=== PATIENT | female | born 1970 | race Caucasian/White ===

== ENCOUNTER 2018-02-12 22:12 | Emergency (ER) | payer OTHER ==
[2018-02-12 22:19] VITALS: BP 95/59; PULSE 62; BMI 22.4
--- NOTE | 2018-02-13 01:23 | PDOC ---
History of Present Illness - General Chief Complaint: Redness To Affected Area Stated Complaint: CELLULITIS Time Seen by Provider: 02/13/18 01:20 - History of Present Illness Initial Comments: 02/13/18 02:07 The patent is a 47 year old female with a history of cerebal palsy, seizures, pancreatitis who presents for evaluation of redness to the left eye. The patient is accompanied by her aid who assists in providing the history. They note a 1-2 day history of worsening redness to the area around the left eye prompting her presentation to the ED for further evaluation. The patient is non -verbal at baseline and the patient's aid does not note any other complaints. ROS is unobtainable due to the patient's baseline mental status. Past History - Past Medical History Allergies/Adverse Reactions: Allergies Allergy/AdvReac Type Severity Reaction Status Date / Time No Known Allergies Allergy Verified 02/18/16 13:28 Home Medications: Ambulatory Orders Acetic Acid 2% Otic Soln [Vosol 2% Ear Drops -] 3 drop OT HS 02/18/16 Baclofen 20 mg PO TID 02/18/16 Benzoyl Peroxide 5% Gel - 1 applic TP BID 02/18/16 Bisacodyl Suppository [Dulcolax Suppository -] 10 mg RC PRN 02/18/16 Cholecalciferol (Vitamin D3) [Vitamin D3 -] 400 unit GT BID 02/18/16 Cranberry Fruit Extract/Vit C [Azo Cranberry Softgel] 1 each PO DAILY 02/18/16 Diazepam [Valium] 2 mg PO TID 02/18/16 Enema Bag, Disposable [Enema Bag] 1 each RC PRN 02/18/16 Lactobacillus Acidophilus [Acidophilus] 2 tab PO DAILY 02/18/16 Magnesium Hydrox 2400MG/30Ml [Milk of Magnesia -] 15 ml PO DAILY 02/18/16 Nut.tx.imp.renal Fxn,Lac-Reduc [Nepro Carb Steady] 125 ml PO ASDIR 02/18/16 Nystatin/Triamcin [Nystatin-Triamcinolone Cream] 15 gm TP PRN 02/18/16 Ranitidine HCl [Zantac] 300 mg PO HS 02/18/16 predniSONE [Deltasone -] See Taper PO DAILY #14 tablet 02/23/16 Amoxicillin/Potassium Clav [Augmentin 875-125 Tablet] 1 each PEG BID #20 tablet 02/13/18 Sulfamethoxazole/Trimethoprim [Bactrim Ds -] 2 tab PEG BID #40 tablet 02/13/18 COPD: No GI Disorders: Yes (GERD, s/p fundoplication, g-tube, hx pancreatitis) Seizures: Yes (epilepsy) - Surgical History Abdominal Surgery: Yes (G-tube, fundoplication) Cholecystectomy: Yes GI Surgery: Yes (Ladi fundoplication) Orthopedic Surgery: Yes (femoral head resection, spinal fusion with instrumentation for scoliosis) - Immunization History TDAP Vaccination: Yes (last 09/23/04) Immunization Up to Date: Yes - Suicide/Smoking/Psychosocial Hx Smoking History: Never smoked Have you smoked in the past 12 months: No Hx Alcohol Use: No Drug/Substance Use Hx: No Substance Use Type: None Review of Systems - Review of Systems Able to Perform ROS?: No (Cerebral Palsy) *Physical Exam - Vital Signs Last Vital Signs Temp Pulse Resp BP Pulse Ox 62 18 95/59 L 94 L 02/12/18 22:14 02/12/18 22:14 02/12/18 22:14 02/12/18 22:14 - Physical Exam Comments: 02/13/18 02:11 General Appearance: Nourished. No Apparent Distress HEENT: EOMI, DEMETRIA. Erythema noted around the left eye. No Pharyngeal Erythema, Tonsillar Exudate, Tonsillar Erythema Neck: No Cervical Lymphadenopathy Respiratory/Chest: Lungs Clear, Normal Breath Sounds. No Crackles, Rales, Rhonchi, Wheezing Cardiovascular: Regular Rhythm, Regular Rate. No Murmur, Gallops, Rubs Gastrointestinal/Abdominal: Normal Bowel Sounds, Soft. Gtube in place. No Guarding, Rebound, Tenderness Musculoskeletal: No CVA Tenderness Extremity: Normal Capillary Refill Integumentary: Normal Color, Dry, Warm Neurologic: Alert, Normal Mood/Affect, Normal Response for baseline, Non- Verbal Moderate Sedation - Procedure Monitoring Vital Signs: Procedure Monitoring Vital Signs Temperature Pulse Rate 62 02/12/18 22:14 Respiratory Rate 18 02/12/18 22:14 Blood Pressure 95/59 L 02/12/18 22:14 O2 Sat by Pulse Oximetry (%) 94 L 02/12/18 22:14 Medical Decision Making - Medical Decision Making 02/13/18 02:12 The patent is a 47 year old female with a history of cerebal palsy, seizures, pancreatitis who presents for evaluation of redness to the left eye. Given the patient's history and physical exam, her symptoms are likely due to a pre- septal cellulitis and we have a low suspicion for an orbital cellulitis at this time. We will treat the patient with bactrim and augmentin and are comfortable discharging the patient home on bactrim and augmentin. We discussed the plan with the patient's aid who voiced understanding and is agreeable with the plan. *DC/Admit/Observation/Transfer Diagnosis at time of Disposition: Preseptal cellulitis of left eye - Discharge Dispostion Disposition: HOME Condition at time of disposition: Stable - Prescriptions Prescriptions: Amoxicillin/Potassium Clav [Augmentin 875-125 Tablet] 1 each PEG BID #20 tablet Sulfamethoxazole/Trimethoprim [Bactrim Ds -] 2 tab PEG BID #40 tablet - Referrals - Patient Instructions Printed Discharge Instructions: DI for Cellulitis -- Adult Additional Instructions: Please return to the ER if you experience concerning or worsening symptoms including worsening difficulty breathing, weakness, or chest pain, fevers, or worsening symptoms.. We have sent a prescription for augmentin and Bactrim to your pharmacy that should be taken as directed for 10 days. Please call to schedule a follow up appointment with your primary care provider within 2-3 days to discuss your ER visit and further management of your symptoms. - Post Discharge Activity
--- NOTE | 2018-02-13 01:48 | PDOC ---
Attending Attestation - Resident Resident Name: Rob Wright - ED Attending Attestation I have performed the following: I have examined & evaluated the patient, The case was reviewed & discussed with the resident, I agree w/resident's findings & plan, Exceptions are as noted - HPI HPI: 02/13/18 01:45 47 F with h/o G-tube, pancreatitis, seizure, fundoplication, femoral head resection, spinal fusion, and cerebral palsy presenting to ED with redness around her L eye x 2 days. Pt comes from [place], is unable to contribute history. Changer Fixer states that pt has not had fevers. No drainage or crusting around her eye. No other symptoms. - Physicial Exam PE: 02/13/18 01:46 "GENERAL: Awake, alert EYES: + erythema to upper and lower eyelid extending to eyebrow, EOMI, PERRLA, clear conjunctiva, no drainage or crusting NOSE: Nose is clear without discharge EARS: EACs and TMs are normal THROAT: Moist mucosa, oropharynx is clear without erythema or exudates, NECK: Supple, no adenopathy, no meningismus CHEST: Lungs are clear without crackles, or wheezes HEART: Regular rhythm, normal S1 and S2, no murmurs ABDOMEN: Soft and nontender with normal bowel sounds, no organomegaly, no mass, no rebound, no guarding EXTREMITIES: Normal SKIN: Unremarkable, no rash, no swelling, no bruising, no signs of injury - Medical Decision Making 02/13/18 01:47 47 F with preseptal cellulitis. No evidence of orbital cellulitis on exam (no proptosis, no conjunctivitis, normal EOM). - Bactrim + augmentin Pt is well appearing, with normal vitals. Clinically stable for DC at this time. I discussed the physical exam findings, ancillary test results and final diagnoses with the patients supply analyst. I answered all of their questions. The supply analyst was satisfied with the care received and felt comfortable with the discharge plan and treatment plan. They agree to follow up with the primary care physician within 24-72 hours.
[2018-02-13] MEDS ORDERED: AMOX TR/POT CLAV 875MG/125MG TABLETS (FP) PO ONE (02:17)
[2018-02-13] MEDS ORDERED: SULFAMETHOXAZOLE/TRIMETHOPRIM 800MG/160MG D.S. TABLET PO ONE (02:17)
[2018-02-13] MEDS ORDERED: AMOX TR/POT CLAV 875MG/125MG TABLETS (FP) ONE (02:25)
[2018-02-13] MEDS ORDERED: SULFAMETHOXAZOLE/TRIMETHOPRIM 800MG/160MG D.S. TABLET ONE (02:25)
== END 2018-02-13 02:52 | disposition home or self-care (01) ==
LOC: JER 22:12
DX: H05.012 Cellulitis of left orbit (principal)
CPT/HCPCS: 99281-25

== ENCOUNTER 2018-04-15 06:00 | Inpatient (IN) | payer OTHER ==
[2018-04-15] MEDS ORDERED: VANCOMYCIN 1 GM in D5W (PRE-DOCKED) 1,000 MG/250 ML IVPB ONE (06:09)
[2018-04-15] MEDS ORDERED: PIPERACILLIN/TAZOB 3.375 GM 3.375 GM in DEXTROSE 5%-WATER - 50 ML IVPB ONE (06:09)
[2018-04-15] MEDS ORDERED: ACETAMINOPHEN 1000 MG/100 ML VIAL (NON FORMULARY) IVPB ONE (06:09)
[2018-04-15] MEDS ORDERED: SODIUM CHLORIDE 1,000 ML IV STA (06:11)
--- NOTE | 2018-04-15 06:34 | PDOC ---
Attending Attestation - Resident Resident Name: Victor M Mahmood - ED Attending Attestation I have performed the following: I have examined & evaluated the patient, The case was reviewed & discussed with the resident, I agree w/resident's findings & plan - HPI HPI: 04/15/18 06:33 Pt comes with sepsis. From [facility]. 04/15/18 06:58 Febrile, tachy; coarse breath sounds on left>> right - Physicial Exam PE: 04/15/18 06:58 Agree [facility] resident exam - Medical Decision Making 04/15/18 06:58 Septic workup; hydration, ofirmev; abx as required. 04/15/18 06:59 Pt will be signed out to the day team
--- NOTE | 2018-04-15 06:47 | PDOC ---
History of Present Illness - General Chief Complaint: SIRS, Suspected/Possible Stated Complaint: S.O.B. Time Seen by Provider: 04/15/18 06:08 History Source: EMS, Long-Term Records Exam Limitations: Clinical Condition - History of Present Illness Initial Comments: 04/15/18 06:41 Patient is 47F with history of profound mental disability, seizures here today after being found to have louder lung sounds, febrile (101) hypoxic (83%) tachycardic (120s) and hypotensive (90/40) during morning evaluation. EMS reports BPs in 100s/70s in field satting in low 90s on room air, tachycardic. Patient is unable to contribute to history. Past History - Past Medical History Allergies/Adverse Reactions: Allergies Allergy/AdvReac Type Severity Reaction Status Date / Time No Known Allergies Allergy Verified 04/15/18 06:14 Home Medications: Ambulatory Orders Acetic Acid 2% Otic Soln [Vosol 2% Ear Drops -] 3 drop OT HS 02/18/16 Baclofen 20 mg PO TID 02/18/16 Benzoyl Peroxide 5% Gel - 1 applic TP BID 02/18/16 Bisacodyl Suppository [Dulcolax Suppository -] 10 mg RC PRN 02/18/16 Cholecalciferol (Vitamin D3) [Vitamin D3 -] 400 unit GT BID 02/18/16 Cranberry Fruit Extract/Vit C [Azo Cranberry Softgel] 1 each PO DAILY 02/18/16 Diazepam [Valium] 2 mg PO TID 02/18/16 Enema Bag, Disposable [Enema Bag] 1 each RC PRN 02/18/16 Lactobacillus Acidophilus [Acidophilus] 2 tab PO DAILY 02/18/16 Magnesium Hydrox 2400MG/30Ml [Milk of Magnesia -] 15 ml PO DAILY 02/18/16 Nut.tx.imp.renal Fxn,Lac-Reduc [Nepro Carb Steady] 125 ml PO ASDIR 02/18/16 Nystatin/Triamcin [Nystatin-Triamcinolone Cream] 15 gm TP PRN 02/18/16 Ranitidine HCl [Zantac] 300 mg PO HS 02/18/16 predniSONE [Deltasone -] See Taper PO DAILY #14 tablet 02/23/16 Amoxicillin/Potassium Clav [Augmentin 875-125 Tablet] 1 each PEG BID #20 tablet 02/13/18 Sulfamethoxazole/Trimethoprim [Bactrim Ds -] 2 tab PEG BID #40 tablet 02/13/18 COPD: No GI Disorders: Yes (GERD, s/p fundoplication, g-tube, hx pancreatitis) Seizures: Yes (epilepsy) - Surgical History Abdominal Surgery: Yes (G-tube, fundoplication) Cholecystectomy: Yes GI Surgery: Yes (Ladi fundoplication) Orthopedic Surgery: Yes (femoral head resection, spinal fusion with instrumentation for scoliosis) - Immunization History TDAP Vaccination: Yes (last 09/23/04) Immunization Up to Date: Yes - Suicide/Smoking/Psychosocial Hx Smoking History: Never smoked Have you smoked in the past 12 months: No Hx Alcohol Use: No Drug/Substance Use Hx: No Substance Use Type: None Review of Systems - Review of Systems Able to Perform ROS?: No (2/2 clinical condition) *Physical Exam - Vital Signs Last Vital Signs Temp Pulse Resp BP Pulse Ox 100.8 F H 120 H 22 H 102/78 96 04/15/18 06:12 04/15/18 06:12 04/15/18 06:12 04/15/18 06:12 04/15/18 06:12 - Physical Exam Comments: 04/15/18 06:47 GENERAL: Awake, alert, responds to voice, eyes open spontaneously HEAD: No signs of trauma, EYES: PERRLA, EOMI, sclera anicteric, conjunctiva clear ENT: Auricles normal inspection, hearing grossly normal, nares patent, oropharynx clear without exudates. Moist mucosa. Vesciles on L ear NECK: Supple, no lymphadenopathy, JVD, or masses LUNGS: Tachypneic, coarse breath sounds R>L HEART: Tachycardic, normal S1 and S2, no murmurs, rubs or gallops, peripheral pulses normal and equal bilaterally. ABDOMEN: Soft, nontender, normoactive bowel sounds. No guarding, no rebound. No masses EXTREMITIES: Multiple contractures. No clubbing or cyanosis. NEUROLOGICAL: Cranial nerves II through XII grossly intact. No focal sensorimotor deficits SKIN: Warm, Dry, normal turgor, no rashes or lesions noted. Moderate Sedation - Procedure Monitoring Vital Signs: Procedure Monitoring Vital Signs Temperature 100.8 F H 04/15/18 06:12 Pulse Rate 120 H 04/15/18 06:12 Respiratory Rate 22 H 04/15/18 06:12 Blood Pressure 102/78 04/15/18 06:12 O2 Sat by Pulse Oximetry (%) 96 04/15/18 06:12 ED Treatment Course - LABORATORY CBC & Chemistry Diagram: 04/15/18 06:25 04/15/18 06:25 - RADIOLOGY Radiology Studies Ordered: Category Date Time Status CHEST X-RAY PORTABLE* [RAD] Stat Radiology 04/15/18 06:08 Ordered Medical Decision Making - Medical Decision Making 04/15/18 06:49 Patient is 47F here today in respiratory distress, likely secondary to pneumonia. Patient has multiple risk factors for aspiration, also lives in medical facility. Septic workup initiated. Covered with vanc/zosyn. 1L fluids, tylenol given. Patient currently protecting airway. Will require admission. Will sign out to day team. *DC/Admit/Observation/Transfer Diagnosis at time of Disposition: Respiratory distress Left lower lobe pneumonia Qualifiers: Pneumonia type: due to unspecified organism Qualified Code(s): J18.1 - Lobar pneumonia, unspecified organism - Discharge Dispostion Condition at time of disposition: Stable - Referrals - Patient Instructions - Post Discharge Activity
[2018-04-15 06:48] LABS: BASO % 0.7 % (0-2.0); EOS % 0.9 % (0-4.5); HEMATOCRIT 42.6 % (32.4-45.2); HEMOGLOBIN 14.5 GM/dL (10.7-15.3); LYMPH % 9.7 % (8-40); MCH 29.7 pg (25.7-33.7); MCHC 34.1 g/dl (32.0-36.0); MEAN CELL VOLUME 87.1 fl (80-96); MEAN PLT VOLUME 8.6 fl (7.5-11.1); MONO % 4.8 % (3.8-10.2); NEUT % 83.9 % (42.8-82.8); PLATELET COUNT 189 K/MM3 (134-434); RBC 4.89 M/mm3 (3.60-5.2); RDW 15.6 % (11.6-15.6); WHITE BLOOD COUNT 7.6 K/mm3 (4.0-10.0)
[2018-04-15] MEDS ORDERED: ALBUTEROL SO4 2.5/IPRATROPIUM 0.5 INH SOL 3 ML VIAL.NEB. NEB ONE ×2 (06:48→06:51)
[2018-04-15] MEDS ORDERED: ACETAMINOPHEN INJECTION 100 ML IVPB ONE (06:51)
[2018-04-15 06:52] LABS: VENOUS PC02 38.6 mmHg (38-52); VENOUS PH 7.44 (7.32-7.42); VENOUS PO2 89.7 mmHg (28-48)
[2018-04-15] MEDS ORDERED: VANCOMYCIN 1 GRAM (PRE-DOCKED) 1,000 MG/250 ML BAG IVPB ONE (06:52)
[2018-04-15] MEDS ORDERED: PIPERACILLIN/TAZOB 3.375 GM 3.375 GM/50 ML BAG IVPB ONE (06:52)
[2018-04-15 07:04] LABS: INR 1.03 (0.83-1.09); PROTHROMBIN TIME (PATIENT) 12.2 SEC (9.7-13.0)
[2018-04-15 07:07] LABS: ACTIVATED PTT 27.5 SECONDS (25.2-36.5)
--- NOTE | 2018-04-15 07:15 | PDOC ---
*Physical Exam - Vital Signs Last Vital Signs Temp Pulse Resp BP Pulse Ox 100.8 F H 120 H 22 H 102/78 96 04/15/18 06:12 04/15/18 06:12 04/15/18 06:12 04/15/18 06:12 04/15/18 06:12 ED Treatment Course - LABORATORY CBC & Chemistry Diagram: 04/15/18 06:25 04/15/18 06:25 - ADDITIONAL ORDERS Additional order review: Laboratory Results 04/15/18 04/15/18 04/15/18 06:25 06:25 06:25 PT with INR 12.20 INR 1.03 PTT (Actin FS) 27.5 VBG pH 7.44 H POC VBG pCO2 38.6 POC VBG pO2 89.7 H D Mixed VBG HCO3 25.8 H Troponin I Cancelled 04/15/18 06:25 RBC 4.89 MCV 87.1 MCHC 34.1 RDW 15.6 MPV 8.6 D Neutrophils % 83.9 H Lymphocytes % 9.7 D Monocytes % 4.8 Eosinophils % 0.9 Basophils % 0.7 D Medical Decision Making - Medical Decision Making Pt was signed out to me by resident Dr. Mahmood, who explained the presentation, ED course, any pending results, and needed interventions. Pending results include CMP, UA, chest x-ray. Pt is currently stable and is lying comfortably. 04/15/18 07:14 ECG: flipped T waves (present on prior ECG 2015). No ST segment changes, NSR. 04/15/18 07:41 Pt receiving fluids, current BP 108/70, saturating 98% on mask receiving duoneb. 04/15/18 07:47 [id number] RAD/CHEST X-RAY PORTABLE* AP portable chest: Shortness of breath. Sepsis. A single AP view of the chest has been submitted. Since the prior study of 2015, again noted is a scoliosis with convexity to the right, spinal support hardware, deformed ribs and large heart with unfolded aorta. There is some atelectasis or infiltrate with fluid at the left base. Tubing projects over the left base and left upper quadrant. Correlation recommended. 04/15/18 09:09 Repeat temperature rectal 97.4 Lab states unable to find urine sample -- will reorder. Paging hospitalist team for admission (microblog sent at 9:20 am). 04/15/18 09:13 Hospitalist team nudged, no call back yet. 04/15/18 10:10 UA showed trace leuk esterase, micro pending. More likely infection site is lungs considering chest infiltrate and diminished breath sounds. 04/15/18 10:24 Pt admitted to hospitalist team. Decision to admit order updated. Pt stable. 04/15/18 11:18 *DC/Admit/Observation/Transfer Diagnosis at time of Disposition: Respiratory distress Left lower lobe pneumonia Qualifiers: Pneumonia type: due to unspecified organism Qualified Code(s): J18.1 - Lobar pneumonia, unspecified organism - Discharge Dispostion Condition at time of disposition: Stable Decision to Admit order: Yes - Referrals Referrals: Krishna Treviño Jr [Primary Care Provider] - - Patient Instructions - Post Discharge Activity
[2018-04-15 07:25] LABS: ALBUMIN 2.9 g/dl (3.4-5.0); ALK PHOS 154 U/L (45-117); ANION GAP 9 MMOL/L (8-16); BILIRUBIN,TOTAL 0.7 mg/dL (0.2-1); BLOOD UREA NITROGEN 23 mg/dL (7-18); CALCIUM 9.1 mg/dL (8.5-10.1); CHLORIDE 105 mmol/L (98-107); CO2 27 mmol/L (21-32); CREATININE 0.5 mg/dL (0.55-1.3); GLUCOSE,RANDOM 125 mg/dL (74-106); POTASSIUM 4.2 mmol/L (3.5-5.1); SGOT/AST 49 U/L (15-37); SGPT/ALT 39 U/L (13-61); SODIUM 141 mmol/L (136-145); TOT PROT 6.3 g/dl (6.4-8.2)
[2018-04-15 10:13] LABS: URINE APPEARANCE SLCLOUDY; URINE BILIRUBIN NEGATIVE (<2.0 mg/dL); URINE COLOR YELLOW; URINE GLUCOSE (UA) NEGATIVE (NEGATIVE); URINE KETONE NEGATIVE (NEGATIVE); URINE LEUK ESTERASE TRACE (NEGATIVE); URINE NITRITE NEGATIVE (NEGATIVE); URINE PROTEIN NEGATIVE (NEGATIVE); URINE UROBILINOGEN NEGATIVE mg/dL (0.2-1.0)
[2018-04-15 10:38] LABS: EPI CELLS RARE /HPF (FEW); URINE MUCUS RARE
[2018-04-15] MEDS: diazePAM 2 MG TABLET PO SCH ×2 (11:27→14:50)
[2018-04-15] MEDS ORDERED: NYSTATIN/TRIAMCINOLONE TOPICAL CREAM 15 GM TUBE TP PRN (12:00)
[2018-04-15] MEDS ORDERED: PATIENT'S OWN MEDICATION (NON-FORMULARY) (Nut.Tx.Imp.Renal Fxn,Lac-Reduc [Nepro Carb Stead PO SCH (12:00)
[2018-04-15] MEDS ORDERED: SODIUM CHLORIDE 1,000 ML IV SCH (12:00)
--- NOTE | 2018-04-15 12:11 | HP ---
CHIEF COMPLAINT: hypoxia and trouble breathing PCP: HISTORY OF PRESENT ILLNESS: 47 y/o female from [place] with PMH of seizures, mental disability, GERD, presented to the ED after the nurses found her to be tahcyacrdic in the 120's, hypotensive, hypoxic (saturation in the 80's) febrile to 101, with louder lung sounds during their morning rounds so they sent her to the ER. Patient is unable to contribute any history as she in non-verbal. ER course was notable for: (1) T100.8, HR 120, resp 22, BP 102/78 (2) give 1L nS, vancomycin, zozyn (3)CXRAY shows atelectasis or infiltrate at L base Recent Travel: PAST MEDICAL HISTORY: see above PAST SURGICAL HISTORY: femoral head resection; scoliosis surgery Social History: unknown Smoking: Alcohol: Drugs: Family History: unknown Allergies No Known Allergies Allergy (Verified 04/15/18 06:14) HOME MEDICATIONS: Home Medications Medication Instructions Recorded Acetic Acid 2% Otic Soln [Vosol 2% 3 drop OT HS 02/18/16 Ear Drops -] Baclofen 20 mg PO TID 02/18/16 Benzoyl Peroxide 5% Gel - 1 applic TP BID 02/18/16 Bisacodyl Suppository [Dulcolax 10 mg RC PRN 02/18/16 Suppository -] Cholecalciferol (Vitamin D3) 400 unit GT BID 02/18/16 [Vitamin D3 -] Cranberry Fruit Extract/Vit C [Azo 1 each PO DAILY 02/18/16 Cranberry Softgel] Diazepam [Valium] 2 mg PO TID 02/18/16 Enema Bag, Disposable [Enema Bag] 1 each RC PRN 02/18/16 Lactobacillus Acidophilus 2 tab PO DAILY 02/18/16 [Acidophilus] Magnesium Hydrox 2400MG/30Ml [Milk 15 ml PO DAILY 02/18/16 of Magnesia -] Nut.tx.imp.renal Fxn,Lac-Reduc 125 ml PO ASDIR 02/18/16 [Nepro Carb Steady] Nystatin/Triamcin 15 gm TP PRN 02/18/16 [Nystatin-Triamcinolone Cream] Ranitidine HCl [Zantac] 300 mg PO HS 02/18/16 predniSONE [Deltasone -] See Taper PO DAILY #14 tablet 02/23/16 Amoxicillin/Potassium Clav 1 each PEG BID #20 tablet 02/13/18 [Augmentin 875-125 Tablet] Sulfamethoxazole/Trimethoprim 2 tab PEG BID #40 tablet 02/13/18 [Bactrim Ds -] REVIEW OF SYSTEMS unable to obtain as patient is non-verbal CONSTITUTIONAL: Absent: fever, chills, diaphoresis, generalized weakness, malaise, loss of appetite, weight change HEENT: Absent: rhinorrhea, nasal congestion, throat pain, throat swelling, difficulty swallowing, mouth swelling, ear pain, eye pain, visual changes CARDIOVASCULAR: Absent: chest pain, syncope, palpitations, irregular heart rate, lightheadedness , peripheral edema RESPIRATORY: Absent: cough, shortness of breath, dyspnea with exertion, orthopnea, wheezing, stridor, hemoptysis GASTROINTESTINAL: Absent: abdominal pain, abdominal distension, nausea, vomiting, diarrhea, constipation, melena, hematochezia GENITOURINARY: Absent: dysuria, frequency, urgency, hesitancy, hematuria, flank pain, genital pain MUSCULOSKELETAL: Absent: myalgia, arthralgia, joint swelling, back pain, neck pain SKIN: Absent: rash, itching, pallor HEMATOLOGIC/IMMUNOLOGIC: Absent: easy bleeding, easy bruising, lymphadenopathy, frequent infections ENDOCRINE: Absent: unexplained weight gain, unexplained weight loss, heat intolerance, cold intolerance NEUROLOGIC: Absent: headache, focal weakness or paresthesias, dizziness, unsteady gait, seizure, mental status changes, bladder or bowel incontinence PSYCHIATRIC: Absent: anxiety, depression, suicidal or homicidal ideation, hallucinations. PHYSICAL EXAMINATION Vital Signs - 24 hr 04/15/18 04/15/18 04/15/18 06:12 07:10 07:26 Temperature 100.8 F H Pulse Rate 120 H Pulse Rate [ 102 H Apical] Respiratory 22 H 23 H 22 H Rate Blood Pressure 102/78 Blood Pressure 96/68 [Right Arm] O2 Sat by Pulse 96 97 96 Oximetry (%) 04/15/18 04/15/18 04/15/18 07:46 09:31 10:24 Temperature 97.6 F Pulse Rate Pulse Rate [ 99 H 75 Apical] Respiratory 23 H 18 Rate Blood Pressure Blood Pressure 108/70 97/52 L [Right Arm] O2 Sat by Pulse 97 98 Oximetry (%) GENERAL: Awake, alert, , in no acute distress EYES: EOMI; PEERLA; no slceral icterus NECK:no JVD; no lympahdenopathy LUNGS: coarse breath sounds B/L; slight wheezing auscultated HEART: Regular rate and rhythm, normal S1 and S2 without murmur, rub or gallop. ABDOMEN: Soft, nontender, not distended, normoactive bowel sounds, no guarding, no rebound, no masses. No hepatomegaly or splenomegaly. MUSCULOSKELETAL: Normal range of motion at all joints. No bony deformities or tenderness. No CVA tenderness. EXTREMITIES: contracted; warm; well-perfused; no clubbing/cyanosis or edema NEUROLOGICAL: Cranial nerves II-XII intact. non-verbal PSYCHIATRIC: Cooperative. Good eye contact. Appropriate mood and affect. SKIN: Warm, dry, normal turgor, no rashes or lesions noted, normal capillary refill. Laboratory Results - last 24 hr 04/15/18 04/15/18 04/15/18 06:25 06:25 06:25 WBC 7.6 RBC 4.89 Hgb 14.5 Hct 42.6 D MCV 87.1 MCH 29.7 MCHC 34.1 RDW 15.6 Plt Count 189 D MPV 8.6 D Absolute Neuts (auto) 6.4 Neutrophils % 83.9 H Lymphocytes % 9.7 D Monocytes % 4.8 Eosinophils % 0.9 Basophils % 0.7 D Nucleated RBC % 0 PT with INR 12.20 INR 1.03 PTT (Actin FS) 27.5 VBG pH POC VBG pCO2 POC VBG pO2 Mixed VBG HCO3 Sodium Potassium Chloride Carbon Dioxide Anion Gap BUN Creatinine Creat Clearance w eGFR Random Glucose Lactic Acid Calcium Total Bilirubin AST ALT Alkaline Phosphatase Troponin I Total Protein Albumin Serum , Qual Negative Urine Color Urine Appearance Urine pH Ur Specific [place] Urine Protein Urine Glucose (UA) Urine Ketones Urine Blood Urine Nitrite Urine Bilirubin Urine Urobilinogen Ur Leukocyte Esterase Urine WBC (Auto) Urine RBC (Auto) Ur Epithelial Cells Urine Mucus Influenza A (Rapid) Influenza B (Rapid) 04/15/18 04/15/18 04/15/18 06:25 06:25 06:25 WBC RBC Hgb Hct MCV MCH MCHC RDW Plt Count MPV Absolute Neuts (auto) Neutrophils % Lymphocytes % Monocytes % Eosinophils % Basophils % Nucleated RBC % PT with INR INR PTT (Actin FS) VBG pH 7.44 H POC VBG pCO2 38.6 POC VBG pO2 89.7 H D Mixed VBG HCO3 25.8 H Sodium 141 Potassium 4.2 Chloride 105 Carbon Dioxide 27 Anion Gap 9 BUN 23 H Creatinine 0.5 L Creat Clearance w eGFR > 60 Random Glucose 125 H Lactic Acid 1.3 Calcium 9.1 Total Bilirubin 0.7 AST 49 H ALT 39 Alkaline Phosphatase 154 H Troponin I < 0.02 Total Protein 6.3 L Albumin 2.9 L Serum , Qual Urine Color Urine Appearance Urine pH Ur Specific [place] Urine Protein Urine Glucose (UA) Urine Ketones Urine Blood Urine Nitrite Urine Bilirubin Urine Urobilinogen Ur Leukocyte Esterase Urine WBC (Auto) Urine RBC (Auto) Ur Epithelial Cells Urine Mucus Influenza A (Rapid) Influenza B (Rapid) 04/15/18 04/15/18 04/15/18 06:25 06:25 10:09 WBC RBC Hgb Hct MCV MCH MCHC RDW Plt Count MPV Absolute Neuts (auto) Neutrophils % Lymphocytes % Monocytes % Eosinophils % Basophils % Nucleated RBC % PT with INR INR PTT (Actin FS) VBG pH POC VBG pCO2 POC VBG pO2 Mixed VBG HCO3 Sodium Potassium Chloride Carbon Dioxide Anion Gap BUN Creatinine Creat Clearance w eGFR Random Glucose Lactic Acid Calcium Total Bilirubin AST ALT Alkaline Phosphatase Troponin I Cancelled Total Protein Albumin Serum , Qual Urine Color Yellow Urine Appearance Slcloudy Urine pH 7.0 Ur Specific [place] 1.021 Urine Protein Negative Urine Glucose (UA) Negative Urine Ketones Negative Urine Blood Negative Urine Nitrite Negative Urine Bilirubin Negative Urine Urobilinogen Negative Ur Leukocyte Esterase Trace Urine WBC (Auto) 5 Urine RBC (Auto) 1 Ur Epithelial Cells Rare Urine Mucus Rare Influenza A (Rapid) Negative Influenza B (Rapid) Negative ASSESSMENT/PLAN: 47 y/o female with PMH of seziures, mental disability, GERD presented to the ED from [facility] with trouble breathing and abnormal vital signs #Sepsis 2/2 pneumonia CXRAY shows atelectasis or infiltrate at left lung base -f/u blood cx -f/u urine cx -influenza negative -RSV pending -MSRA nares pending -urine legionella and pneumonia pending -c/w zosyn -Dr. Romero consulted -NS @83mls/hr -monitor hemodynamics -aspiration precautions; NPO for now -tylenol PRN for fevers #Seizure disorder -c/w diazepam 2mg TID -c/w Baclofen 20mg TID #GERD -c/w home dose of ranitidine F/E/N NS @83mls/hr monitor electrolytes NPO for now given risk for aspiration DVT PPX: lovenox 40sq Visit type - Emergency Visit Emergency Visit: Yes ED Registration Date: 04/15/18 Care time: The patient presented to the Emergency Department on the above date and was hospitalized for further evaluation of their emergent condition. - New Patient This patient is new to me today: Yes Date on this admission: 04/15/18 - Critical Care Critical Care patient: No
[2018-04-15] MEDS ORDERED: ACETAMINOPHEN 325 MG TABLET (FP) PO PRN (12:26)
--- NOTE | 2018-04-15 12:45 | EKG ---
Test Reason : Blood Pressure : / mmHG Vent. Rate : 097 BPM Atrial Rate : 097 BPM P-R Int : 144 ms QRS Dur : 068 ms QT Int : 330 ms P-R-T Axes : 035 042 -21 degrees QTc Int : 419 ms POOR DATA QUALITY, INTERPRETATION MAY BE ADVERSELY AFFECTED NORMAL SINUS RHYTHM T WAVE ABNORMALITY, CONSIDER INFERIOR ISCHEMIA T WAVE ABNORMALITY, CONSIDER ANTERIOR ISCHEMIA ABNORMAL ECG WHEN COMPARED WITH ECG OF 18-FEB-2016 13:47, NO SIGNIFICANT CHANGE WAS FOUND Confirmed by SAMMY RIVERA MD ([id number]) on 04/15/2018 12:45:30 PM Referred By: Confirmed By:SAMMY RIVERA MD
[2018-04-15 13:31] VITALS: BMI 22.0
--- NOTE | 2018-04-15 13:37 | PN ---
Progress Note (short form) - Note Progress Note: ID consult dictated imp/reccd 47 yo female with severe developmental disabilities, seizures, GERD admitted from [facility] with acute onset of fever, hypoxia, tachycardia this am cannot r/o LLL infiltrate received vanco/zosyn in ED continue zosyn mrsa screen nares urinary antigens rsv antigen f/u blood cultures Problem List - Problems (1) Left lower lobe pneumonia Code(s): J18.1 - LOBAR PNEUMONIA, UNSPECIFIED ORGANISM Qualifiers: Pneumonia type: due to unspecified organism Qualified Code(s): J18.1 - Lobar pneumonia, unspecified organism (2) Profound intellectual disability Code(s): F73 - PROFOUND INTELLECTUAL DISABILITIES (3) Congenital quadriplegia Code(s): G80.8 - OTHER CEREBRAL PALSY (4) Seizures Code(s): R56.9 - UNSPECIFIED CONVULSIONS (5) GERD (gastroesophageal reflux disease) Code(s): K21.9 - GASTRO-ESOPHAGEAL REFLUX DISEASE WITHOUT ESOPHAGITIS
[2018-04-15] MEDS: BACLOFEN 10 MG TABLET (FP) PO SCH ×2 (14:50→21:56)
--- NOTE | 2018-04-15 14:54 | PN ---
Teaching Attending Note Name of Resident: Corinna Tom ATTENDING PHYSICIAN STATEMENT I saw and evaluated the patient. I reviewed the resident's note and discussed the case with the resident. I agree with the resident's findings and plan as documented. SUBJECTIVE: Patient is a 47 y/o female from [place] with PMH of seizures, mental disability , GERD, presented to the ED with sepsis, with hypoxia. Patient is non-verbal. OBJECTIVE: Vital Signs Temperature 97.2 F L 04/15/18 13:06 Pulse Rate 73 04/15/18 13:06 Respiratory Rate 24 H 04/15/18 13:06 Blood Pressure 101/56 L 04/15/18 13:06 O2 Sat by Pulse Oximetry (%) 100 04/15/18 13:06 GENERAL: Awake, alert, , in no acute distress EYES: EOMI; PEERLA; no slceral icterus NECK:no JVD; no lympahdenopathy LUNGS: coarse breath sounds B/L; slight wheezing auscultated HEART: Regular rate and rhythm, normal S1 and S2 without murmur, rub or gallop. ABDOMEN: Soft, nontender, not distended, normoactive bowel sounds, no guarding, no rebound, no masses. No hepatomegaly or splenomegaly. MUSCULOSKELETAL: Normal range of motion at all joints. No bony deformities or tenderness. No CVA tenderness. EXTREMITIES: contracted; warm; well-perfused; no clubbing/cyanosis or edema NEUROLOGICAL: Cranial nerves II-XII intact. non-verbal PSYCHIATRIC: Cooperative. Good eye contact. Appropriate mood and affect. SKIN: Warm, dry, normal turgor, no rashes or lesions noted, normal capillary refill. CBCD WBC 7.6 K/mm3 (4.0-10.0) 04/15/18 06:25 RBC 4.89 M/mm3 (3.60-5.2) 04/15/18 06:25 Hgb 14.5 GM/dL (10.7-15.3) 04/15/18 06:25 Hct 42.6 % (32.4-45.2) D 04/15/18 06:25 MCV 87.1 fl (80-96) 04/15/18 06:25 MCHC 34.1 g/dl (32.0-36.0) 04/15/18 06:25 RDW 15.6 % (11.6-15.6) 04/15/18 06:25 Plt Count 189 K/MM3 (134-434) D 04/15/18 06:25 MPV 8.6 fl (7.5-11.1) D 04/15/18 06:25 CMP Sodium 141 mmol/L (136-145) 04/15/18 06:25 Potassium 4.2 mmol/L (3.5-5.1) 04/15/18 06:25 Chloride 105 mmol/L (98-107) 04/15/18 06:25 Carbon Dioxide 27 mmol/L (21-32) 04/15/18 06:25 Anion Gap 9 MMOL/L (8-16) 04/15/18 06:25 BUN 23 mg/dL (7-18) H 04/15/18 06:25 Creatinine 0.5 mg/dL (0.55-1.3) L 04/15/18 06:25 Creat Clearance w eGFR > 60 (>60) 04/15/18 06:25 Random Glucose 125 mg/dL (74-106) H 04/15/18 06:25 Calcium 9.1 mg/dL (8.5-10.1) 04/15/18 06:25 Total Bilirubin 0.7 mg/dL (0.2-1) 04/15/18 06:25 AST 49 U/L (15-37) H 04/15/18 06:25 ALT 39 U/L (13-61) 04/15/18 06:25 Alkaline Phosphatase 154 U/L (45-117) H 04/15/18 06:25 Total Protein 6.3 g/dl (6.4-8.2) L 04/15/18 06:25 Albumin 2.9 g/dl (3.4-5.0) L 04/15/18 06:25 CARDIAC ENZYMES Troponin I < 0.02 ng/ml (0.00-0.05) 04/15/18 06:25 Current Medications Generic Name Dose Route Start Last Admin Trade Name Freq PRN Reason Stop Dose Admin Acetaminophen 650 mg 04/15/18 12:26 Tylenol - PO Q6H PRN Fever Or Pain Acetic Acid 3 drop 04/15/18 22:00 Vosol 2% Ear Drops - AD HS STEPH Al Hydroxide/Mg Hydroxide 15 ml 04/16/18 10:00 Mylanta Oral Suspension - PO DAILY [facility] Baclofen 20 mg 04/15/18 14:00 Lioresal - PO TID [facility] Cholecalciferol 400 unit 04/15/18 22:00 Vitamin D3 Oral Solution - GT BID [facility] Diazepam 2 mg 04/15/18 14:00 Valium - PO TID [facility] Enoxaparin Sodium 40 mg 04/16/18 10:00 Lovenox - SQ DAILY [facility] Sodium Chloride 1,000 mls @ 82 mls/hr 04/15/18 12:03 Normal Saline - IV ASDIR [facility] Piperacillin Sod/Tazobactam 50 mls @ 100 mls/hr 04/15/18 15:00 Sod 3.375 gm/ Dextrose IVPB Q6H-IV [facility] Protocol Nystatin/Triamcinolone Acetonide 15 applic 04/15/18 12:00 Mycolog Ii Cream - TP DAILY PRN 0 Ranitidine HCl 300 mg 04/15/18 22:00 Zantac - PO [facility] Home Medications Medication Instructions Recorded Acetic Acid 2% Otic Soln [Vosol 2% 3 drop OT HS 02/18/16 Ear Drops -] Baclofen 20 mg PO TID 02/18/16 Benzoyl Peroxide 5% Gel - 1 applic TP BID 02/18/16 Bisacodyl Suppository [Dulcolax 10 mg RC PRN 02/18/16 Suppository -] Cholecalciferol (Vitamin D3) 400 unit GT BID 02/18/16 [Vitamin D3 -] Cranberry Fruit Extract/Vit C [Azo 1 each PO DAILY 02/18/16 Cranberry Softgel] Diazepam [Valium] 2 mg PO TID 02/18/16 Enema Bag, Disposable [Enema Bag] 1 each RC PRN 02/18/16 Lactobacillus Acidophilus 2 tab PO DAILY 02/18/16 [Acidophilus] Magnesium Hydrox 2400MG/30Ml [Milk 15 ml PO DAILY 02/18/16 of Magnesia -] Nut.tx.imp.renal Fxn,Lac-Reduc 125 ml PO ASDIR 02/18/16 [Nepro Carb Steady] Nystatin/Triamcin 15 gm TP PRN 02/18/16 [Nystatin-Triamcinolone Cream] Ranitidine HCl [Zantac] 300 mg PO HS 02/18/16 predniSONE [Deltasone -] See Taper PO DAILY #14 tablet 02/23/16 Amoxicillin/Potassium Clav 1 each PEG BID #20 tablet 02/13/18 [Augmentin 875-125 Tablet] Sulfamethoxazole/Trimethoprim 2 tab PEG BID #40 tablet 02/13/18 [Bactrim Ds -] CXR: shows atelectasis / infiltrate at left lung base ASSESSMENT AND PLAN: Patient is a 47yo female with PMHx of seziures, mental disability, GERD presented to the ED from [facility] with difficulty breathing and was found to have pneumonia/sepsis. #Sepsis due to having pneumonia: on Zosyn since patient is from [facility], ID on the case, shipman culture is pending. #Seizure disorder: continue diazepam 2mg TID and Baclofen 20mg TID #GERD continue ranitidine DVT PPX: lovenox 40sq
[2018-04-15] MEDS ORDERED: PIPERACILLIN/TAZOBACTAM 3.375 GM VIAL IVPB ONE ×2 (14:57→21:12)
[2018-04-15] MEDS ORDERED: DEXTROSE 5%-WATER - 50 ML IVPB ONE ×2 (14:57→21:12)
[2018-04-15] MEDS: SODIUM CHLORIDE 1,000 ML IV SCH (15:03)
[2018-04-15] MEDS: PIPERACILLIN/TAZOB 3.375 GM 3.375 GM in DEXTROSE 5%-WATER - 50 ML IVPB SCH ×2 (15:05→21:56)
--- NOTE | 2018-04-15 15:10 | CONS ---
INFECTIOUS DISEASE CONSULTATION DATE OF CONSULTATION: DATE OF DICTATION: 04/15/2018 HISTORY OF PRESENT ILLNESS: This is a 47-year-old woman who has a history of profound mental disabilities, congenital quadriplegia, seizure disorder, and GERD. She resides at the [facility]. She was sent this morning to the hospital with acute onset of fever to 101 accompanied by hypoxia, tachycardia with a heart rate of 120. She was brought to the hospital and evaluated where she was found to have a possible left lower lobe infiltrate. She was admitted for further care. She received vancomycin and Zosyn in the emergency room. I am asked to see her for further recommendations. The patient is nonverbal and is unable to contribute to her evaluation in the hospital, so I am relying on records. PAST MEDICAL HISTORY: Notable for anemia, non-pyogenic meningitis, congenital quadriplegia, subacute thyroiditis, congenital hip dislocation, profound mental retardation, esophagitis, general convulsive epilepsy, and hypothermia. As well, she has a history of a G-tube insertion, proximal femoral resection, status post spinal fusion with instrumentation. She appears to be a long-standing resident of the [facility], been there since 1972. She does not appear to have recently been in the hospital. ALLERGIES: She has no known drug allergies. MEDICATIONS: At the facility include Colace, nystatin-triamcinolone cream, diazepam tablets, Baclofen, Milk of Magnesia, cranberry tablets, albuterol nebulizer as needed, vitamin D3 pills. SOCIAL HISTORY: She is a long-standing resident there. No history of substance use. No travel. REVIEW OF SYSTEMS: Per the aide present, she was not aware yesterday of the patient having any difficulties. PHYSICAL EXAMINATION: General: She is awake. She smiles easily. She does not follow any commands. Vital Signs: Temperature is 97.2, T-maximum was 100.8 in the ER, pulse is 73, blood pressure 101/56, respiratory rate 24, she is saturating 100% on 2 L. HEENT: She is normocephalic. Eyes are anicteric. Lungs: Have diminished breath sounds at the bases. Heart: Regular rate and rhythm. Abdomen: Soft, nontender. She has a G-tube in place. Extremities: Without edema. She has no skin breakdown. LABORATORIES: Notable for a white count of 7.6, hemoglobin 14.5, platelets are 189, BUN and creatinine are 23 and 0.5 with an AST of 49, alkaline phosphatase of 154. Urinalysis is negative. Influenza screen is negative. C difficile is negative. Blood cultures are pending. Chest x-ray reveals a possible left lower lobe infiltrate. ASSESSMENT AND PLAN: In summary, this is a developmentally disabled 47-year-old: 1. Admitted with fever, hypoxia, and tachycardia this morning. Cannot rule out a left basal infiltrate. She received vancomycin and Zosyn in the emergency room. Would continue the Zosyn. Would obtain a MRSA screen of her nares, urinary antigens, RSV antigen, and follow up blood cultures. 2. History of profound intellectual disability with congenital quadriplegia. 3. History of seizure disorder. 4. Gastroesophageal reflux disease; all of which may have contributed to possible aspiration. Further recommendations to follow. BAIRON YUAN M.D. [id number]
[2018-04-15] MEDS: RANITIDINE HCL 150 MG TABLET (FP) PO SCH (21:56)
[2018-04-15] MEDS: ACETIC ACID 2% OTIC SOLN 15ML BOTTLE AD SCH (23:04)
[2018-04-15] MEDS: CHOLECALCIFEROL (VIT D3 ORAL SOLUTION) 400 UNIT/1 ML DROPS GT SCH (23:37)
[2018-04-16] MEDS ORDERED: PIPERACILLIN/TAZOBACTAM 3.375 GM VIAL IVPB ONE ×4 (01:23→20:46)
[2018-04-16] MEDS ORDERED: DEXTROSE 5%-WATER - 50 ML IVPB ONE ×4 (01:24→20:46)
[2018-04-16] MEDS: PIPERACILLIN/TAZOB 3.375 GM 3.375 GM in DEXTROSE 5%-WATER - 50 ML IVPB SCH ×4 (02:45→21:20)
[2018-04-16] MEDS: diazePAM 2 MG TABLET PO SCH ×3 (05:47→21:20)
[2018-04-16] MEDS: BACLOFEN 10 MG TABLET (FP) PO SCH ×3 (05:47→21:20)
[2018-04-16 06:23] LABS: URINE APPEARANCE SLCLOUDY; URINE BILIRUBIN NEGATIVE (<2.0 mg/dL); URINE COLOR YELLOW; URINE GLUCOSE (UA) NEGATIVE (NEGATIVE); URINE KETONE NEGATIVE (NEGATIVE); URINE LEUK ESTERASE 2+ (NEGATIVE); URINE NITRITE NEGATIVE (NEGATIVE); URINE PROTEIN 1+ (NEGATIVE); URINE UROBILINOGEN NEGATIVE mg/dL (0.2-1.0)
[2018-04-16 06:36] LABS: EPI CELLS RARE /HPF (FEW); URINE BACTERIA RARE /hpf (NONE SEEN); URINE HYALINE CAST 2 /lpf; URINE MUCUS RARE
[2018-04-16 08:04] LABS: ALBUMIN 2.3 g/dl (3.4-5.0); ALK PHOS 127 U/L (45-117); ANION GAP 5 MMOL/L (8-16); BILIRUBIN,TOTAL 1.1 mg/dL (0.2-1); BLOOD UREA NITROGEN 11 mg/dL (7-18); CALCIUM 7.6 mg/dL (8.5-10.1); CHLORIDE 112 mmol/L (98-107); CO2 27 mmol/L (21-32); CREATININE 0.3 mg/dL (0.55-1.3); GLUCOSE,RANDOM 107 mg/dL (74-106); MAGNESIUM 1.9 mg/dL (1.8-2.4); PHOSPHOROUS 3.3 mg/dL (2.5-4.9); POTASSIUM 3.7 mmol/L (3.5-5.1); SGOT/AST 96 U/L (15-37); SGPT/ALT 54 U/L (13-61); SODIUM 145 mmol/L (136-145); TOT PROT 4.9 g/dl (6.4-8.2)
[2018-04-16] MEDS ORDERED: CRANBERRY FRUIT EXTRACT PO SCH (10:00)
[2018-04-16] MEDS ORDERED: [UNRECOGNIZED DRUG - OTHER] PO SCH (10:00)
[2018-04-16] MEDS ORDERED: VIT C PO SCH (10:00)
[2018-04-16] MEDS: MAG HYDROX/AL HYDROX/SIMETH 30 ML UNIT-DOSE CUP PO SCH (10:12)
[2018-04-16] MEDS: CHOLECALCIFEROL (VIT D3 ORAL SOLUTION) 400 UNIT/1 ML DROPS GT SCH ×2 (10:13→21:21)
[2018-04-16] MEDS: ENOXAPARIN NA (PORCINE) 40 MG/0.4 ML DISP.SYRIN SQ SCH (10:13)
[2018-04-16 11:20] LABS: HEMATOCRIT 36.2 % (32.4-45.2); HEMOGLOBIN 12.4 GM/dL (10.7-15.3); MCHC 34.2 g/dl (32.0-36.0); MEAN CELL VOLUME 87.7 fl (80-96); RBC 4.13 M/mm3 (3.60-5.2); RDW 15.9 % (11.6-15.6); WHITE BLOOD COUNT 4.2 K/mm3 (4.0-10.0)
[2018-04-16 11:23] LABS: ADD RBC MORPHOLOGY YES
--- NOTE | 2018-04-16 11:37 | PN ---
Progress Note (short form) - Note Progress Note: Patient is feeling better with no acute distress. No nausea or vomiting. Vital Signs Temperature 97.7 F 04/16/18 06:00 Pulse Rate 72 04/16/18 06:00 Respiratory Rate 20 04/16/18 06:00 Blood Pressure 108/62 04/16/18 06:00 O2 Sat by Pulse Oximetry (%) 99 04/15/18 21:00 GENERAL: nonverbal , in no acute distress EYES: EOMI; PEERLA; no slceral icterus NECK:no JVD; no lympahdenopathy LUNGS: coarse breath sounds B/L; slight wheezing auscultated HEART: Regular rate and rhythm, normal S1 and S2 without murmur, rub or gallop. ABDOMEN: Soft, nontender, not distended, normoactive bowel sounds, no guarding, no rebound, no masses. No hepatomegaly or splenomegaly. EXTREMITIES: contracted; warm; well-perfused. NEUROLOGICAL: Cranial nerves II-XII intact. non-verbal PSYCHIATRIC: non verbal, just smiles. SKIN: Warm, dry, normal turgor, normal capillary refill. CBCD WBC 4.2 K/mm3 (4.0-10.0) 04/16/18 07:00 RBC 4.13 M/mm3 (3.60-5.2) 04/16/18 07:00 Hgb 12.4 GM/dL (10.7-15.3) 04/16/18 07:00 Hct 36.2 % (32.4-45.2) D 04/16/18 07:00 MCV 87.7 fl (80-96) 04/16/18 07:00 MCHC 34.2 g/dl (32.0-36.0) 04/16/18 07:00 RDW 15.9 % (11.6-15.6) H 04/16/18 07:00 Plt Count 189 K/MM3 (134-434) D 04/15/18 06:25 MPV 8.6 fl (7.5-11.1) D 04/15/18 06:25 CMP Sodium 145 mmol/L (136-145) 04/16/18 05:25 Potassium 3.7 mmol/L (3.5-5.1) 04/16/18 05:25 Chloride 112 mmol/L (98-107) H 04/16/18 05:25 Carbon Dioxide 27 mmol/L (21-32) 04/16/18 05:25 Anion Gap 5 MMOL/L (8-16) L 04/16/18 05:25 BUN 11 mg/dL (7-18) 04/16/18 05:25 Creatinine 0.3 mg/dL (0.55-1.3) L 04/16/18 05:25 Creat Clearance w eGFR > 60 (>60) 04/16/18 05:25 Random Glucose 107 mg/dL (74-106) H 04/16/18 05:25 Calcium 7.6 mg/dL (8.5-10.1) L 04/16/18 05:25 Total Bilirubin 1.1 mg/dL (0.2-1) H 04/16/18 05:25 AST 96 U/L (15-37) H 04/16/18 05:25 ALT 54 U/L (13-61) 04/16/18 05:25 Alkaline Phosphatase 127 U/L (45-117) H 04/16/18 05:25 Total Protein 4.9 g/dl (6.4-8.2) L 04/16/18 05:25 Albumin 2.3 g/dl (3.4-5.0) L 04/16/18 05:25 CARDIAC ENZYMES Troponin I < 0.02 ng/ml (0.00-0.05) 04/15/18 06:25 Current Medications Generic Name Dose Route Start Last Admin Trade Name Freq PRN Reason Stop Dose Admin Acetaminophen 650 mg 04/15/18 12:26 Tylenol - PO Q6H PRN Fever Or Pain Acetic Acid 3 drop 04/15/18 22:00 04/15/18 23:04 Vosol 2% Ear Drops - AD 3 drop HS [facility] Administration Al Hydroxide/Mg Hydroxide 15 ml 04/16/18 10:00 04/16/18 10:12 Mylanta Oral Suspension - PO 15 ml DAILY [facility] Administration Baclofen 20 mg 04/15/18 14:00 04/16/18 05:47 Lioresal - PO 20 mg TID [facility] Administration Cholecalciferol 400 unit 04/15/18 22:00 04/16/18 10:13 Vitamin D3 Oral Solution - GT 400 unit BID [facility] Administration Diazepam 2 mg 04/15/18 14:00 04/16/18 05:47 Valium - PO 2 mg TID [facility] Administration Enoxaparin Sodium 40 mg 04/16/18 10:00 04/16/18 10:13 Lovenox - SQ 40 mg DAILY [facility] Administration Sodium Chloride 1,000 mls @ 82 mls/hr 04/15/18 12:03 04/15/18 15:03 Normal Saline - IV 82 mls/hr ASDIR [facility] Administration Piperacillin Sod/Tazobactam 50 mls @ 100 mls/hr 04/15/18 15:00 04/16/18 10:12 Sod 3.375 gm/ Dextrose IVPB 100 mls/hr Q6H-IV [facility] Administration Protocol Nystatin/Triamcinolone Acetonide 15 applic 04/15/18 12:00 Mycolog Ii Cream - TP DAILY PRN 0 Ranitidine HCl 300 mg 04/15/18 22:00 04/15/18 21:56 Zantac - PO 300 mg HS [facility] Administration Home Medications Medication Instructions Recorded Acetic Acid 2% Otic Soln [Vosol 2% 3 drop OT HS 02/18/16 Ear Drops -] Baclofen 20 mg PO TID 02/18/16 Benzoyl Peroxide 5% Gel - 1 applic TP BID 02/18/16 Bisacodyl Suppository [Dulcolax 10 mg RC PRN 02/18/16 Suppository -] Cholecalciferol (Vitamin D3) 400 unit GT BID 02/18/16 [Vitamin D3 -] Cranberry Fruit Extract/Vit C [Azo 1 each PO DAILY 02/18/16 Cranberry Softgel] Diazepam [Valium] 2 mg PO TID 02/18/16 Enema Bag, Disposable [Enema Bag] 1 each RC PRN 02/18/16 Lactobacillus Acidophilus 2 tab PO DAILY 02/18/16 [Acidophilus] Magnesium Hydrox 2400MG/30Ml [Milk 15 ml PO DAILY 02/18/16 of Magnesia -] Nut.tx.imp.renal Fxn,Lac-Reduc 125 ml PO ASDIR 02/18/16 [Nepro Carb Steady] Nystatin/Triamcin 15 gm TP PRN 02/18/16 [Nystatin-Triamcinolone Cream] Ranitidine HCl [Zantac] 300 mg PO HS 02/18/16 predniSONE [Deltasone -] See Taper PO DAILY #14 tablet 02/23/16 Amoxicillin/Potassium Clav 1 each PEG BID #20 tablet 02/13/18 [Augmentin 875-125 Tablet] Sulfamethoxazole/Trimethoprim 2 tab PEG BID #40 tablet 02/13/18 [Bactrim Ds -] CXR: shows atelectasis / infiltrate at left lung base ASSESSMENT AND PLAN: Patient is a 47yo female with PMHx of seziures, mental disability, GERD presented to the ED from [facility] with difficulty breathing and was found to have pneumonia/sepsis. #Sepsis due to having pneumonia: on Zosyn since patient is from [facility], ID on the case, shipman culture is pending. #Seizure disorder: continue diazepam 2mg TID and Baclofen 20mg TID #GERD continue ranitidine DVT PPX: lovenox 40sq possible discharge in am Visit type - Emergency Visit Emergency Visit: Yes ED Registration Date: 04/15/18 Care time: The patient presented to the Emergency Department on the above date and was hospitalized for further evaluation of their emergent condition. - New Patient This patient is new to me today: No - Critical Care Critical Care patient: No - Discharge Referral Referred to [facility] No
[2018-04-16 12:46] LABS: MEAN PLT VOLUME 9.2 fl (7.5-11.1); PLATELET COUNT 151 K/MM3 (134-434)
[2018-04-16 12:53] LABS: ANISOCYTOSIS 0; MACROCYTOSIS 0
[2018-04-16] MEDS: SODIUM CHLORIDE 1,000 ML IV SCH (14:47)
[2018-04-16] MEDS ORDERED: PT OWN MED DRAWER 7, Y5N ONE (20:46)
[2018-04-16] MEDS: RANITIDINE HCL 150 MG TABLET (FP) PO SCH (21:20)
[2018-04-16] MEDS: ACETIC ACID 2% OTIC SOLN 15ML BOTTLE AD SCH (21:21)
[2018-04-17] MEDS: SODIUM CHLORIDE 1,000 ML IV SCH ×2 (00:36→14:55)
[2018-04-17] MEDS ORDERED: PIPERACILLIN/TAZOBACTAM 3.375 GM VIAL IVPB ONE ×4 (03:01→21:44)
[2018-04-17] MEDS ORDERED: DEXTROSE 5%-WATER - 50 ML IVPB ONE ×4 (03:01→21:44)
[2018-04-17] MEDS: PIPERACILLIN/TAZOB 3.375 GM 3.375 GM in DEXTROSE 5%-WATER - 50 ML IVPB SCH ×4 (03:20→22:01)
[2018-04-17] MEDS: BACLOFEN 10 MG TABLET (FP) PO SCH ×3 (05:35→22:40)
[2018-04-17] MEDS: diazePAM 2 MG TABLET PO SCH ×3 (05:35→22:40)
--- NOTE | 2018-04-17 08:44 | PN ---
Physical Exam: SUBJECTIVE: Patient seen and examined at bedside- no acute events overnight; patient has remained afebrile OBJECTIVE: Vital Signs Period Temp Pulse Resp BP Sys/Perez Pulse Ox Last 24 Hr 97 F-98.0 F 49-58 18-20 83-109/52-63 97-100 GENERAL: The patient is awake, alert, NAD, non-verbal EYES:PEERLA; EOMI; no scleral icterus. NECK: no JVD; no lymphadenopathy. LUNGS:coarse breath sounds B/L; slight wheezing however improving HEART: Regular rate and rhythm, S1, S2 without murmur, rub or gallop. ABDOMEN: Soft, nontender, nondistended, normoactive bowel sounds, no guarding, no rebound, no hepatosplenomegaly, no masses. EXTREMITIES: 2+ pulses, warm, well-perfused, no edema. PSYCH: Normal mood, normal affect. SKIN: Warm, dry, normal turgor, no rashes or lesions noted Laboratory Results - last 24 hr 04/16/18 07:00 WBC 4.2 RBC 4.13 Hgb 12.4 Hct 36.2 D MCV 87.7 MCH 30.0 MCHC 34.2 RDW 15.9 H Plt Count 151 D MPV 9.2 Total Counted 100 Neutrophils % No Result Required. Neutrophils % (Manual) 62.0 Lymphocytes % No Result Required. Lymphocytes % (Manual) 27.0 Monocytes % (Manual) 4 Eosinophils % (Manual) 7.0 H Hypochromia 0 Polychromasia 0 Poikilocytosis 0 Anisocytosis 0 Microcytosis 0 Macrocytosis 0 Active Medications Generic Name Dose Route Start Last Admin Trade Name Baronq PRN Reason Stop Dose Admin Acetaminophen 650 mg 04/15/18 12:26 Tylenol - PO Q6H PRN Fever Or Pain Acetic Acid 3 drop 04/15/18 22:00 04/16/18 21:21 Vosol 2% Ear Drops - AD 3 drop HS [facility] Administration Al Hydroxide/Mg Hydroxide 15 ml 04/16/18 10:00 04/16/18 10:12 Mylanta Oral Suspension - PO 15 ml DAILY [facility] Administration Baclofen 20 mg 04/15/18 14:00 04/17/18 05:35 Lioresal - PO 20 mg TID [facility] Administration Cholecalciferol 400 unit 04/15/18 22:00 04/16/18 21:21 Vitamin D3 Oral Solution - GT 400 unit BID [facility] Administration Diazepam 2 mg 04/15/18 14:00 04/17/18 05:35 Valium - PO 2 mg TID [facility] Administration Enoxaparin Sodium 40 mg 04/16/18 10:00 04/16/18 10:13 Lovenox - SQ 40 mg DAILY [facility] Administration Sodium Chloride 1,000 mls @ 82 mls/hr 04/15/18 12:03 04/17/18 00:36 Normal Saline - IV 82 mls/hr ASDIR [facility] Administration Piperacillin Sod/Tazobactam 50 mls @ 100 mls/hr 04/15/18 15:00 04/17/18 03:20 Sod 3.375 gm/ Dextrose IVPB 100 mls/hr Q6H-IV [facility] Administration Protocol Nystatin/Triamcinolone Acetonide 15 applic 04/15/18 12:00 Mycolog Ii Cream - TP DAILY PRN 0 Ranitidine HCl 300 mg 04/15/18 22:00 04/16/18 21:20 Zantac - PO 300 mg HS [facility] Administration ASSESSMENT/PLAN: 47 y/o female with PMH of seziures, mental disability, GERD presented to the ED from [facility] with trouble breathing and abnormal vital signs #Sepsis 2/2 pneumonia CXRAY showed atelectasis or infiltrate at left lung base -blood cx negative to date -influenza negative -RSV pending -MSRA nares pending -urine legionella and pneumonia pending -c/w zosyn day 3 -Dr. Romero consulted -NS @83mls/hr -aspiration precautions; -tylenol PRN for fevers #Seizure disorder -c/w diazepam 2mg TID -c/w Baclofen 20mg TID #GERD -c/w home dose of ranitidine F/E/N NS @83mls/hr monitor electrolytes NPO for now given risk for aspiration DVT PPX: lovenox 40sq possible dc tomorrow Problem List - Problems (1) Congenital quadriplegia Code(s): G80.8 - OTHER CEREBRAL PALSY (2) Left lower lobe pneumonia Code(s): J18.1 - LOBAR PNEUMONIA, UNSPECIFIED ORGANISM Qualifiers: Pneumonia type: due to unspecified organism Qualified Code(s): J18.1 - Lobar pneumonia, unspecified organism (3) Seizures Code(s): R56.9 - UNSPECIFIED CONVULSIONS Visit type - Emergency Visit Emergency Visit: Yes ED Registration Date: 04/15/18 Care time: The patient presented to the Emergency Department on the above date and was hospitalized for further evaluation of their emergent condition. - New Patient This patient is new to me today: No - Critical Care Critical Care patient: No
[2018-04-17] MEDS: ENOXAPARIN NA (PORCINE) 40 MG/0.4 ML DISP.SYRIN SQ SCH (09:31)
[2018-04-17] MEDS: CHOLECALCIFEROL (VIT D3 ORAL SOLUTION) 400 UNIT/1 ML DROPS GT SCH ×2 (09:31→22:40)
[2018-04-17] MEDS: MAG HYDROX/AL HYDROX/SIMETH 30 ML UNIT-DOSE CUP PO SCH (09:31)
--- NOTE | 2018-04-17 16:37 | PN ---
Progress Note (short form) - Note Progress Note: clinically improved, no longer hypoxic afebrile Vital Signs Period Temp Pulse Resp BP Sys/Perez Pulse Ox Last 24 Hr 97.2 F-98.0 F 49-58 18-18 83-109/54-63 96-100 cor-rrr lungs clear abd soft, nt ext no edema CBC, BMP 04/16/18 07:00 04/16/18 05:25 Microbiology 04/15/18 15:00 Nares - Mrsa Screen - Left MRSA Screen - Final NO MRSA ISOLATED 04/15/18 15:00 Nares - Mrsa Screen - Right MRSA Screen - Final NO MRSA ISOLATED 04/15/18 06:25 Blood - Peripheral Venous Blood Culture - Preliminary NO GROWTH OBTAINED AFTER 48 HOURS, INCUBATION TO CONTINUE FOR 3 DAYS. 04/15/18 06:25 Blood - Peripheral Venous Blood Culture - Preliminary NO GROWTH OBTAINED AFTER 48 HOURS, INCUBATION TO CONTINUE FOR 3 DAYS. 04/15/18 10:09 Urine - Urine Clean Catch Urine Culture - Final NO GROWTH OBTAINED 04/15/18 08:45 Stool Clostridium difficile Antigen (NANDO) - Final 04/15/18 08:45 Stool Clostridium difficile Toxin Assay - Final Current Medications Acetaminophen (Tylenol -) 650 mg PO Q6H PRN PRN Reason: Fever Or Pain Acetic Acid (Vosol 2% Ear Drops -) 3 drop AD HS [facility] Last Admin: 04/16/18 21:21 Dose: 3 drop Al Hydroxide/Mg Hydroxide (Mylanta Oral Suspension -) 15 ml PO DAILY [facility] Last Admin: 04/17/18 09:31 Dose: 15 ml Baclofen (Lioresal -) 20 mg PO TID [facility] Last Admin: 04/17/18 14:56 Dose: 20 mg Cholecalciferol (Vitamin D3 Oral Solution -) 400 unit GT BID [facility] Last Admin: 04/17/18 09:31 Dose: 400 unit Diazepam (Valium -) 2 mg PO TID [facility] Last Admin: 04/17/18 14:56 Dose: 2 mg Enoxaparin Sodium (Lovenox -) 40 mg SQ DAILY [facility] Last Admin: 04/17/18 09:31 Dose: 40 mg Sodium Chloride (Normal Saline -) 1,000 mls @ 82 mls/hr IV ASDIR [facility] Last Admin: 04/17/18 14:55 Dose: 82 mls/hr Piperacillin Sod/Tazobactam (Sod 3.375 gm/ Dextrose) 50 mls @ 100 mls/hr IVPB Q6H-IV [facility]; Protocol Last Admin: 04/17/18 15:43 Dose: 100 mls/hr Nystatin/Triamcinolone Acetonide (Mycolog Ii Cream -) 15 applic TP DAILY PRN PRN Reason: 0 Ranitidine HCl (Zantac -) 300 mg PO HS [facility] Last Admin: 04/16/18 21:20 Dose: 300 mg imp/reccd 47 yo female with severe developmental disabilities, seizures, GERD admitted from [facility] with acute onset of fever, hypoxia, tachycardia this am cannot r/o LLL infiltrate MRSA screen negative day #2 zosyn clinically improved can switch to augmentin in am to complete 7 days can switch to Problem List - Problems (1) Left lower lobe pneumonia Code(s): J18.1 - LOBAR PNEUMONIA, UNSPECIFIED ORGANISM Qualifiers: Pneumonia type: due to unspecified organism Qualified Code(s): J18.1 - Lobar pneumonia, unspecified organism (2) Profound intellectual disability Code(s): F73 - PROFOUND INTELLECTUAL DISABILITIES (3) Congenital quadriplegia Code(s): G80.8 - OTHER CEREBRAL PALSY (4) Seizures Code(s): R56.9 - UNSPECIFIED CONVULSIONS (5) GERD (gastroesophageal reflux disease) Code(s): K21.9 - GASTRO-ESOPHAGEAL REFLUX DISEASE WITHOUT ESOPHAGITIS
--- NOTE | 2018-04-17 18:55 | PN ---
Teaching Attending Note Name of Resident: Corinna Tom ATTENDING PHYSICIAN STATEMENT I saw and evaluated the patient. I reviewed the resident's note and discussed the case with the resident. I agree with the resident's findings and plan as documented. SUBJECTIVE: Patient is comfortable with no acute distress. No further hypoxia, no shortness of breath. OBJECTIVE: Vital Signs Temperature 98.0 F 04/17/18 06:00 Pulse Rate 58 L 04/17/18 06:00 Respiratory Rate 18 04/17/18 09:00 Blood Pressure 109/55 L 04/17/18 06:00 O2 Sat by Pulse Oximetry (%) 96 04/17/18 09:00 GENERAL: nonverbal , in no acute distress, looks happy all the time, smiles all the time. EYES: EOMI; PEERLA; no slceral icterus NECK:no JVD; no lympahdenopathy LUNGS: coarse breath sounds B/L; slight wheezing auscultated HEART: Regular rate and rhythm, normal S1 and S2 without murmur, rub or gallop. ABDOMEN: Soft, nontender, not distended, normoactive bowel sounds, no guarding, no rebound, no masses. EXTREMITIES: contracted; warm; well-perfused. NEUROLOGICAL: Cranial nerves II-XII intact. non-verbal PSYCHIATRIC: non verbal, just smiles. SKIN: Warm, dry, normal turgor, normal capillary refill. CBCD WBC 4.2 K/mm3 (4.0-10.0) 04/16/18 07:00 RBC 4.13 M/mm3 (3.60-5.2) 04/16/18 07:00 Hgb 12.4 GM/dL (10.7-15.3) 04/16/18 07:00 Hct 36.2 % (32.4-45.2) D 04/16/18 07:00 MCV 87.7 fl (80-96) 04/16/18 07:00 MCHC 34.2 g/dl (32.0-36.0) 04/16/18 07:00 RDW 15.9 % (11.6-15.6) H 04/16/18 07:00 Plt Count 151 K/MM3 (134-434) D 04/16/18 07:00 MPV 9.2 fl (7.5-11.1) 04/16/18 07:00 CMP Sodium 145 mmol/L (136-145) 04/16/18 05:25 Potassium 3.7 mmol/L (3.5-5.1) 04/16/18 05:25 Chloride 112 mmol/L (98-107) H 04/16/18 05:25 Carbon Dioxide 27 mmol/L (21-32) 04/16/18 05:25 Anion Gap 5 MMOL/L (8-16) L 04/16/18 05:25 BUN 11 mg/dL (7-18) 04/16/18 05:25 Creatinine 0.3 mg/dL (0.55-1.3) L 04/16/18 05:25 Creat Clearance w eGFR > 60 (>60) 04/16/18 05:25 Random Glucose 107 mg/dL (74-106) H 04/16/18 05:25 Calcium 7.6 mg/dL (8.5-10.1) L 04/16/18 05:25 Total Bilirubin 1.1 mg/dL (0.2-1) H 04/16/18 05:25 AST 96 U/L (15-37) H 04/16/18 05:25 ALT 54 U/L (13-61) 04/16/18 05:25 Alkaline Phosphatase 127 U/L (45-117) H 04/16/18 05:25 Total Protein 4.9 g/dl (6.4-8.2) L 04/16/18 05:25 Albumin 2.3 g/dl (3.4-5.0) L 04/16/18 05:25 CARDIAC ENZYMES Troponin I < 0.02 ng/ml (0.00-0.05) 04/15/18 06:25 Current Medications Generic Name Dose Route Start Last Admin Trade Name Freq PRN Reason Stop Dose Admin Acetaminophen 650 mg 04/15/18 12:26 Tylenol - PO Q6H PRN Fever Or Pain Acetic Acid 3 drop 04/15/18 22:00 04/16/18 21:21 Vosol 2% Ear Drops - AD 3 drop HS STEPH Administration Al Hydroxide/Mg Hydroxide 15 ml 04/16/18 10:00 04/17/18 09:31 Mylanta Oral Suspension - PO 15 ml DAILY STEPH Administration Baclofen 20 mg 04/15/18 14:00 04/17/18 14:56 Lioresal - PO 20 mg TID STEPH Administration Cholecalciferol 400 unit 04/15/18 22:00 04/17/18 09:31 Vitamin D3 Oral Solution - GT 400 unit BID STEPH Administration Diazepam 2 mg 04/15/18 14:00 04/17/18 14:56 Valium - PO 2 mg TID STEPH Administration Enoxaparin Sodium 40 mg 04/16/18 10:00 04/17/18 09:31 Lovenox - SQ 40 mg DAILY STEPH Administration Sodium Chloride 1,000 mls @ 82 mls/hr 04/15/18 12:03 04/17/18 14:55 Normal Saline - IV 82 mls/hr ASDIR STEPH Administration Piperacillin Sod/Tazobactam 50 mls @ 100 mls/hr 04/15/18 15:00 04/17/18 15:43 Sod 3.375 gm/ Dextrose IVPB 100 mls/hr Q6H-IV STEPH Administration Protocol Nystatin/Triamcinolone Acetonide 15 applic 04/15/18 12:00 Mycolog Ii Cream - TP DAILY PRN 0 Ranitidine HCl 300 mg 04/15/18 22:00 04/16/18 21:20 Zantac - PO 300 mg HS STEPH Administration Home Medications Medication Instructions Recorded Acetic Acid 2% Otic Soln [Vosol 2% 3 drop OT HS 02/18/16 Ear Drops -] Baclofen 20 mg PO TID 02/18/16 Benzoyl Peroxide 5% Gel - 1 applic TP BID 02/18/16 Bisacodyl Suppository [Dulcolax 10 mg RC PRN 02/18/16 Suppository -] Cholecalciferol (Vitamin D3) 400 unit GT BID 02/18/16 [Vitamin D3 -] Cranberry Fruit Extract/Vit C [Azo 1 each PO DAILY 02/18/16 Cranberry Softgel] Diazepam [Valium] 2 mg PO TID 02/18/16 Enema Bag, Disposable [Enema Bag] 1 each RC PRN 02/18/16 Lactobacillus Acidophilus 2 tab PO DAILY 02/18/16 [Acidophilus] Magnesium Hydrox 2400MG/30Ml [Milk 15 ml PO DAILY 02/18/16 of Magnesia -] Nut.tx.imp.renal Fxn,Lac-Reduc 125 ml PO ASDIR 12/22/16 [Nepro Carb Steady] Nystatin/Triamcin 15 gm TP PRN 02/18/16 [Nystatin-Triamcinolone Cream] Ranitidine HCl [Zantac] 300 mg PO HS 02/18/16 predniSONE [Deltasone -] See Taper PO DAILY #14 tablet 02/23/16 Amoxicillin/Potassium Clav 1 each PEG BID #20 tablet 02/13/18 [Augmentin 875-125 Tablet] Sulfamethoxazole/Trimethoprim 2 tab PEG BID #40 tablet 02/13/18 [Bactrim Ds -] Microbiology 04/15/18 15:00 Nares - Mrsa Screen - Left MRSA Screen - Final NO MRSA ISOLATED 04/15/18 15:00 Nares - Mrsa Screen - Right MRSA Screen - Final NO MRSA ISOLATED 04/15/18 06:25 Blood - Peripheral Venous Blood Culture - Preliminary NO GROWTH OBTAINED AFTER 48 HOURS, INCUBATION TO CONTINUE FOR 3 DAYS. 04/15/18 06:25 Blood - Peripheral Venous Blood Culture - Preliminary NO GROWTH OBTAINED AFTER 48 HOURS, INCUBATION TO CONTINUE FOR 3 DAYS. 04/15/18 10:09 Urine - Urine Clean Catch Urine Culture - Final NO GROWTH OBTAINED 04/15/18 08:45 Stool Clostridium difficile Antigen (NANDO) - Final 04/15/18 08:45 Stool Clostridium difficile Toxin Assay - Final CXR: shows atelectasis / infiltrate at left lung base ASSESSMENT AND PLAN: Patient is a 47yo female with PMHx of seziures, mental disability, GERD presented to the ED from [facility] with difficulty breathing and was found to have pneumonia/sepsis. #Sepsis due to having pneumonia: On Zosyn can be switched to po augmentin 500mg tid per peg tube in am and can be discharged patient back to [facility] in am , call for acceptance the patient back to [facility]. #Seizure disorder: continue diazepam 2mg TID and Baclofen 20mg TID #GERD continue ranitidine DVT PPX: lovenox 40sq discharge patient in am back to [facility].
[2018-04-17] MEDS: RANITIDINE HCL 150 MG TABLET (FP) PO SCH (22:39)
[2018-04-17] MEDS: ACETIC ACID 2% OTIC SOLN 15ML BOTTLE AD SCH (22:40)
[2018-04-18] MEDS ORDERED: PIPERACILLIN/TAZOBACTAM 3.375 GM VIAL IVPB ONE ×4 (02:44→22:17)
[2018-04-18] MEDS ORDERED: DEXTROSE 5%-WATER - 50 ML IVPB ONE ×4 (02:45→22:17)
[2018-04-18] MEDS: PIPERACILLIN/TAZOB 3.375 GM 3.375 GM in DEXTROSE 5%-WATER - 50 ML IVPB SCH ×4 (03:08→22:20)
[2018-04-18] MEDS: BACLOFEN 10 MG TABLET (FP) PO SCH ×3 (06:38→22:20)
[2018-04-18] MEDS: diazePAM 2 MG TABLET PO SCH ×3 (06:38→22:20)
[2018-04-18] MEDS: SODIUM CHLORIDE 1,000 ML IV SCH ×3 (07:05→22:21)
[2018-04-18 08:40] LABS: HEMOGLOBIN 12.9 GM/dL (10.7-15.3); MCH 30.2 pg (25.7-33.7); MEAN CELL VOLUME 88.8 fl (80-96); MEAN PLT VOLUME 8.9 fl (7.5-11.1); PLATELET COUNT 172 K/MM3 (134-434); RBC 4.28 M/mm3 (3.60-5.2); RDW 15.7 % (11.6-15.6); WHITE BLOOD COUNT 2.1 K/mm3 (4.0-10.0)
[2018-04-18 09:07] LABS: ANION GAP 6 MMOL/L (8-16); BLOOD UREA NITROGEN 5 mg/dL (7-18); CHLORIDE 113 mmol/L (98-107); CO2 25 mmol/L (21-32); CREATININE 0.3 mg/dL (0.55-1.3); GLUCOSE,RANDOM 73 mg/dL (74-106); POTASSIUM 3.7 mmol/L (3.5-5.1); SODIUM 144 mmol/L (136-145)
[2018-04-18] MEDS: ENOXAPARIN NA (PORCINE) 40 MG/0.4 ML DISP.SYRIN SQ SCH (10:38)
[2018-04-18] MEDS: MAG HYDROX/AL HYDROX/SIMETH 30 ML UNIT-DOSE CUP PO SCH (10:40)
[2018-04-18] MEDS: CHOLECALCIFEROL (VIT D3 ORAL SOLUTION) 400 UNIT/1 ML DROPS GT SCH ×2 (10:41→22:23)
[2018-04-18 11:29] LABS: URINE APPEARANCE CLEAR; URINE BILIRUBIN NEGATIVE (<2.0 mg/dL); URINE COLOR STRAW; URINE GLUCOSE (UA) NEGATIVE (NEGATIVE); URINE KETONE 1+ (NEGATIVE); URINE LEUK ESTERASE NEGATIVE (NEGATIVE); URINE NITRITE NEGATIVE (NEGATIVE); URINE PROTEIN NEGATIVE (NEGATIVE); URINE UROBILINOGEN NEGATIVE mg/dL (0.2-1.0)
[2018-04-18 11:50] LABS: EPI CELLS RARE /HPF (FEW)
--- NOTE | 2018-04-18 14:48 | PN ---
Physical Exam: SUBJECTIVE: Patient seen and examined at bedside- patient was hypothermic at night; (possibly due to not having had her prednisone);ROS unobtainable as patient is nonverbal OBJECTIVE: Vital Signs Period Temp Pulse Resp BP Sys/Perez Pulse Ox Last 24 Hr 94.4 F-98.1 F 50-54 18-19 93-110/51-73 96-99 GENERAL: The patient is awake, alert,, in no acute distress. EYES: PEERL; EOMI; no scleral icterus . NECK: no JVD; no lymphadenopathy LUNGS: coarse breath sounds B/L HEART: Regular rate and rhythm, S1, S2 without murmur, rub or gallop. ABDOMEN: Soft, nontender, nondistended, normoactive bowel sounds, no guarding, no rebound, no hepatosplenomegaly, no masses. EXTREMITIES: 2+ pulses, warm, well-perfused, no edema. NEUROLOGICAL: Cranial nerves II through XII grossly intact. Normal speech, gait not observed. PSYCH: Normal mood, normal affect. SKIN: Warm, dry, normal turgor, no rashes or lesions noted Laboratory Results - last 24 hr 04/18/18 04/18/18 04/18/18 08:25 08:25 10:40 WBC 2.1 L RBC 4.28 Hgb 12.9 Hct 38.0 MCV 88.8 MCH 30.2 MCHC 34.0 RDW 15.7 H Plt Count 172 MPV 8.9 Sodium 144 Potassium 3.7 Chloride 113 H Carbon Dioxide 25 Anion Gap 6 L BUN 5 L Creatinine 0.3 L Creat Clearance w eGFR > 60 Random Glucose 73 L Calcium 8.0 L Urine Color Straw Urine Appearance Clear Urine pH 5.0 Ur Specific [place] 1.013 Urine Protein Negative Urine Glucose (UA) Negative Urine Ketones 1+ H Urine Blood 1+ H Urine Nitrite Negative Urine Bilirubin Negative Urine Urobilinogen Negative Ur Leukocyte Esterase Negative Urine WBC (Auto) <1 Urine RBC (Auto) 4 Ur Epithelial Cells Rare Active Medications Generic Name Dose Route Start Last Admin Trade Name Freq PRN Reason Stop Dose Admin Acetaminophen 650 mg 04/15/18 12:26 Tylenol - PO Q6H PRN Fever Or Pain Acetic Acid 3 drop 04/15/18 22:00 04/17/18 22:40 Vosol 2% Ear Drops - AD 3 drop HS STEPH Administration Al Hydroxide/Mg Hydroxide 15 ml 04/16/18 10:00 04/18/18 10:40 Mylanta Oral Suspension - PO 15 ml DAILY STEPH Administration Baclofen 20 mg 04/15/18 14:00 04/18/18 06:38 Lioresal - PO 20 mg TID STEPH Administration Cholecalciferol 400 unit 04/15/18 22:00 04/18/18 10:41 Vitamin D3 Oral Solution - GT 400 unit BID STEPH Administration Diazepam 2 mg 04/15/18 14:00 04/18/18 06:38 Valium - PO 2 mg TID STEPH Administration Enoxaparin Sodium 40 mg 04/16/18 10:00 04/18/18 10:38 Lovenox - SQ 40 mg DAILY STEPH Administration Sodium Chloride 1,000 mls @ 82 mls/hr 04/15/18 12:03 04/18/18 12:41 Normal Saline - IV Not Given ASDIR STEPH Piperacillin Sod/Tazobactam 50 mls @ 100 mls/hr 04/15/18 15:00 04/18/18 09:38 Sod 3.375 gm/ Dextrose IVPB 100 mls/hr Q6H-IV STEPH Administration Protocol Nystatin/Triamcinolone Acetonide 15 applic 04/15/18 12:00 Mycolog Ii Cream - TP DAILY PRN 0 Ranitidine HCl 300 mg 04/15/18 22:00 04/17/18 22:39 Zantac - PO 300 mg HS STEPH Administration ASSESSMENT/PLAN: 47 y/o female with PMH of seziures, mental disability, GERD presented to the ED from [facility] with trouble breathing and abnormal vital signs #Sepsis 2/2 pneumonia CXRAY showed atelectasis or infiltrate at left lung base -blood cx negative to date -MSRA nares pending zosyn day 4- can switch to PO augmentin to complete a 7 day course as per dr. elizondo -NS @83mls/hr -aspiration precautions; -tylenol PRN for fevers #Seizure disorder -c/w diazepam 2mg TID -c/w Baclofen 20mg TID #GERD -c/w home dose of ranitidine F/E/N NS @83mls/hr monitor electrolytes NPO for now given risk for aspiration DVT PPX: lovenox 40sq Problem List - Problems (1) Congenital quadriplegia Code(s): G80.8 - OTHER CEREBRAL PALSY (2) Left lower lobe pneumonia Code(s): J18.1 - LOBAR PNEUMONIA, UNSPECIFIED ORGANISM Qualifiers: Pneumonia type: due to unspecified organism Qualified Code(s): J18.1 - Lobar pneumonia, unspecified organism (3) Seizures Code(s): R56.9 - UNSPECIFIED CONVULSIONS Visit type - Emergency Visit Emergency Visit: Yes ED Registration Date: 04/15/18 Care time: The patient presented to the Emergency Department on the above date and was hospitalized for further evaluation of their emergent condition. - New Patient This patient is new to me today: No - Critical Care Critical Care patient: No
--- NOTE | 2018-04-18 18:46 | PN ---
Teaching Attending Note Name of Resident: Corinna Tom ATTENDING PHYSICIAN STATEMENT I saw and evaluated the patient. I reviewed the resident's note and discussed the case with the resident. I agree with the resident's findings and plan as documented. SUBJECTIVE: Not able to obtain hx . hypothermic this am OBJECTIVE: NAD, pleasant, awake. CV: RRr Lungs: limited eval, probably clear R lung and anterior b/l lungs Abd; soft, NT, nL , NL BS. PEG in ext : non pitting edema on pper and lower ext ASSESSMENT AND PLAN: 47 y/o lady with h/o MR, seizures, and GERd who came form [place] with resp distress and was found to have acute PNA 1- PNA : cont zosyn as hypothermic today monitor Marilu hugger as needed cx were resent this ma 2- Seizure disorder: cont diazepam 3- GERD : ranitidine DVT PX : lovenox
[2018-04-18] MEDS: RANITIDINE HCL 150 MG TABLET (FP) PO SCH (22:20)
[2018-04-18] MEDS: ACETIC ACID 2% OTIC SOLN 15ML BOTTLE AD SCH (22:23)
[2018-04-19] MEDS ORDERED: PIPERACILLIN/TAZOBACTAM 3.375 GM VIAL IVPB ONE (02:30)
[2018-04-19] MEDS ORDERED: DEXTROSE 5%-WATER - 50 ML IVPB ONE (02:30)
[2018-04-19] MEDS: PIPERACILLIN/TAZOB 3.375 GM 3.375 GM in DEXTROSE 5%-WATER - 50 ML IVPB SCH ×2 (02:43→10:23)
[2018-04-19] MEDS: BACLOFEN 10 MG TABLET (FP) PO SCH ×2 (05:46→14:44)
[2018-04-19] MEDS: diazePAM 2 MG TABLET PO SCH ×2 (05:46→14:43)
[2018-04-19 08:01] LABS: ANION GAP 10 MMOL/L (8-16); BLOOD UREA NITROGEN 6 mg/dL (7-18); CALCIUM 7.5 mg/dL (8.5-10.1); CHLORIDE 113 mmol/L (98-107); CO2 23 mmol/L (21-32); CREATININE 0.3 mg/dL (0.55-1.3); GLUCOSE,RANDOM 56 mg/dL (74-106); POTASSIUM 3.5 mmol/L (3.5-5.1); SODIUM 146 mmol/L (136-145)
[2018-04-19 08:28] LABS: HEMATOCRIT 34.1 % (32.4-45.2); HEMOGLOBIN 11.5 GM/dL (10.7-15.3); MCH 29.8 pg (25.7-33.7); MCHC 33.8 g/dl (32.0-36.0); MEAN CELL VOLUME 88.1 fl (80-96); MEAN PLT VOLUME 8.5 fl (7.5-11.1); PLATELET COUNT 185 K/MM3 (134-434); RBC 3.87 M/mm3 (3.60-5.2); RDW 15.7 % (11.6-15.6); WHITE BLOOD COUNT 2.6 K/mm3 (4.0-10.0)
[2018-04-19] MEDS ORDERED: AMOX TR/POT CLAV 875MG/125MG TABLETS (FP) PO SCH (10:15)
[2018-04-19] MEDS ORDERED: PT OWN MED DRAWER 7, Y5N ONE (10:37)
[2018-04-19] MEDS: ENOXAPARIN NA (PORCINE) 40 MG/0.4 ML DISP.SYRIN SQ SCH (10:43)
[2018-04-19] MEDS: MAG HYDROX/AL HYDROX/SIMETH 30 ML UNIT-DOSE CUP PO SCH (10:44)
[2018-04-19] MEDS: CHOLECALCIFEROL (VIT D3 ORAL SOLUTION) 400 UNIT/1 ML DROPS GT SCH (10:44)
[2018-04-19] MEDS: SODIUM CHLORIDE 1,000 ML IV SCH (10:47)
--- NOTE | 2018-04-19 13:27 | PN ---
Teaching Attending Note Name of Resident: Corinna Tom ATTENDING PHYSICIAN STATEMENT I saw and evaluated the patient. I reviewed the resident's note and discussed the case with the resident. I agree with the resident's findings and plan as documented. SUBJECTIVE: no events over night OBJECTIVE: NAD, pleasant, awake. CV: RRR Lungs: good air entry , no rales Abd; soft, NT, nL BS. PEG in ext : non pitting edema on upper and lower ext. ASSESSMENT AND PLAN: 47 y/o lady with h/o MR, seizures, and GERd who came form [place] with resp distress and was found to have acute PNA 1- PNA: hypothermia resolved. switch to Augmentin BId x 2 more days to complete 7 days of abx 2- Seizure disorder: cont diazepam 3- GERD : ranitidine 4- resume TF. at [place] , TF can be done over night as per the patient pre- admission routine dispo : dc to [place]
--- NOTE | 2018-04-19 15:26 | DS ---
Physical Exam: SUBJECTIVE: Patient seen and examined at bedside- no acute events overnight; ROS unable to be obtained as patient is nonverbal OBJECTIVE: Vital Signs Period Temp Pulse Resp BP Sys/Perez Pulse Ox Last 24 Hr 95.6 F-99.2 F 53-70 18-18 90-100/43-62 100 PHYSICAL EXAM GENERAL: The patient is awake, alert, EYES:PEERLA; EOMI: no scleral icterus. NECK: no JVD: no lymphadenopathy. LUNGS: slight coarse breath sounds B/L HEART: Regular rate and rhythm, S1, S2 without murmur, rub or gallop. ABDOMEN: Soft, nontender, nondistended, normoactive bowel sounds, no guarding, no rebound, no hepatosplenomegaly, no masses. EXTREMITIES: 2+ pulses, warm, well-perfused, no edema. NEUROLOGICAL: Cranial nerves II through XII grossly intact. Normal speech, gait not observed. PSYCH: Normal mood, normal affect. SKIN: Warm, dry, normal turgor, no rashes or lesions noted. LABS Laboratory Results - last 24 hr 04/19/18 04/19/18 04/19/18 06:30 06:30 08:00 WBC Cancelled 2.6 L Corrected WBC (auto) Cancelled RBC Cancelled 3.87 Hgb Cancelled 11.5 Hct Cancelled 34.1 MCV Cancelled 88.1 MCH Cancelled 29.8 MCHC Cancelled 33.8 RDW Cancelled 15.7 H Plt Count Cancelled 185 MPV Cancelled 8.5 Manual Slide Review Cancelled Platelet Comment Cancelled Sodium 146 H Potassium 3.5 Chloride 113 H Carbon Dioxide 23 Anion Gap 10 BUN 6 L Creatinine 0.3 L Creat Clearance w eGFR > 60 Random Glucose 56 L Calcium 7.5 L Imaging: chest XRAY: possible infiltrate or atelectasis with fluid at the left base HOSPITAL COURSE: Date of Admission:04/15/18 47 y/o female with PMH of seizures, mental disability was brought in from [facility] after it was found that during morning rounds patient was febrile to 101 was tachycardic and was hypotensive with systolic in the 90' s. when she arrived at the ED she was tachycardic in the 120's tachypneic and was hypertensive with systolic in the 90's. she was also found to be febrile. on chest xray appears that she had a left lower lobe pneumonia. she was started on zosyn and was placed on 3 L NC with improvement in her saturation and respiratory rate. she was given IV zosyn for 5 days and then switched to PO augmentin 875 BID- she was discharged on another 2 days of antibiotics in addition she was restarted on her regular tube feeds. Date of Discharge: 04/19/18 Minutes to complete discharge: 39 Discharge Summary Reason For Visit: LEFT LOWER LOBE PNEUMONIA Current Active Problems GERD (gastroesophageal reflux disease) (Acute) Congenital quadriplegia (Chronic) Profound intellectual disability (Chronic) Seizure (Chronic) Seizures (Chronic) Condition: Stable - Instructions Diet, Activity, Other Instructions: You came to the hospital with complaints of shortness of breath and fevers and were found to have a left lower lobe pneumonia that we have been treating with antibiotics. Please resume all of your medications in addition: -please take the antibiotic augmentin 875 mg twice a day for two days ( last dose on 04/21 evening ) Please follow up with Dr Treviño please follow aspiration precautions , keep head of bed elevated 45 degree resume TF at the previous , pre- admission routine Referrals: Krishna Treviño Jr [Primary Care Provider] - 1 Week Disposition: HALFWAY FACILITY - Home Medications Comprehensive Discharge Medication List: Ambulatory Orders Acetic Acid 2% Otic Soln [Vosol 2% Ear Drops -] 3 drop OT HS 02/18/16 Baclofen 20 mg PO TID 02/18/16 Benzoyl Peroxide 5% Gel - 1 applic TP BID 02/18/16 Bisacodyl Suppository [Dulcolax Suppository -] 10 mg RC PRN 02/18/16 Cholecalciferol (Vitamin D3) [Vitamin D3 -] 400 unit GT BID 02/18/16 Cranberry Fruit Extract/Vit C [Azo Cranberry Softgel] 1 each PO DAILY 02/18/16 Diazepam [Valium] 2 mg PO TID 02/18/16 Enema Bag, Disposable [Enema Bag] 1 each RC PRN 02/18/16 Magnesium Hydrox 2400MG/30Ml [Milk of Magnesia -] 15 ml PO DAILY 02/18/16 Nut.tx.imp.renal Fxn,Lac-Reduc [Nepro Carb Steady] 125 ml PO ASDIR 02/18/16 Nystatin/Triamcin [Nystatin-Triamcinolone Cream] 15 gm TP PRN 02/18/16 Ranitidine HCl [Zantac] 300 mg PO HS 02/18/16 Acetaminophen [Tylenol .Regular Strength -] 650 mg PO Q6H PRN tablet 04/19/18 Amox-Tr/K Cl [Augmentin 875-125mg Tablet -] 1 tab PO BID #6 tablet 04/19/18 Problem List - Problems (1) Congenital quadriplegia Code(s): G80.8 - OTHER CEREBRAL PALSY (2) Left lower lobe pneumonia Code(s): J18.1 - LOBAR PNEUMONIA, UNSPECIFIED ORGANISM Qualifiers: Pneumonia type: due to unspecified organism Qualified Code(s): J18.1 - Lobar pneumonia, unspecified organism (3) Seizures Code(s): R56.9 - UNSPECIFIED CONVULSIONS This patient is new to me today: No Emergency Visit: Yes ED Registration Date: 04/15/18 Care time: The patient presented to the Emergency Department on the above date and was hospitalized for further evaluation of their emergent condition. Critical Care patient: No - Discharge Referral Referred to [facility] Med P.C.: No
[2018-04-19 15:31] VITALS: BP 121/59; PULSE 75; TEMP 97.5
== END 2018-04-19 16:55 | disposition home or self-care (01) | DRG 720 ==
LOC: JER 06:00 → JERBED 09:15 → J5S 12:28
PROVIDERS: ADMIT Internal Medicine; ATTEND Internal Medicine
DX: A41.9 Sepsis, unspecified organism (principal); J18.9 Pneumonia, unspecified organism; F72 Severe intellectual disabilities; F73 Profound intellectual disabilities; I95.9 Hypotension, unspecified; K21.9 Gastro-esophageal reflux disease without esophagitis; G40.909 Epilepsy, unspecified, not intractable, without status epilepticus; J98.11 Atelectasis; R09.02 Hypoxemia; G80.8 Other cerebral palsy; R68.0 Hypothermia, not associated with low environmental temperature
CPT/HCPCS: 36415; 71045-TC-FY; 80048; 80053; 81003; 81015; 82803; 82962; 83605; 83735; 84100; 84484; 84703; 85025; 85027; 85610; 85730; 87040; 87081; 87086; 87324; 87449; 87804; 93005; 93010; 99285-25; J0131; J0475; J7030

== ENCOUNTER 2018-10-24 17:30 | Inpatient (IN) | payer OTHER | END 2018-11-06 15:22 | LOC: JER 17:30 → J5S 10-26 15:37 → JICU 10-27 15:25 → J5S 10-31 17:32 → JERBED 18:56 → JICU 20:45 ==

== ENCOUNTER 2018-11-18 12:22 | Inpatient (IN) | payer OTHER ==
--- NOTE | 2018-11-18 12:49 | PDOC ---
History of Present Illness - General Chief Complaint: Shortness of Breath Stated Complaint: LETHARGIC Time Seen by Provider: 11/18/18 12:36 Past History - Past Medical History Allergies/Adverse Reactions: Allergies Allergy/AdvReac Type Severity Reaction Status Date / Time No Known Allergies Allergy Verified 10/24/18 18:45 Home Medications: Ambulatory Orders Acetic Acid 2% Otic Soln [Vosol 2% Ear Drops -] 3 drop OT HS 02/18/16 Baclofen 20 mg PO TID 02/18/16 Bisacodyl Suppository [Dulcolax Suppository -] 10 mg RC PRN 02/18/16 Cholecalciferol (Vitamin D3) [Vitamin D3 -] 400 unit GT BID 02/18/16 Diazepam [Valium] 2 mg PO TID 02/18/16 Enema Bag, Disposable [Enema Bag] 1 each RC PRN 02/18/16 Albuterol 0.083% Nebulizer [place] [Ventolin 0.083% Nebulizer Soln -] 1 amp NEB PRN PRN 10/25/18 Budesonide [Pulmicort 0.25 mg Nebulizer -] 1 neb PO PRN PRN 10/25/18 Docusate Sodium [Diocto] 25 mg GT TID 10/25/18 Esomeprazole Magnesium [Nexium 24Hr] 40 mg GT DAILY 10/25/18 Ipratropium 0.02% Nebulizer [Atrovent 0.02% Nebulizer -] 1 neb NEB PRN PRN 10/25 Lisinopril [Zestril] 2.5 mg PO HS 10/25/18 Magnesium Hydrox 2400MG/30Ml [Milk of Magnesia -] 30 ml GT DAILY 10/25/18 Nystatin/Triamcin [Nystatin-Triamcinolone Cream] 100,000 gm TD PRN PRN 10/25/18 levETIRAcetam [Keppra Oral Solution -] 500 mg GT BID cup 11/06/18 COPD: No GI Disorders: Yes (GERD, s/p fundoplication, g-tube, hx pancreatitis) Seizures: Yes (epilepsy) - Surgical History Abdominal Surgery: Yes (G-tube, fundoplication) Cholecystectomy: Yes GI Surgery: Yes (Ladi fundoplication) Orthopedic Surgery: Yes (femoral head resection, spinal fusion with instrumentation for scoliosis) - Immunization History TDAP Vaccination: Yes (last 09/23/04) Immunization Up to Date: Yes - Suicide/Smoking/Psychosocial Hx Smoking History: Never smoked Have you smoked in the past 12 months: No Hx Alcohol Use: No Drug/Substance Use Hx: No Substance Use Type: None *Physical Exam - Vital Signs Last Vital Signs Temp Pulse Resp BP Pulse Ox 97 F L 94 H 28 H 101/69 96 11/18/18 12:31 11/18/18 12:31 11/18/18 12:31 11/18/18 12:31 11/18/18 12:31 ED Treatment Course - LABORATORY CBC & Chemistry Diagram: 11/18/18 13:20 11/18/18 13:20
--- NOTE | 2018-11-18 12:53 | PDOC ---
Attending Attestation - Resident Resident Name: Brad Friedman - ED Attending Attestation I have performed the following: I have examined & evaluated the patient, The case was reviewed & discussed with the resident, I agree w/resident's findings & plan, Exceptions are as noted - HPI HPI: 11/18/18 12:48 48 F with h/o cerebral palsy/mental disability, GERD, seizures (last known in 2011), presenting to ED from [place] with hypoxia and SOB. Per facility staff, pt was hypoxic to 90 on RA. Does not usually use O2. Pt received 1 duoneb en route. Pt unable to contribute any history herself. - Physicial Exam PE: 11/18/18 12:52 "GENERAL: no acute distress. HEAD: No signs of trauma EYES: PERRLA, EOMI, sclera anicteric, conjunctiva clear ENT: Auricles normal inspection, hearing grossly normal, nares patent, oropharynx clear without exudates. Moist mucosa NECK: Nontender, no stepoffs, Normal ROM, supple, no lymphadenopathy, JVD, or masses LUNGS: + diffuse rhonchi HEART: Regular rate and rhythm, normal S1 and S2, no murmurs, rubs or gallops ABDOMEN: Soft, nontender, normoactive bowel sounds. No guarding, no rebound. No masses EXTREMITIES: Normal range of motion, no edema. No clubbing or cyanosis. No cords, erythema, or tenderness NEUROLOGICAL: contracted SKIN: Warm, Dry, normal turgor, no rashes or lesions noted. - Medical Decision Making 11/18/18 12:53 48 F with hypoxia and SOB. Found to be hypoxic to 92 in ED with tachypnea, rhonchorous lung sounds. Concerning for PNA. - Labs, cultures - CXR 11/18/18 14:00 CXR shows congestive changes, with possible LLL infiltrate Will cover for HCAP Hold diuresis for now as pt with tenuous BP
[2018-11-18 13:27] LABS: EPI CELLS 5.3 /HPF (0-5/HPF); HYALINE CASTS 16 /lpf (0-8); PH,URINE 7.5 (5.0-8.0); URINE APPEARANCE CLEAR; URINE BILIRUBIN NEGATIVE (NEGATIVE); URINE COLOR YELLOW; URINE GLUCOSE (UA) NEGATIVE (NEGATIVE); URINE KETONE NEGATIVE (NEGATIVE); URINE LEUK ESTERASE NEGATIVE (NEGATIVE); URINE NITRITE NEGATIVE (NEGATIVE); URINE PROTEIN 1+ (NEGATIVE); URINE RBC 2 /hpf (0-4); URINE UROBILINOGEN 0.2 mg/dL (0.2-1.0); URINE WBC 3 /hpf (0-5)
[2018-11-18] MEDS ORDERED: ALBUTEROL SO4 2.5/IPRATROPIUM 0.5 INH SOL 3 ML VIAL.NEB. NEB ONE ×2 (13:36→14:02)
[2018-11-18] MEDS ORDERED: SODIUM CHLORIDE 0.9% 500 ML INFUS.BAG IV ONE (13:36)
[2018-11-18 13:39] LABS: VENOUS PC02 54.7 mmHg (38-52); VENOUS PH 7.43 (7.31-7.41); VENOUS PO2 63.4 mmHg (28-48)
[2018-11-18] MEDS ORDERED: VANCOMYCIN 1 GM in D5W (PRE-DOCKED) 1,000 MG/250 ML IVPB ONE (13:41)
[2018-11-18] MEDS ORDERED: PIPERACILLIN/TAZOB 4.5 GM 4.5 GM in DEXTROSE 5%-WATER 100 ML IVPB ONE (13:41)
[2018-11-18 13:45] LABS: BASO % 0.5 % (0-2.0); EOS % 1.3 % (0-4.5); HEMATOCRIT 32.1 % (32.4-45.2); HEMOGLOBIN 10.7 GM/dL (10.7-15.3); LYMPH % 7.8 % (8-40); MCHC 33.2 g/dl (32.0-36.0); MEAN CELL VOLUME 87.3 fl (80-96); MEAN PLT VOLUME 7.6 fl (7.5-11.1); MONO % 4.3 % (3.8-10.2); NEUT % 86.1 % (42.8-82.8); PLATELET COUNT 224 K/MM3 (134-434); RBC 3.68 M/mm3 (3.60-5.2); WHITE BLOOD COUNT 4.6 K/mm3 (4.0-10.0)
[2018-11-18 13:51] LABS: INR 0.94 (0.83-1.09); PROTHROMBIN TIME (PATIENT) 11.1 SEC (9.7-13.0)
[2018-11-18 13:53] LABS: ACTIVATED PTT 46.3 SECONDS (25.2-36.5)
[2018-11-18] MEDS ORDERED: PIPERACILLIN/TAZOB 4.5 GM 4.5 GM/100 ML BAG IVPB ONE (14:02)
[2018-11-18] MEDS ORDERED: VANCOMYCIN 1 GRAM (PRE-DOCKED) 1,000 MG/250 ML BAG IVPB ONE (14:02)
[2018-11-18 14:07] LABS: ALBUMIN 2.5 g/dl (3.4-5.0); BILIRUBIN,TOTAL 0.4 mg/dL (0.2-1); BLOOD UREA NITROGEN 31.9 mg/dL (7-18); CALCIUM 8.9 mg/dL (8.5-10.1); CREATININE 0.5 mg/dL (0.55-1.3); N-TERMINAL BNP 81.3 pg/ml (5-125); POTASSIUM 3.3 mmol/L (3.5-5.1); TOT PROT 5.6 g/dl (6.4-8.2)
[2018-11-18 14:38] LABS: ANISOCYTOSIS 1+; MACROCYTOSIS 1+; OVALOCYTE 1+; PLATELET ESTIMATE NORMAL
[2018-11-18] MEDS ORDERED: FUROSEMIDE 40 MG/4 ML INJECTABLE VIAL IVPUSH ONE (15:18)
[2018-11-18] MEDS ORDERED: FUROSEMIDE 40 MG/4 ML INJECTABLE VIAL ONE (15:36)
[2018-11-18] MEDS ORDERED: ALBUTEROL SO4 2.5/IPRATROPIUM 0.5 INH SOL 3 ML VIAL.NEB. NEB SCH (16:00)
[2018-11-18] MEDS ORDERED: [UNRECOGNIZED DRUG - OTHER] TD PRN (16:23)
[2018-11-18] MEDS ORDERED: TRIAMCIN TD PRN (16:23)
[2018-11-18] MEDS ORDERED: ALBUTEROL SO4 0.083% IH SOL 2.5 MG/3 ML VIAL.NEB. NEB PRN (16:23)
[2018-11-18] MEDS ORDERED: NYSTATIN TD PRN (16:23)
--- NOTE | 2018-11-18 17:07 | HP ---
CHIEF COMPLAINT: Hypoxia PCP: [facility] HISTORY OF PRESENT ILLNESS: Patient well-known to primary service and consultants for prior admissions presenting as bounce back (expected due to poor physiologic reserve and multiple chronic, severe comorbidities for which there are no cure). She is afebrile and hemodynamically stable at present time but was noted to desaturate to the low 90s; she has mild pulmonary HTN as evidenced by a slightly increased RVSP seen on recent echo (seen by Dr. Cummins) and chronic pulmonary vascular congestion likely secondary to low oncotic pressure. She was seen by palliative team last admission. She was tested with a pre and post O2 and RA prior to DC last admission and was able to be sent back to the [facility] on Room Air. It is unknown why she was started on BiPap in ER when she was saturating well on NC and had no ABG checked. Checking ABG and placing back on NC; will check BNP as well. She did get fluids so will give a dose of diuresis. Should note that she did need a dose of acetazolamide the last time she was admitted to my service. She has a profound seizure history but no seizure activity has been observed at facility or here. She remains at risk of chronic aspiration. She has been seen by Dr. Lemus/Dr. Romero for ID and I have consulted their team as well as pulmonary medicine. I am not convinced she has any jose infiltrates, but she will get empiric coverage due to her risks. Couldn't complete 10-sys ROS due to pre-existing clinical conditions. Recent Travel: PAST MEDICAL HISTORY: PAST SURGICAL HISTORY: Social History: Resident of [facility]; no concern for EtOH, tobacco, IVDU. Allergies No Known Allergies Allergy (Verified 10/24/18 18:45) HOME MEDICATIONS: Home Medications Medication Instructions Recorded Acetic Acid 2% Otic Soln [Vosol 2% 3 drop OT HS 02/18/16 Ear Drops -] Baclofen 20 mg PO TID 02/18/16 Bisacodyl Suppository [Dulcolax 10 mg RC PRN 02/18/16 Suppository -] Cholecalciferol (Vitamin D3) 400 unit GT BID 02/18/16 [Vitamin D3 -] Diazepam [Valium] 2 mg PO TID 02/18/16 Enema Bag, Disposable [Enema Bag] 1 each RC PRN 02/18/16 Albuterol 0.083% Nebulizer [place] 1 amp NEB PRN PRN 10/25/18 [Ventolin 0.083% Nebulizer Soln -] Budesonide [Pulmicort 0.25 mg 1 neb PO PRN PRN 10/25/18 Nebulizer -] Docusate Sodium [Diocto] 25 mg GT TID 10/25/18 Esomeprazole Magnesium [Nexium 40 mg GT DAILY 10/25/18 24Hr] Ipratropium 0.02% Nebulizer 1 neb NEB PRN PRN 10/25/18 [Atrovent 0.02% Nebulizer -] Lisinopril [Zestril] 2.5 mg PO HS 10/25/18 Magnesium Hydrox 2400MG/30Ml [Milk 30 ml GT DAILY 10/25/18 of Magnesia -] Nystatin/Triamcin 100,000 gm TD PRN PRN 10/25/18 [Nystatin-Triamcinolone Cream] levETIRAcetam [Keppra Oral 500 mg GT BID cup 11/06/18 Solution -] REVIEW OF SYSTEMS Couldn't reliably obtain ROS PHYSICAL EXAMINATION VS, labs, imaging reviewed NAD, awake and alert, NC to 3L; unchanged from yesterday. Some scattered rales/crackles but nothing very localizing NT ND +BS, feeds going at recommended rate. No jose secretions. No neuro changes to note, sensorium intact. No further sz activity witnessed by nursing. Neck with midline trachea, no jose JVD HR wnl, s1/2, no new murmurs Contracted but moves all extremities Less grunting than last admission, not agitated No new rashes or skin breakdown noted; need nursing assist to check for decubs. Micro pending Reviewed CXR; noted vascular congestion Echo reviewed; slight Pulm htn with R-sided pressure estimates, normal LVEF, no hemodynamically significant valve disease Reviewed CV consults from last admission Reviewed ID consults from last admission ASSESSMENT/PLAN: Patient presents with hypoxia; differential significant for fluid-related or resulting from aspiration due to her chronic medical issues. She will recieve empiric zosyn and I will defer further testing/abx to Dr. Romero/Dr. Lemus and followup on cx's I obtained. I recall on recent discharge we had difficulty weaning pateint from O2 and I suspect she may now be entering a time she may require this. She has pulmonary hypertension (WHO Class unknown with no RHC history) with a normal LVEF. She is noted to have increased congestion on CXR and did get fluids in ER. She had brisk diuretic response in the past and a relatively small BMI so will give a 1x 20mg IV dose and observe. We will hold her feeds overnight and take aspiration precautions. Dietary to be consulted in AM for further recs regarding feeds, etc. Pulmonary medicine will be consulted; can consider CV consult in AM but no need for urgently. I suspect that her low oncotic pressure combined with her underlying PAH would lend to this presentation. She has an overall grim prognosis and unfortunately this bounceback was expected. She has a good chance of needing PRN O2 vs. constant O2 arranged for her chronically at [place] and may require chronic diuretic therapy. Monitor for contraction alkalosis as this was an issue last time. Her problems include: # Acute on Chronic Respiratory failure (Potential for chronic hypercarbia; noted BMP with ABG pending. Can consider PRN qHS bipap but I need to know where her PaCO2 lies and if there is hypoxia on ABG. As stated, suspecting low oncotic pressure and PAH contributing. Also with risks/history of recurring aspiration. Will give empiric abx, consult pulmonary and ID, followup ABG, consider NIMV qHS) # Breakthrough sz with hx underlying seizure disorder (No further seizures; continue baclofen, valium, keppra) # Disability # Thrombocytopenia (Improving, trend CBC. Was secondary to sepsis) # Leukopenia (Was secondary to sepsis) # First Degree HB (Noted) Visit type - Emergency Visit Emergency Visit: Yes ED Registration Date: 11/18/18 Care time: The patient presented to the Emergency Department on the above date and was hospitalized for further evaluation of their emergent condition. - New Patient This patient is new to me today: Yes Date on this admission: 11/18/18 - Critical Care Critical Care patient: No
[2018-11-18] MEDS ORDERED: PATIENT'S OWN MEDICATION (NON-FORMULARY) (Baclofen [Baclofen] 20 MG) GT SCH (22:00)
[2018-11-18] MEDS ORDERED: PATIENT'S OWN MEDICATION (NON-FORMULARY) (Ranitidine Hcl [Zantac] 300 MG) GT SCH (22:00)
[2018-11-19] MEDS: CHOLECALCIFEROL (VIT D SOLUTION) 400 UNIT/1 ML DROPS GT SCH ×3 (00:35→23:01)
[2018-11-19] MEDS: BACLOFEN 10 MG TABLET (FP) GT SCH ×4 (00:35→23:02)
[2018-11-19] MEDS: levETIRAcetam 500 MG/5 ML ORAL SOLUTION (UNIT-DOSE CUPS) GT SCH ×3 (00:35→22:36)
[2018-11-19] MEDS: diazePAM 2 MG TABLET GT SCH ×4 (00:35→22:36)
[2018-11-19] MEDS: ACETIC ACID 2% OTIC SOLN 15ML BOTTLE AU SCH ×2 (00:36→23:02)
[2018-11-19] MEDS: RANITIDINE HCL 150 MG/10 ML UNIT-DOSE GT SCH ×2 (00:36→23:02)
[2018-11-19] MEDS ORDERED: PIPERACILLIN/TAZOB 3.375 GM 3.375 GM/50 ML BAG IVPB ONE ×2 (02:45→10:38)
[2018-11-19] MEDS: PIPERACILLIN/TAZOB 3.375 GM 3.375 GM in DEXTROSE 5%-WATER - 50 ML IVPB SCH ×4 (03:33→18:35)
[2018-11-19] MEDS: FUROSEMIDE 40 MG/4 ML INJECTABLE VIAL IVPUSH SCH ×2 (05:32→15:00)
[2018-11-19] MEDS ORDERED: BACLOFEN 10 MG TABLET (FP) ONE (06:32)
[2018-11-19] MEDS ORDERED: diazePAM 2 MG TABLET ONE ×2 (06:32→15:02)
[2018-11-19 07:13] LABS: HEMATOCRIT 28.7 % (32.4-45.2); HEMOGLOBIN 9.8 GM/dL (10.7-15.3); MCH 29.7 pg (25.7-33.7); MCHC 34.1 g/dl (32.0-36.0); MEAN CELL VOLUME 87.1 fl (80-96); PLATELET COUNT 200 K/MM3 (134-434); RDW 17.1 % (11.6-15.6); WHITE BLOOD COUNT 4.1 K/mm3 (4.0-10.0)
--- NOTE | 2018-11-19 07:18 | EKG ---
Test Reason : Blood Pressure : / mmHG Vent. Rate : 093 BPM Atrial Rate : 093 BPM P-R Int : 144 ms QRS Dur : 076 ms QT Int : 362 ms P-R-T Axes : 052 059 -03 degrees QTc Int : 450 ms NORMAL SINUS RHYTHM T WAVE ABNORMALITY, CONSIDER ANTERIOR ISCHEMIA ABNORMAL ECG WHEN COMPARED WITH ECG OF 24-OCT-2018 17:45, [place] INTERVAL HAS DECREASED VENT. RATE HAS INCREASED BY 39 BPM INVERTED T WAVES HAVE REPLACED NONSPECIFIC T WAVE ABNORMALITY IN ANTERIOR LEADS Confirmed by ORLANDO KURTZ MD ([id number]) on 11/19/2018 7:18:06 AM Referred By: Confirmed By:ORLANDO KURTZ MD
[2018-11-19 07:23] LABS: BLOOD UREA NITROGEN 27.8 mg/dL (7-18); CALCIUM 7.8 mg/dL (8.5-10.1); CREATININE 0.6 mg/dL (0.55-1.3); POTASSIUM 3.6 mmol/L (3.5-5.1)
--- NOTE | 2018-11-19 08:28 | PN ---
Physical Exam: SUBJECTIVE: Patient seen and examined; remains nonverbal with essentially uncahgned PE. On mask but was satting well on NC; will go ahead and try to wean , checking ABG first. I spoke with CM regarding O2 at facility; I strongly suspect that she will need to be discharged on at least PRN O2 going forward. Is and Os not accurately recorded. Continue to monitor on floor. Pending ID and Pulmonary medicine consults-appreciate expert management in the ongoing care of this patient. 10 sys ROS couldn't be reliably completed due to underlying clinical condition. OBJECTIVE: Vital Signs Period Temp Pulse Resp BP Sys/Perez Pulse Ox Last 24 Hr 92.9 F-100.4 F 67-111 14-33 101-139/52-95 95-100 VS, labs, imaging reviewed NAD, awake and alert, NC to 3L; unchanged from yesterday. Some scattered rales/crackles but nothing very localizing NT ND +BS, feeds going at recommended rate. No jose secretions. No neuro changes to note, sensorium intact. No sz activity witnessed Neck with midline trachea, no jose JVD HR wnl, s1/2, no new murmurs Contracted but moves all extremities Less grunting than last admission, not agitated No new rashes or skin breakdown noted Laboratory Results - last 24 hr 11/18/18 11/18/18 11/18/18 13:09 13:20 13:20 WBC RBC Hgb Hct MCV MCH MCHC RDW Plt Count MPV Absolute Neuts (auto) Neutrophils % Neutrophils % (Manual) Band Neutrophils % Lymphocytes % Lymphocytes % (Manual) Monocytes % Monocytes % (Manual) Eosinophils % Eosinophils % (Manual) Basophils % Basophils % (Manual) Myelocytes % (Man) Promyelocytes % (Man) Blast Cells % (Manual) Nucleated RBC % Metamyelocytes Hypochromia Platelet Estimate Polychromasia Poikilocytosis Basophilic Stippling Anisocytosis Microcytosis Macrocytosis Ovalocytes Stomatocytes PT with INR 11.10 INR 0.94 PTT (Actin FS) 46.3 H VBG pH POC VBG pCO2 POC VBG pO2 VBG HCO3 VBG O2 Sat (Luis) VBG Base Excess Sodium Potassium Chloride Carbon Dioxide Anion Gap BUN Creatinine Est GFR (CKD-EPI)AfAm Est GFR (CKD-EPI)NonAf Random Glucose Lactic Acid Calcium Total Bilirubin AST ALT Alkaline Phosphatase Troponin I < 0.02 B-Natriuretic Peptide 81.3 Total Protein Albumin TSH Urine Color Yellow Urine Appearance Clear Urine pH 7.5 Ur Specific [place] 1.021 Urine Protein 1+ H Urine Glucose (UA) Negative Urine Ketones Negative Urine Blood Negative Urine Nitrite Negative Urine Bilirubin Negative Urine Urobilinogen 0.2 Ur Leukocyte Esterase Negative Urine WBC (Auto) 3 Urine RBC (Auto) 2 Urine Casts (Auto) 16 U Epithel Cells (Auto) 5.3 U Sm Round Cell (Auto) None seen Urine Bacteria (Auto) 3.0 Blood Type Antibody Screen 11/18/18 11/18/18 11/18/18 13:20 13:20 13:20 WBC 4.6 RBC 3.68 Hgb 10.7 Hct 32.1 L MCV 87.3 MCH 29.0 MCHC 33.2 RDW 17.0 H Plt Count 224 D MPV 7.6 Absolute Neuts (auto) 3.9 Neutrophils % 86.1 H Neutrophils % (Manual) 56.1 Band Neutrophils % 23.5 Lymphocytes % 7.8 L Lymphocytes % (Manual) 8.2 D Monocytes % 4.3 Monocytes % (Manual) 4 Eosinophils % 1.3 D Eosinophils % (Manual) 3.1 Basophils % 0.5 Basophils % (Manual) 0.0 Myelocytes % (Man) 1 Promyelocytes % (Man) 0 Blast Cells % (Manual) 0 Nucleated RBC % 0 Metamyelocytes 2 D Hypochromia 0 Platelet Estimate Normal Polychromasia 1+ Poikilocytosis 0 Basophilic Stippling 1+ Anisocytosis 1+ Microcytosis 1+ Macrocytosis 1+ Ovalocytes 1+ Stomatocytes 1+ PT with INR INR PTT (Actin FS) VBG pH POC VBG pCO2 POC VBG pO2 VBG HCO3 VBG O2 Sat (Luis) VBG Base Excess Sodium 135 L Potassium 3.3 L Chloride 95 L Carbon Dioxide 34 H Anion Gap 7 L BUN 31.9 H Creatinine 0.5 L Est GFR (CKD-EPI)AfAm 133.58 Est GFR (CKD-EPI)NonAf 115.25 Random Glucose 127 H Lactic Acid 0.7 Calcium 8.9 Total Bilirubin 0.4 AST 28 ALT 38 Alkaline Phosphatase 131 H Troponin I B-Natriuretic Peptide Total Protein 5.6 L Albumin 2.5 L TSH Urine Color Urine Appearance Urine pH Ur Specific [place] Urine Protein Urine Glucose (UA) Urine Ketones Urine Blood Urine Nitrite Urine Bilirubin Urine Urobilinogen Ur Leukocyte Esterase Urine WBC (Auto) Urine RBC (Auto) Urine Casts (Auto) U Epithel Cells (Auto) U Sm Round Cell (Auto) Urine Bacteria (Auto) Blood Type Antibody Screen 11/18/18 11/18/18 11/18/18 13:20 17:35 18:14 WBC RBC Hgb Hct MCV MCH MCHC RDW Plt Count MPV Absolute Neuts (auto) Neutrophils % Neutrophils % (Manual) Band Neutrophils % Lymphocytes % Lymphocytes % (Manual) Monocytes % Monocytes % (Manual) Eosinophils % Eosinophils % (Manual) Basophils % Basophils % (Manual) Myelocytes % (Man) Promyelocytes % (Man) Blast Cells % (Manual) Nucleated RBC % Metamyelocytes Hypochromia Platelet Estimate Polychromasia Poikilocytosis Basophilic Stippling Anisocytosis Microcytosis Macrocytosis Ovalocytes Stomatocytes PT with INR INR PTT (Actin FS) VBG pH 7.43 H POC VBG pCO2 54.7 H POC VBG pO2 63.4 H VBG HCO3 35.2 H VBG O2 Sat (Luis) 91.2 H VBG Base Excess 9.5 H Sodium Potassium Chloride Carbon Dioxide Anion Gap BUN Creatinine Est GFR (CKD-EPI)AfAm Est GFR (CKD-EPI)NonAf Random Glucose Lactic Acid 1.6 Calcium Total Bilirubin AST ALT Alkaline Phosphatase Troponin I < 0.02 B-Natriuretic Peptide Total Protein Albumin TSH 0.56 Urine Color Urine Appearance Urine pH Ur Specific [place] Urine Protein Urine Glucose (UA) Urine Ketones Urine Blood Urine Nitrite Urine Bilirubin Urine Urobilinogen Ur Leukocyte Esterase Urine WBC (Auto) Urine RBC (Auto) Urine Casts (Auto) U Epithel Cells (Auto) U Sm Round Cell (Auto) Urine Bacteria (Auto) Blood Type Antibody Screen 11/18/18 11/19/18 11/19/18 18:14 06:00 06:00 WBC 4.1 RBC 3.30 L Hgb 9.8 L Hct 28.7 L MCV 87.1 MCH 29.7 MCHC 34.1 RDW 17.1 H Plt Count 200 MPV 8.0 Absolute Neuts (auto) Neutrophils % Neutrophils % (Manual) Band Neutrophils % Lymphocytes % Lymphocytes % (Manual) Monocytes % Monocytes % (Manual) Eosinophils % Eosinophils % (Manual) Basophils % Basophils % (Manual) Myelocytes % (Man) Promyelocytes % (Man) Blast Cells % (Manual) Nucleated RBC % Metamyelocytes Hypochromia Platelet Estimate Polychromasia Poikilocytosis Basophilic Stippling Anisocytosis Microcytosis Macrocytosis Ovalocytes Stomatocytes PT with INR INR PTT (Actin FS) VBG pH POC VBG pCO2 POC VBG pO2 VBG HCO3 VBG O2 Sat (Luis) VBG Base Excess Sodium 139 Potassium 3.6 Chloride 98 Carbon Dioxide 35 H Anion Gap 6 L BUN 27.8 H Creatinine 0.6 Est GFR (CKD-EPI)AfAm 125.80 Est GFR (CKD-EPI)NonAf 108.54 Random Glucose 79 Lactic Acid Calcium 7.8 L Total Bilirubin AST ALT Alkaline Phosphatase Troponin I B-Natriuretic Peptide Total Protein Albumin TSH Urine Color Urine Appearance Urine pH Ur Specific [place] Urine Protein Urine Glucose (UA) Urine Ketones Urine Blood Urine Nitrite Urine Bilirubin Urine Urobilinogen Ur Leukocyte Esterase Urine WBC (Auto) Urine RBC (Auto) Urine Casts (Auto) U Epithel Cells (Auto) U Sm Round Cell (Auto) Urine Bacteria (Auto) Blood Type O POSITIVE Antibody Screen Negative Active Medications Generic Name Dose Route Start Last Admin Trade Name Freq PRN Reason Stop Dose Admin Acetic Acid 3 drop 11/18/18 22:00 11/19/18 00:36 Vosol 2% Ear Drops - AU 3 drop HS STEPH Administration Albuterol Sulfate 1 amp 11/18/18 16:51 Ventolin 0.083% Nebulizer Soln - NEB Q6H PRN WHEEZING Baclofen 20 mg 11/18/18 22:00 11/19/18 06:55 Lioresal - GT 20 mg TID STEPH Administration Cholecalciferol 400 unit 11/18/18 22:00 11/19/18 00:35 Vitamin D3 Oral Solution - GT 400 unit BID STEPH Administration Diazepam 2 mg 11/18/18 22:00 11/19/18 06:55 Valium - GT 2 mg TID STEPH Administration Furosemide 20 mg 11/19/18 06:00 11/19/18 05:32 Lasix Injection - IVPUSH 20 mg BID@0600,1400 STEPH Administration Piperacillin Sod/Tazobactam 50 mls @ 100 mls/hr 11/19/18 02:00 11/19/18 03:33 Sod 3.375 gm/ Dextrose IVPB 11/19/18 18:29 100 mls/hr Q8H-IV STEPH Administration Protocol Levetiracetam 500 mg 11/18/18 22:00 11/19/18 00:35 Keppra Oral Solution - GT 500 mg BID STEPH Administration Nystatin/Triamcinolone Acetonide 1 applic 11/19/18 10:00 Mycolog Ii Cream - TP DAILY STEPH Ranitidine HCl 300 mg 11/18/18 22:00 11/19/18 00:36 Zantac Oral Solution - GT 300 mg HS STEPH Administration ASSESSMENT/PLAN: Patient presents for hypoxia; ruling out infectious vs. fluid related etiology. She has normal LVEF but some PAH seen with elevated RVSP on echo. Consulted pulmonary medicine and ID for guidance as she is at extreme risk for chronic aspiration. Monitoring on Zosyn, checking ABG this AM to see if she would benefit from qHS positive pressure ventillation, and will followup on microbiology results. Her problems include: # Acute on Chronic Respiratory failure (Potential for chronic hypercarbia; noted BMP with ABG pending. Can consider PRN qHS bipap but I need to know where her PaCO2 lies and if there is hypoxia on ABG. As stated, suspecting low oncotic pressure and PAH contributing. Also with risks/history of recurring aspiration. Will give empiric abx, consult pulmonary and ID, followup ABG, consider NIMV qHS) # Breakthrough sz with hx underlying seizure disorder (No further seizures; continue baclofen, valium, keppra) # Disability # Chronic Anemia (at baseline) # Thrombocytopenia hx # Leukopenia (Was secondary to sepsis) # First Degree HB (Noted) Full Code Visit type - Emergency Visit Emergency Visit: No - New Patient This patient is new to me today: No - Critical Care Critical Care patient: No
[2018-11-19 09:22] LABS: ARTERIAL BLD GAS O2 SATURATION 100 % (95-98); ARTERIAL BLOOD GAS PCO2 51.6 mmHg (35-45); ARTERIAL BLOOD GAS PO2 256 mmHg (80-100); ARTERIAL BLOOD GAS pH 7.44 (7.35-7.45)
[2018-11-19 09:23] LABS: ALLENS TEST POSITIVE
--- NOTE | 2018-11-19 10:33 | PN ---
Progress Note (short form) - Note Progress Note: ID CONSULT DICTATED RESP INSUFFICIENCY/ HYPOXEMIA R/O ASP PNEUMONIA V. HCAP MR AWAIT SEPSIS W/U EMPIRIC ZOSYN ASP PRECAUTIONS
[2018-11-19] MEDS: NYSTATIN/TRIAMCINOLONE TOPICAL CREAM 15 GM TUBE TP SCH (10:47)
--- NOTE | 2018-11-19 13:32 | CONS ---
INFECTIOUS DISEASE CONSULTATION DATE OF CONSULTATION: DATE OF DICTATION: 11/19/2018 HISTORY: The patient is a 48-year-old female evaluated for possible pneumonia. History was obtained from the chart as she cannot give a history secondary to her mental status. She is a resident of [facility] and suffers from profound mental retardation. She is totally dependent in activities of daily care. She was admitted to the hospital on November 18, 2018, with increasing lethargy and labored breathing. She was noted to be hypoxemic with an O2 saturation of 90 on room air. She was transferred to the emergency room where a chest x-ray showed bilateral congestion, possible infiltrate versus atelectasis left base. She was empirically treated with Zosyn. The patient at the present time is awake, however, not conversant. Slightly dyspneic on BiPAP. No acute respiratory distress. Her course has been complicated by temperature 100.4. Patient was recently discharged from [facility] after an admission from October 24 through August 06. At that time, she had developed respiratory failure requiring intubation and transferred to the intensive care unit. She was treated with a 10-day course of antibiotics for urinary tract infection, possible pneumonia. She at that time developed hypothermia, leukopenia, neutropenia. She ultimately responded to the IV antibiotics and was discharged to the nursing facility off antibiotic therapy. Cultures in the past have grown E. coli in the urine. No history of multidrug-resistant pathogens. PAST MEDICAL HISTORY: Positive for history of meningococcal meningitis, mental retardation, gastroesophageal reflux, pancreatitis. PAST SURGICAL HISTORY: Status post feeding gastrostomy, fundoplication, femoral head resection, spinal fusion. ALLERGIES: No known allergies. LABORATORY DATA: White count 4.1, neutrophils 86, bands 23, lymphocytes 7, monocytes 4, hematocrit 28.7, platelets 200, creatinine 0.6. Urinalysis: 3 white cells. Chest x-ray as described. PHYSICAL EXAMINATION: General: The patient is awake but lethargic. She is slightly short of breath on BiPAP. Vital Signs: Temperature 98.0, maximum temperature 100.4, blood pressure 117/77, pulse 90 regular, respirations 20 per minute. HEENT: Sclerae anicteric. Heart: Sounds S1, S2. Lungs: Coarse rhonchi bilaterally. Abdomen: Soft, nontender. Extremities: 1+ pedal edema. IMPRESSION: 1. Respiratory insufficiency/hypoxemia, rule out aspiration pneumonia versus healthcare-acquired pneumonia. 2. Mental retardation. PLAN: Continue ventilatory support. Pulmonary evaluation. Empiric antibiotic coverage healthcare-acquired pathogens with Zosyn 3.375 g IV piggyback every 8 hours. Aspiration precautions. Pulmonary evaluation. Thank you for the kind referral. SAMMY REYNOSO M.D. [id number]
--- NOTE | 2018-11-19 14:04 | PN ---
Teaching Attending Note Name of Resident: Saundra Capellan ATTENDING PHYSICIAN STATEMENT I saw and evaluated the patient. I reviewed the resident's note and discussed the case with the resident. I agree with the resident's findings and plan as documented. SUBJECTIVE: Pt seen and examined with the resident. Briefly, 48yo female with h/o cerebral palsy, mental retardation, seizure disorder, GERD, recurrent episodes of aspiration who was transferred from [place] for shortness of breath and hypoxia. Pt unable to provide further history at this time. Low grade fever to 100.4. Placed on BiPAP for hypoxia and work of breathing. Currently comfortable on BiPAP saturating high 90s on 35% Fio2. CXR with increased congestive changes. OBJECTIVE: Vital Signs Period Temp Pulse Resp BP Sys/Perez Pulse Ox Last 24 Hr 92.9 F-100.4 F 67-111 14-33 102-129/52-87 94-100 Intake & Output 11/16/18 11/17/18 11/18/18 11/19/18 23:59 23:59 23:59 23:59 Intake Total 1300 Output Total 200 Balance 1100 Weight 63.503 kg Gen: somnolent on BiPAP Heart: RRR Lung: decreased breath sounds at the bases Abd: soft, nontender Ext: contracted CBC, BMP 11/19/18 06:00 11/19/18 06:00 Active Medications Acetic Acid (Vosol 2% Ear Drops -) 3 drop AU HS STEPH Last Admin: 11/19/18 00:36 Dose: 3 drop Albuterol Sulfate (Ventolin 0.083% Nebulizer Soln -) 1 amp NEB Q6H PRN PRN Reason: WHEEZING Baclofen (Lioresal -) 20 mg GT TID STEPH Last Admin: 11/19/18 06:55 Dose: 20 mg Cholecalciferol (Vitamin D3 Oral Solution -) 400 unit GT BID STEPH Last Admin: 11/19/18 10:40 Dose: 400 unit Diazepam (Valium -) 2 mg GT TID STEPH Last Admin: 11/19/18 06:55 Dose: 2 mg Furosemide (Lasix Injection -) 20 mg IVPUSH BID@0600,1400 STEPH Last Admin: 11/19/18 05:32 Dose: 20 mg Piperacillin Sod/Tazobactam (Sod 3.375 gm/ Dextrose) 50 mls @ 100 mls/hr IVPB Q8H-IV STEPH; Protocol Last Admin: 11/19/18 10:40 Dose: 100 mls/hr Levetiracetam (Keppra Oral Solution -) 500 mg GT BID STEPH Last Admin: 11/19/18 10:40 Dose: 500 mg Nystatin/Triamcinolone Acetonide (Mycolog Ii Cream -) 1 applic TP DAILY [facility] Last Admin: 11/19/18 10:47 Dose: Not Given Ranitidine HCl (Zantac Oral Solution -) 300 mg GT HS STEPH Last Admin: 11/19/18 00:36 Dose: 300 mg ASSESSMENT AND PLAN: Acute on Chronic Diastolic Heart Failure Chronic Hypercapneic Respiratory Failure r/o Pneumonia Recurrent Aspiration Cerebral Palsy Mental Retardation Seizure Disorder GERD Functional Quadriplegia - continue lasix - monitor urine output, creatinine - on empiric antibiotics - f/u cultures - O2 to keep SpO2 >90% - BiPAP as needed to assist in work of breathing - aspiration precautions - DVT prophylaxis Thank you for this consult Esteban Coe MD
--- NOTE | 2018-11-19 14:59 | CONSULT ---
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 Pt had one temperature spike of 100.4, thought to have possibly aspirated with aspiration pneumonitis/PNA. Pt recently discharged from hospital, noted to have had difficulty weaning off oxygen and we were consulted to evaluated for possible chronic need for oxygen. Due to pt's mental status, no additional hx could be obtained. 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 MANAGER shunt) Pulmonary: Yes: Pneumonia Gastrointestinal: Yes: Other (ube) Musculoskeletal: Yes: Other (functional quadriplegia, scoliosis s/p plates) - Alcohol/Substance Use Hx Alcohol Use: No - Smoking History Smoking history: Never smoked Have you smoked in the past 12 months: No - Social History Usual Living Arrangement: Assisted Living ADL: Support Services Home Medications - Allergies Allergies/Adverse Reactions: Allergies Allergy/AdvReac Type Severity Reaction Status Date / Time No Known Allergies Allergy Verified 10/24/18 18:45 - Home Medications Home Medications: Ambulatory Orders Baclofen 20 mg GT TID 02/18/16 Cholecalciferol (Vitamin D3) [Vitamin D3 -] 400 unit GT BID 02/18/16 Diazepam [Valium] 2 mg GT TID 02/18/16 Enema Bag, Disposable [Enema Bag] 1 each RC PRN 02/18/16 Albuterol 0.083% Nebulizer [place] [Ventolin 0.083% Nebulizer Soln -] 1 amp NEB PRN PRN 10/25/18 Magnesium Hydrox 2400MG/30Ml [Milk of Magnesia -] 30 ml GT HS 10/25/18 Nystatin/Triamcin [Nystatin-Triamcinolone Cream] 100,000 gm TD PRN PRN 10/25/18 levETIRAcetam [Keppra Oral Solution -] 500 mg GT BID cup 11/06/18 Acetic Acid 2% Otic Soln [Vosol 2% Ear Drops -] 3 drop OT HS 11/18/18 Cranberry/B.coagulan/C/Calcium [Cranberry-Probiotic Tablet] 1 each PO HS Ranitidine HCl [Zantac] 300 mg GT 11/18/18 Family Medical History Family History: Unable to Obtain Review of Systems Unable to obtain ROS, reason: mental status Physical Exam Vital Signs: Vital Signs Temperature 96.6 F L 11/19/18 12:23 Pulse Rate 79 11/19/18 12:23 Respiratory Rate 16 11/19/18 12:23 Blood Pressure 109/74 11/19/18 12:23 O2 Sat by Pulse Oximetry (%) 100 11/19/18 12:23 Constitutional: Yes: No Distress Eyes: No: Sclera Icterus HENT: Yes: Other (Bipap12/ 35%) Cardiovascular: Yes: Regular Rate and Rhythm, S1, S2 Respiratory: Yes: Rhonchi Gastrointestinal: Yes: Other (Gtube) Musculoskeletal: Yes: Other (Contracted) Edema: Yes Edema: LLE: Trace, RLE: Trace Neurological: Yes: Lethargy Labs: CBC, BMP 11/19/18 06:00 11/19/18 06:00 Imaging - Results Chest X-ray: Report Reviewed (Increased congestion, scoliosis), Image Reviewed Assessment/Plan Current Medications Acetic Acid (Vosol 2% Ear Drops -) 3 drop AU HS [facility] Last Admin: 11/19/18 00:36 Dose: 3 drop Albuterol Sulfate (Ventolin 0.083% Nebulizer Soln -) 1 amp NEB Q6H PRN PRN Reason: WHEEZING Baclofen (Lioresal -) 20 mg GT TID [facility] Last Admin: 11/19/18 15:00 Dose: 20 mg Cholecalciferol (Vitamin D3 Oral Solution -) 400 unit GT BID [facility] Last Admin: 11/19/18 10:40 Dose: 400 unit Diazepam (Valium -) 2 mg GT TID [facility] Last Admin: 11/19/18 15:00 Dose: 2 mg Furosemide (Lasix Injection -) 20 mg IVPUSH BID@0600,1400 [facility] Last Admin: 11/19/18 15:00 Dose: 20 mg Piperacillin Sod/Tazobactam (Sod 3.375 gm/ Dextrose) 50 mls @ 100 mls/hr IVPB Q8H-IV [facility]; Protocol Last Admin: 11/19/18 10:40 Dose: 100 mls/hr Levetiracetam (Keppra Oral Solution -) 500 mg GT BID [facility] Last Admin: 11/19/18 10:40 Dose: 500 mg Nystatin/Triamcinolone Acetonide (Mycolog Ii Cream -) 1 applic TP DAILY [facility] Last Admin: 11/19/18 10:47 Dose: Not Given Ranitidine HCl (Zantac Oral Solution -) 300 mg GT HS [facility] Last Admin: 11/19/18 00:36 Dose: 300 mg Assessment/Plan: Pt is a 48 yo F from [place] with PMHx of cerebral palsy, BREAKFAST MANAGER shunt, hydrocephalus, seizure disorder, GERD, severe mental retardation, pancreatitis, s/p Gtube, brought in from [place] for SOB and desaturation, did not improve on NC, was switched to Bipap. cerebral palsy, BREAKFAST MANAGER shunt, hydrocephalus, seizure disorder, GERD, severe mental retardation, pancreatitis, s/p Gtube, SOB desaturation Congestion Possible aspiration pneumonitis/PNA Mild PH Acute on chronic hypercapnic respiratory failure Acute on chronic diastolic heart failure Plan: PH likely in setting of recurrent lung infections R/O HFpEF Pt noted to chronically be retaining CO2, Continue bipap Possible pneumonitis/PNA, legionella negative, bcx neg Aspiration precautions Empiric AB per ID nebs as needed Congestion noted on imaging Lasix iv 20mg bid Monitor ins and outs Daily weights salt restriction Could consider procalcitonin levels Repeat CXR in 2 days Other mx per primary team D/W Dr Saravanan Capellan PGY 3 Visit type - Emergency Visit Emergency Visit: Yes ED Registration Date: 11/18/18 Care time: The patient presented to the Emergency Department on the above date and was hospitalized for further evaluation of their emergent condition. - New Patient This patient is new to me today: Yes Date on this admission: 11/19/18 - Critical Care Critical Care patient: No ATTENDING PHYSICIAN STATEMENT I saw and evaluated the patient. I reviewed the resident's note and discussed the case with the resident. I agree with the resident's findings and plan as documented. SUBJECTIVE: OBJECTIVE: ASSESSMENT AND PLAN:
[2018-11-19] MEDS ORDERED: DEXTROSE 5%-WATER - 50 ML IVPB ONE (18:28)
[2018-11-19] MEDS ORDERED: PIPERACILLIN/TAZOBACTAM 3.375 GM VIAL IVPB ONE (18:28)
[2018-11-19] MEDS: ALBUTEROL SO4 0.083% IH SOL 2.5 MG/3 ML VIAL.NEB. NEB PRN (20:24)
[2018-11-20] MEDS ORDERED: DEXTROSE 5%-WATER - 50 ML IVPB ONE ×3 (01:25→15:52)
[2018-11-20] MEDS ORDERED: PIPERACILLIN/TAZOBACTAM 3.375 GM VIAL IVPB ONE ×3 (01:25→15:52)
[2018-11-20] MEDS: PIPERACILLIN/TAZOB 3.375 GM 3.375 GM in DEXTROSE 5%-WATER - 50 ML IVPB SCH ×3 (01:55→17:21)
[2018-11-20] MEDS ORDERED: PIPERACILLIN/TAZOB 3.375 GM 3.375 GM in DEXTROSE 5%-WATER - 50 ML IVPB SCH (02:00)
[2018-11-20] MEDS ORDERED: PT OWN MED DRAWER 7, Y5N ONE ×4 (02:10→21:32)
[2018-11-20] MEDS: diazePAM 2 MG TABLET GT SCH ×3 (06:12→21:30)
[2018-11-20] MEDS: BACLOFEN 10 MG TABLET (FP) GT SCH ×3 (06:12→21:30)
[2018-11-20] MEDS: FUROSEMIDE 40 MG/4 ML INJECTABLE VIAL IVPUSH SCH ×2 (06:12→10:26)
[2018-11-20 08:06] LABS: BASO % 0.5 % (0-2.0); EOS % 2.1 % (0-4.5); HEMOGLOBIN 10.1 GM/dL (10.7-15.3); LYMPH % 18.3 % (8-40); MCH 29.1 pg (25.7-33.7); MCHC 33.6 g/dl (32.0-36.0); MEAN CELL VOLUME 86.6 fl (80-96); MEAN PLT VOLUME 7.6 fl (7.5-11.1); MONO % 12.1 % (3.8-10.2); PLATELET COUNT 209 K/MM3 (134-434); RBC 3.46 M/mm3 (3.60-5.2); RDW 17.2 % (11.6-15.6); WHITE BLOOD COUNT 2.4 K/mm3 (4.0-10.0)
[2018-11-20 08:24] LABS: ALBUMIN 2.2 g/dl (3.4-5.0); BLOOD UREA NITROGEN 22.3 mg/dL (7-18); CALCIUM 8.2 mg/dL (8.5-10.1); CREATININE 0.9 mg/dL (0.55-1.3); MAGNESIUM 2.6 mg/dL (1.8-2.4); POTASSIUM 3.2 mmol/L (3.5-5.1); TOT PROT 5.6 g/dl (6.4-8.2)
[2018-11-20] MEDS: CHOLECALCIFEROL (VIT D SOLUTION) 400 UNIT/1 ML DROPS GT SCH ×2 (09:27→21:30)
[2018-11-20] MEDS: levETIRAcetam 500 MG/5 ML ORAL SOLUTION (UNIT-DOSE CUPS) GT SCH ×2 (10:24→21:30)
--- NOTE | 2018-11-20 11:17 | PN ---
Progress Note (short form) - Note Progress Note: PULMONARY No further fevers. On NRB mask. Making snoring sounds with increased respiratory effort. Vital Signs Period Temp Pulse Resp BP Sys/Perez Pulse Ox Last 24 Hr 96.6 F-98.6 F 71-95 16-22 94-112/54-75 97-100 Gen: mildly tachypneic at rest Heart: RRR Lung: decreased breath sounds at the bases Abd: soft, nontender Ext: + edema CBC, BMP 11/20/18 07:20 11/20/18 07:20 Active Medications Acetic Acid (Vosol 2% Ear Drops -) 3 drop AU HS [facility] Last Admin: 11/19/18 23:02 Dose: 3 drop Albuterol Sulfate (Ventolin 0.083% Nebulizer Soln -) 1 amp NEB Q6H PRN PRN Reason: WHEEZING Last Admin: 11/19/18 20:24 Dose: 1 amp Baclofen (Lioresal -) 20 mg GT TID [facility] Last Admin: 11/20/18 06:12 Dose: 20 mg Cholecalciferol (Vitamin D3 Oral Solution -) 400 unit GT BID [facility] Last Admin: 11/20/18 09:27 Dose: 400 unit Diazepam (Valium -) 2 mg GT TID [facility] Last Admin: 11/20/18 06:12 Dose: 2 mg Furosemide (Lasix Injection -) 20 mg IVPUSH DAILY [facility] Last Admin: 11/20/18 10:26 Dose: 20 mg Piperacillin Sod/Tazobactam (Sod 3.375 gm/ Dextrose) 50 mls @ 100 mls/hr IVPB Q8H-IV [facility]; Protocol Last Admin: 11/20/18 10:27 Dose: 100 mls/hr Levetiracetam (Keppra Oral Solution -) 500 mg GT BID [facility] Last Admin: 11/20/18 10:24 Dose: 500 mg Nystatin/Triamcinolone Acetonide (Mycolog Ii Cream -) 1 applic TP DAILY [facility] Last Admin: 11/19/18 10:47 Dose: Not Given Ranitidine HCl (Zantac Oral Solution -) 300 mg GT HS [facility] Last Admin: 11/19/18 23:02 Dose: 300 mg A/P Acute on Chronic Diastolic Heart Failure Chronic Hypercapneic Respiratory Failure r/o Pneumonia Recurrent Aspiration Cerebral Palsy Mental Retardation Seizure Disorder GERD Functional Quadriplegia - place back on BiPAP - continue lasix - monitor urine output, creatinine - on empiric antibiotics - f/u cultures - O2 to keep SpO2 >90% - aspiration precautions - DVT prophylaxis
[2018-11-20] MEDS ORDERED: POTASSIUM CHLORIDE ORAL LIQUID 20 MEQ/15 ML PO ONE (11:26)
[2018-11-20] MEDS: NYSTATIN/TRIAMCINOLONE TOPICAL CREAM 15 GM TUBE TP SCH (13:38)
--- NOTE | 2018-11-20 16:48 | PN ---
Progress Note, Physician History of Present Illness: AFEBRILE BREATHING NON LABORED ON BIPAP - Current Medication List Current Medications: Active Medications Acetic Acid (Vosol 2% Ear Drops -) 3 drop AU HS [facility] Last Admin: 11/19/18 23:02 Dose: 3 drop Albuterol Sulfate (Ventolin 0.083% Nebulizer Soln -) 1 amp NEB Q6H PRN PRN Reason: WHEEZING Last Admin: 11/19/18 20:24 Dose: 1 amp Baclofen (Lioresal -) 20 mg GT TID [facility] Last Admin: 11/20/18 13:38 Dose: 20 mg Cholecalciferol (Vitamin D3 Oral Solution -) 400 unit GT BID [facility] Last Admin: 11/20/18 09:27 Dose: 400 unit Diazepam (Valium -) 2 mg GT TID [facility] Last Admin: 11/20/18 13:39 Dose: 2 mg Furosemide (Lasix Injection -) 20 mg IVPUSH DAILY [facility] Last Admin: 11/20/18 10:26 Dose: 20 mg Piperacillin Sod/Tazobactam (Sod 3.375 gm/ Dextrose) 50 mls @ 100 mls/hr IVPB Q8H-IV [facility]; Protocol Last Admin: 11/20/18 10:27 Dose: 100 mls/hr Levetiracetam (Keppra Oral Solution -) 500 mg GT BID [facility] Last Admin: 11/20/18 10:24 Dose: 500 mg Nystatin/Triamcinolone Acetonide (Mycolog Ii Cream -) 1 applic TP DAILY [facility] Last Admin: 11/20/18 13:38 Dose: 1 applic Ranitidine HCl (Zantac Oral Solution -) 300 mg GT HS [facility] Last Admin: 11/19/18 23:02 Dose: 300 mg - Objective Vital Signs: Vital Signs Temperature 99.4 F 11/20/18 15:39 Pulse Rate 98 H 11/20/18 15:39 Respiratory Rate 22 H 11/20/18 15:39 Blood Pressure 114/68 11/20/18 15:39 O2 Sat by Pulse Oximetry (%) 96 11/20/18 11:22 Constitutional: Yes: No Distress Cardiovascular: Yes: Regular Rate and Rhythm, S1, S2 Respiratory: Yes: Diminished Gastrointestinal: Yes: Soft. No: Tenderness Labs: CBC, BMP 11/20/18 07:20 11/20/18 07:20 INR, PTT INR 0.94 (0.83-1.09) 11/18/18 13:20 Assessment/Plan RESP INSUFFICIENCY/ HYPOXEMIA R/O RECURRENT ASPIRATION V. HCAP MR CONTINUE EMPIRIC ZOSYN
[2018-11-20] MEDS: ALBUTEROL SO4 0.083% IH SOL 2.5 MG/3 ML VIAL.NEB. NEB PRN (19:45)
--- NOTE | 2018-11-20 20:24 | PN ---
Teaching Attending Note Name of Resident: Jass Winn ATTENDING PHYSICIAN STATEMENT I saw and evaluated the patient. I reviewed the resident's note and discussed the case with the resident. I agree with the resident's findings and plan as documented. SUBJECTIVE: cannot provide history or reliable ros poor lung exam rrr s1/2 nt nd +bs moves all 4 ext, cn2-12 wnl not agitatied, tracks reviewed all pertinent diagnostics as ordered ASSESSMENT AND PLAN: Agree with resident note wean from o2; poor overall prognosis known from prior admits 30 mins
[2018-11-20] MEDS: ACETIC ACID 2% OTIC SOLN 15ML BOTTLE AU SCH (21:34)
[2018-11-20] MEDS: RANITIDINE HCL 150 MG/10 ML UNIT-DOSE GT SCH (21:35)
[2018-11-21] MEDS ORDERED: PIPERACILLIN/TAZOBACTAM 3.375 GM VIAL IVPB ONE ×3 (01:17→16:56)
[2018-11-21] MEDS ORDERED: DEXTROSE 5%-WATER - 50 ML IVPB ONE ×3 (01:17→16:56)
[2018-11-21] MEDS: PIPERACILLIN/TAZOB 3.375 GM 3.375 GM in DEXTROSE 5%-WATER - 50 ML IVPB SCH ×3 (01:18→17:04)
[2018-11-21] MEDS ORDERED: PT OWN MED DRAWER 7, Y5N ONE ×4 (06:57→21:59)
[2018-11-21] MEDS: BACLOFEN 10 MG TABLET (FP) GT SCH ×3 (06:57→22:03)
[2018-11-21] MEDS: diazePAM 2 MG TABLET GT SCH ×3 (06:58→22:03)
[2018-11-21 08:28] LABS: HEMATOCRIT 29.8 % (32.4-45.2); HEMOGLOBIN 9.9 GM/dL (10.7-15.3); MCHC 33.2 g/dl (32.0-36.0); MEAN CELL VOLUME 87.2 fl (80-96); MEAN PLT VOLUME 7.5 fl (7.5-11.1); PLATELET COUNT 201 K/MM3 (134-434); RBC 3.41 M/mm3 (3.60-5.2); RDW 16.7 % (11.6-15.6); WHITE BLOOD COUNT 3.3 K/mm3 (4.0-10.0)
[2018-11-21 08:40] LABS: CALCIUM 8.8 mg/dL (8.5-10.1); CREATININE 0.9 mg/dL (0.55-1.3); POTASSIUM 3.8 mmol/L (3.5-5.1)
[2018-11-21] MEDS: FUROSEMIDE 40 MG/4 ML INJECTABLE VIAL IVPUSH SCH (10:51)
[2018-11-21] MEDS: levETIRAcetam 500 MG/5 ML ORAL SOLUTION (UNIT-DOSE CUPS) GT SCH ×2 (10:51→22:03)
[2018-11-21] MEDS: NYSTATIN/TRIAMCINOLONE TOPICAL CREAM 15 GM TUBE TP SCH (10:51)
[2018-11-21] MEDS: CHOLECALCIFEROL (VIT D SOLUTION) 400 UNIT/1 ML DROPS GT SCH ×2 (10:51→22:03)
--- NOTE | 2018-11-21 14:26 | PN ---
Progress Note (short form) - Note Progress Note: PULMONARY No further fevers. On nasal cannula. Less snoring today. Vital Signs Period Temp Pulse Resp BP Sys/Perez Pulse Ox Last 24 Hr 98 F-99.4 F 90-98 20-22 94-116/64-69 95-98 Gen: mildly tachypneic at rest Heart: RRR Lung: decreased breath sounds at the bases Abd: soft, nontender Ext: + edema CBC, BMP 11/21/18 07:40 11/21/18 07:40 Active Medications Acetic Acid (Vosol 2% Ear Drops -) 3 drop AU HS [facility] Last Admin: 11/20/18 21:34 Dose: 3 drop Albuterol Sulfate (Ventolin 0.083% Nebulizer Soln -) 1 amp NEB Q6H PRN PRN Reason: WHEEZING Last Admin: 11/20/18 19:45 Dose: 1 amp Baclofen (Lioresal -) 20 mg GT TID [facility] Last Admin: 11/21/18 06:57 Dose: 20 mg Cholecalciferol (Vitamin D3 Oral Solution -) 400 unit GT BID [facility] Last Admin: 11/21/18 10:51 Dose: 400 unit Diazepam (Valium -) 2 mg GT TID [facility] Last Admin: 11/21/18 06:58 Dose: 2 mg Furosemide (Lasix Injection -) 20 mg IVPUSH DAILY [facility] Last Admin: 11/21/18 10:51 Dose: Not Given Piperacillin Sod/Tazobactam (Sod 3.375 gm/ Dextrose) 50 mls @ 100 mls/hr IVPB Q8H-IV [facility]; Protocol Last Admin: 11/21/18 10:52 Dose: 100 mls/hr Levetiracetam (Keppra Oral Solution -) 500 mg GT BID [facility] Last Admin: 11/21/18 10:51 Dose: 500 mg Nystatin/Triamcinolone Acetonide (Mycolog Ii Cream -) 1 applic TP DAILY [facility] Last Admin: 11/21/18 10:51 Dose: 1 applic Ranitidine HCl (Zantac Oral Solution -) 300 mg GT HS [facility] Last Admin: 11/20/18 21:35 Dose: 300 mg A/P Acute on Chronic Diastolic Heart Failure Chronic Hypercapneic Respiratory Failure Likely Obstructive Sleep Apnea r/o Pneumonia Recurrent Aspiration Cerebral Palsy Mental Retardation Seizure Disorder GERD Functional Quadriplegia - BiPAP at night and PRN during day - continue lasix - monitor urine output, creatinine - on empiric antibiotics - O2 to keep SpO2 >90% - aspiration precautions - DVT prophylaxis
--- NOTE | 2018-11-21 17:18 | PN ---
Teaching Attending Note Name of Resident: Jass Winn ATTENDING PHYSICIAN STATEMENT I saw and evaluated the patient. I reviewed the resident's note and discussed the case with the resident. I agree with the resident's findings and plan as documented with exceptions below. SUBJECTIVE: patient seen and examined, Non verbal, lethargic on Bipap when assessed at 9 AM. OBJECTIVE: Vital Signs Period Temp Pulse Resp BP Sys/Perez Pulse Ox Last 24 Hr 97.4 F-98.9 F 90-104 20-22 94-143/64-85 95-98 Intake & Output 11/18/18 11/19/18 11/20/18 11/21/18 23:59 23:59 23:59 23:59 Intake Total 1300 320 450 340 Output Total 200 Balance 1100 320 450 340 Weight 140 lb 120 lb 110 lb 4 oz 110 lb General: sitting in bed, on bipap, lethargic Neck: soft Chest: decreased air entry all over, scattered rhonchi Abdomen:Soft, mild distension, pos PEG, pos bowel sounds Extremities: contractures Home Medications Medication Instructions Recorded Baclofen 20 mg GT TID 02/18/16 Cholecalciferol (Vitamin D3) 400 unit GT BID 02/18/16 [Vitamin D3 -] Diazepam [Valium] 2 mg GT TID 02/18/16 Enema Bag, Disposable [Enema Bag] 1 each RC PRN 02/18/16 Albuterol 0.083% Nebulizer [place] 1 amp NEB PRN PRN 10/25/18 [Ventolin 0.083% Nebulizer Soln -] Magnesium Hydrox 2400MG/30Ml [Milk 30 ml GT HS 10/25/18 of Magnesia -] Nystatin/Triamcin 100,000 gm TD PRN PRN 10/25/18 [Nystatin-Triamcinolone Cream] levETIRAcetam [Keppra Oral 500 mg GT BID cup 11/06/18 Solution -] Acetic Acid 2% Otic Soln [Vosol 2% 3 drop OT HS 11/18/18 Ear Drops -] Cranberry/B.coagulan/C/Calcium 1 each PO HS 11/18/18 [Cranberry-Probiotic Tablet] Ranitidine HCl [Zantac] 300 mg GT HS 11/18/18 Active Medications Acetic Acid (Vosol 2% Ear Drops -) 3 drop AU HS [facility] Last Admin: 11/20/18 21:34 Dose: 3 drop Albuterol Sulfate (Ventolin 0.083% Nebulizer Soln -) 1 amp NEB Q6H PRN PRN Reason: WHEEZING Last Admin: 11/20/18 19:45 Dose: 1 amp Baclofen (Lioresal -) 20 mg GT TID [facility] Last Admin: 11/21/18 15:28 Dose: 20 mg Cholecalciferol (Vitamin D3 Oral Solution -) 400 unit GT BID [facility] Last Admin: 11/21/18 10:51 Dose: 400 unit Diazepam (Valium -) 2 mg GT TID [facility] Last Admin: 11/21/18 15:28 Dose: 2 mg Furosemide (Lasix Injection -) 20 mg IVPUSH DAILY [facility] Last Admin: 11/21/18 10:51 Dose: Not Given Piperacillin Sod/Tazobactam (Sod 3.375 gm/ Dextrose) 50 mls @ 100 mls/hr IVPB Q8H-IV [facility]; Protocol Last Admin: 11/21/18 10:52 Dose: 100 mls/hr Levetiracetam (Keppra Oral Solution -) 500 mg GT BID [facility] Last Admin: 11/21/18 10:51 Dose: 500 mg Nystatin/Triamcinolone Acetonide (Mycolog Ii Cream -) 1 applic TP DAILY [facility] Last Admin: 11/21/18 10:51 Dose: 1 applic Ranitidine HCl (Zantac Oral Solution -) 300 mg GT HS [facility] Last Admin: 11/20/18 21:35 Dose: 300 mg Laboratory Results - last 24 hr 11/21/18 11/21/18 07:40 07:40 WBC 3.3 L RBC 3.41 L Hgb 9.9 L Hct 29.8 L MCV 87.2 MCH 29.0 MCHC 33.2 RDW 16.7 H Plt Count 201 MPV 7.5 Sodium 140 Potassium 3.8 Chloride 99 Carbon Dioxide 34 H Anion Gap 7 L BUN 21.0 H Creatinine 0.9 Est GFR (CKD-EPI)AfAm 88.25 Est GFR (CKD-EPI)NonAf 76.14 Random Glucose 97 Calcium 8.8 Microbiology 11/18/18 13:20 Blood - Peripheral Venous Blood Culture - Preliminary NO GROWTH OBTAINED AFTER 72 HOURS, INCUBATION TO CONTINUE FOR 2 DAYS. 11/18/18 13:00 Blood - Peripheral Venous Blood Culture - Preliminary NO GROWTH OBTAINED AFTER 72 HOURS, INCUBATION TO CONTINUE FOR 2 DAYS. 11/18/18 13:13 Stool Salmonella/Shigella Culture - Final NO GROWTH OF SALMONELLA OR SHIGELLA SPECIES OBTAINED 11/18/18 13:13 Stool Campylobacter Culture - Final NO GROWTH OF CAMPYLOBACTER SPECIES OBTAINED 11/18/18 13:13 Stool Yersinia Culture - Final NO GROWTH OF YERSINIA SPECIES OBTAINED 11/18/18 13:13 Stool Vibrio Culture - Final NO GROWTH OF VIBRIO SPECIES OBTAINED 11/18/18 13:13 Stool Escherichia coli 0157 Culture - Final NO GROWTH OF E COLI 0157 OBTAINED 11/18/18 18:00 Urine For Antigen Detection Legionella Antigen - Final 11/18/18 18:00 Urine For Antigen Detection Streptococcus pneumoniae Antigen (M - Final 11/18/18 13:09 Urine - Urine - Catheterized Urine Culture - Final NO GROWTH OBTAINED CXR results and images reviewed ASSESSMENT AND PLAN: 48 yof with PMHx of cerebral palsy, 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 Lasix IV, bipap hs and prn Strict I/os and daily weights. Zosyn, aspiration precautions. Hold tube feeds. Continue baclofen/diazepam/keppra. DVTPPX heparin Dispo pending clinical improvement. Discussed with nursing.
[2018-11-21 18:58] LABS: ARTERIAL BLD GAS O2 SATURATION 97.3 % (95-98); ARTERIAL BLOOD GAS BASE EXCESS 8.8 meq/l (-2-2); ARTERIAL BLOOD GAS PO2 93.2 mmHg (80-100); ARTERIAL BLOOD GAS pH 7.39 (7.35-7.45)
[2018-11-21 19:05] LABS: ALLENS TEST POSITIVE
[2018-11-21] MEDS: RANITIDINE HCL 150 MG/10 ML UNIT-DOSE GT SCH (22:02)
[2018-11-21] MEDS: HEPARIN NA (PORCINE) 5,000 UNITS/ML 1ML VIAL SQ SCH (22:03)
[2018-11-21] MEDS: ACETIC ACID 2% OTIC SOLN 15ML BOTTLE AU SCH (22:03)
[2018-11-22] MEDS ORDERED: DEXTROSE 5%-WATER - 50 ML IVPB ONE ×3 (01:27→17:24)
[2018-11-22] MEDS ORDERED: PIPERACILLIN/TAZOBACTAM 3.375 GM VIAL IVPB ONE ×3 (01:27→17:24)
[2018-11-22] MEDS: PIPERACILLIN/TAZOB 3.375 GM 3.375 GM in DEXTROSE 5%-WATER - 50 ML IVPB SCH ×3 (01:36→17:26)
--- NOTE | 2018-11-22 05:06 | PN ---
Progress Note (short form) - Note Progress Note: HPI: Nonverbal patient at baseline. Remains on BiPap without respiratory distress noted. PE: GEn: NAD, nonverbal, somnolent, tachypnea HEENT: GATO, MMM LUNGS: Decreased breath sounds at bases b/l. 35% fiO2 SpO2 95% on BiPap CARDS: RRR no murmurs ABD: Soft Nt/ND normoactive BS, G-tube site without erythema or drainage around tube Microbiology 11/18/18 13:20 Blood - Peripheral Venous Blood Culture - Preliminary NO GROWTH OBTAINED AFTER 72 HOURS, INCUBATION TO CONTINUE FOR 2 DAYS. 11/18/18 13:00 Blood - Peripheral Venous Blood Culture - Preliminary NO GROWTH OBTAINED AFTER 72 HOURS, INCUBATION TO CONTINUE FOR 2 DAYS. 11/18/18 13:13 Stool Salmonella/Shigella Culture - Final NO GROWTH OF SALMONELLA OR SHIGELLA SPECIES OBTAINED 11/18/18 13:13 Stool Campylobacter Culture - Final NO GROWTH OF CAMPYLOBACTER SPECIES OBTAINED 11/18/18 13:13 Stool Yersinia Culture - Final NO GROWTH OF YERSINIA SPECIES OBTAINED 11/18/18 13:13 Stool Vibrio Culture - Final NO GROWTH OF VIBRIO SPECIES OBTAINED 11/18/18 13:13 Stool Escherichia coli 0157 Culture - Final NO GROWTH OF E COLI 0157 OBTAINED 11/18/18 18:00 Urine For Antigen Detection Legionella Antigen - Final 11/18/18 18:00 Urine For Antigen Detection Streptococcus pneumoniae Antigen (M - Final 11/18/18 13:09 Urine - Urine - Catheterized Urine Culture - Final NO GROWTH OBTAINED Active Medications Acetic Acid (Vosol 2% Ear Drops -) 3 drop AU HS [facility] Last Admin: 11/21/18 22:03 Dose: 3 drop Albuterol Sulfate (Ventolin 0.083% Nebulizer Soln -) 1 amp NEB Q6H PRN PRN Reason: WHEEZING Last Admin: 11/20/18 19:45 Dose: 1 amp Baclofen (Lioresal -) 20 mg GT TID [facility] Last Admin: 11/21/18 22:03 Dose: 20 mg Cholecalciferol (Vitamin D3 Oral Solution -) 400 unit GT BID [facility] Last Admin: 11/21/18 22:03 Dose: 400 unit Diazepam (Valium -) 2 mg GT TID [facility] Last Admin: 11/21/18 22:03 Dose: 2 mg Furosemide (Lasix Injection -) 20 mg IVPUSH DAILY [facility] Last Admin: 11/21/18 10:51 Dose: Not Given Heparin Sodium (Porcine) (Heparin -) 5,000 unit SQ TID [facility] Last Admin: 11/21/18 22:03 Dose: 5,000 unit Piperacillin Sod/Tazobactam (Sod 3.375 gm/ Dextrose) 50 mls @ 100 mls/hr IVPB Q8H-IV [facility]; Protocol Last Admin: 11/22/18 01:36 Dose: 100 mls/hr Levetiracetam (Keppra Oral Solution -) 500 mg GT BID [facility] Last Admin: 11/21/18 22:03 Dose: 500 mg Nystatin/Triamcinolone Acetonide (Mycolog Ii Cream -) 1 applic TP DAILY [facility] Last Admin: 11/21/18 10:51 Dose: 1 applic Ranitidine HCl (Zantac Oral Solution -) 300 mg GT HS [facility] Last Admin: 11/21/18 22:02 Dose: 300 mg A/P Hypercapneic respiratory failure Acute on chronic diastolic HF Aspiration pneumonitis Cerebral palsy 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 Radha Winn, DO - IM PGY-3
[2018-11-22] MEDS ORDERED: PT OWN MED DRAWER 7, Y5N ONE (06:57)
[2018-11-22] MEDS: BACLOFEN 10 MG TABLET (FP) GT SCH ×3 (07:23→21:55)
[2018-11-22] MEDS: diazePAM 2 MG TABLET GT SCH ×3 (07:23→21:55)
[2018-11-22] MEDS: HEPARIN NA (PORCINE) 5,000 UNITS/ML 1ML VIAL SQ SCH ×3 (07:24→21:55)
[2018-11-22] MEDS: FUROSEMIDE 40 MG/4 ML INJECTABLE VIAL IVPUSH SCH (09:52)
[2018-11-22] MEDS: levETIRAcetam 500 MG/5 ML ORAL SOLUTION (UNIT-DOSE CUPS) GT SCH ×2 (09:52→21:54)
[2018-11-22] MEDS: NYSTATIN/TRIAMCINOLONE TOPICAL CREAM 15 GM TUBE TP SCH (09:55)
[2018-11-22] MEDS: CHOLECALCIFEROL (VIT D SOLUTION) 400 UNIT/1 ML DROPS GT SCH ×2 (10:21→21:56)
--- NOTE | 2018-11-22 10:32 | PN ---
Progress Note (short form) - Note Progress Note: PULMONARY No further fevers. Saturating well on nasal cannula. Less snoring today. Vital Signs Period Temp Pulse Resp BP Sys/Perez Pulse Ox Last 24 Hr 97.4 F-98.7 F 64-104 18-22 94-143/69-85 94-100 Gen: mildly tachypneic at rest Heart: RRR Lung: decreased breath sounds at the bases Abd: soft, nontender Ext: + edema CBC, BMP 11/21/18 07:40 11/21/18 07:40 Active Medications Acetic Acid (Vosol 2% Ear Drops -) 3 drop AU HS [facility] Last Admin: 11/21/18 22:03 Dose: 3 drop Albuterol Sulfate (Ventolin 0.083% Nebulizer Soln -) 1 amp NEB Q6H PRN PRN Reason: WHEEZING Last Admin: 11/20/18 19:45 Dose: 1 amp Baclofen (Lioresal -) 20 mg GT TID [facility] Last Admin: 11/22/18 07:23 Dose: 20 mg Cholecalciferol (Vitamin D3 Oral Solution -) 400 unit GT BID [facility] Last Admin: 11/22/18 10:21 Dose: 400 unit Diazepam (Valium -) 2 mg GT TID [facility] Last Admin: 11/22/18 07:23 Dose: 2 mg Furosemide (Lasix Injection -) 20 mg IVPUSH DAILY [facility] Last Admin: 11/22/18 09:52 Dose: 20 mg Heparin Sodium (Porcine) (Heparin -) 5,000 unit SQ TID [facility] Last Admin: 11/22/18 07:24 Dose: 5,000 unit Piperacillin Sod/Tazobactam (Sod 3.375 gm/ Dextrose) 50 mls @ 100 mls/hr IVPB Q8H-IV [facility]; Protocol Last Admin: 11/22/18 09:51 Dose: 100 mls/hr Levetiracetam (Keppra Oral Solution -) 500 mg GT BID [facility] Last Admin: 11/22/18 09:52 Dose: 500 mg Nystatin/Triamcinolone Acetonide (Mycolog Ii Cream -) 1 applic TP DAILY [facility] Last Admin: 11/22/18 09:55 Dose: 1 applic Ranitidine HCl (Zantac Oral Solution -) 300 mg GT HS [facility] Last Admin: 11/21/18 22:02 Dose: 300 mg A/P Acute on Chronic Diastolic Heart Failure Chronic Hypercapneic Respiratory Failure Likely Obstructive Sleep Apnea r/o Pneumonia Recurrent Aspiration Cerebral Palsy Mental Retardation Seizure Disorder GERD Functional Quadriplegia - BiPAP at night and PRN during day - continue lasix - monitor urine output, creatinine - on empiric antibiotics - O2 to keep SpO2 >90% - aspiration precautions - DVT prophylaxis
[2018-11-22 12:37] LABS: BASO % 0.3 % (0-2.0); EOS % 1.7 % (0-4.5); HEMATOCRIT 32.7 % (32.4-45.2); HEMOGLOBIN 10.9 GM/dL (10.7-15.3); LYMPH % 14.4 % (8-40); MCH 29.1 pg (25.7-33.7); MCHC 33.3 g/dl (32.0-36.0); MEAN CELL VOLUME 87.3 fl (80-96); MEAN PLT VOLUME 7.7 fl (7.5-11.1); MONO % 10.1 % (3.8-10.2); NEUT % 73.5 % (42.8-82.8); PLATELET COUNT 189 K/MM3 (134-434); RBC 3.74 M/mm3 (3.60-5.2); RDW 16.8 % (11.6-15.6); WHITE BLOOD COUNT 4.5 K/mm3 (4.0-10.0)
[2018-11-22 12:59] LABS: BLOOD UREA NITROGEN 18.7 mg/dL (7-18); CALCIUM 9.1 mg/dL (8.5-10.1); CREATININE 0.8 mg/dL (0.55-1.3); POTASSIUM 3.3 mmol/L (3.5-5.1)
[2018-11-22] MEDS ORDERED: POTASSIUM CHLORIDE ORAL LIQUID 20 MEQ/15 ML PO ONE (13:38)
--- NOTE | 2018-11-22 17:12 | PN ---
Teaching Attending Note Name of Resident: Jass Winn ATTENDING PHYSICIAN STATEMENT I saw and evaluated the patient. I reviewed the resident's note and discussed the case with the resident. I agree with the resident's findings and plan as documented with exceptions below. SUBJECTIVE: Patient seen and examined. non verbal. OBJECTIVE: Vital Signs Period Temp Pulse Resp BP Sys/Perez Pulse Ox Last 24 Hr 97.4 F-98.9 F 64-116 16-22 100-112/67-75 94-100 Intake & Output 11/19/18 11/20/18 11/21/18 11/22/18 23:59 23:59 23:59 23:59 Intake Total 320 450 580 340 Balance 320 450 580 340 Weight 120 lb 110 lb 4 oz 110 lb General: lying in bed, lethargic, snoring , no acute distress neck: contracted Chest: pos air entry, no rales or wheezing appreciate, upper air snoring sounds as above Abdomen:Soft, PEG in place Extremities: contractures Home Medications Medication Instructions Recorded Baclofen 20 mg GT TID 02/18/16 Cholecalciferol (Vitamin D3) 400 unit GT BID 02/18/16 [Vitamin D3 -] Diazepam [Valium] 2 mg GT TID 02/18/16 Enema Bag, Disposable [Enema Bag] 1 each RC PRN 02/18/16 Albuterol 0.083% Nebulizer [place] 1 amp NEB PRN PRN 10/25/18 [Ventolin 0.083% Nebulizer Soln -] Magnesium Hydrox 2400MG/30Ml [Milk 30 ml GT HS 10/25/18 of Magnesia -] Nystatin/Triamcin 100,000 gm TD PRN PRN 10/25/18 [Nystatin-Triamcinolone Cream] levETIRAcetam [Keppra Oral 500 mg GT BID cup 11/06/18 Solution -] Acetic Acid 2% Otic Soln [Vosol 2% 3 drop OT HS 11/18/18 Ear Drops -] Cranberry/B.coagulan/C/Calcium 1 each PO HS 11/18/18 [Cranberry-Probiotic Tablet] Ranitidine HCl [Zantac] 300 mg GT HS 11/18/18 Active Medications Acetic Acid (Vosol 2% Ear Drops -) 3 drop AU HS [facility] Last Admin: 11/21/18 22:03 Dose: 3 drop Albuterol Sulfate (Ventolin 0.083% Nebulizer Soln -) 1 amp NEB Q6H PRN PRN Reason: WHEEZING Last Admin: 11/20/18 19:45 Dose: 1 amp Baclofen (Lioresal -) 20 mg GT TID [facility] Last Admin: 11/22/18 13:54 Dose: 20 mg Cholecalciferol (Vitamin D3 Oral Solution -) 400 unit GT BID [facility] Last Admin: 11/22/18 10:21 Dose: 400 unit Diazepam (Valium -) 2 mg GT TID [facility] Last Admin: 11/22/18 13:53 Dose: 2 mg Furosemide (Lasix Injection -) 20 mg IVPUSH DAILY [facility] Last Admin: 11/22/18 09:52 Dose: 20 mg Heparin Sodium (Porcine) (Heparin -) 5,000 unit SQ TID [facility] Last Admin: 11/22/18 13:53 Dose: 5,000 unit Piperacillin Sod/Tazobactam (Sod 3.375 gm/ Dextrose) 50 mls @ 100 mls/hr IVPB Q8H-IV [facility]; Protocol Last Admin: 11/22/18 09:51 Dose: 100 mls/hr Levetiracetam (Keppra Oral Solution -) 500 mg GT BID [facility] Last Admin: 11/22/18 09:52 Dose: 500 mg Nystatin/Triamcinolone Acetonide (Mycolog Ii Cream -) 1 applic TP DAILY [facility] Last Admin: 11/22/18 09:55 Dose: 1 applic Ranitidine HCl (Zantac Oral Solution -) 300 mg GT HS [facility] Last Admin: 11/21/18 22:02 Dose: 300 mg Laboratory Results - last 24 hr 11/21/18 11/21/18 11/22/18 17:31 18:35 12:09 WBC 4.5 RBC 3.74 Hgb 10.9 Hct 32.7 MCV 87.3 MCH 29.1 MCHC 33.3 RDW 16.8 H Plt Count 189 MPV 7.7 Absolute Neuts (auto) 3.3 Neutrophils % 73.5 Lymphocytes % 14.4 D Monocytes % 10.1 Eosinophils % 1.7 Basophils % 0.3 Nucleated RBC % 0 Anticoagulation Therapy No Result Required. Puncture Site Right radial ABG pH 7.39 ABG pCO2 at Pt Temp 59.0 H ABG pO2 at Pt Temp 93.2 ABG HCO3 35.0 H ABG O2 Sat (Measured) 97.3 ABG O2 Content 14.3 ABG Base Excess 8.8 H Alejandro Test Positive O2 Delivery Device Room air Oxygen Flow Rate No Result Required. Vent Mode No Result Required. Vent Rate No Result Required. Mechanical Rate No Result Required. Pressure Support Vent No Result Required. Sodium Potassium Chloride Carbon Dioxide Anion Gap BUN Creatinine Est GFR (CKD-EPI)AfAm Est GFR (CKD-EPI)NonAf POC Glucometer 118 Random Glucose Calcium 11/22/18 12:09 WBC RBC Hgb Hct MCV MCH MCHC RDW Plt Count MPV Absolute Neuts (auto) Neutrophils % Lymphocytes % Monocytes % Eosinophils % Basophils % Nucleated RBC % Anticoagulation Therapy Puncture Site ABG pH ABG pCO2 at Pt Temp ABG pO2 at Pt Temp ABG HCO3 ABG O2 Sat (Measured) ABG O2 Content ABG Base Excess Alejandro Test O2 Delivery Device Oxygen Flow Rate Vent Mode Vent Rate Mechanical Rate Pressure Support Vent Sodium 138 Potassium 3.3 L Chloride 99 Carbon Dioxide 33 H Anion Gap 6 L BUN 18.7 H Creatinine 0.8 Est GFR (CKD-EPI)AfAm 101.75 Est GFR (CKD-EPI)NonAf 87.79 POC Glucometer Random Glucose 106 Calcium 9.1 Microbiology 11/18/18 13:20 Blood - Peripheral Venous Blood Culture - Preliminary NO GROWTH OBTAINED AFTER 96 HOURS, INCUBATION TO CONTINUE FOR 1 DAYS. 11/18/18 13:00 Blood - Peripheral Venous Blood Culture - Preliminary NO GROWTH OBTAINED AFTER 96 HOURS, INCUBATION TO CONTINUE FOR 1 DAYS. 11/18/18 13:13 Stool Salmonella/Shigella Culture - Final NO GROWTH OF SALMONELLA OR SHIGELLA SPECIES OBTAINED 11/18/18 13:13 Stool Campylobacter Culture - Final NO GROWTH OF CAMPYLOBACTER SPECIES OBTAINED 11/18/18 13:13 Stool Yersinia Culture - Final NO GROWTH OF YERSINIA SPECIES OBTAINED 11/18/18 13:13 Stool Vibrio Culture - Final NO GROWTH OF VIBRIO SPECIES OBTAINED 11/18/18 13:13 Stool Escherichia coli 0157 Culture - Final NO GROWTH OF E COLI 0157 OBTAINED 11/18/18 18:00 Urine For Antigen Detection Legionella Antigen - Final 11/18/18 18:00 Urine For Antigen Detection Streptococcus pneumoniae Antigen (M - Final 11/18/18 13:09 Urine - Urine - Catheterized Urine Culture - Final NO GROWTH OBTAINED ASSESSMENT AND PLAN: 48 yof with PMHx of cerebral palsy, CHILD PSYCHOMETRIST shunt, hydrocephalus, seizure disorder, GERD, severe mental retardation, pancreatitis, s/p Gtube, admitted with dyspnea and hypoxia -Acute on chronic diastolic heart failure exacerbation -Chronic hypercapneic respiratory failure -Suspect aspiration PNA vs pneumonitis -Hypokalemia -Cerebral palsy -s/p CHILD PSYCHOMETRIST 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 Lasix IV, bipap hs and prn Strict I/os and daily weights. Zosyn, aspiration precautions. Resume tube feeds. Replete K. Continue baclofen/diazepam/keppra. DVTPPX heparin Dispo back in to [place] in 24 hours if continues to improve. Discussed with nursing.
[2018-11-22] MEDS: ACETIC ACID 2% OTIC SOLN 15ML BOTTLE AU SCH (21:58)
[2018-11-22] MEDS: RANITIDINE HCL 150 MG/10 ML UNIT-DOSE GT SCH (22:57)
[2018-11-23] MEDS ORDERED: PIPERACILLIN/TAZOBACTAM 3.375 GM VIAL IVPB ONE ×3 (01:11→17:31)
[2018-11-23] MEDS ORDERED: DEXTROSE 5%-WATER - 50 ML IVPB ONE ×3 (01:13→17:31)
[2018-11-23] MEDS: PIPERACILLIN/TAZOB 3.375 GM 3.375 GM in DEXTROSE 5%-WATER - 50 ML IVPB SCH ×3 (02:05→17:35)
[2018-11-23] MEDS ORDERED: ACETAMINOPHEN 1000 MG/100 ML VIAL (NON FORMULARY) IVPB ONE (03:24)
[2018-11-23] MEDS ORDERED: PT OWN MED DRAWER 7, Y5N ONE ×3 (05:00→22:29)
[2018-11-23] MEDS: diazePAM 2 MG TABLET GT SCH ×3 (05:10→22:28)
[2018-11-23] MEDS: BACLOFEN 10 MG TABLET (FP) GT SCH ×3 (05:10→22:50)
[2018-11-23] MEDS: HEPARIN NA (PORCINE) 5,000 UNITS/ML 1ML VIAL SQ SCH ×3 (05:10→22:27)
--- NOTE | 2018-11-23 06:29 | PN ---
Progress Note (short form) - Note Progress Note: HPI: Nonverbal patient at baseline. Pt noted to have 102 fever rectally last night. Blood cultures and CXR ordered by night team. PE: GEN: NAD, nonverbal, somnolent, tachypnea with snoring HEENT: GATO, MMM LUNGS: Rhoncherous breath sounds throughout. CARDS: RRR no murmurs ABD: Soft Nt/ND normoactive BS, G-tube site without erythema or drainage around tube, tube feeds at 20cc goal Microbiology 11/18/18 13:20 Blood - Peripheral Venous Blood Culture - Preliminary NO GROWTH OBTAINED AFTER 72 HOURS, INCUBATION TO CONTINUE FOR 2 DAYS. 11/18/18 13:00 Blood - Peripheral Venous Blood Culture - Preliminary NO GROWTH OBTAINED AFTER 72 HOURS, INCUBATION TO CONTINUE FOR 2 DAYS. 11/18/18 13:13 Stool Salmonella/Shigella Culture - Final NO GROWTH OF SALMONELLA OR SHIGELLA SPECIES OBTAINED 11/18/18 13:13 Stool Campylobacter Culture - Final NO GROWTH OF CAMPYLOBACTER SPECIES OBTAINED 11/18/18 13:13 Stool Yersinia Culture - Final NO GROWTH OF YERSINIA SPECIES OBTAINED 11/18/18 13:13 Stool Vibrio Culture - Final NO GROWTH OF VIBRIO SPECIES OBTAINED 11/18/18 13:13 Stool Escherichia coli 0157 Culture - Final NO GROWTH OF E COLI 0157 OBTAINED 11/18/18 18:00 Urine For Antigen Detection Legionella Antigen - Final 11/18/18 18:00 Urine For Antigen Detection Streptococcus pneumoniae Antigen (M - Final 11/18/18 13:09 Urine - Urine - Catheterized Urine Culture - Final NO GROWTH OBTAINED Active Medications Acetaminophen (Tylenol Oral Solution -) 650 mg GT Q6H PRN PRN Reason: FEVER Acetic Acid (Vosol 2% Ear Drops -) 3 drop AU HS [facility] Last Admin: 11/22/18 21:58 Dose: 3 drop Albuterol Sulfate (Ventolin 0.083% Nebulizer Soln -) 1 amp NEB Q6H PRN PRN Reason: WHEEZING Last Admin: 11/20/18 19:45 Dose: 1 amp Baclofen (Lioresal -) 20 mg GT TID [facility] Last Admin: 11/23/18 05:10 Dose: 20 mg Cholecalciferol (Vitamin D3 Oral Solution -) 400 unit GT BID [facility] Last Admin: 11/22/18 21:56 Dose: 400 unit Diazepam (Valium -) 2 mg GT TID [facility] Last Admin: 11/23/18 05:10 Dose: 2 mg Furosemide (Lasix Injection -) 20 mg IVPUSH DAILY [facility] Last Admin: 11/22/18 09:52 Dose: 20 mg Heparin Sodium (Porcine) (Heparin -) 5,000 unit SQ TID [facility] Last Admin: 11/23/18 05:10 Dose: 5,000 unit Piperacillin Sod/Tazobactam (Sod 3.375 gm/ Dextrose) 50 mls @ 100 mls/hr IVPB Q8H-IV [facility]; Protocol Last Admin: 11/23/18 02:05 Dose: 100 mls/hr Levetiracetam (Keppra Oral Solution -) 500 mg GT BID [facility] Last Admin: 11/22/18 21:54 Dose: 500 mg Nystatin/Triamcinolone Acetonide (Mycolog Ii Cream -) 1 applic TP DAILY [facility] Last Admin: 11/22/18 09:55 Dose: 1 applic Ranitidine HCl (Zantac Oral Solution -) 300 mg GT HS [facility] Last Admin: 11/22/18 22:57 Dose: 300 mg A/P Hypercapneic respiratory failure Acute on chronic diastolic HF Aspiration pneumonitis Cerebral palsy 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 with EDITORIAL CARTOONIST shunting Severe MR Pancreatitis Seizure disorder --Likely pt continues to aspiration which lead to fever once again --Will f/u on CXR for possible worsening infiltrates --Monitor fever trend --Hold tube feeds in interim and will check residual from PEG --Residual 0 --Can resume tube feeds 20cc /hr --Can continue with same settings BiPAP HS as needed --Continue with Lasix 20mg IVP and can reassess tomorrow for need for further diuretics --Continue Zosyn 3.375 q8h per ID --Aspiration precautions to continue; HOB elevated 35*-45* --Continue Keppra 500mg GT BID and Valium 2mg GT TID to continue --Continue Baclofen TID FEN: Fluids: FW flushes with food Electrolyte abnormalities: None today Nutrition: Holding feeds in interim for residual check and CXr; can restart upon re-evaluation later today PPX: DVT - Heparin TID GI - Ranitidine HS already on board Dispo: Continue monitoring Case discussed with Dr. Radha Winn, DO - IM PGY-3
[2018-11-23 09:15] LABS: HEMATOCRIT 35.8 % (32.4-45.2); HEMOGLOBIN 11.9 GM/dL (10.7-15.3); MCH 28.9 pg (25.7-33.7); MCHC 33.4 g/dl (32.0-36.0); MEAN CELL VOLUME 86.7 fl (80-96); MEAN PLT VOLUME 7.9 fl (7.5-11.1); PLATELET COUNT 172 K/MM3 (134-434); RBC 4.13 M/mm3 (3.60-5.2); RDW 16.9 % (11.6-15.6); WHITE BLOOD COUNT 11.3 K/mm3 (4.0-10.0)
[2018-11-23 09:47] LABS: BLOOD UREA NITROGEN 31.6 mg/dL (7-18); CALCIUM 8.7 mg/dL (8.5-10.1); CREATININE 1.1 mg/dL (0.55-1.3); MAGNESIUM 2.2 mg/dL (1.8-2.4); POTASSIUM 3.6 mmol/L (3.5-5.1)
[2018-11-23] MEDS: FUROSEMIDE 40 MG/4 ML INJECTABLE VIAL IVPUSH SCH (11:13)
[2018-11-23] MEDS: levETIRAcetam 500 MG/5 ML ORAL SOLUTION (UNIT-DOSE CUPS) GT SCH ×2 (11:13→22:20)
[2018-11-23] MEDS: CHOLECALCIFEROL (VIT D SOLUTION) 400 UNIT/1 ML DROPS GT SCH ×2 (11:14→22:19)
[2018-11-23] MEDS: NYSTATIN/TRIAMCINOLONE TOPICAL CREAM 15 GM TUBE TP SCH (11:22)
--- NOTE | 2018-11-23 14:12 | PN ---
Progress Note, Physician History of Present Illness: PULMONARY SLEEPING,-RESP DISTRESS TMAX 102.6 - Current Medication List Current Medications: Active Medications Acetaminophen (Tylenol Oral Solution -) 650 mg GT Q6H PRN PRN Reason: FEVER Acetic Acid (Vosol 2% Ear Drops -) 3 drop AU HS [facility] Last Admin: 11/22/18 21:58 Dose: 3 drop Albuterol Sulfate (Ventolin 0.083% Nebulizer Soln -) 1 amp NEB Q6H PRN PRN Reason: WHEEZING Last Admin: 11/20/18 19:45 Dose: 1 amp Baclofen (Lioresal -) 20 mg GT TID [facility] Last Admin: 11/23/18 05:10 Dose: 20 mg Cholecalciferol (Vitamin D3 Oral Solution -) 400 unit GT BID [facility] Last Admin: 11/23/18 11:14 Dose: 400 unit Diazepam (Valium -) 2 mg GT TID [facility] Last Admin: 11/23/18 05:10 Dose: 2 mg Furosemide (Lasix Injection -) 20 mg IVPUSH DAILY [facility] Last Admin: 11/23/18 11:13 Dose: 20 mg Heparin Sodium (Porcine) (Heparin -) 5,000 unit SQ TID [facility] Last Admin: 11/23/18 05:10 Dose: 5,000 unit Piperacillin Sod/Tazobactam (Sod 3.375 gm/ Dextrose) 50 mls @ 100 mls/hr IVPB Q8H-IV [facility]; Protocol Last Admin: 11/23/18 11:14 Dose: 100 mls/hr Levetiracetam (Keppra Oral Solution -) 500 mg GT BID [facility] Last Admin: 11/23/18 11:13 Dose: 500 mg Nystatin/Triamcinolone Acetonide (Mycolog Ii Cream -) 1 applic TP DAILY [facility] Last Admin: 11/23/18 11:22 Dose: 1 applic Ranitidine HCl (Zantac Oral Solution -) 300 mg GT HS [facility] Last Admin: 11/22/18 22:57 Dose: 300 mg - Objective Vital Signs: Vital Signs Temperature 99.6 F 11/23/18 08:45 Pulse Rate 112 H 11/23/18 08:45 Respiratory Rate 20 11/23/18 08:45 Blood Pressure 125/91 11/23/18 08:45 O2 Sat by Pulse Oximetry (%) 99 11/23/18 11:50 Constitutional: Yes: Thin, Other (SLEEPING) Eyes: Yes: WNL HENT: Yes: WNL Neck: Yes: WNL Cardiovascular: Yes: Regular Rate and Rhythm, S1, S2 Respiratory: Yes: Rhonchi (SCATTERED SIENNA RHONCHI) Gastrointestinal: Yes: Normal Bowel Sounds, Soft Extremities: Yes: Shortened, Other (CONTRACTED) Labs: CBC, BMP 11/23/18 08:43 11/23/18 08:43 INR, PTT INR 0.94 (0.83-1.09) 11/18/18 13:20 Problem List - Problems (1) Cough Code(s): R05 - COUGH (2) Fever Code(s): R50.9 - FEVER, UNSPECIFIED Qualifiers: Fever type: unspecified Qualified Code(s): R50.9 - Fever, unspecified (3) GERD (gastroesophageal reflux disease) Code(s): K21.9 - GASTRO-ESOPHAGEAL REFLUX DISEASE WITHOUT ESOPHAGITIS (4) Hypoxia Code(s): R09.02 - HYPOXEMIA (5) Wheezing Code(s): R06.2 - WHEEZING (6) Congenital quadriplegia Code(s): G80.8 - OTHER CEREBRAL PALSY (7) Profound intellectual disability Code(s): F73 - PROFOUND INTELLECTUAL DISABILITIES (8) Seizure Code(s): R56.9 - UNSPECIFIED CONVULSIONS (9) Respiratory distress Code(s): R06.03 - ACUTE RESPIRATORY DISTRESS (10) Chronic hypercapnic respiratory failure Code(s): J96.12 - CHRONIC RESPIRATORY FAILURE WITH HYPERCAPNIA Assessment/Plan A/P Acute on Chronic Diastolic Heart Failure Chronic Hypercapneic Respiratory Failure Likely Obstructive Sleep Apnea r/o Pneumonia Recurrent Aspiration Cerebral Palsy Mental Retardation Seizure Disorder GERD Functional Quadriplegia Fever - BiPAP at night and PRN during day - lasix - monitor urine output, creatinine - antibiotics - O2 to keep SpO2 >90% - aspiration precautions - DVT prophylaxis - inhaled bronchodilators DR LARA
[2018-11-23] MEDS ORDERED: POTASSIUM CHLORIDE ORAL LIQUID 20 MEQ/15 ML GT ONE (14:23)
--- NOTE | 2018-11-23 14:26 | PN ---
Teaching Attending Note Name of Resident: Jass Winn ATTENDING PHYSICIAN STATEMENT I saw and evaluated the patient. I reviewed the resident's note and discussed the case with the resident. I agree with the resident's findings and plan as documented with exceptions below. SUBJECTIVE: Patient seen and examined. non verbal. sleeping. OBJECTIVE: Vital Signs Period Temp Pulse Resp BP Sys/Perez Pulse Ox Last 24 Hr 97.4 F-102.6 F 98-135 16-20 102-125/56-91 98-99 Intake & Output 11/20/18 11/21/18 11/22/18 11/23/18 23:59 23:59 23:59 23:59 Intake Total 450 580 690 310 Balance 450 580 690 310 Weight 110 lb 4 oz 110 lb 99 lb 4.8 oz General: lying in bed, lethargic, snoring , no acute distress neck: contracted Chest: pos air entry, no rales or wheezing appreciate, upper air snoring sounds as above Abdomen:Soft, PEG in place Extremities: contractures Home Medications Medication Instructions Recorded Baclofen 20 mg GT TID 02/18/16 Cholecalciferol (Vitamin D3) 400 unit GT BID 02/18/16 [Vitamin D3 -] Diazepam [Valium] 2 mg GT TID 02/18/16 Enema Bag, Disposable [Enema Bag] 1 each RC PRN 02/18/16 Albuterol 0.083% Nebulizer [place] 1 amp NEB PRN PRN 10/25/18 [Ventolin 0.083% Nebulizer Soln -] Magnesium Hydrox 2400MG/30Ml [Milk 30 ml GT HS 10/25/18 of Magnesia -] Nystatin/Triamcin 100,000 gm TD PRN PRN 10/25/18 [Nystatin-Triamcinolone Cream] levETIRAcetam [Keppra Oral 500 mg GT BID cup 11/06/18 Solution -] Acetic Acid 2% Otic Soln [Vosol 2% 3 drop OT HS 11/18/18 Ear Drops -] Cranberry/B.coagulan/C/Calcium 1 each PO HS 11/18/18 [Cranberry-Probiotic Tablet] Ranitidine HCl [Zantac] 300 mg GT HS 11/18/18 Active Medications Acetaminophen (Tylenol Oral Solution -) 650 mg GT Q6H PRN PRN Reason: FEVER Acetic Acid (Vosol 2% Ear Drops -) 3 drop AU HS [facility] Last Admin: 11/22/18 21:58 Dose: 3 drop Albuterol Sulfate (Ventolin 0.083% Nebulizer Soln -) 1 amp NEB Q6H PRN PRN Reason: WHEEZING Last Admin: 11/20/18 19:45 Dose: 1 amp Baclofen (Lioresal -) 20 mg GT TID [facility] Last Admin: 11/23/18 05:10 Dose: 20 mg Cholecalciferol (Vitamin D3 Oral Solution -) 400 unit GT BID [facility] Last Admin: 11/23/18 11:14 Dose: 400 unit Diazepam (Valium -) 2 mg GT TID [facility] Last Admin: 11/23/18 05:10 Dose: 2 mg Furosemide (Lasix Injection -) 20 mg IVPUSH DAILY [facility] Last Admin: 11/23/18 11:13 Dose: 20 mg Heparin Sodium (Porcine) (Heparin -) 5,000 unit SQ TID [facility] Last Admin: 11/23/18 05:10 Dose: 5,000 unit Piperacillin Sod/Tazobactam (Sod 3.375 gm/ Dextrose) 50 mls @ 100 mls/hr IVPB Q8H-IV [facility]; Protocol Last Admin: 11/23/18 11:14 Dose: 100 mls/hr Levetiracetam (Keppra Oral Solution -) 500 mg GT BID [facility] Last Admin: 11/23/18 11:13 Dose: 500 mg Nystatin/Triamcinolone Acetonide (Mycolog Ii Cream -) 1 applic TP DAILY [facility] Last Admin: 11/23/18 11:22 Dose: 1 applic Potassium Chloride (Potassium Chloride Oral Liquid) 40 meq GT ONCE ONE Stop: 11/23/18 14:24 Ranitidine HCl (Zantac Oral Solution -) 300 mg GT HS [facility] Last Admin: 11/22/18 22:57 Dose: 300 mg Laboratory Results - last 24 hr 11/21/18 11/22/18 11/23/18 10:58 23:04 05:57 WBC RBC Hgb Hct MCV MCH MCHC RDW Plt Count MPV Sodium Potassium Chloride Carbon Dioxide Anion Gap BUN Creatinine Est GFR (CKD-EPI)AfAm Est GFR (CKD-EPI)NonAf POC Glucometer 104 153 188 Random Glucose Calcium Magnesium 11/23/18 11/23/18 11/23/18 08:43 08:43 11:57 WBC 11.3 H RBC 4.13 Hgb 11.9 Hct 35.8 MCV 86.7 MCH 28.9 MCHC 33.4 RDW 16.9 H Plt Count 172 MPV 7.9 Sodium 138 Potassium 3.6 Chloride 100 Carbon Dioxide 33 H Anion Gap 6 L BUN 31.6 H Creatinine 1.1 Est GFR (CKD-EPI)AfAm 69.24 Est GFR (CKD-EPI)NonAf 59.74 POC Glucometer 190 Random Glucose 151 H Calcium 8.7 Magnesium 2.2 Microbiology 11/18/18 13:20 Blood - Peripheral Venous Blood Culture - Final NO GROWTH AFTER 5 DAYS INCUBATION 11/18/18 13:00 Blood - Peripheral Venous Blood Culture - Final NO GROWTH AFTER 5 DAYS INCUBATION 11/18/18 13:13 Stool Salmonella/Shigella Culture - Final NO GROWTH OF SALMONELLA OR SHIGELLA SPECIES OBTAINED 11/18/18 13:13 Stool Campylobacter Culture - Final NO GROWTH OF CAMPYLOBACTER SPECIES OBTAINED 11/18/18 13:13 Stool Yersinia Culture - Final NO GROWTH OF YERSINIA SPECIES OBTAINED 11/18/18 13:13 Stool Vibrio Culture - Final NO GROWTH OF VIBRIO SPECIES OBTAINED 11/18/18 13:13 Stool Escherichia coli 0157 Culture - Final NO GROWTH OF E COLI 0157 OBTAINED 11/18/18 18:00 Urine For Antigen Detection Legionella Antigen - Final 11/18/18 18:00 Urine For Antigen Detection Streptococcus pneumoniae Antigen (M - Final 11/18/18 13:09 Urine - Urine - Catheterized Urine Culture - Final NO GROWTH OBTAINED ASSESSMENT AND PLAN: 48 yof with PMHx of cerebral palsy, 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 Lasix IV, bipap hs and prn Strict I/os and daily weights. Monitor renal function. Zosyn, aspiration precautions. Recurrent fevers, suspect ongoing aspiration. Hold tube feeds for now. Repeat blood cx. Replete K. Continue baclofen/diazepam/keppra. DVTPPX heparin Dispo dispo on hold given recurrent fevers. Discussed with nursing.
[2018-11-23] MEDS: ACETIC ACID 2% OTIC SOLN 15ML BOTTLE AU SCH (22:00)
[2018-11-23] MEDS: RANITIDINE HCL 150 MG/10 ML UNIT-DOSE GT SCH (22:19)
[2018-11-24] MEDS ORDERED: PIPERACILLIN/TAZOBACTAM 3.375 GM VIAL IVPB ONE ×3 (00:50→16:12)
[2018-11-24] MEDS ORDERED: DEXTROSE 5%-WATER - 50 ML IVPB ONE ×3 (00:51→16:12)
[2018-11-24] MEDS: PIPERACILLIN/TAZOB 3.375 GM 3.375 GM in DEXTROSE 5%-WATER - 50 ML IVPB SCH ×3 (02:00→17:07)
[2018-11-24] MEDS ORDERED: PT OWN MED DRAWER 7, Y5N ONE ×2 (05:09→09:01)
[2018-11-24] MEDS: BACLOFEN 10 MG TABLET (FP) GT SCH ×2 (05:12→13:52)
[2018-11-24] MEDS: diazePAM 2 MG TABLET GT SCH ×2 (05:12→13:52)
[2018-11-24] MEDS: HEPARIN NA (PORCINE) 5,000 UNITS/ML 1ML VIAL SQ SCH ×2 (05:22→13:53)
[2018-11-24 08:38] LABS: HEMATOCRIT 31.6 % (32.4-45.2); HEMOGLOBIN 10.7 GM/dL (10.7-15.3); MCH 29.4 pg (25.7-33.7); MCHC 33.9 g/dl (32.0-36.0); MEAN CELL VOLUME 86.8 fl (80-96); MEAN PLT VOLUME 8.4 fl (7.5-11.1); PLATELET COUNT 153 K/MM3 (134-434); RBC 3.64 M/mm3 (3.60-5.2); RDW 16.4 % (11.6-15.6); WHITE BLOOD COUNT 7.7 K/mm3 (4.0-10.0)
[2018-11-24] MEDS: levETIRAcetam 500 MG/5 ML ORAL SOLUTION (UNIT-DOSE CUPS) GT SCH (09:13)
[2018-11-24] MEDS: CHOLECALCIFEROL (VIT D SOLUTION) 400 UNIT/1 ML DROPS GT SCH (09:13)
[2018-11-24] MEDS: FUROSEMIDE 40 MG/4 ML INJECTABLE VIAL IVPUSH SCH (09:13)
[2018-11-24] MEDS: NYSTATIN/TRIAMCINOLONE TOPICAL CREAM 15 GM TUBE TP SCH (09:13)
[2018-11-24 09:53] LABS: BLOOD UREA NITROGEN 39.4 mg/dL (7-18); POTASSIUM 4.2 mmol/L (3.5-5.1)
--- NOTE | 2018-11-24 10:59 | PN ---
Physical Exam: SUBJECTIVE: Patient seen and examined, non verbal, non responsive, grims to painful stimuli, unable to assess for ROS. OBJECTIVE: Vital Signs Period Temp Pulse Resp BP Sys/Perez Pulse Ox Last 24 Hr 97.3 F-98.2 F 108-121 18-20 100-116/67-87 98-100 Intake & Output 11/21/18 11/22/18 11/23/18 11/24/18 23:59 23:59 23:59 23:59 Intake Total 580 690 310 50 Balance 580 690 310 50 Weight 110 lb 99 lb 4.8 oz 101 lb General: lying in bed, lethargic, no snoring or upper airway sounds today no acute distress neck: contracted CVS:S1s2 regular Chest: pos air entry, no rales or wheezing appreciate, no upper airway sounds today Abdomen:Soft, PEG in place Extremities: contractures Laboratory Results - last 24 hr 11/20/18 11/21/18 11/22/18 06:00 10:58 23:04 WBC RBC Hgb Hct MCV MCH MCHC RDW Plt Count MPV Sodium Potassium Chloride Carbon Dioxide Anion Gap BUN Creatinine Est GFR (CKD-EPI)AfAm Est GFR (CKD-EPI)NonAf POC Glucometer 104 153 Random Glucose Calcium Adenovirus (PCR) Negative Human Metapneumovir PCR Negative Influenza A (H1) PCR Negative Influenza B (RT-PCR) Negative Parainfluenza 1 (PCR) Negative Parainfluenza 2 (PCR) Negative Parainfluenza 3 (PCR) Negative RSV Type A (PCR) Negative RSV Type B (PCR) Negative Rhinovirus (PCR) Positive H 11/23/18 11/23/18 11/23/18 11:57 17:21 20:40 WBC RBC Hgb Hct MCV MCH MCHC RDW Plt Count MPV Sodium Potassium Chloride Carbon Dioxide Anion Gap BUN Creatinine Est GFR (CKD-EPI)AfAm Est GFR (CKD-EPI)NonAf POC Glucometer 190 172 152 Random Glucose Calcium Adenovirus (PCR) Human Metapneumovir PCR Influenza A (H1) PCR Influenza B (RT-PCR) Parainfluenza 1 (PCR) Parainfluenza 2 (PCR) Parainfluenza 3 (PCR) RSV Type A (PCR) RSV Type B (PCR) Rhinovirus (PCR) 11/24/18 11/24/18 11/24/18 05:45 07:25 07:25 WBC 7.7 RBC 3.64 Hgb 10.7 Hct 31.6 L MCV 86.8 MCH 29.4 MCHC 33.9 RDW 16.4 H Plt Count 153 MPV 8.4 Sodium 147 H Potassium 4.2 Chloride 105 Carbon Dioxide 34 H Anion Gap 7 L BUN 39.4 H Creatinine 1.0 Est GFR (CKD-EPI)AfAm 77.69 Est GFR (CKD-EPI)NonAf 67.04 POC Glucometer 147 Random Glucose 139 H Calcium 9.0 Adenovirus (PCR) Human Metapneumovir PCR Influenza A (H1) PCR Influenza B (RT-PCR) Parainfluenza 1 (PCR) Parainfluenza 2 (PCR) Parainfluenza 3 (PCR) RSV Type A (PCR) RSV Type B (PCR) Rhinovirus (PCR) Active Medications Generic Name Dose Route Start Last Admin Trade Name Freq PRN Reason Stop Dose Admin Acetaminophen 650 mg 11/23/18 06:29 Tylenol Oral Solution - GT Q6H PRN FEVER Acetic Acid 3 drop 11/18/18 22:00 11/23/18 22:00 Vosol 2% Ear Drops - AU 3 drop HS [facility] Administration Albuterol Sulfate 1 amp 11/18/18 16:51 11/20/18 19:45 Ventolin 0.083% Nebulizer Soln - NEB 1 amp Q6H PRN Administration WHEEZING Baclofen 20 mg 11/18/18 22:00 11/24/18 05:12 Lioresal - GT 20 mg TID [facility] Administration Cholecalciferol 400 unit 11/18/18 22:00 11/24/18 09:13 Vitamin D3 Oral Solution - GT 400 unit BID [facility] Administration Diazepam 2 mg 11/18/18 22:00 11/24/18 05:12 Valium - GT 2 mg TID [facility] Administration Heparin Sodium (Porcine) 5,000 unit 11/21/18 22:00 11/24/18 05:22 Heparin - SQ 5,000 unit TID [facility] Administration Piperacillin Sod/Tazobactam 50 mls @ 100 mls/hr 11/19/18 11:00 11/24/18 09:12 Sod 3.375 gm/ Dextrose IVPB 100 mls/hr Q8H-IV [facility] Administration Protocol Levetiracetam 500 mg 11/18/18 22:00 11/24/18 09:13 Keppra Oral Solution - GT 500 mg BID [facility] Administration Nystatin/Triamcinolone Acetonide 1 applic 11/19/18 10:00 11/24/18 09:13 Mycolog Ii Cream - TP 1 applic DAILY [facility] Administration Ranitidine HCl 300 mg 11/18/18 22:00 11/23/18 22:19 Zantac Oral Solution - GT 300 mg HS [facility] Administration Microbiology 11/23/18 08:58 Blood - Peripheral Venous Blood Culture - Preliminary NO GROWTH OBTAINED AFTER 24 HOURS, INCUBATION TO CONTINUE FOR 4 DAYS. 11/23/18 08:43 Blood - Peripheral Venous Blood Culture - Preliminary NO GROWTH OBTAINED AFTER 24 HOURS, INCUBATION TO CONTINUE FOR 4 DAYS. 11/18/18 13:20 Blood - Peripheral Venous Blood Culture - Final NO GROWTH AFTER 5 DAYS INCUBATION 11/18/18 13:00 Blood - Peripheral Venous Blood Culture - Final NO GROWTH AFTER 5 DAYS INCUBATION 11/18/18 13:13 Stool Salmonella/Shigella Culture - Final NO GROWTH OF SALMONELLA OR SHIGELLA SPECIES OBTAINED 11/18/18 13:13 Stool Campylobacter Culture - Final NO GROWTH OF CAMPYLOBACTER SPECIES OBTAINED 11/18/18 13:13 Stool Yersinia Culture - Final NO GROWTH OF YERSINIA SPECIES OBTAINED 11/18/18 13:13 Stool Vibrio Culture - Final NO GROWTH OF VIBRIO SPECIES OBTAINED 11/18/18 13:13 Stool Escherichia coli 0157 Culture - Final NO GROWTH OF E COLI 0157 OBTAINED 11/18/18 18:00 Urine For Antigen Detection Legionella Antigen - Final 11/18/18 18:00 Urine For Antigen Detection Streptococcus pneumoniae Antigen (M - Final 11/18/18 13:09 Urine - Urine - Catheterized Urine Culture - Final NO GROWTH OBTAINED ASSESSMENT/PLAN: 48 yof with PMHx of cerebral palsy, [employer]IAN shunt, hydrocephalus, seizure disorder, GERD, severe mental retardation, pancreatitis, s/p Gtube, admitted with dyspnea and hypoxia -Acute rhinovirus illness -Suspected aspiration PNA vs pneumonitis -Acute on chronic diastolic heart failure exacerbation -Chronic hypercapneic respiratory failure -Hypokalemia -Hypernatremia, suspect from diuresis/lack of free water intake -Cerebral palsy -s/p [employer]URE [employer]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 Droplet precautions. Resume tube feed Jevity 1.5 per dietary recs with free water. Na rising, volume status stable, d/c lasix and monitor for now. Aspiration precautions. Pulmonary/ ID input noted. transition to PO abx in 24 hours if afebrile. On zosyn for now. Bipap hs and prn Strict I/os and daily weights. Monitor renal function. Repeat blood cx neg so far. Replete K prn. Continue baclofen/diazepam/keppra. DVTPPX heparin Dispo dc back to [place] in 24 hours if afebrile, respiratory status stable and tolerating feeds well. Discussed with nursing. Visit type - Emergency Visit Emergency Visit: Yes ED Registration Date: 11/18/18 Care time: The patient presented to the Emergency Department on the above date and was hospitalized for further evaluation of their emergent condition. - New Patient This patient is new to me today: No - Critical Care Critical Care patient: No - Discharge Referral Referred to [facility] Med P.C.: No
--- NOTE | 2018-11-24 12:10 | PN ---
Progress Note (short form) - Note Progress Note: PULMONARY No further fevers. Saturating well on nasal cannula. Vital Signs Period Temp Pulse Resp BP Sys/Perez Pulse Ox Last 24 Hr 97.3 F-98.2 F 108-121 18-20 100-116/67-87 98-100 Gen: less tachypneic at rest Heart: RRR Lung: decreased breath sounds at the bases Abd: soft, nontender Ext: + edema CBC, BMP 11/24/18 07:25 11/24/18 07:25 Active Medications Acetaminophen (Tylenol Oral Solution -) 650 mg GT Q6H PRN PRN Reason: FEVER Acetic Acid (Vosol 2% Ear Drops -) 3 drop AU HS [facility] Last Admin: 11/23/18 22:00 Dose: 3 drop Albuterol Sulfate (Ventolin 0.083% Nebulizer Soln -) 1 amp NEB Q6H PRN PRN Reason: WHEEZING Last Admin: 11/20/18 19:45 Dose: 1 amp Baclofen (Lioresal -) 20 mg GT TID [facility] Last Admin: 11/24/18 05:12 Dose: 20 mg Cholecalciferol (Vitamin D3 Oral Solution -) 400 unit GT BID [facility] Last Admin: 11/24/18 09:13 Dose: 400 unit Diazepam (Valium -) 2 mg GT TID [facility] Last Admin: 11/24/18 05:12 Dose: 2 mg Heparin Sodium (Porcine) (Heparin -) 5,000 unit SQ TID [facility] Last Admin: 11/24/18 05:22 Dose: 5,000 unit Piperacillin Sod/Tazobactam (Sod 3.375 gm/ Dextrose) 50 mls @ 100 mls/hr IVPB Q8H-IV [facility]; Protocol Last Admin: 11/24/18 09:12 Dose: 100 mls/hr Levetiracetam (Keppra Oral Solution -) 500 mg GT BID [facility] Last Admin: 11/24/18 09:13 Dose: 500 mg Nystatin/Triamcinolone Acetonide (Mycolog Ii Cream -) 1 applic TP DAILY [facility] Last Admin: 11/24/18 09:13 Dose: 1 applic Ranitidine HCl (Zantac Oral Solution -) 300 mg GT HS [facility] Last Admin: 11/23/18 22:19 Dose: 300 mg A/P Acute on Chronic Diastolic Heart Failure Chronic Hypercapneic Respiratory Failure Likely Obstructive Sleep Apnea r/o Pneumonia Recurrent Aspiration Cerebral Palsy Mental Retardation Seizure Disorder GERD Functional Quadriplegia - BiPAP at night and PRN during day - continue lasix as needed - monitor urine output, creatinine - on empiric antibiotics - O2 to keep SpO2 >90% - aspiration precautions - DVT prophylaxis
--- NOTE | 2018-11-24 20:02 | PN ---
Progress Note, Physician - Current Medication List Current Medications: Active Medications Acetaminophen (Tylenol Oral Solution -) 650 mg GT Q6H PRN PRN Reason: FEVER Acetic Acid (Vosol 2% Ear Drops -) 3 drop AU HS [facility] Last Admin: 11/23/18 22:00 Dose: 3 drop Albuterol Sulfate (Ventolin 0.083% Nebulizer Soln -) 1 amp NEB Q6H PRN PRN Reason: WHEEZING Last Admin: 11/20/18 19:45 Dose: 1 amp Baclofen (Lioresal -) 20 mg GT TID [facility] Last Admin: 11/24/18 13:52 Dose: 20 mg Cholecalciferol (Vitamin D3 Oral Solution -) 400 unit GT BID [facility] Last Admin: 11/24/18 09:13 Dose: 400 unit Diazepam (Valium -) 2 mg GT TID [facility] Last Admin: 11/24/18 13:52 Dose: 2 mg Heparin Sodium (Porcine) (Heparin -) 5,000 unit SQ TID [facility] Last Admin: 11/24/18 13:53 Dose: 5,000 unit Piperacillin Sod/Tazobactam (Sod 3.375 gm/ Dextrose) 50 mls @ 100 mls/hr IVPB Q8H-IV [facility]; Protocol Last Admin: 11/24/18 17:07 Dose: 100 mls/hr Levetiracetam (Keppra Oral Solution -) 500 mg GT BID [facility] Last Admin: 11/24/18 09:13 Dose: 500 mg Nystatin/Triamcinolone Acetonide (Mycolog Ii Cream -) 1 applic TP DAILY [facility] Last Admin: 11/24/18 09:13 Dose: 1 applic Ranitidine HCl (Zantac Oral Solution -) 300 mg GT HS [facility] Last Admin: 11/23/18 22:19 Dose: 300 mg - Objective Vital Signs: Vital Signs Temperature 99.0 F 11/24/18 13:49 Pulse Rate 112 H 11/24/18 13:49 Respiratory Rate 18 11/24/18 07:46 Blood Pressure 117/72 11/24/18 13:49 O2 Sat by Pulse Oximetry (%) 100 11/24/18 08:53 Labs: CBC, BMP 11/24/18 07:25 11/24/18 07:25 INR, PTT INR 0.94 (0.83-1.09) 11/18/18 13:20
[2018-11-24] MEDS: ALBUTEROL SO4 0.083% IH SOL 2.5 MG/3 ML VIAL.NEB. NEB PRN (21:30)
[2018-11-24] MEDS: ACETAMINOPHEN 650 MG/20.3 ML ORAL SOLUTION (CUPS) GT PRN (23:53)
[2018-11-25] MEDS: HEPARIN NA (PORCINE) 5,000 UNITS/ML 1ML VIAL SQ SCH ×4 (00:03→21:58)
[2018-11-25] MEDS: levETIRAcetam 500 MG/5 ML ORAL SOLUTION (UNIT-DOSE CUPS) GT SCH ×3 (00:04→21:58)
[2018-11-25] MEDS: BACLOFEN 10 MG TABLET (FP) GT SCH ×4 (00:05→21:58)
[2018-11-25] MEDS: diazePAM 2 MG TABLET GT SCH ×3 (00:06→12:59)
[2018-11-25] MEDS: CHOLECALCIFEROL (VIT D SOLUTION) 400 UNIT/1 ML DROPS GT SCH ×3 (00:08→21:58)
[2018-11-25] MEDS: RANITIDINE HCL 150 MG/10 ML UNIT-DOSE GT SCH ×2 (00:08→21:59)
[2018-11-25] MEDS: ACETIC ACID 2% OTIC SOLN 15ML BOTTLE AU SCH ×2 (00:09→21:58)
[2018-11-25] MEDS ORDERED: PIPERACILLIN/TAZOBACTAM 3.375 GM VIAL IVPB ONE ×3 (03:01→16:40)
[2018-11-25] MEDS ORDERED: DEXTROSE 5%-WATER - 50 ML IVPB ONE ×3 (03:02→16:40)
[2018-11-25] MEDS: PIPERACILLIN/TAZOB 3.375 GM 3.375 GM in DEXTROSE 5%-WATER - 50 ML IVPB SCH ×3 (03:03→17:22)
[2018-11-25] MEDS ORDERED: PT OWN MED DRAWER 7, Y5N ONE ×2 (08:31→12:52)
[2018-11-25] MEDS: NYSTATIN/TRIAMCINOLONE TOPICAL CREAM 15 GM TUBE TP SCH (09:13)
[2018-11-25] MEDS: ACETAMINOPHEN 650 MG/20.3 ML ORAL SOLUTION (CUPS) GT PRN (09:13)
--- NOTE | 2018-11-25 11:40 | CON.CARD ---
Cardiology Consult (text) - Consultation Consultation Note: cc: hypoxia hpi: hx from charts, pt does not communicate. 48 f hx mr/cp, seizures, sent from [place] for hypoxia. While here o2 sats have been acceptable. Cardio consulted for eval of possible chf. 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 social: no tob fam: unable to obtain ros: n/a 2/2 mental status meds: Home Medications Medication Instructions Recorded Baclofen 20 mg GT TID 02/18/16 Cholecalciferol (Vitamin D3) 400 unit GT BID 02/18/16 [Vitamin D3 -] Diazepam [Valium] 2 mg GT TID 02/18/16 Enema Bag, Disposable [Enema Bag] 1 each RC PRN 02/18/16 Albuterol 0.083% Nebulizer [place] 1 amp NEB PRN PRN 10/25/18 [Ventolin 0.083% Nebulizer Soln -] Magnesium Hydrox 2400MG/30Ml [Milk 30 ml GT HS 10/25/18 of Magnesia -] Nystatin/Triamcin 100,000 gm TD PRN PRN 10/25/18 [Nystatin-Triamcinolone Cream] levETIRAcetam [Keppra Oral 500 mg GT BID cup 11/06/18 Solution -] Acetic Acid 2% Otic Soln [Vosol 2% 3 drop OT HS 11/18/18 Ear Drops -] Cranberry/B.coagulan/C/Calcium 1 each PO HS 11/18/18 [Cranberry-Probiotic Tablet] Ranitidine HCl [Zantac] 300 mg GT HS 11/18/18 pe: Vital Signs Period Temp Pulse Resp BP Sys/Perez Pulse Ox Last 24 Hr 99.0 F-99.7 F 99-128 18-20 112-118/70-82 90-100 nad no jvd rrr s1 s2 no mrg cta bl, poor eff lethargic no jaundice diaphoresis pos dp pt no carotid bruits abd nt nd pos bs no le e/c/c Laboratory Last Values WBC 7.7 K/mm3 (4.0-10.0) 11/24/18 07:25 RBC 3.64 M/mm3 (3.60-5.2) 11/24/18 07:25 Hgb 10.7 GM/dL (10.7-15.3) 11/24/18 07:25 Hct 31.6 % (32.4-45.2) L 11/24/18 07:25 MCV 86.8 fl (80-96) 11/24/18 07:25 MCH 29.4 pg (25.7-33.7) 11/24/18 07:25 MCHC 33.9 g/dl (32.0-36.0) 11/24/18 07:25 RDW 16.4 % (11.6-15.6) H 11/24/18 07:25 Plt Count 153 K/MM3 (134-434) 11/24/18 07:25 MPV 8.4 fl (7.5-11.1) 11/24/18 07:25 Absolute Neuts (auto) 3.3 K/mm3 (1.5-8.0) 11/22/18 12:09 Neutrophils % 73.5 % (42.8-82.8) 11/22/18 12:09 Neutrophils % (Manual) 56.1 % (42.8-82.8) 11/18/18 13:20 Band Neutrophils % 23.5 % 11/18/18 13:20 Lymphocytes % 14.4 % (8-40) D 11/22/18 12:09 Lymphocytes % (Manual) 8.2 % (8-40) D 11/18/18 13:20 Monocytes % 10.1 % (3.8-10.2) 11/22/18 12:09 Monocytes % (Manual) 4 % (3.8-10.2) 11/18/18 13:20 Eosinophils % 1.7 % (0-4.5) 11/22/18 12:09 Eosinophils % (Manual) 3.1 % (0-4.5) 11/18/18 13:20 Basophils % 0.3 % (0-2.0) 11/22/18 12:09 Basophils % (Manual) 0.0 % (0-2.0) 11/18/18 13:20 Myelocytes % (Man) 1 % (0-2) 11/18/18 13:20 Promyelocytes % (Man) 0 % (0-2) 11/18/18 13:20 Blast Cells % (Manual) 0 % (0-0) 11/18/18 13:20 Nucleated RBC % 0 % (0-0) 11/22/18 12:09 Metamyelocytes 2 % (0-2) D 11/18/18 13:20 Hypochromia 0 11/18/18 13:20 Platelet Estimate Normal 11/18/18 13:20 Polychromasia 1+ 11/18/18 13:20 Poikilocytosis 0 11/18/18 13:20 Basophilic Stippling 1+ 11/18/18 13:20 Anisocytosis 1+ 11/18/18 13:20 Microcytosis 1+ 11/18/18 13:20 Macrocytosis 1+ 11/18/18 13:20 Ovalocytes 1+ 11/18/18 13:20 Stomatocytes 1+ 11/18/18 13:20 PT with INR 11.10 SEC (9.7-13.0) 11/18/18 13:20 INR 0.94 (0.83-1.09) 11/18/18 13:20 PTT (Actin FS) 46.3 SECONDS (25.2-36.5) H 11/18/18 13:20 Anticoagulation Therapy No Result Required. 11/21/18 18:35 Puncture Site Right radial 11/21/18 18:35 ABG pH 7.39 (7.35-7.45) 11/21/18 18:35 ABG pCO2 at Pt Temp 59.0 mmHg (35-45) H 11/21/18 18:35 ABG pO2 at Pt Temp 93.2 mmHg (80-100) 11/21/18 18:35 ABG HCO3 35.0 mmol/L (22-27) H 11/21/18 18:35 ABG O2 Sat (Measured) 97.3 % (95-98) 11/21/18 18:35 ABG O2 Content 14.3 % vol 11/21/18 18:35 ABG Base Excess 8.8 meq/l (-2-2) H 11/21/18 18:35 Alejandro Test Positive 11/21/18 18:35 VBG pH 7.43 (7.31-7.41) H 11/18/18 13:20 POC VBG pCO2 54.7 mmHg (38-52) H 11/18/18 13:20 POC VBG pO2 63.4 mmHg (28-48) H 11/18/18 13:20 VBG HCO3 35.2 mmol/L (23-29) H 11/18/18 13:20 VBG O2 Sat (Luis) 91.2 % (70-80) H 11/18/18 13:20 VBG Base Excess 9.5 meq/l (-2-2) H 11/18/18 13:20 O2 Delivery Device Room air 11/21/18 18:35 Oxygen Flow Rate No Result Required. 11/21/18 18:35 Vent Mode No Result Required. 11/21/18 18:35 Vent Rate No Result Required. 11/21/18 18:35 Mechanical Rate No Result Required. 11/21/18 18:35 Pressure Support Vent No Result Required. 11/21/18 18:35 Sodium 147 mmol/L (136-145) H 11/24/18 07:25 Potassium 4.2 mmol/L (3.5-5.1) 11/24/18 07:25 Chloride 105 mmol/L (98-107) 11/24/18 07:25 Carbon Dioxide 34 mmol/L (21-32) H 11/24/18 07:25 Anion Gap 7 MMOL/L (8-16) L 11/24/18 07:25 BUN 39.4 mg/dL (7-18) H 11/24/18 07:25 Creatinine 1.0 mg/dL (0.55-1.3) 11/24/18 07:25 Est GFR (CKD-EPI)AfAm 77.69 11/24/18 07:25 Est GFR (CKD-EPI)NonAf 67.04 11/24/18 07:25 POC Glucometer 172 UNITS (80-120) 11/24/18 11:07 Random Glucose 139 mg/dL (74-106) H 11/24/18 07:25 Lactic Acid 1.6 mmol/L (0.4-2.0) 11/18/18 17:35 Calcium 9.0 mg/dL (8.5-10.1) 11/24/18 07:25 Magnesium 2.2 mg/dL (1.8-2.4) 11/23/18 08:43 Total Bilirubin 1.0 mg/dL (0.2-1) 11/20/18 07:20 AST 45 U/L (15-37) H 11/20/18 07:20 ALT 41 U/L (13-61) 11/20/18 07:20 Alkaline Phosphatase 149 U/L (45-117) H 11/20/18 07:20 Troponin I < 0.02 ng/ml (0.00-0.05) 11/18/18 18:14 B-Natriuretic Peptide 81.3 pg/ml (5-125) 11/18/18 13:20 Total Protein 5.6 g/dl (6.4-8.2) L 11/20/18 07:20 Albumin 2.2 g/dl (3.4-5.0) L 11/20/18 07:20 TSH 0.56 uIU/ml (0.358-3.74) 11/18/18 18:14 Urine Color Yellow 11/18/18 13:09 Urine Appearance Clear 11/18/18 13:09 Urine pH 7.5 (5.0-8.0) 11/18/18 13:09 Ur Specific [place] 1.021 (1.010-1.035) 11/18/18 13:09 Urine Protein 1+ (NEGATIVE) H 11/18/18 13:09 Urine Glucose (UA) Negative (NEGATIVE) 11/18/18 13:09 Urine Ketones Negative (NEGATIVE) 11/18/18 13:09 Urine Blood Negative (NEGATIVE) 11/18/18 13:09 Urine Nitrite Negative (NEGATIVE) 11/18/18 13:09 Urine Bilirubin Negative (NEGATIVE) 11/18/18 13:09 Urine Urobilinogen 0.2 mg/dL (0.2-1.0) 11/18/18 13:09 Ur Leukocyte Esterase Negative (NEGATIVE) 11/18/18 13:09 Urine WBC (Auto) 3 /hpf (0-5) 11/18/18 13:09 Urine RBC (Auto) 2 /hpf (0-4) 11/18/18 13:09 Urine Casts (Auto) 16 /lpf (0-8) 11/18/18 13:09 U Epithel Cells (Auto) 5.3 /HPF (0-5/HPF) 11/18/18 13:09 U Sm Round Cell (Auto) None seen 11/18/18 13:09 Urine Bacteria (Auto) 3.0 /hpf (NEGATIVE) 11/18/18 13:09 Adenovirus (PCR) Negative (Negative) 11/20/18 06:00 Human Metapneumovir PCR Negative (Negative) 11/20/18 06:00 Influenza A (H1) PCR Negative (Negative) 11/20/18 06:00 Influenza B (RT-PCR) Negative (Negative) 11/20/18 06:00 Parainfluenza 1 (PCR) Negative (Negative) 11/20/18 06:00 Parainfluenza 2 (PCR) Negative (Negative) 11/20/18 06:00 Parainfluenza 3 (PCR) Negative (Negative) 11/20/18 06:00 RSV Type A (PCR) Negative (Negative) 11/20/18 06:00 RSV Type B (PCR) Negative (Negative) 11/20/18 06:00 Rhinovirus (PCR) Positive (Negative) H 11/20/18 06:00 Blood Type O POSITIVE 11/18/18 18:14 Antibody Screen Negative 11/18/18 18:14 echo 10/2018: nl lvef, rv tds, no sig valve path, rvsp 30-40 cxr: clear lungs ecg: sr, nl intervals, nonspec tw changes, no st changes a/p: 48 f hx mr/cp, seizures, sent from [place] for hypoxia. hypoxia, pna: -no signs of chf, recent echo unremarkable -no signs acs -would hold off on diuresis at this time as pt appears dry, can use prn lasix -cont abx for pna per ID
--- NOTE | 2018-11-25 12:06 | PN ---
Progress Note (short form) - Note Progress Note: PULMONARY More awake, alert today. No fevers recorded. Vital Signs Period Temp Pulse Resp BP Sys/Perez Pulse Ox Last 24 Hr 99.0 F-99.7 F 99-128 18-20 112-118/70-82 90-100 Gen: less tachypneic at rest Heart: RRR Lung: decreased breath sounds at the bases Abd: soft, nontender Ext: + edema CBC, BMP 11/24/18 07:25 11/24/18 07:25 Active Medications Acetaminophen (Tylenol Oral Solution -) 650 mg GT Q6H PRN PRN Reason: FEVER Last Admin: 11/25/18 09:13 Dose: 650 mg Acetic Acid (Vosol 2% Ear Drops -) 3 drop AU HS [facility] Last Admin: 11/25/18 00:09 Dose: 3 drop Albuterol Sulfate (Ventolin 0.083% Nebulizer Soln -) 1 amp NEB Q6H PRN PRN Reason: WHEEZING Last Admin: 11/24/18 21:30 Dose: 1 amp Baclofen (Lioresal -) 20 mg GT TID [facility] Last Admin: 11/25/18 05:37 Dose: 20 mg Cholecalciferol (Vitamin D3 Oral Solution -) 400 unit GT BID [facility] Last Admin: 11/25/18 09:30 Dose: 400 unit Diazepam (Valium -) 2 mg GT TID [facility] Last Admin: 11/25/18 05:36 Dose: 2 mg Heparin Sodium (Porcine) (Heparin -) 5,000 unit SQ TID [facility] Last Admin: 11/25/18 05:36 Dose: 5,000 unit Piperacillin Sod/Tazobactam (Sod 3.375 gm/ Dextrose) 50 mls @ 100 mls/hr IVPB Q8H-IV [facility]; Protocol Last Admin: 11/25/18 09:12 Dose: 100 mls/hr Levetiracetam (Keppra Oral Solution -) 500 mg GT BID [facility] Last Admin: 11/25/18 09:13 Dose: 500 mg Nystatin/Triamcinolone Acetonide (Mycolog Ii Cream -) 1 applic TP DAILY [facility] Last Admin: 11/25/18 09:13 Dose: 1 applic Ranitidine HCl (Zantac Oral Solution -) 300 mg GT HS [facility] Last Admin: 11/25/18 00:08 Dose: 300 mg A/P Acute on Chronic Diastolic Heart Failure Chronic Hypercapneic Respiratory Failure Likely Obstructive Sleep Apnea r/o Pneumonia Recurrent Aspiration Cerebral Palsy Mental Retardation Seizure Disorder GERD Functional Quadriplegia - BiPAP at night and PRN during day - continue lasix as needed - monitor urine output, creatinine - on empiric antibiotics - O2 to keep SpO2 >90% - aspiration precautions - DVT prophylaxis
--- NOTE | 2018-11-25 12:50 | PN ---
Physical Exam: SUBJECTIVE: Patient seen and examined, non verbal, comfortable. OBJECTIVE: Vital Signs Period Temp Pulse Resp BP Sys/Perez Pulse Ox Last 24 Hr 99.0 F-99.7 F 99-128 18-20 112-118/70-82 90-100 Intake & Output 11/22/18 11/23/18 11/24/18 11/25/18 23:59 23:59 23:59 23:59 Intake Total 690 310 570 530 Balance 690 310 570 530 Weight 99 lb 4.8 oz 101 lb 98 lb 6 oz General: lying in bed, lethargic, no snoring or upper airway sounds today no acute distress neck: contracted CVS:S1s2 regular Chest: pos air entry, no rales or wheezing appreciate, no upper airway sounds today Abdomen:Soft, PEG in place Extremities: contractures Active Medications Generic Name Dose Route Start Last Admin Trade Name Freq PRN Reason Stop Dose Admin Acetaminophen 650 mg 11/23/18 06:29 11/25/18 09:13 Tylenol Oral Solution - GT 650 mg Q6H PRN Administration FEVER Acetic Acid 3 drop 11/18/18 22:00 11/25/18 00:09 Vosol 2% Ear Drops - AU 3 drop HS [facility] Administration Albuterol Sulfate 1 amp 11/18/18 16:51 11/24/18 21:30 Ventolin 0.083% Nebulizer Soln - NEB 1 amp Q6H PRN Administration WHEEZING Baclofen 20 mg 11/18/18 22:00 11/25/18 05:37 Lioresal - GT 20 mg TID [facility] Administration Cholecalciferol 400 unit 11/18/18 22:00 11/25/18 09:30 Vitamin D3 Oral Solution - GT 400 unit BID [facility] Administration Diazepam 2 mg 11/18/18 22:00 11/25/18 05:36 Valium - GT 2 mg TID [facility] Administration Heparin Sodium (Porcine) 5,000 unit 11/21/18 22:00 11/25/18 05:36 Heparin - SQ 5,000 unit TID [facility] Administration Piperacillin Sod/Tazobactam 50 mls @ 100 mls/hr 11/19/18 11:00 11/25/18 09:12 Sod 3.375 gm/ Dextrose IVPB 100 mls/hr Q8H-IV [facility] Administration Protocol Levetiracetam 500 mg 11/18/18 22:00 11/25/18 09:13 Keppra Oral Solution - GT 500 mg BID [facility] Administration Nystatin/Triamcinolone Acetonide 1 applic 11/19/18 10:00 11/25/18 09:13 Mycolog Ii Cream - TP 1 applic DAILY [facility] Administration Ranitidine HCl 300 mg 11/18/18 22:00 11/25/18 00:08 Zantac Oral Solution - GT 300 mg HS [facility] Administration Microbiology 11/23/18 08:58 Blood - Peripheral Venous Blood Culture - Preliminary NO GROWTH OBTAINED AFTER 48 HOURS, INCUBATION TO CONTINUE FOR 3 DAYS. 11/23/18 08:43 Blood - Peripheral Venous Blood Culture - Preliminary NO GROWTH OBTAINED AFTER 48 HOURS, INCUBATION TO CONTINUE FOR 3 DAYS. 11/18/18 13:20 Blood - Peripheral Venous Blood Culture - Final NO GROWTH AFTER 5 DAYS INCUBATION 11/18/18 13:00 Blood - Peripheral Venous Blood Culture - Final NO GROWTH AFTER 5 DAYS INCUBATION 11/18/18 13:13 Stool Salmonella/Shigella Culture - Final NO GROWTH OF SALMONELLA OR SHIGELLA SPECIES OBTAINED 11/18/18 13:13 Stool Campylobacter Culture - Final NO GROWTH OF CAMPYLOBACTER SPECIES OBTAINED 11/18/18 13:13 Stool Yersinia Culture - Final NO GROWTH OF YERSINIA SPECIES OBTAINED 11/18/18 13:13 Stool Vibrio Culture - Final NO GROWTH OF VIBRIO SPECIES OBTAINED 11/18/18 13:13 Stool Escherichia coli 0157 Culture - Final NO GROWTH OF E COLI 0157 OBTAINED 11/18/18 18:00 Urine For Antigen Detection Legionella Antigen - Final 11/18/18 18:00 Urine For Antigen Detection Streptococcus pneumoniae Antigen (M - Final 11/18/18 13:09 Urine - Urine - Catheterized Urine Culture - Final NO GROWTH OBTAINED ASSESSMENT/PLAN: 48 yof with PMHx of cerebral palsy, FL[employer] shunt, hydrocephalus, seizure disorder, GERD, severe mental retardation, pancreatitis, s/p Gtube, admitted with dyspnea and hypoxia -Acute rhinovirus illness -Suspected aspiration PNA vs pneumonitis -Acute on chronic diastolic heart failure exacerbation -Chronic hypercapneic respiratory failure -Hypokalemia -Hypernatremia, suspect from diuresis/lack of free water intake -Cerebral palsy -s/p FLIGHT TEST [employer] shunt -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 -Seizure disorder -GERD -Severe mental retardation -Pancreatitis -s/p PEG tube Plan: Doing better. Tolerating tube feeds well. Monitor off lasix. Aspiration precautions. Pulmonary/ ID input noted. transition to PO abx in 24 hours if afebrile. On zosyn for now. Bipap hs and prn Strict I/os and daily weights. Monitor renal function. Repeat blood cx neg so far. Replete K prn. Continue baclofen/diazepam/keppra. DVTPPX heparin Dispo dc back to [place] in 24 hours if afebrile, respiratory status stable and tolerating feeds well. Discussed with nursing. Visit type - Emergency Visit Emergency Visit: Yes ED Registration Date: 11/18/18 Care time: The patient presented to the Emergency Department on the above date and was hospitalized for further evaluation of their emergent condition. - New Patient This patient is new to me today: No - Critical Care Critical Care patient: No - Discharge Referral Referred to [facility] Med P.C.: No
--- NOTE | 2018-11-25 17:00 | PN ---
Progress Note, Physician History of Present Illness: TEMPS DOWN BREATHING NON LABORED - Current Medication List Current Medications: Active Medications Acetaminophen (Tylenol Oral Solution -) 650 mg GT Q6H PRN PRN Reason: FEVER Last Admin: 11/25/18 09:13 Dose: 650 mg Acetic Acid (Vosol 2% Ear Drops -) 3 drop AU HS [facility] Last Admin: 11/25/18 00:09 Dose: 3 drop Albuterol Sulfate (Ventolin 0.083% Nebulizer Soln -) 1 amp NEB Q6H PRN PRN Reason: WHEEZING Last Admin: 11/24/18 21:30 Dose: 1 amp Baclofen (Lioresal -) 20 mg GT TID [facility] TO [facility] Last Admin: 11/25/18 12:59 Dose: 20 mg Cholecalciferol (Vitamin D3 Oral Solution -) 400 unit GT BID [facility] TO [facility] Last Admin: 11/25/18 09:30 Dose: 400 unit Diazepam (Valium -) 2 mg GT TID [facility] Last Admin: 11/25/18 12:59 Dose: 2 mg Heparin Sodium (Porcine) (Heparin -) 5,000 unit SQ TID [facility] Last Admin: 11/25/18 12:59 Dose: 5,000 unit Piperacillin Sod/Tazobactam (Sod 3.375 gm/ Dextrose) 50 mls @ 100 mls/hr IVPB Q8H-IV STE[facility]; Protocol Last Admin: 11/25/18 09:12 Dose: 100 mls/hr Levetiracetam (Keppra Oral Solution -) 500 mg GT BID [facility] Last Admin: 11/25/18 09:13 Dose: 500 mg Nystatin/Triamcinolone Acetonide (Mycolog Ii Cream -) 1 applic TP DAILY [facility] Last Admin: 11/25/18 09:13 Dose: 1 applic Ranitidine HCl (Zantac Oral Solution -) 300 mg GT HS [facility] Last Admin: 11/25/18 00:08 Dose: 300 mg - Objective Vital Signs: Vital Signs Temperature 99.7 F H 11/25/18 07:55 Pulse Rate 128 H 11/25/18 09:46 Respiratory Rate 18 11/25/18 07:55 Blood Pressure 118/72 11/25/18 07:55 O2 Sat by Pulse Oximetry (%) 90 L 11/25/18 09:46 Constitutional: Yes: No Distress Cardiovascular: Yes: Regular Rate and Rhythm, S1, S2 Respiratory: Yes: Diminished Gastrointestinal: Yes: Normal Bowel Sounds, Soft. No: Tenderness Labs: CBC, BMP 11/24/18 07:25 11/24/18 07:25 INR, PTT INR 0.94 (0.83-1.09) 11/18/18 13:20 Assessment/Plan RESP INSUFFICIENCY/ HYPOXEMIA R/O RECURRENT ASPIRATION V. HCAP MR CONTINUE EMPIRIC ZOSYN
--- NOTE | 2018-11-25 17:19 | PN ---
Progress Note, Physician History of Present Illness: TEMPS DOWN BREATHING NON LABORED - Current Medication List Current Medications: Active Medications Acetaminophen (Tylenol Oral Solution -) 650 mg GT Q6H PRN PRN Reason: FEVER Last Admin: 11/25/18 09:13 Dose: 650 mg Acetic Acid (Vosol 2% Ear Drops -) 3 drop AU HS STE[facility] Last Admin: 11/25/18 00:09 Dose: 3 drop Albuterol Sulfate (Ventolin 0.083% Nebulizer Soln -) 1 amp NEB Q6H PRN PRN Reason: WHEEZING Last Admin: 11/24/18 21:30 Dose: 1 amp Baclofen (Lioresal -) 20 mg GT TID [facility] Last Admin: 11/25/18 12:59 Dose: 20 mg Cholecalciferol (Vitamin D3 Oral Solution -) 400 unit GT BID [facility] Last Admin: 11/25/18 09:30 Dose: 400 unit Diazepam (Valium -) 2 mg GT TID [facility] Last Admin: 11/25/18 12:59 Dose: 2 mg Heparin Sodium (Porcine) (Heparin -) 5,000 unit SQ TID [facility] Last Admin: 11/25/18 12:59 Dose: 5,000 unit Piperacillin Sod/Tazobactam (Sod 3.375 gm/ Dextrose) 50 mls @ 100 mls/hr IVPB Q8H-IV [facility]; Protocol Last Admin: 11/25/18 09:12 Dose: 100 mls/hr Levetiracetam (Keppra Oral Solution -) 500 mg GT BID [facility] Last Admin: 11/25/18 09:13 Dose: 500 mg Nystatin/Triamcinolone Acetonide (Mycolog Ii Cream -) 1 applic TP DAILY [facility] Last Admin: 11/25/18 09:13 Dose: 1 applic Ranitidine HCl (Zantac Oral Solution -) 300 mg GT HS [facility] Last Admin: 11/25/18 00:08 Dose: 300 mg - Objective Vital Signs: Vital Signs Temperature 99.7 F H 11/25/18 07:55 Pulse Rate 128 H 11/25/18 09:46 Respiratory Rate 18 11/25/18 07:55 Blood Pressure 118/72 11/25/18 07:55 O2 Sat by Pulse Oximetry (%) 90 L 11/25/18 09:46 Constitutional: Yes: No Distress Cardiovascular: Yes: Regular Rate and Rhythm, S1, S2 Respiratory: Yes: Diminished Labs: CBC, BMP 11/24/18 07:25 11/24/18 07:25 INR, PTT INR 0.94 (0.83-1.09) 11/18/18 13:20 Assessment/Plan RESP INSUFFICIENCY/ HYPOXEMIA R/O RECURRENT ASPIRATION V. HCAP MR CONTINUE EMPIRIC ZOSYN
--- NOTE | 2018-11-25 17:20 | PN ---
Progress Note, Physician History of Present Illness: TEMPS DOWN BREATHING NON LABORED - Current Medication List Current Medications: Active Medications Acetaminophen (Tylenol Oral Solution -) 650 mg GT Q6H PRN PRN Reason: FEVER Last Admin: 11/25/18 09:13 Dose: 650 mg Acetic Acid (Vosol 2% Ear Drops -) 3 drop AU HS [facility] Last Admin: 11/25/18 00:09 Dose: 3 drop Albuterol Sulfate (Ventolin 0.083% Nebulizer Soln -) 1 amp NEB Q6H PRN PRN Reason: WHEEZING Last Admin: 11/24/18 21:30 Dose: 1 amp Baclofen (Lioresal -) 20 mg GT TID [facility] Last Admin: 11/25/18 12:59 Dose: 20 mg Cholecalciferol (Vitamin D3 Oral Solution -) 400 unit GT BID [facility] Last Admin: 11/25/18 09:30 Dose: 400 unit Diazepam (Valium -) 2 mg GT TID [facility] Last Admin: 11/25/18 12:59 Dose: 2 mg Heparin Sodium (Porcine) (Heparin -) 5,000 unit SQ TID [facility] Last Admin: 11/25/18 12:59 Dose: 5,000 unit Piperacillin Sod/Tazobactam (Sod 3.375 gm/ Dextrose) 50 mls @ 100 mls/hr IVPB Q8H-IV [facility]; Protocol Last Admin: 11/25/18 09:12 Dose: 100 mls/hr Levetiracetam (Keppra Oral Solution -) 500 mg GT BID [facility] Last Admin: 11/25/18 09:13 Dose: 500 mg Nystatin/Triamcinolone Acetonide (Mycolog Ii Cream -) 1 applic TP DAILY [facility] Last Admin: 11/25/18 09:13 Dose: 1 applic Ranitidine HCl (Zantac Oral Solution -) 300 mg GT HS [facility] Last Admin: 11/25/18 00:08 Dose: 300 mg - Objective Vital Signs: Vital Signs Temperature 99.7 F H 11/25/18 07:55 Pulse Rate 128 H 11/25/18 09:46 Respiratory Rate 18 11/25/18 07:55 Blood Pressure 118/72 11/25/18 07:55 O2 Sat by Pulse Oximetry (%) 90 L 11/25/18 09:46 Labs: CBC, BMP 11/24/18 07:25 11/24/18 07:25 INR, PTT INR 0.94 (0.83-1.09) 11/18/18 13:20
[2018-11-25] MEDS: ALBUTEROL SO4 0.083% IH SOL 2.5 MG/3 ML VIAL.NEB. NEB PRN (20:40)
[2018-11-25 23:56] VITALS: BMI 28.7
[2018-11-26] MEDS ORDERED: DEXTROSE 5%-WATER - 50 ML IVPB ONE (02:58)
[2018-11-26] MEDS ORDERED: PIPERACILLIN/TAZOBACTAM 3.375 GM VIAL IVPB ONE (02:58)
[2018-11-26] MEDS: PIPERACILLIN/TAZOB 3.375 GM 3.375 GM in DEXTROSE 5%-WATER - 50 ML IVPB SCH (03:02)
[2018-11-26] MEDS: BACLOFEN 10 MG TABLET (FP) GT SCH (06:22)
[2018-11-26] MEDS: HEPARIN NA (PORCINE) 5,000 UNITS/ML 1ML VIAL SQ SCH (06:22)
[2018-11-26] MEDS: ALBUTEROL SO4 0.083% IH SOL 2.5 MG/3 ML VIAL.NEB. NEB PRN (07:30)
[2018-11-26 09:16] VITALS: BP 101/66; PULSE 119; TEMP 98.3
--- NOTE | 2018-11-26 10:16 | DS ---
Physical Exam: SUBJECTIVE: No acute events overnight. Yesterday pre-/post oxygen noted with no oxygen needs. Pt active today. HPI limited due to pt's PMHx. OBJECTIVE: Vital Signs Period Temp Pulse Resp BP Sys/Perez Pulse Ox Last 24 Hr 98.3 F-99.9 F 117-119 - 101-117/66-81 98-98 PHYSICAL EXAM GEN: NAD, nonverbal, active, nonverbal HEENT: GATO, MMM Neck: No JVD LUNGS: Improved breath sounds b/l. On Ra SpO2 96%. No wheezing. CARDS: RRR no murmurs ABD: Soft Nt/ND normoactive BS, G-tube site without erythema or drainage around tube, tube feeds at 20cc goal EXT: Off-manager of internal in place LABS CBC, BMP 11/24/18 07:25 11/24/18 07:25 Microbiology 11/23/18 08:58 Blood - Peripheral Venous Blood Culture - Preliminary NO GROWTH OBTAINED AFTER 72 HOURS, INCUBATION TO CONTINUE FOR 2 DAYS. 11/23/18 08:43 Blood - Peripheral Venous Blood Culture - Preliminary NO GROWTH OBTAINED AFTER 72 HOURS, INCUBATION TO CONTINUE FOR 2 DAYS. 11/18/18 13:20 Blood - Peripheral Venous Blood Culture - Final NO GROWTH AFTER 5 DAYS INCUBATION 11/18/18 13:00 Blood - Peripheral Venous Blood Culture - Final NO GROWTH AFTER 5 DAYS INCUBATION 11/18/18 13:13 Stool Salmonella/Shigella Culture - Final NO GROWTH OF SALMONELLA OR SHIGELLA SPECIES OBTAINED 11/18/18 13:13 Stool Campylobacter Culture - Final NO GROWTH OF CAMPYLOBACTER SPECIES OBTAINED 11/18/18 13:13 Stool Yersinia Culture - Final NO GROWTH OF YERSINIA SPECIES OBTAINED 11/18/18 13:13 Stool Vibrio Culture - Final NO GROWTH OF VIBRIO SPECIES OBTAINED 11/18/18 13:13 Stool Escherichia coli 0157 Culture - Final NO GROWTH OF E COLI 0157 OBTAINED 11/18/18 18:00 Urine For Antigen Detection Legionella Antigen - Final 11/18/18 18:00 Urine For Antigen Detection Streptococcus pneumoniae Antigen (M - Final 11/18/18 13:09 Urine - Urine - Catheterized Urine Culture - Final NO GROWTH OBTAINED Laboratory Tests 11/20/18 06:00 Adenovirus (PCR) Negative Human Metapneumovir PCR Negative Influenza A (H1) PCR Negative Influenza B (RT-PCR) Negative Parainfluenza 1 (PCR) Negative Parainfluenza 2 (PCR) Negative Parainfluenza 3 (PCR) Negative RSV Type A (PCR) Negative RSV Type B (PCR) Negative Rhinovirus (PCR) Positive H Imagin11/23/18 CXR (final CXR) : Single AP view of the chest again reveals a weak inspiration with scoliosis and convexity to the right, spinal support hardware, prominent mediastinum and some atelectatic changes the bases. A gross consolidation is not seen. Correlation recommended. Incidental note is made of right upper quadrant clips HOSPITAL COURSE: Date of Admission:11/18/18 Date of Discharge: 11/26/18 Pt was admitted 11/18/18 due to desaturation on room air suspected to have been aspirating causing aspiration pneumonia vs. pneumonitis. Pt was maintained on Zosyn during her stay and had cultures without any notable growth as above. Pt was also initiated on oxygen during her stay which was titrate down until she was stable on room air with high oxygen saturation levels. Pt's previous Nepro bolus feeding was thought to contribute to her aspiration PNA so it was held during her stay. Once she became stable with her respiratory status, pt's feeds had been changed to Jevity 1.5 at 20cc/hr without titration and FW flushes for continuous feeds and pt has tolerated this regiment without further aspiration. In addition pt was added on Prosource for calorie maintenance. Today pt is to be discharged back home to her [facility] facility and has been afebrile for over 48hours. Pt will be switched to Augmentin 875mg GT BID for another 7 days with interval f/u with Dr. Treviño at her facility. Minutes to complete discharge: 35 Discharge Summary Problems reviewed: Yes Reason For Visit: Aspiration, viral URI Current Active Problems Chronic hypercapnic respiratory failure (Acute) Condition: Stable - Instructions Diet, Activity, Other Instructions: Pt was seen here for pneumonia secondary to likely aspiration. Pt improved with IV antibiotics and her fevers were controlled. Pt is being sent back to [facility]. Medications: Please continue home medications as below: Keppra 500mg TWICE daily Baclofen 10mg THREE times daily Please take Augmentin 875mg GT for another 7 days FEEDS: Please note that your higher rate of short feeds at the facility likely contributing to recurrent aspiration. Following recommendation is provided by our mechanical test technician: Jevity 1.5 at 20cc/hr without titration with additional 20cc free water flush for continuous feeds/ Add Prosource twice daily . She does not need oxygen and can be left to room air Keep head end of bed elevated at all times. Please have the mechanical test technician at the facility follow up for the same. Follow-up: Please follow-up with Dr. Treviño at the [facility] If you notice fevers, chills, trouble breathing or any new concerns, call 911 or come to ED Referrals: Krishna Treviño Jr [Non Staff, Medical] - Disposition: CARE HOME FACILITY - Home Medications Comprehensive Discharge Medication List: Ambulatory Orders Baclofen 20 mg GT TID 02/18/16 Cholecalciferol (Vitamin D3) [Vitamin D3 -] 400 unit GT BID 02/18/16 Diazepam [Valium] 2 mg GT TID 02/18/16 Enema Bag, Disposable [Enema Bag] 1 each RC PRN 02/18/16 Albuterol 0.083% Nebulizer [place] [Ventolin 0.083% Nebulizer Soln -] 1 amp NEB PRN PRN 10/25/18 Magnesium Hydrox 2400MG/30Ml [Milk of Magnesia -] 30 ml GT HS 10/25/18 Nystatin/Triamcin [Nystatin-Triamcinolone Cream] 100,000 gm TD PRN PRN 10/25/18 levETIRAcetam [Keppra Oral Solution -] 500 mg GT BID cup 11/06/18 Acetic Acid 2% Otic Soln [Vosol 2% Ear Drops -] 3 drop OT HS 11/18/18 Cranberry/B.coagulan/C/Calcium [Cranberry-Probiotic Tablet] 1 each PO HS Ranitidine HCl [Zantac] 300 mg GT HS 11/18/18 This patient is new to me today: No Emergency Visit: Yes ED Registration Date: 11/18/18 Care time: The patient presented to the Emergency Department on the above date and was hospitalized for further evaluation of their emergent condition. Critical Care patient: No - Discharge Referral Referred to [facility] Med P.C.: No
[2018-11-26] MEDS: CHOLECALCIFEROL (VIT D SOLUTION) 400 UNIT/1 ML DROPS GT SCH (10:28)
[2018-11-26] MEDS: NYSTATIN/TRIAMCINOLONE TOPICAL CREAM 15 GM TUBE TP SCH (10:30)
[2018-11-26] MEDS: levETIRAcetam 500 MG/5 ML ORAL SOLUTION (UNIT-DOSE CUPS) GT SCH (10:49)
--- NOTE | 2018-11-26 10:53 | PN ---
Teaching Attending Note Name of Resident: Jass Winn ATTENDING PHYSICIAN STATEMENT I saw and evaluated the patient. I reviewed the resident's note and discussed the case with the resident. I agree with the resident's findings and plan as documented with exceptions below. SUBJECTIVE: Patient seen and examined, non verbal, breathing comfortably. OBJECTIVE: Vital Signs Period Temp Pulse Resp BP Sys/Perez Pulse Ox Last 24 Hr 98.3 F-99.9 F 117-119 18-22 101-117/66-81 98-98 Intake & Output 11/23/18 11/24/18 11/25/18 11/26/18 23:59 23:59 23:59 23:59 Intake Total 139 061 4750 Balance 147 586 8059 Weight 99 lb 4.8 oz 101 lb 98 lb 6 oz 101 lb 6 oz General: lying in bed, no upper airway adventitious sounds or use of accessory muscles noted Chest: improved air entry, no rales or wheezing appreciated Abdomen:Soft, PEG in place Extremities: contractures Home Medications Medication Instructions Recorded Baclofen 20 mg GT TID 02/18/16 Cholecalciferol (Vitamin D3) 400 unit GT BID 02/18/16 [Vitamin D3 -] Diazepam [Valium] 2 mg GT TID 02/18/16 Enema Bag, Disposable [Enema Bag] 1 each RC PRN 02/18/16 Albuterol 0.083% Nebulizer [place] 1 amp NEB PRN PRN 10/25/18 [Ventolin 0.083% Nebulizer Soln -] Magnesium Hydrox 2400MG/30Ml [Milk 30 ml GT HS 10/25/18 of Magnesia -] Nystatin/Triamcin 100,000 gm TD PRN PRN 10/25/18 [Nystatin-Triamcinolone Cream] levETIRAcetam [Keppra Oral 500 mg GT BID cup 11/06/18 Solution -] Acetic Acid 2% Otic Soln [Vosol 2% 3 drop OT HS 11/18/18 Ear Drops -] Cranberry/B.coagulan/C/Calcium 1 each PO HS 11/18/18 [Cranberry-Probiotic Tablet] Ranitidine HCl [Zantac] 300 mg GT HS 11/18/18 Acetaminophen Oral Solution 650 mg GT Q6H PRN soln.oral 11/26/18 [Tylenol Oral Solution -] Amino AC/Protein Hydr/Whey Pro 946 ml GT BID #30 liquid 11/26/18 [Prosource Protein Liquid] Amox-Tr/K Cl [Augmentin 875-125mg 1 tab PO BID@0800,1730 #14 tablet 11/26/18 Tablet -] ASSESSMENT AND PLAN: 48 yof with PMHx of cerebral palsy, [employer] shunt, hydrocephalus, seizure disorder, GERD, severe mental retardation, pancreatitis, s/p Gtube, admitted with dyspnea and hypoxia -Acute rhinovirus illness -Suspected aspiration PNA vs pneumonitis -Acute on chronic diastolic heart failure exacerbation -Chronic hypercapneic respiratory failure -Hypokalemia -Hypernatremia, suspect from diuresis/lack of free water intake -Cerebral palsy -s/p [employer] shunt -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 -Seizure disorder -GERD -Severe mental retardation -Pancreatitis -s/p PEG tube Plan: Doing well, afebrile, tolerating feeds. Nutrition input noted. Add prosource Augmentin for 1 week Aspiration precautions. Discussed with Dr. Treviño D/c back to [facility] today Discussed with nursing.
--- NOTE | 2018-11-26 10:55 | PN ---
Progress Note (short form) - Note Progress Note: s: does not communicate, appears comfortable, no overnight events Vital Signs Period Temp Pulse Resp BP Sys/Perez Pulse Ox Last 24 Hr 98.3 F-99.9 F 117-119 18-22 101-117/66-81 98-98 nad no jvd rrr s1 s2 no mrg cta bl, poor eff lethargic no jaundice diaphoresis pos dp pt no carotid bruits abd nt nd pos bs no le e/c/c Current Medications Generic Name Dose Route Start Last Admin Trade Name Freq PRN Reason Stop Dose Admin Acetaminophen 650 mg 11/23/18 06:29 11/25/18 09:13 Tylenol Oral Solution - GT 650 mg Q6H PRN Administration FEVER Acetic Acid 3 drop 11/18/18 22:00 11/25/18 21:58 Vosol 2% Ear Drops - AU 3 drop HS [facility] Administration Albuterol Sulfate 1 amp 11/18/18 16:51 11/26/18 07:30 Ventolin 0.083% Nebulizer Soln - NEB 1 amp Q6H PRN Administration WHEEZING Amoxicillin/Clavulanate Potassium 1 tab 11/26/18 17:30 Augmentin - 875mg Tablet PO 12/03/18 17:29 BID@0800,1730 [facility] Baclofen 20 mg 11/18/18 22:00 11/26/18 06:22 Lioresal - GT 20 mg TID [facility] Administration Cholecalciferol 400 unit 11/18/18 22:00 11/26/18 10:28 Vitamin D3 Oral Solution - GT 400 unit BID [facility] Administration Heparin Sodium (Porcine) 5,000 unit 11/21/18 22:00 11/26/18 06:22 Heparin - SQ 5,000 unit TID [facility] Administration Levetiracetam 500 mg 11/18/18 22:00 11/26/18 10:49 Keppra Oral Solution - GT 500 mg BID [facility] Administration Nystatin/Triamcinolone Acetonide 1 applic 11/19/18 10:00 11/26/18 10:30 Mycolog Ii Cream - TP 1 applic DAILY [facility] Administration Ranitidine HCl 300 mg 11/18/18 22:00 11/25/18 21:59 Zantac Oral Solution - GT 300 mg HS [facility] Administration CBC, BMP 11/24/18 07:25 11/24/18 07:25 echo 10/2018: nl lvef, rv tds, no sig valve path, rvsp 30-40 cxr: clear lungs ecg: sr, nl intervals, nonspec tw changes, no st changes a/p: 48 f hx mr/cp, seizures, sent from [place] for hypoxia. hypoxia, pna: -no signs of chf, recent echo unremarkable -no signs acs -would hold off on diuresis at this time as pt appears dry, can use prn lasix -cont abx for pna per ID
--- NOTE | 2018-11-26 10:56 | PN ---
Progress Note (short form) - Note Progress Note: Awake but non-verbal. Breathing is non-labored. No fevers recorded. Intake & Output 11/23/18 11/24/18 11/25/18 11/26/18 23:59 23:59 23:59 23:59 Intake Total 215 048 1544 Balance 017 415 6361 Weight 99 lb 4.8 oz 101 lb 98 lb 6 oz 101 lb 6 oz Last Vital Signs Temp Pulse Resp BP Pulse Ox 98.3 F 119 H 18 101/66 98 11/26/18 09:00 11/26/18 09:00 11/26/18 09:00 11/26/18 09:00 11/26/18 09:00 Active Medications Acetaminophen (Tylenol Oral Solution -) 650 mg GT Q6H PRN PRN Reason: FEVER Last Admin: 11/25/18 09:13 Dose: 650 mg Acetic Acid (Vosol 2% Ear Drops -) 3 drop AU HS [facility] Last Admin: 11/25/18 21:58 Dose: 3 drop Albuterol Sulfate (Ventolin 0.083% Nebulizer Soln -) 1 amp NEB Q6H PRN PRN Reason: WHEEZING Last Admin: 11/26/18 07:30 Dose: 1 amp Amoxicillin/Clavulanate Potassium (Augmentin - 875mg Tablet) 1 tab PO BID@0800, 1730 [facility] Stop: 12/03/18 17:29 Baclofen (Lioresal -) 20 mg GT TID [facility] Last Admin: 11/26/18 06:22 Dose: 20 mg Cholecalciferol (Vitamin D3 Oral Solution -) 400 unit GT BID [facility] Last Admin: 11/26/18 10:28 Dose: 400 unit Heparin Sodium (Porcine) (Heparin -) 5,000 unit SQ TID [facility] Last Admin: 11/26/18 06:22 Dose: 5,000 unit Levetiracetam (Keppra Oral Solution -) 500 mg GT BID [facility] Last Admin: 11/26/18 10:49 Dose: 500 mg Nystatin/Triamcinolone Acetonide (Mycolog Ii Cream -) 1 applic TP DAILY [facility] Last Admin: 11/26/18 10:30 Dose: 1 applic Ranitidine HCl (Zantac Oral Solution -) 300 mg GT HS [facility] Last Admin: 11/25/18 21:59 Dose: 300 mg Gen: NAD Heart: RRR Lung: decreased breath sounds at the bases Abd: soft, nontender Ext: + edema A/P Acute on Chronic Diastolic Heart Failure Chronic Hypercapneic Respiratory Failure Likely Obstructive Sleep Apnea r/o Pneumonia Recurrent Aspiration Cerebral Palsy Mental Retardation Seizure Disorder GERD Functional Quadriplegia - Augmentin - O2 as needed - Aspiration precautions - DC planning Dr Nowak
[2018-11-26] MEDS ORDERED: PT OWN MED DRAWER 7, Y5N ONE (13:28)
[2018-11-26] MEDS ORDERED: AMOX TR/POT CLAV 875MG/125MG TABLETS (FP) PO SCH (17:30)
== END 2018-11-26 14:15 | disposition home or self-care (01) | DRG 137 ==
LOC: JER 12:22 → JERBED 14:13 → J6S 11-19 16:49
PROVIDERS: ADMIT Internal Medicine; ATTEND Hospitalist
DX: J69.0 Pneumonitis due to inhalation of food and vomit (principal); G80.9 Cerebral palsy, unspecified; R53.2 Functional quadriplegia; G40.909 Epilepsy, unspecified, not intractable, without status epilepticus; F72 Severe intellectual disabilities; D69.6 Thrombocytopenia, unspecified; I44.0 Atrioventricular block, first degree; K21.9 Gastro-esophageal reflux disease without esophagitis; I11.0 Hypertensive heart disease with heart failure; J96.22 Acute and chronic respiratory failure with hypercapnia; K85.90 Acute pancreatitis without necrosis or infection, unspecified; I50.33 Acute on chronic diastolic (congestive) heart failure; G91.9 Hydrocephalus, unspecified; E87.0 Hyperosmolality and hypernatremia; Z93.1 Gastrostomy status; J98.11 Atelectasis; E87.6 Hypokalemia; D64.9 Anemia, unspecified; D72.819 Decreased white blood cell count, unspecified
CPT/HCPCS: 36415; 36600; 71045-TC-FY; 80048; 80053; 81003; 82803; 82962; 83605; 83735; 83880; 84443; 84484; 85025; 85027; 85610; 85730; 86850; 86900; 86901; 87040; 87045; 87046; 87086; 87186; 87633; 87899; 93005; 93010; 94640; 94660; 94761; 97161-GP; 99285-25; J0131; J0475; J1644

== ENCOUNTER 2018-11-26 22:35 | Inpatient (IN) | payer OTHER ==
[2018-11-26 22:48] VITALS: BMI 28.3
--- NOTE | 2018-11-26 23:15 | PDOC ---
Attending Attestation - Resident Resident Name: Brigitte Weiss - ED Attending Attestation I have performed the following: I have examined & evaluated the patient, The case was reviewed & discussed with the resident, I agree w/resident's findings & plan - HPI HPI: 11/26/18 23:13 see resident hpi - Physicial Exam PE: 11/26/18 23:13 agree with resident exam - Medical Decision Making 11/26/18 23:13 48-year-old female with history of cerebral palsy with an episode of hypoxia and respiratory distress Patient resolved after repositioning by paramedics on scene She arrives in no respiratory distress satting 95% on room air Due to patient's bedbound status and history of reactive airway with respiratory distress sepsis evaluation planned as well as minimal observation admission
[2018-11-26 23:38] LABS: BASO % 0.3 % (0-2.0); EOS % 0.3 % (0-4.5); HEMATOCRIT 30.6 % (32.4-45.2); HEMOGLOBIN 10.1 GM/dL (10.7-15.3); LYMPH % 12.9 % (8-40); MCH 29.2 pg (25.7-33.7); MCHC 33.1 g/dl (32.0-36.0); MEAN CELL VOLUME 88.1 fl (80-96); MEAN PLT VOLUME 8.9 fl (7.5-11.1); MONO % 10.3 % (3.8-10.2); NEUT % 76.2 % (42.8-82.8); PLATELET COUNT 287 K/MM3 (134-434); RBC 3.47 M/mm3 (3.60-5.2); RDW 16.5 % (11.6-15.6); WHITE BLOOD COUNT 7.6 K/mm3 (4.0-10.0)
[2018-11-26 23:39] LABS: VENOUS PH 7.49 (7.31-7.41); VENOUS PO2 94.5 mmHg (28-48)
[2018-11-26 23:47] LABS: INR 1.04 (0.83-1.09); PROTHROMBIN TIME (PATIENT) 12.3 SEC (9.7-13.0)
[2018-11-26 23:48] LABS: ACTIVATED PTT 33.5 SECONDS (25.2-36.5)
[2018-11-27] MEDS ORDERED: PIPERACILLIN/TAZOB 4.5 GM 4.5 GM in DEXTROSE 5%-WATER 100 ML IVPB ONE (00:05)
[2018-11-27] MEDS ORDERED: VANCOMYCIN 250 MG/5 ML ORAL SOLUTION PEG ONE (00:05)
--- NOTE | 2018-11-27 00:06 | PDOC ---
History of Present Illness - General Chief Complaint: Respiratory Stated Complaint: RESPIRATORY DISTRESS Time Seen by Provider: 11/26/18 23:03 Past History - Past Medical History Allergies/Adverse Reactions: Allergies Allergy/AdvReac Type Severity Reaction Status Date / Time No Known Allergies Allergy Verified 11/26/18 22:48 Home Medications: Ambulatory Orders Baclofen 20 mg GT TID 02/18/16 Cholecalciferol (Vitamin D3) [Vitamin D3 -] 400 unit GT BID 02/18/16 Diazepam [Valium] 2 mg GT TID 02/18/16 Enema Bag, Disposable [Enema Bag] 1 each RC PRN 02/18/16 Albuterol 0.083% Nebulizer [place] [Ventolin 0.083% Nebulizer Soln -] 1 amp NEB PRN PRN 10/25/18 Magnesium Hydrox 2400MG/30Ml [Milk of Magnesia -] 30 ml GT HS 10/25/18 Nystatin/Triamcin [Nystatin-Triamcinolone Cream] 100,000 gm TD PRN PRN 10/25/18 levETIRAcetam [Keppra Oral Solution -] 500 mg GT BID cup 11/06/18 Acetic Acid 2% Otic Soln [Vosol 2% Ear Drops -] 3 drop OT HS 11/18/18 Cranberry/B.coagulan/C/Calcium [Cranberry-Probiotic Tablet] 1 each PO HS Ranitidine HCl [Zantac] 300 mg GT HS 11/18/18 Acetaminophen Oral Solution [Tylenol Oral Solution -] 650 mg GT Q6H PRN soln.oral 11/26/18 Amino AC/Protein Hydr/Whey Pro [Prosource Protein Liquid] 946 ml GT BID #30 liquid 11/26/18 Amox-Tr/K Cl [Augmentin 875-125mg Tablet -] 1 tab PO BID@0800,1730 #14 tablet COPD: No GI Disorders: Yes (GERD, s/p fundoplication, g-tube, hx pancreatitis) Seizures: Yes (epilepsy,cp) - Surgical History Abdominal Surgery: Yes (G-tube, fundoplication) Cholecystectomy: Yes GI Surgery: Yes (Ladi fundoplication) Orthopedic Surgery: Yes (femoral head resection, spinal fusion with instrumentation for scoliosis) - Immunization History TDAP Vaccination: Yes (last 09/23/04) Immunization Up to Date: Yes - Psycho Social/Smoking Cessation Hx Smoking History: Never smoked Have you smoked in the past 12 months: No Hx Alcohol Use: No Drug/Substance Use Hx: No Substance Use Type: None *Physical Exam - Vital Signs Last Vital Signs Temp Pulse Resp BP Pulse Ox 80 14 116/78 100 11/26/18 23:05 11/26/18 22:46 11/26/18 22:46 11/26/18 23:05 ED Treatment Course - LABORATORY CBC & Chemistry Diagram: 11/27/18 05:30 11/27/18 08:13 - ADDITIONAL ORDERS Additional order review: Laboratory Results 11/26/18 11/26/18 11/26/18 23:00 23:00 23:00 PT with INR Cancelled 12.30 INR Cancelled 1.04 PTT (Actin FS) 33.5 VBG pH 7.49 H POC VBG pCO2 51.0 POC VBG pO2 94.5 H VBG HCO3 38.5 H VBG O2 Sat (Luis) 98.4 H VBG Base Excess 13.5 H 11/26/18 23:00 RBC 3.47 L MCV 88.1 MCHC 33.1 RDW 16.5 H MPV 8.9 Neutrophils % 76.2 Lymphocytes % 12.9 Monocytes % 10.3 H Eosinophils % 0.3 D Basophils % 0.3 Medical Decision Making - Medical Decision Making HPI: 48yo F with PMH of cerebral palsy, seizures (on diazepam 2mg TID), prior meningoccal meningitis, thrombocytopenia [facility] for evaluation of respiratory distress. Patient was discharged from this hospital today around 5pm. At the facility it was noted that the patient was satting 83% and cyanotic. She was given supplemental oxygen and sent to the emergency department for further evaluation. Patient presented with stable vitals and oxygen saturation >95% on room air. Lung exam with some stridor noted. History limited as patient is nonverbal. ROS: unable to complete (patient nonverbal) PE: General: Awake, in no acute distress Head: No signs of trauma Eyes: EOMI, sclera anicteric ENT: Moist mucus membranes Neck: Normal ROM, supple Lungs: Lungs without rales, upper airway sounds noted Cardio: Regular rhythm, S1 and S2 present Abdomen: Soft, nontender. No guarding, no rebound, no masses. PEG tube in place. Diarrhea noted. Extremities: Limbs contracted, ecchymosis on upper and lower extremities; Distal pulses present SKIN: Warm, Dry, normal turgor Neurologic: Nonverbal ED Course/MDM: DDX including but not limited to aspiration pneumonia, mucus plug, ACS, PE, seizure EMS called prior to arrival stating they were bringing in a patient in respiratory distress. Patient presented with stable vital signs and satting >95 % on room air. Sometimes the saturations would lower based on the patient's position, and so the head of the bed was raised which improved the saturations. As a precaution, we placed the patient on nasal cannula which she tolerated. Patient was also noted to have significant diarrhea while she was being changed. A sample was collected and sent. For presumed aspiration pneumonia, septic workup was initiated. Will cover for cdiff with vancomycin through the PEG tube Will cover for aspiration pna with zosyn IV 11/27/18 00:06 CXR without obvious change from previous, my impression CBC WBC 7.6 K/mm3 (4.0-10.0) 11/26/18 23:00 RBC 3.47 M/mm3 (3.60-5.2) L 11/26/18 23:00 Hgb 10.1 GM/dL (10.7-15.3) L 11/26/18 23:00 Hct 30.6 % (32.4-45.2) L 11/26/18 23:00 MCV 88.1 fl (80-96) 11/26/18 23:00 MCH 29.2 pg (25.7-33.7) 11/26/18 23:00 MCHC 33.1 g/dl (32.0-36.0) 11/26/18 23:00 RDW 16.5 % (11.6-15.6) H 11/26/18 23:00 Plt Count 287 K/MM3 (134-434) D 11/26/18 23:00 MPV 8.9 fl (7.5-11.1) 11/26/18 23:00 Absolute Neuts (auto) 5.8 K/mm3 (1.5-8.0) 11/26/18 23:00 Neutrophils % 76.2 % (42.8-82.8) 11/26/18 23:00 Lymphocytes % 12.9 % (8-40) 11/26/18 23:00 Monocytes % 10.3 % (3.8-10.2) H 11/26/18 23:00 Eosinophils % 0.3 % (0-4.5) D 11/26/18 23:00 Basophils % 0.3 % (0-2.0) 11/26/18 23:00 Nucleated RBC % 0 % (0-0) 11/26/18 23:00 No leukocytosis CMP Sodium 144 mmol/L (136-145) 11/26/18 23:00 Potassium 2.2 mmol/L (3.5-5.1) L* 11/26/18 23:00 Chloride 96 mmol/L (98-107) L 11/26/18 23:00 Carbon Dioxide 38 mmol/L (21-32) H 11/26/18 23:00 Anion Gap 9 MMOL/L (8-16) 11/26/18 23:00 BUN 39.6 mg/dL (7-18) H 11/26/18 23:00 Creatinine 0.7 mg/dL (0.55-1.3) 11/26/18 23:00 Est GFR (CKD-EPI)AfAm 119.58 11/26/18 23:00 Est GFR (CKD-EPI)NonAf 103.18 11/26/18 23:00 Random Glucose 146 mg/dL (74-106) H 11/26/18 23:00 Lactic Acid 1.8 mmol/L (0.4-2.0) 11/26/18 23:00 Calcium 8.9 mg/dL (8.5-10.1) 11/26/18 23:00 Total Bilirubin 0.4 mg/dL (0.2-1) 11/26/18 23:00 AST 24 U/L (15-37) 11/26/18 23:00 ALT 19 U/L (13-61) 11/26/18 23:00 Alkaline Phosphatase 95 U/L (45-117) 11/26/18 23:00 Troponin I < 0.02 ng/ml (0.00-0.05) 11/26/18 23:00 Total Protein 5.9 g/dl (6.4-8.2) L 11/26/18 23:00 Albumin 2.6 g/dl (3.4-5.0) L 11/26/18 23:00 K is low, we will replete Lactate normal Tpn undetectable 11/27/18 01:20 Patient has continued to have stable vitals without any hypoxic events Discussed case with Dr. Warren who accepted patient for telemetry admission under Dr. berger 11/27/18 02:39 Discharge - Discharge Information Problems reviewed: Yes Clinical Impression/Diagnosis: Hypokalemia Condition: Guarded - Admission Yes - Follow up/Referral - Patient Discharge Instructions - Post Discharge Activity
[2018-11-27 00:36] LABS: ALBUMIN 2.6 g/dl (3.4-5.0); BILIRUBIN,TOTAL 0.4 mg/dL (0.2-1); BLOOD UREA NITROGEN 39.6 mg/dL (7-18); CALCIUM 8.9 mg/dL (8.5-10.1); CREATININE 0.7 mg/dL (0.55-1.3); TOT PROT 5.9 g/dl (6.4-8.2)
[2018-11-27 00:37] LABS: POTASSIUM 2.2 mmol/L (3.5-5.1)
[2018-11-27] MEDS ORDERED: PIPERACILLIN/TAZOB 4.5 GM 4.5 GM/100 ML BAG IVPB ONE (00:38)
[2018-11-27] MEDS ORDERED: POTASSIUM CHLORIDE ORAL LIQUID 20 MEQ/15 ML PEG ONE ×2 (01:34→04:21)
[2018-11-27] MEDS ORDERED: POTASSIUM CHLORIDE ORAL LIQUID 20 MEQ/15 ML ONE ×2 (02:18→05:05)
--- NOTE | 2018-11-27 02:51 | PN ---
Teaching Attending Note Name of Resident: Roseanna Warren ATTENDING PHYSICIAN STATEMENT I saw and evaluated the patient. I reviewed the resident's note and discussed the case with the resident. I agree with the resident's findings and plan as documented. SUBJECTIVE: Patient is a 48 year old nonverbal woman from [facility] with a PMH of seizures (last in 2011), GERD, PEG feeding, thrombocytopenia, cerebal palsy/ mental disability, meningoccal meningitis and pancreatitis sent by [facility] for evaluation of respiratory distress. Patient was recently discharged on 11/26/18 after hospitalization on 11/18/18 for possible aspiration pneumonia. Was discharged on Augmentin. At the facility it was noted that the patient had O2 saturation of 83% and cyanotic. She was given supplemental oxygen and sent to the ER for further evaluation. Patient presented with stable vitals and oxygen saturation >95% on room air. History limited as patient is nonverbal. Had a bout of diarrhea in the ER. OBJECTIVE: Alert and nonverbal Vital Signs Period Temp Pulse Resp BP Sys/Perez Pulse Ox Last 24 Hr 80-85 14 116/78 97-100 HEENT: No Jaundice, eye redness or discharge, PERRLA, EOMI. Normocephalic, atraumatic. External ears are normal; No nasal discharge. Neck: Supple, nontender. No palpable adenopathy or thyromegaly. No JVD Chest: Good effort. Clear to auscultation and percussion. Heart: Regular. No S3, rub or murmur Abdomen: Not distended, soft, nontender and no HSM. PEG in place; No rebound or guarding. Normal bowel sounds. Ext: Peripheral pulses intact. No leg edema. Scoliosis with limb contractures. Skin: Warm and dry. No petechiae, rash or ecchymosis. Neuro: Alert. Nonverbal. Sensation grossly intact in all four extremities - withdraws to noxious stimulus. Psych: Calm and not agitated. Current Medications Generic Name Dose Route Start Last Admin Trade Name Freq PRN Reason Stop Dose Admin Potassium Chloride 10 meq in 100 mls @ 100 mls/hr 11/27/18 01:45 Potassium Chloride 10 Meq Premix Ivpb - IVPB 11/27/18 04:44 Q60M [facility] Home Medications Medication Instructions Recorded Baclofen 20 mg GT TID 02/18/16 Cholecalciferol (Vitamin D3) 400 unit GT BID 02/18/16 [Vitamin D3 -] Diazepam [Valium] 2 mg GT TID 02/18/16 Enema Bag, Disposable [Enema Bag] 1 each RC PRN 02/18/16 Albuterol 0.083% Nebulizer [place] 1 amp NEB PRN PRN 10/25/18 [Ventolin 0.083% Nebulizer Soln -] Magnesium Hydrox 2400MG/30Ml [Milk 30 ml GT HS 10/25/18 of Magnesia -] Nystatin/Triamcin 100,000 gm TD PRN PRN 10/25/18 [Nystatin-Triamcinolone Cream] levETIRAcetam [Keppra Oral 500 mg GT BID cup 11/06/18 Solution -] Acetic Acid 2% Otic Soln [Vosol 2% 3 drop OT HS 11/18/18 Ear Drops -] Cranberry/B.coagulan/C/Calcium 1 each PO HS 11/18/18 [Cranberry-Probiotic Tablet] Ranitidine HCl [Zantac] 300 mg GT HS 11/18/18 Acetaminophen Oral Solution 650 mg GT Q6H PRN soln.oral 11/26/18 [Tylenol Oral Solution -] Amino AC/Protein Hydr/Whey Pro 946 ml GT BID #30 liquid 11/26/18 [Prosource Protein Liquid] Amox-Tr/K Cl [Augmentin 875-125mg 1 tab PO BID@0800,1730 #14 tablet 11/26/18 Tablet -] Abnormal Lab Results 11/26/18 11/26/18 11/26/18 23:00 23:00 23:00 RBC 3.47 L Hgb 10.1 L Hct 30.6 L RDW 16.5 H Monocytes % 10.3 H VBG pH 7.49 H POC VBG pO2 94.5 H VBG HCO3 38.5 H VBG O2 Sat (Luis) 98.4 H VBG Base Excess 13.5 H Potassium 2.2 L* Chloride 96 L Carbon Dioxide 38 H BUN 39.6 H Random Glucose 146 H Total Protein 5.9 L Albumin 2.6 L ASSESSMENT AND PLAN: 1. Severe hypokalemia - Serum K+ on 11/24/18 was 4.2 meq/L and Mg+ was 2.2 mg/dL on 11/23/18. Patient has chronic metabolic alkalosis possible due to Magnesium hydroxide and exacerbated by ?ranitidne as well as volume contraction. Metabolic alkalosis and recent diarrhea likely caused severe hypokalemia - and low K+ in turn worsens metabolic alkalosis. Will stop Mg hydroxide and ranitidine, check serum Mg+, give IV KCL and KCL via PEG. CXR shows scoliosis, is rotated but no significant infiltrate, effusion or pneumothorax noted. EKG pending. Will continue Augmentin for aspiration pneumonia, send stool for C.diff, Ova& parasites and leukocytes. Will continue comprehensive care for all of patients comorbid conditions including PEG feeding. Continue O2 support and frequent repositioning to prevent decubitus ulcers.. 2. Hypoalbuminemia - Possibly due to combined effects of malnutrition and inflammation associated with comorbid chronic conditions. Will ensure adequate dietary protein intake and also consult dial brusher. 3.POOJA - Cause unclear, but likely dehydrated - hydrate gently and monitor urine output. Avoid nephrotoxic agents such as NSAIDS, aminoglycosides, contrast dyes and certain Alternative medicine products. 4. Anemia - Likely multifactorial. Will do basic anemia work up including serial stool guaiacs, reticulocyte count and iron studies. 5. DVT prophylaxis - Lovenox 40 mg SQ q 24 hours. 6. Advance directives - Full code
[2018-11-27] MEDS ORDERED: KCL 10 MEQ IVPB 30 MEQ/300 ML INFUS.BAG IVPB ONE (03:27)
[2018-11-27] MEDS: KCL 10 MEQ IVPB 10 MEQ/100 ML INFUS.BAG IVPB SCH ×3 (03:37→05:35)
[2018-11-27 04:06] LABS: MAGNESIUM 2.6 mg/dL (1.8-2.4)
[2018-11-27] MEDS ORDERED: NYSTATIN/TRIAMCINOLONE TOPICAL CREAM 15 GM TUBE TP PRN (04:23)
[2018-11-27] MEDS ORDERED: ALBUTEROL SO4 0.083% IH SOL 2.5 MG/3 ML VIAL.NEB. NEB PRN (04:23)
[2018-11-27] MEDS ORDERED: SODIUM CHLORIDE 1,000 ML IV SCH ×2 (04:30→05:32)
[2018-11-27] MEDS ORDERED: DISPOSABLE RC SCH (04:30)
--- NOTE | 2018-11-27 04:59 | HP ---
CHIEF COMPLAINT: acute hypoxic resp distress PCP: from [place] HISTORY OF PRESENT ILLNESS: 48 y.o. F from [facility] cerebral palsy, [employer] shunt, hydrocephalus, seizure d/o , GERD, severe neurocognitive deficits, pancreatitis presenting after having been discharged earlier this evening at 5PM (admitted 11/18/18 for aspiration PNA vs pneumonitis) now presenting for o2 desaturations to 83% as per [place] home. Upon arrival to the ED pt's vitals were stable, satting at 97% on RA with some desats to low 90's-- placed on 3L NC with subsequent saturations >95%. On exam patient is noted to have stridor w/ inhalation. CXR in ED shows no change from prior to discharge. Pt s/p 9 days IV Zosyn, switched to 7 day course Augmentin 875mg BID via G-tube-- now having diarrhea, few episodes in ED. Stool studies & C. dif. sent. ER course was notable for: (1) satting well on RA-- desats to 93%, now on NC 3L satting well (2) Hypokalemia 2.2;; hypochloremia 96 (3) Recent Travel: none PAST MEDICAL HISTORY: as per HPI PAST SURGICAL HISTORY: femoral head resection, spinal fusion Social History: [place] resident Smoking: no Alcohol:no Drugs: no Allergies No Known Allergies Allergy (Verified 11/26/18 22:48) HOME MEDICATIONS: Home Medications Medication Instructions Recorded Baclofen 20 mg GT TID 02/18/16 Cholecalciferol (Vitamin D3) 400 unit GT BID 02/18/16 [Vitamin D3 -] Diazepam [Valium] 2 mg GT TID 02/18/16 Enema Bag, Disposable [Enema Bag] 1 each RC PRN 02/18/16 Albuterol 0.083% Nebulizer [place] 1 amp NEB PRN PRN 10/25/18 [Ventolin 0.083% Nebulizer Soln -] Magnesium Hydrox 2400MG/30Ml [Milk 30 ml GT HS 10/25/18 of Magnesia -] Nystatin/Triamcin 100,000 gm TD PRN PRN 10/25/18 [Nystatin-Triamcinolone Cream] levETIRAcetam [Keppra Oral 500 mg GT BID cup 11/06/18 Solution -] Acetic Acid 2% Otic Soln [Vosol 2% 3 drop OT HS 11/18/18 Ear Drops -] Cranberry/B.coagulan/C/Calcium 1 each PO HS 11/18/18 [Cranberry-Probiotic Tablet] Ranitidine HCl [Zantac] 300 mg GT HS 11/18/18 Acetaminophen Oral Solution 650 mg GT Q6H PRN soln.oral 11/26/18 [Tylenol Oral Solution -] Amino AC/Protein Hydr/Whey Pro 946 ml GT BID #30 liquid 11/26/18 [Prosource Protein Liquid] Amox-Tr/K Cl [Augmentin 875-125mg 1 tab PO BID@0800,1730 #14 tablet 11/26/18 Tablet -] REVIEW OF SYSTEMS CONSTITUTIONAL: Absent: fever, chills, diaphoresis, generalized weakness, malaise, loss of appetite, weight change HEENT: Absent: rhinorrhea, nasal congestion, throat pain, throat swelling, difficulty swallowing, mouth swelling, ear pain, eye pain, visual changes CARDIOVASCULAR: Absent: chest pain, syncope, palpitations, irregular heart rate, lightheadedness , peripheral edema RESPIRATORY: Absent: cough, shortness of breath, dyspnea with exertion, orthopnea, wheezing, stridor, hemoptysis GASTROINTESTINAL: Absent: abdominal pain, abdominal distension, nausea, vomiting, diarrhea, constipation, melena, hematochezia GENITOURINARY: Absent: dysuria, frequency, urgency, hesitancy, hematuria, flank pain, genital pain MUSCULOSKELETAL: Absent: myalgia, arthralgia, joint swelling, back pain, neck pain SKIN: Absent: rash, itching, pallor HEMATOLOGIC/IMMUNOLOGIC: Absent: easy bleeding, easy bruising, lymphadenopathy, frequent infections ENDOCRINE: Absent: unexplained weight gain, unexplained weight loss, heat intolerance, cold intolerance NEUROLOGIC: Absent: headache, focal weakness or paresthesias, dizziness, unsteady gait, seizure, mental status changes, bladder or bowel incontinence PSYCHIATRIC: Absent: anxiety, depression, suicidal or homicidal ideation, hallucinations. PHYSICAL EXAMINATION Vital Signs - 24 hr 11/26/18 11/26/18 22:46 23:05 Temperature 98.3 F Pulse Rate 85 80 Respiratory 14 Rate Blood Pressure 116/78 O2 Sat by Pulse 97 100 Oximetry (%) GENERAL: Awake, nonverbral, active movements, in no acute distress HEENT: MMM. Nasal cannula in place. Neck stridor w/ inspiration- neck is flexed may be d/t snore LUNGS: Coarse breath sounds heard b/l. No wheezing/ crackles. HEART: Regular rate and rhythm, normal S1 and S2 without murmurs ABDOMEN: Soft, nontender, not distended, normoactive bowel sounds, no guarding. Site surrounding G-tube C/D/I no signs of infxn. UPPER EXTREMITIES: 2+ pulses, warm, well-perfused. No cyanosis. No peripheral edema. LOWER EXTREMITIES: 2+ pulses, warm, well-perfused. No peripheral edema. LLE heel erythema noted-- no ulceration of skin. NEUROLOGICAL: unable to assess Skin: healing ecchymoses present on extr Laboratory Results - last 24 hr 11/26/18 11/26/18 11/26/18 23:00 23:00 23:00 WBC 7.6 RBC 3.47 L Hgb 10.1 L Hct 30.6 L MCV 88.1 MCH 29.2 MCHC 33.1 RDW 16.5 H Plt Count 287 D MPV 8.9 Absolute Neuts (auto) 5.8 Neutrophils % 76.2 Lymphocytes % 12.9 Monocytes % 10.3 H Eosinophils % 0.3 D Basophils % 0.3 Nucleated RBC % 0 PT with INR 12.30 INR 1.04 PTT (Actin FS) 33.5 VBG pH POC VBG pCO2 POC VBG pO2 VBG HCO3 VBG O2 Sat (Luis) VBG Base Excess Sodium Potassium Chloride Carbon Dioxide Anion Gap BUN Creatinine Est GFR (CKD-EPI)AfAm Est GFR (CKD-EPI)NonAf Random Glucose Lactic Acid Calcium Magnesium Total Bilirubin AST ALT Alkaline Phosphatase Troponin I < 0.02 Total Protein Albumin Blood Type Antibody Screen 11/26/18 11/26/18 11/26/18 23:00 23:00 23:00 WBC RBC Hgb Hct MCV MCH MCHC RDW Plt Count MPV Absolute Neuts (auto) Neutrophils % Lymphocytes % Monocytes % Eosinophils % Basophils % Nucleated RBC % PT with INR Cancelled INR Cancelled PTT (Actin FS) VBG pH POC VBG pCO2 POC VBG pO2 VBG HCO3 VBG O2 Sat (Luis) VBG Base Excess Sodium 144 Potassium 2.2 L* Chloride 96 L Carbon Dioxide 38 H Anion Gap 9 BUN 39.6 H Creatinine 0.7 Est GFR (CKD-EPI)AfAm 119.58 Est GFR (CKD-EPI)NonAf 103.18 Random Glucose 146 H Lactic Acid 1.8 Calcium 8.9 Magnesium 2.6 H Total Bilirubin 0.4 AST 24 ALT 19 Alkaline Phosphatase 95 Troponin I Total Protein 5.9 L Albumin 2.6 L Blood Type Antibody Screen 11/26/18 11/26/18 23:00 23:00 WBC RBC Hgb Hct MCV MCH MCHC RDW Plt Count MPV Absolute Neuts (auto) Neutrophils % Lymphocytes % Monocytes % Eosinophils % Basophils % Nucleated RBC % PT with INR INR PTT (Actin FS) VBG pH 7.49 H POC VBG pCO2 51.0 POC VBG pO2 94.5 H VBG HCO3 38.5 H VBG O2 Sat (Luis) 98.4 H VBG Base Excess 13.5 H Sodium Potassium Chloride Carbon Dioxide Anion Gap BUN Creatinine Est GFR (CKD-EPI)AfAm Est GFR (CKD-EPI)NonAf Random Glucose Lactic Acid Calcium Magnesium Total Bilirubin AST ALT Alkaline Phosphatase Troponin I Total Protein Albumin Blood Type O POSITIVE Antibody Screen Negative ASSESSMENT/PLAN: 48 y.o. F PMH cerebral palsy, [employer] shunt, hydrocephalus, seizure d/o, GERD, severe neurocognitive deficits, pancreatitis presenting for hypoxic epidsode. #Acute hypoxic respiratory distress -CXR shows no change from prior study -Satting well w/ 3L NC; wean as tolerated -C/w home nebs -C/w augmentin GT 875mg BID #Hypokalemia 2/2 metabolic alkalosis & diarrhea -K+ 2.2, Mg 2.6 -VBG: pH 7.49 HCO3 38.5 -Repleting w/ IV K+ 30mEq + KCl oral via GT -F/u EKG -Trend K+ -F/u C.Dif, stool cultures, O&P, leukocytes -Holding milk of mag & ranitidine #POOJA -Gentle hydration -Avoid nephrotoxic medication #FEN -Gently hydrating NS @45mL/ hr -Trend lytes; hypokalemia -Jevity 1.5@20cc/hr #DVT PPX -heparin 5000 SQ TID #Code status: FULL CODE Visit type - Emergency Visit Emergency Visit: Yes ED Registration Date: 11/27/18 Care time: The patient presented to the Emergency Department on the above date and was hospitalized for further evaluation of their emergent condition. - New Patient This patient is new to me today: Yes Date on this admission: 11/27/18 - Critical Care Critical Care patient: No ATTENDING PHYSICIAN STATEMENT I saw and evaluated the patient. I reviewed the resident's note and discussed the case with the resident. I agree with the resident's findings and plan as documented. SUBJECTIVE: OBJECTIVE: ASSESSMENT AND PLAN:
[2018-11-27] MEDS ORDERED: BACLOFEN 10 MG TABLET (FP) ONE (06:15)
[2018-11-27] MEDS ORDERED: diazePAM 2 MG TABLET ONE (06:15)
[2018-11-27] MEDS ORDERED: HEPARIN NA (PORCINE) 5,000 UNITS/ML 1ML VIAL ONE (06:15)
[2018-11-27 06:20] LABS: EPI CELLS 10.8 /HPF (0-5/HPF); URINE APPEARANCE CLEAR; URINE BILIRUBIN NEGATIVE (NEGATIVE); URINE COLOR YELLOW; URINE GLUCOSE (UA) TRACE (NEGATIVE); URINE KETONE NEGATIVE (NEGATIVE); URINE LEUK ESTERASE NEGATIVE (NEGATIVE); URINE NITRITE NEGATIVE (NEGATIVE); URINE PROTEIN 1+ (NEGATIVE); URINE UROBILINOGEN 0.2 mg/dL (0.2-1.0)
[2018-11-27] MEDS: BACLOFEN 10 MG TABLET (FP) GT SCH ×3 (06:27→22:47)
[2018-11-27] MEDS: HEPARIN NA (PORCINE) 5,000 UNITS/ML 1ML VIAL SQ SCH ×3 (06:27→22:47)
[2018-11-27] MEDS: diazePAM 2 MG TABLET GT SCH ×3 (06:27→22:48)
[2018-11-27 06:36] LABS: HEMATOCRIT 28.7 % (32.4-45.2); HEMOGLOBIN 9.7 GM/dL (10.7-15.3); MCH 29.6 pg (25.7-33.7); MCHC 33.7 g/dl (32.0-36.0); MEAN CELL VOLUME 87.6 fl (80-96); MEAN PLT VOLUME 8.2 fl (7.5-11.1); PLATELET COUNT 266 K/MM3 (134-434); RBC 3.27 M/mm3 (3.60-5.2); RDW 16.4 % (11.6-15.6)
[2018-11-27 07:33] LABS: ALBUMIN 2.4 g/dl (3.4-5.0); BILIRUBIN,TOTAL 0.4 mg/dL (0.2-1); BLOOD UREA NITROGEN 36.2 mg/dL (7-18); CALCIUM 8.5 mg/dL (8.5-10.1); CREATININE 0.6 mg/dL (0.55-1.3); MAGNESIUM 2.6 mg/dL (1.8-2.4); PHOSPHOROUS 3.6 mg/dL (2.5-4.9); TOT PROT 5.6 g/dl (6.4-8.2)
[2018-11-27 07:37] LABS: POTASSIUM 6.3 mmol/L (3.5-5.1)
[2018-11-27 07:38] LABS: HYALINE CASTS 1 /lpf (0-8); URINE RBC 14 /hpf (0-4); URINE WBC 22 /hpf (0-5)
[2018-11-27 07:39] LABS: URINE BACTERIA 5 /hpf (NEGATIVE)
[2018-11-27] MEDS ORDERED: DEXTROSE 50%-WATER - 25 GM/50 ML VIAL IVPUSH ONE (07:42)
[2018-11-27] MEDS ORDERED: INSULIN REGULAR HUMAN 100 UNITS/ML *VIAL IVPUSH ONE (07:42)
[2018-11-27] MEDS ORDERED: SODIUM POLYSTYRENE SULFONATE 15 GM/60 ML BOTTLE GT ONE (07:45)
--- NOTE | 2018-11-27 09:29 | PN ---
Teaching Attending Note Name of Resident: Jass Winn ATTENDING PHYSICIAN STATEMENT I saw and evaluated the patient. I reviewed the resident's note and discussed the case with the resident. I agree with the resident's findings and plan as documented with exceptions below. SUBJECTIVE: Patient seen and examined. Non verbal, upper airway stridor, noise noted. OBJECTIVE: Vital Signs Period Temp Pulse Resp BP Sys/Perez Pulse Ox Last 24 Hr 98.3 F-98.3 F 80-87 14-20 114-116/73-78 97-100 Intake & Output 11/24/18 11/25/18 11/26/18 11/27/18 23:59 23:59 23:59 23:59 Weight 145 lb General: lying in bed no acute distress, ?stridor chest; decreased effort, limited by habitus, no rales or wheezing appreciated Abdomen:soft, NT, PEG in place Extremities: contractures Home Medications Medication Instructions Recorded Baclofen 20 mg GT TID 02/18/16 Cholecalciferol (Vitamin D3) 400 unit GT BID 02/18/16 [Vitamin D3 -] Diazepam [Valium] 2 mg GT TID 02/18/16 Enema Bag, Disposable [Enema Bag] 1 each RC PRN 02/18/16 Albuterol 0.083% Nebulizer [place] 1 amp NEB PRN PRN 10/25/18 [Ventolin 0.083% Nebulizer Soln -] Magnesium Hydrox 2400MG/30Ml [Milk 30 ml GT HS 10/25/18 of Magnesia -] Nystatin/Triamcin 100,000 gm TD PRN PRN 10/25/18 [Nystatin-Triamcinolone Cream] levETIRAcetam [Keppra Oral 500 mg GT BID cup 11/06/18 Solution -] Acetic Acid 2% Otic Soln [Vosol 2% 3 drop OT HS 11/18/18 Ear Drops -] Cranberry/B.coagulan/C/Calcium 1 each PO HS 11/18/18 [Cranberry-Probiotic Tablet] Ranitidine HCl [Zantac] 300 mg GT HS 11/18/18 Acetaminophen Oral Solution 650 mg GT Q6H PRN soln.oral 11/26/18 [Tylenol Oral Solution -] Amino AC/Protein Hydr/Whey Pro 946 ml GT BID #30 liquid 11/26/18 [Prosource Protein Liquid] Amox-Tr/K Cl [Augmentin 875-125mg 1 tab PO BID@0800,1730 #14 tablet 11/26/18 Tablet -] Active Medications Albuterol Sulfate (Ventolin 0.083% Nebulizer Soln -) 1 amp NEB Q4H PRN PRN Reason: WHEEZING Amino Acids (Prosource No Carb Liquid Pkt) 30 ml GT BID [facility] Amoxicillin/Clavulanate Potassium (Augmentin - 875mg Tablet) 1 tab PO BID@0800, 1730 [facility] Stop: 12/04/18 08:00 Baclofen (Lioresal -) 20 mg GT TID [facility] Last Admin: 11/27/18 06:27 Dose: 20 mg Cholecalciferol (Vitamin D3 Oral Solution -) 400 unit GT BID [facility] Diazepam (Valium -) 2 mg GT TID [facility] Last Admin: 11/27/18 06:27 Dose: 2 mg Heparin Sodium (Porcine) (Heparin -) 5,000 unit SQ TID [facility] Last Admin: 11/27/18 06:27 Dose: 5,000 unit Levetiracetam (Keppra Oral Solution -) 500 mg GT BID [facility] Nystatin/Triamcinolone Acetonide (Mycolog Ii Cream -) 1 applic TP DAILY PRN PRN Reason: ITCHING Laboratory Results - last 24 hr 11/26/18 11/26/18 11/26/18 23:00 23:00 23:00 WBC 7.6 RBC 3.47 L Hgb 10.1 L Hct 30.6 L MCV 88.1 MCH 29.2 MCHC 33.1 RDW 16.5 H Plt Count 287 D MPV 8.9 Absolute Neuts (auto) 5.8 Neutrophils % 76.2 Lymphocytes % 12.9 Monocytes % 10.3 H Eosinophils % 0.3 D Basophils % 0.3 Nucleated RBC % 0 PT with INR 12.30 INR 1.04 PTT (Actin FS) 33.5 VBG pH POC VBG pCO2 POC VBG pO2 VBG HCO3 VBG O2 Sat (Luis) VBG Base Excess Sodium Potassium Chloride Carbon Dioxide Anion Gap BUN Creatinine Est GFR (CKD-EPI)AfAm Est GFR (CKD-EPI)NonAf Random Glucose Lactic Acid Calcium Phosphorus Magnesium Total Bilirubin AST ALT Alkaline Phosphatase Troponin I < 0.02 Total Protein Albumin Urine Color Urine Appearance Urine pH Ur Specific Mobile Urine Protein Urine Glucose (UA) Urine Ketones Urine Blood Urine Nitrite Urine Bilirubin Urine Urobilinogen Ur Leukocyte Esterase Urine WBC (Auto) Urine RBC (Auto) Urine Casts (Auto) U Pathogenic Cast Auto U Epithel Cells (Auto) U Sm Round Cell (Auto) Urine Crystals (Auto) Urine Bacteria (Auto) Urine Yeast (Auto) Blood Type Antibody Screen 11/26/18 11/26/18 11/26/18 23:00 23:00 23:00 WBC RBC Hgb Hct MCV MCH MCHC RDW Plt Count MPV Absolute Neuts (auto) Neutrophils % Lymphocytes % Monocytes % Eosinophils % Basophils % Nucleated RBC % PT with INR Cancelled INR Cancelled PTT (Actin FS) VBG pH POC VBG pCO2 POC VBG pO2 VBG HCO3 VBG O2 Sat (Luis) VBG Base Excess Sodium 144 Potassium 2.2 L* Chloride 96 L Carbon Dioxide 38 H Anion Gap 9 BUN 39.6 H Creatinine 0.7 Est GFR (CKD-EPI)AfAm 119.58 Est GFR (CKD-EPI)NonAf 103.18 Random Glucose 146 H Lactic Acid 1.8 Calcium 8.9 Phosphorus Magnesium 2.6 H Total Bilirubin 0.4 AST 24 ALT 19 Alkaline Phosphatase 95 Troponin I Total Protein 5.9 L Albumin 2.6 L Urine Color Urine Appearance Urine pH Ur Specific Mobile Urine Protein Urine Glucose (UA) Urine Ketones Urine Blood Urine Nitrite Urine Bilirubin Urine Urobilinogen Ur Leukocyte Esterase Urine WBC (Auto) Urine RBC (Auto) Urine Casts (Auto) U Pathogenic Cast Auto U Epithel Cells (Auto) U Sm Round Cell (Auto) Urine Crystals (Auto) Urine Bacteria (Auto) Urine Yeast (Auto) Blood Type Antibody Screen 11/26/18 11/26/18 11/27/18 23:00 23:00 03:52 WBC RBC Hgb Hct MCV MCH MCHC RDW Plt Count MPV Absolute Neuts (auto) Neutrophils % Lymphocytes % Monocytes % Eosinophils % Basophils % Nucleated RBC % PT with INR INR PTT (Actin FS) VBG pH 7.49 H POC VBG pCO2 51.0 POC VBG pO2 94.5 H VBG HCO3 38.5 H VBG O2 Sat (Luis) 98.4 H VBG Base Excess 13.5 H Sodium Potassium Chloride Carbon Dioxide Anion Gap BUN Creatinine Est GFR (CKD-EPI)AfAm Est GFR (CKD-EPI)NonAf Random Glucose Lactic Acid 1.7 Calcium Phosphorus Magnesium Total Bilirubin AST ALT Alkaline Phosphatase Troponin I Total Protein Albumin Urine Color Urine Appearance Urine pH Ur Specific Mobile Urine Protein Urine Glucose (UA) Urine Ketones Urine Blood Urine Nitrite Urine Bilirubin Urine Urobilinogen Ur Leukocyte Esterase Urine WBC (Auto) Urine RBC (Auto) Urine Casts (Auto) U Pathogenic Cast Auto U Epithel Cells (Auto) U Sm Round Cell (Auto) Urine Crystals (Auto) Urine Bacteria (Auto) Urine Yeast (Auto) Blood Type O POSITIVE Antibody Screen Negative 11/27/18 11/27/18 11/27/18 05:00 05:30 05:30 WBC 10.0 RBC 3.27 L Hgb 9.7 L Hct 28.7 L MCV 87.6 MCH 29.6 MCHC 33.7 RDW 16.4 H Plt Count 266 MPV 8.2 Absolute Neuts (auto) Neutrophils % Lymphocytes % Monocytes % Eosinophils % Basophils % Nucleated RBC % PT with INR INR PTT (Actin FS) VBG pH POC VBG pCO2 POC VBG pO2 VBG HCO3 VBG O2 Sat (Luis) VBG Base Excess Sodium 140 Potassium 6.3 H* Chloride 102 Carbon Dioxide 34 H Anion Gap 4 L BUN 36.2 H Creatinine 0.6 Est GFR (CKD-EPI)AfAm 125.80 Est GFR (CKD-EPI)NonAf 108.54 Random Glucose 125 H Lactic Acid Calcium 8.5 Phosphorus 3.6 Magnesium 2.6 H Total Bilirubin 0.4 AST 26 ALT 18 Alkaline Phosphatase 89 Troponin I Total Protein 5.6 L Albumin 2.4 L Urine Color Yellow Urine Appearance Clear Urine pH 7.0 Ur Specific Mobile 1.025 Urine Protein 1+ H Urine Glucose (UA) Trace Urine Ketones Negative Urine Blood 1+ H Urine Nitrite Negative Urine Bilirubin Negative Urine Urobilinogen 0.2 Ur Leukocyte Esterase Negative Urine WBC (Auto) 22 Urine RBC (Auto) 14 Urine Casts (Auto) 1 U Pathogenic Cast Auto None U Epithel Cells (Auto) 10.8 U Sm Round Cell (Auto) None Urine Crystals (Auto) None Urine Bacteria (Auto) 5 Urine Yeast (Auto) None Blood Type Antibody Screen CXr results and images reviewed ASSESSMENT AND PLAN: 48 yof with PMHx of cerebral palsy, POLITICAL CONSULTANT shunt, hydrocephalus, seizure disorder, GERD, severe mental retardation, pancreatitis, s/p Gtube, recently admitted with acute rhinovirus illness +/- aspiration/CHF, sent back from [facility] with hypoxic and concerns for stridor. -Reported hypoxia, ?aspiration -?stridor -Recent rhinovirus illness -Recent suspected aspiration PNA vs pneumonitis -Recent Acute on chronic diastolic heart failure exacerbation -Chronic hypercapneic respiratory failure -Severe Hypokalemia -Cerebral palsy -s/p POLITICAL CONSULTANT shunt -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 -Seizure disorder -GERD -Severe mental retardation -h/o Pancreatitis -s/p PEG tube Plan: Patient with intermittent upper away noice, ?stridor on prior admission as well. Suspect related to body habitus+/- intermittent secretions/aspiration. ENT input. Pulmonary input. May benefit from Bipap vs CPAP at night time. Suspect episode on admission may have been related to aspiration compounded by her upper airway anatomy. Hold tube feeds today. Taper oxygen as tolerated. NO clinical evidence to suggest new infection. Continue augmentin from recent dc. Aggressively repleted K overnight. Per discussion with ED RN, repeat K levels likely drawn while IV KCL was actively infusing. Will check EKG, repeat K levels but hold off on further aggressive treatment for now. Continue home anti-epileptics DVTPPX lovenox Dispo back to [place] pending clinical improvement.
[2018-11-27] MEDS: AMOX TR/POT CLAV 875MG/125MG TABLETS (FP) PO SCH ×2 (11:00→17:41)
[2018-11-27] MEDS: CHOLECALCIFEROL (VIT D SOLUTION) 400 UNIT/1 ML DROPS GT SCH ×2 (11:01→22:48)
[2018-11-27] MEDS: AMINO ACIDS/PROTEIN HYDROLYS 30 ML LIQUID.PKT GT SCH ×2 (11:01→22:48)
[2018-11-27] MEDS: levETIRAcetam 500 MG/5 ML ORAL SOLUTION (UNIT-DOSE CUPS) GT SCH ×2 (11:01→22:47)
--- NOTE | 2018-11-27 11:24 | PN ---
Progress Note (short form) - Note Progress Note: PULMONARY CONSULTATION DICTATED 11/27/18 IMP ACUTE HYPOXEMIC RESPIRATORY FAILURE RESPIRATORY DISTRESS ? STRIDOR R/O UPPER AIRWAY INFLAMMATION R/O ASPIRATION SEVERE MENTAL RETARDATION CEREBRAL PALSY SEIZURES GERD S/P PEG PANCREATITIS PLAN IV STEROIDS HUMIDIFIED O2 ORAL PHARYNGEAL SUCTIONING ENT EVALUATION DR LARA Problem List - Problems (1) Cough Code(s): R05 - COUGH (2) Fever Code(s): R50.9 - FEVER, UNSPECIFIED Qualifiers: Fever type: unspecified Qualified Code(s): R50.9 - Fever, unspecified (3) GERD (gastroesophageal reflux disease) Code(s): K21.9 - GASTRO-ESOPHAGEAL REFLUX DISEASE WITHOUT ESOPHAGITIS (4) Hypokalemia Code(s): E87.6 - HYPOKALEMIA (5) Hypoxia Code(s): R09.02 - HYPOXEMIA (6) Wheezing Code(s): R06.2 - WHEEZING (7) Congenital quadriplegia Code(s): G80.8 - OTHER CEREBRAL PALSY (8) Profound intellectual disability Code(s): F73 - PROFOUND INTELLECTUAL DISABILITIES (9) Seizure Code(s): R56.9 - UNSPECIFIED CONVULSIONS (10) Respiratory distress Code(s): R06.03 - ACUTE RESPIRATORY DISTRESS (11) Acute hypoxemic respiratory failure Code(s): J96.01 - ACUTE RESPIRATORY FAILURE WITH HYPOXIA (12) Chronic hypercapnic respiratory failure Code(s): J96.12 - CHRONIC RESPIRATORY FAILURE WITH HYPERCAPNIA
--- NOTE | 2018-11-27 13:44 | CONS ---
PULMONARY CONSULTATION DATE OF CONSULTATION: 11/27/2018 REFERRING PHYSICIAN: Jodi Garcia MD History is obtained from medical records, chart. 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 Recently hospitalized at [facility] secondary to pneumonia. Discharged on November 26. Was readmitted. Presented back to [facility] ER later that evening secondary to respiratory distress and hypoxemia. As stated before, patient was recently hospitalized from November 18 and discharged November 26 after hospitalization for possible aspiration pneumonia. Was discharged home on Augmentin. She was clinically stable prior to discharge. Apparently, when patient was at the facility, she was noted to have saturations of 83% and cyanotic. She was given supplemental O2 and transferred to [facility] ER for further treatment. Patient in the ER was noted to be saturating 93% on room air. She was admitted to the floor. Of note, she was noted to have coarse upper airway breath sounds. Chest x-ray revealed no evidence of acute process. Patient was transferred up to telemetry for further monitoring. No further history available at this time. PAST MEDICAL HISTORY: Again includes profound mental retardation, meningococcal meningitis, history of thrombocytopenia, PEG insertion, GERD, seizures, cerebral palsy, thrombocytopenia, and pancreatitis. REVIEW OF SYSTEMS: Unable to obtain. CURRENT MEDICATIONS: Include Augmentin, heparin subcutaneous, Keppra, Mycolog, Valium, albuterol, and vitamin D3. PHYSICAL EXAMINATION: General: Patient is a contracted female awake in mild respiratory distress. Vital Signs: Temperature is 98.3, respiratory rate is 20, O2 saturation is 100 % on room air, blood pressure 114/73. HEENT: Normocephalic, atraumatic. Neck: Supple. Chest: There are stridorous breath sounds noted with transmitted breath sounds lower lung de leon. Coarse rhonchi. Heart: Tachycardic. S1, S2. Abdomen: Soft. Bowel sounds positive. Extremities: Short and contracted. LABORATORIES: WBC is 10, hemoglobin 9.7, hematocrit 28.7 with a platelet count of 266,000. Venous blood gas 7.49, PCO2 of 51, PO2 of 94, bicarbonate 38, and a saturation of 98. Potassium 2.2, subsequent 6.3, current 4.8. Chest x-ray: No acute infiltrates. IMPRESSION: 1. Acute hypoxic respiratory failure, possible aspiration. 2. Coarse upper airway breath sounds, rule out upper airway inflammation. 3. Rule out aspiration. 4. Severe mental retardation. 5. Cerebral palsy. 6. Seizures. 7. Gastroesophageal reflux disease. 8. History of pancreatitis. 9. Status post percutaneous endoscopic gastrostomy. PLAN: IV steroids. Humidified O2. Oropharyngeal suctioning. ENT evaluation. Caroline [id number] MTDD
[2018-11-27] MEDS: methylPREDNISolone NA SUCC 40 MG/1 ML VIAL IVPUSH SCH ×2 (15:20→22:47)
--- NOTE | 2018-11-27 17:15 | PN ---
Progress Note (short form) - Note Progress Note: HPI. Briefly, 48yo F from [facility] who was admitted last night due to episode of hypoxia to 83% noted at [facility]. Pt noted to have upper respiratory sounds with resolution of hypoxia upon ED evaluation. This AM pt noted to be comfortable without no tachypnea PE: Gen: NAD, nonverbal HEENT: GATO, MMM Neck: No JVD, no bruits, upper airway sounds noted LUNGS: Coarse breath sounds b/l (unchanged from previous d/c). Upper airway sounds transmitted. No wheezing CARD: RRR no murmurs ABD: Soft Nt/ND normoactive BS, G-tube site without erythema or drainage around tube, tube feeds at 20cc goal EXT: Off-barkeep in place SKIN: No rashes or lesions appreciated CBC, BMP 11/27/18 05:30 11/27/18 08:13 Active Medications Albuterol Sulfate (Ventolin 0.083% Nebulizer Soln -) 1 amp NEB Q4H PRN PRN Reason: WHEEZING Amino Acids (Prosource No Carb Liquid Pkt) 30 ml GT BID [facility] Last Admin: 11/27/18 11:01 Dose: 30 ml Amoxicillin/Clavulanate Potassium (Augmentin - 875mg Tablet) 1 tab PO BID@0800, 1730 [facility] Stop: 12/04/18 08:00 Last Admin: 11/27/18 11:00 Dose: 1 tab Baclofen (Lioresal -) 20 mg GT TID [facility] Last Admin: 11/27/18 14:19 Dose: 20 mg Cholecalciferol (Vitamin D3 Oral Solution -) 400 unit GT BID [facility] Last Admin: 11/27/18 11:01 Dose: 400 unit Diazepam (Valium -) 2 mg GT TID [facility] Last Admin: 11/27/18 14:19 Dose: 2 mg Heparin Sodium (Porcine) (Heparin -) 5,000 unit SQ TID [facility] Last Admin: 11/27/18 14:17 Dose: 5,000 unit Levetiracetam (Keppra Oral Solution -) 500 mg GT BID [facility] Last Admin: 11/27/18 11:01 Dose: 500 mg Methylprednisolone Sodium Succinate (Solu-Medrol -) 40 mg IVPUSH Q6H-IV [facility] Last Admin: 11/27/18 15:20 Dose: 40 mg Nystatin/Triamcinolone Acetonide (Mycolog Ii Cream -) 1 applic TP DAILY PRN PRN Reason: ITCHING Microbiology 11/26/18 23:00 Stool Clostridioides difficile Antigen - Final 11/26/18 23:00 Stool Clostridioides difficile Toxin Assay - Final A/P Acute hypoxic respiratory distress (resolved) Seizure disorder Cerebral Palsy 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 s/p BACK FEEDER [employer]OD LAYUP LINE shunting Rhinovirus URI (resolving) HFpEF Hypokalemia Severe mental retardation Dysphagia s/p PEG GERD --Intermittent breath sounds likely positional based --Monitor position and SpO2 --Possibility of BiPap or CPAP; will discuss with pulmonology --Secretion control and chest PT to continue --No new infection evident: WBC WNL, afebrile --Hold tube feeds for now --Continue augmentin: last dose next week (placed stop date for total regiment completion) --Continue home AED: --Keppra 500mg BID --Valium 2mg TID GT --ENT called for possible laryngoscopy FEN: Fluids: Electrolyte abnormalities: Hyperkalemia upon repeat; will repeat K+ level as suspicion of lab draw near K+ repletion site Nutrition: Hold tube feeds for now; can restart if no worsening status tomorrow; continue Prosource PPX: DVT - Heparin TID Dispo: Monitor on tele due to hyperkalemia Case discussed with Dr. Radha Winn, DO - IM PGY-3
[2018-11-27] MEDS ORDERED: B COAGULAN PO SCH (22:00)
[2018-11-27] MEDS ORDERED: [UNRECOGNIZED DRUG - OTHER] PO SCH (22:00)
[2018-11-27] MEDS ORDERED: CALCIUM PO SCH (22:00)
[2018-11-27] MEDS ORDERED: PATIENT'S OWN MEDICATION (NON-FORMULARY) (Ranitidine Hcl [Zantac] 300 MG) GT SCH (22:00)
[2018-11-27] MEDS ORDERED: CRANBERRY PO SCH (22:00)
[2018-11-27] MEDS ORDERED: PT OWN MED DRAWER 7, Y5N ONE (22:06)
[2018-11-28] MEDS: methylPREDNISolone NA SUCC 40 MG/1 ML VIAL IVPUSH SCH ×4 (03:27→21:48)
[2018-11-28] MEDS: HEPARIN NA (PORCINE) 5,000 UNITS/ML 1ML VIAL SQ SCH ×3 (06:04→21:48)
[2018-11-28] MEDS: BACLOFEN 10 MG TABLET (FP) GT SCH ×3 (06:04→21:44)
[2018-11-28] MEDS: diazePAM 2 MG TABLET GT SCH ×3 (06:04→21:44)
[2018-11-28 06:24] LABS: HEMATOCRIT 26.5 % (32.4-45.2); HEMOGLOBIN 8.9 GM/dL (10.7-15.3); MCH 29.3 pg (25.7-33.7); MCHC 33.5 g/dl (32.0-36.0); MEAN CELL VOLUME 87.6 fl (80-96); MEAN PLT VOLUME 8.7 fl (7.5-11.1); PLATELET COUNT 306 K/MM3 (134-434); RBC 3.03 M/mm3 (3.60-5.2); RDW 16.1 % (11.6-15.6); WHITE BLOOD COUNT 5.6 K/mm3 (4.0-10.0)
[2018-11-28 07:06] LABS: BLOOD UREA NITROGEN 33.4 mg/dL (7-18); CALCIUM 9.1 mg/dL (8.5-10.1); CREATININE 0.5 mg/dL (0.55-1.3); POTASSIUM 4.9 mmol/L (3.5-5.1)
--- NOTE | 2018-11-28 09:27 | CON.ENT ---
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, severe develoopmental delay had recent hospitalization for respiratory distress, was discharged but represented soon after discharge to ER with respiratory distress - History Source History Provided By: Medical Record Limitations to Obtaining History: Clinical Condition - Past Medical History FIELD MARKETING LEAD: Yes: Other (Hydrocephelus, severe developmental delay, BAG SHAKER shunt) Pulmonary: Yes: Pneumonia Gastrointestinal: Yes: Other (ube) Musculoskeletal: Yes: Other (functional quadriplegia, scoliosis s/p plates) - Alcohol/Substance Use Hx Alcohol Use: No - Smoking History Smoking history: Never smoked Have you smoked in the past 12 months: No - Social History Usual Living Arrangement: Assisted Living ADL: Support Services Home Medications - Allergies Allergies/Adverse Reactions: Allergies Allergy/AdvReac Type Severity Reaction Status Date / Time No Known Allergies Allergy Verified 11/26/18 22:48 - Home Medications Home Medications: Ambulatory Orders Baclofen 20 mg GT TID 02/18/16 Cholecalciferol (Vitamin D3) [Vitamin D3 -] 400 unit GT BID 02/18/16 Diazepam [Valium] 2 mg GT TID 02/18/16 Enema Bag, Disposable [Enema Bag] 1 each RC PRN 02/18/16 Albuterol 0.083% Nebulizer [place] [Ventolin 0.083% Nebulizer Soln -] 1 amp NEB PRN PRN 10/25/18 Magnesium Hydrox 2400MG/30Ml [Milk of Magnesia -] 30 ml GT HS 10/25/18 Nystatin/Triamcin [Nystatin-Triamcinolone Cream] 100,000 gm TD PRN PRN 10/25/18 levETIRAcetam [Keppra Oral Solution -] 500 mg GT BID cup 11/06/18 Acetic Acid 2% Otic Soln [Vosol 2% Ear Drops -] 3 drop OT HS 11/18/18 Cranberry/B.coagulan/C/Calcium [Cranberry-Probiotic Tablet] 1 each PO HS Ranitidine HCl [Zantac] 300 mg GT HS 11/18/18 Acetaminophen Oral Solution [Tylenol Oral Solution -] 650 mg GT Q6H PRN soln.oral 11/26/18 Amino AC/Protein Hydr/Whey Pro [Prosource Protein Liquid] 946 ml GT BID #30 liquid 11/26/18 Amox-Tr/K Cl [Augmentin 875-125mg Tablet -] 1 tab PO BID@0800,1730 #14 tablet Family Medical History Family History: Unable to Obtain Review of Systems Unable to obtain ROS, reason: pt nonverbal Physical Exam-ENT Vital Signs: Vital Signs Temperature 97.3 F L 11/28/18 05:54 Pulse Rate 92 H 11/28/18 05:54 Respiratory Rate 22 H 11/28/18 05:54 Blood Pressure 120/75 11/28/18 05:54 O2 Sat by Pulse Oximetry (%) 98 11/27/18 23:27 Constitutional: Yes: No Distress Face: Yes: Symmetrical Eyes: Yes: WNL Nose: Yes: Edema Nasal Passage: Yes: Other (clear mucus, no blood, mucosal edema) Oral/Pharynx: Yes: Other (tonngue enlarged, protrudes through incisors at rest, but soft, can be depressedd with tongue blade. oropharynx clear, no obstruction , moderate snoring flexible laryngoscopy shows base of tongue normal, epiglottis normal, endolarynx normal, vocal cords show no lesion, limited vocal cord abduction, arytenoids have mild edema, vibration of arytenoids noted on inspiration) Outer Ear: Yes: WNL Imaging - Results Chest X-ray: Report Reviewed Problem List - Problems (1) Stridor Assessment/Plan: pt with recurrent respiratory distress improved since admission has snoring from tongue/oropharynx (eliminated when tongue depressed and oropharynx exposed) stridor also noted, laryngoscopy shows reduced vocal cord abduction, arytenoids vibrate on inspiration Recommend: monitor respiratory status, consider oral airway if tolerated to improve oropharyngeal obstruction from tongue posiition continue O2 slight tachypnea noted this morning (RR 22 recorded in VS) additional respiratory treatment including any potential airway support as per Pulmonary Thank you for consultation, Jass Coppola MD FACS Code(s): R06.1 - STRIDOR
[2018-11-28] MEDS ORDERED: PT OWN MED DRAWER 7, Y5N ONE ×2 (09:37→21:41)
[2018-11-28] MEDS ORDERED: FLU VACCINE QUAD 60 MCG/0.5 ML (MDV 19-20) IM ONE (10:00)
[2018-11-28] MEDS: levETIRAcetam 500 MG/5 ML ORAL SOLUTION (UNIT-DOSE CUPS) GT SCH ×2 (10:03→21:44)
[2018-11-28] MEDS: AMINO ACIDS/PROTEIN HYDROLYS 30 ML LIQUID.PKT GT SCH ×2 (10:03→21:44)
[2018-11-28] MEDS: CHOLECALCIFEROL (VIT D SOLUTION) 400 UNIT/1 ML DROPS GT SCH ×2 (10:03→21:44)
[2018-11-28] MEDS: AMOX TR/POT CLAV 875MG/125MG TABLETS (FP) PO SCH ×2 (10:03→16:57)
--- NOTE | 2018-11-28 10:59 | PN ---
Progress Note, Physician History of Present Illness: pulmonary awake,less upper airway bs,ent evaluation noted - Current Medication List Current Medications: Active Medications Albuterol Sulfate (Ventolin 0.083% Nebulizer Soln -) 1 amp NEB Q4H PRN PRN Reason: WHEEZING Last Admin: 11/27/18 20:30 Dose: 1 amp Amino Acids (Prosource No Carb Liquid Pkt) 30 ml GT BID [facility] Last Admin: 11/28/18 10:03 Dose: 30 ml Amoxicillin/Clavulanate Potassium (Augmentin - 875mg Tablet) 1 tab PO BID@0800, 1730 [facility] Stop: 12/04/18 08:00 Last Admin: 11/28/18 10:03 Dose: 1 tab Baclofen (Lioresal -) 20 mg GT TID [facility] Last Admin: 11/28/18 06:04 Dose: 20 mg Cholecalciferol (Vitamin D3 Oral Solution -) 400 unit GT BID [facility] Last Admin: 11/28/18 10:03 Dose: 400 unit Diazepam (Valium -) 2 mg GT TID [facility] Last Admin: 11/28/18 06:04 Dose: 2 mg Heparin Sodium (Porcine) (Heparin -) 5,000 unit SQ TID [facility] Last Admin: 11/28/18 06:04 Dose: 5,000 unit Levetiracetam (Keppra Oral Solution -) 500 mg GT BID [facility] Last Admin: 11/28/18 10:03 Dose: 500 mg Methylprednisolone Sodium Succinate (Solu-Medrol -) 40 mg IVPUSH Q6H-IV [facility] Last Admin: 11/28/18 10:03 Dose: 40 mg Nystatin/Triamcinolone Acetonide (Mycolog Ii Cream -) 1 applic TP DAILY PRN PRN Reason: ITCHING - Objective Vital Signs: Vital Signs Temperature 97.3 F L 11/28/18 05:54 Pulse Rate 92 H 11/28/18 05:54 Respiratory Rate 22 H 11/28/18 05:54 Blood Pressure 120/75 11/28/18 05:54 O2 Sat by Pulse Oximetry (%) 98 11/27/18 23:27 Constitutional: Yes: Well Nourished, Calm Eyes: Yes: WNL HENT: Yes: WNL, Other (+ stridor) Cardiovascular: Yes: Regular Rate and Rhythm, S1, S2 Respiratory: Yes: Rhonchi, Other (transmitted upper airway bs) Gastrointestinal: Yes: Other Extremities: Yes: Shortened, Other (contracted) Edema: No Labs: CBC, BMP 11/28/18 05:40 11/28/18 05:40 INR, PTT INR 1.04 (0.83-1.09) 11/26/18 23:00 Problem List - Problems (1) Cough Code(s): R05 - COUGH (2) Fever Code(s): R50.9 - FEVER, UNSPECIFIED Qualifiers: Fever type: unspecified Qualified Code(s): R50.9 - Fever, unspecified (3) GERD (gastroesophageal reflux disease) Code(s): K21.9 - GASTRO-ESOPHAGEAL REFLUX DISEASE WITHOUT ESOPHAGITIS (4) Hypokalemia Code(s): E87.6 - HYPOKALEMIA (5) Hypoxia Code(s): R09.02 - HYPOXEMIA (6) Wheezing Code(s): R06.2 - WHEEZING (7) Congenital quadriplegia Code(s): G80.8 - OTHER CEREBRAL PALSY (8) Profound intellectual disability Code(s): F73 - PROFOUND INTELLECTUAL DISABILITIES (9) Seizure Code(s): R56.9 - UNSPECIFIED CONVULSIONS (10) Respiratory distress Code(s): R06.03 - ACUTE RESPIRATORY DISTRESS (11) Acute hypoxemic respiratory failure Code(s): J96.01 - ACUTE RESPIRATORY FAILURE WITH HYPOXIA (12) Chronic hypercapnic respiratory failure Code(s): J96.12 - CHRONIC RESPIRATORY FAILURE WITH HYPERCAPNIA Assessment/Plan IMP ACUTE HYPOXEMIC RESPIRATORY FAILURE RESPIRATORY DISTRESS STRIDOR MILD UPPER AIRWAY OBSTRUCTION R/O ASPIRATION SEVERE MENTAL RETARDATION CEREBRAL PALSY SEIZURES GERD S/P PEG PANCREATITIS PLAN CONTINUE IV STEROIDS HUMIDIFIED O2 ORAL PHARYNGEAL SUCTIONING TRIAL OF BIPAP DR LARA Problem List - Problems (1) Cough Code(s): R05 - COUGH (2) Fever Code(s): R50.9 - FEVER, UNSPECIFIED Qualifiers: Fever type: unspecified Qualified Code(s): R50.9 - Fever, unspecified (3) GERD (gastroesophageal reflux disease) Code(s): K21.9 - GASTRO-ESOPHAGEAL REFLUX DISEASE WITHOUT ESOPHAGITIS (4) Hypokalemia Code(s): E87.6 - HYPOKALEMIA (5) Hypoxia Code(s): R09.02 - HYPOXEMIA (6) Wheezing Code(s): R06.2 - WHEEZING (7) Congenital quadriplegia Code(s): G80.8 - OTHER CEREBRAL PALSY (8) Profound intellectual disability Code(s): F73 - PROFOUND INTELLECTUAL DISABILITIES (9) Seizure Code(s): R56.9 - UNSPECIFIED CONVULSIONS (10) Respiratory distress Code(s): R06.03 - ACUTE RESPIRATORY DISTRESS (11) Acute hypoxemic respiratory failure Code(s): J96.01 - ACUTE RESPIRATORY FAILURE WITH HYPOXIA (12) Chronic hypercapnic respiratory failure Code(s): J96.12 - CHRONIC RESPIRATORY FAILURE WITH HYPERCAPNIA
--- NOTE | 2018-11-28 19:04 | PN ---
Teaching Attending Note Name of Resident: Jass Winn ATTENDING PHYSICIAN STATEMENT I saw and evaluated the patient. I reviewed the resident's note and discussed the case with the resident. I agree with the resident's findings and plan as documented. Please see my note under their documentation for further discussion.
--- NOTE | 2018-11-28 19:44 | PN ---
Progress Note (short form) - Note Progress Note: HPI. No acute events overnight. Remains on O2. HPI limited 2/2 to pt's congenital malformation defects PE: Gen: NAD, nonverbal HEENT: GATO, MMM Neck: No JVD, no bruits, upper airway sounds noted LUNGS: Coarse breath sounds b/l. Upper airway sounds transmitted. No wheezing CARD: RRR no murmurs ABD: Soft Nt/ND normoactive BS, G-tube site without erythema or drainage around tube, tube feeds at 20cc goal EXT: Off-estimator in place SKIN: No rashes or lesions appreciated CBC, BMP 11/28/18 05:40 11/28/18 05:40 Active Medications Albuterol Sulfate (Ventolin 0.083% Nebulizer Soln -) 1 amp NEB Q4H PRN PRN Reason: WHEEZING Last Admin: 11/27/18 20:30 Dose: 1 amp Amino Acids (Prosource No Carb Liquid Pkt) 30 ml GT BID [facility] Last Admin: 11/28/18 10:03 Dose: 30 ml Amoxicillin/Clavulanate Potassium (Augmentin - 875mg Tablet) 1 tab PO BID@0800, 1730 [facility] Stop: 12/04/18 08:00 Last Admin: 11/28/18 16:57 Dose: 1 tab Baclofen (Lioresal -) 20 mg GT TID [facility] Last Admin: 11/28/18 14:54 Dose: 20 mg Cholecalciferol (Vitamin D3 Oral Solution -) 400 unit GT BID [facility] Last Admin: 11/28/18 10:03 Dose: 400 unit Diazepam (Valium -) 2 mg GT TID [facility] Last Admin: 11/28/18 14:54 Dose: 2 mg Heparin Sodium (Porcine) (Heparin -) 5,000 unit SQ TID [facility] Last Admin: 11/28/18 14:48 Dose: 5,000 unit Levetiracetam (Keppra Oral Solution -) 500 mg GT BID [facility] Last Admin: 11/28/18 10:03 Dose: 500 mg Methylprednisolone Sodium Succinate (Solu-Medrol -) 40 mg IVPUSH Q6H-IV [facility] Last Admin: 11/28/18 14:55 Dose: 40 mg Nystatin/Triamcinolone Acetonide (Mycolog Ii Cream -) 1 applic TP DAILY PRN PRN Reason: ITCHING Microbiology 11/26/18 23:00 Stool Clostridioides difficile Antigen - Final 11/26/18 23:00 Stool Clostridioides difficile Toxin Assay - Final A/P Acute hypoxic respiratory distress (resolved) Seizure disorder Cerebral Palsy 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 s/p TIMBER MANAGEMENT PROFESSOR shunting Rhinovirus URI (resolving) HFpEF Hypokalemia Severe mental retardation Dysphagia s/p PEG GERD --Intermittent breath sounds likely positional based --Monitor position and SpO2 --Decrease O2 as needed --Possibility of BiPap or CPAP; will discuss with pulmonology --Secretion control and chest PT to continue --No new infection evident: WBC WNL, afebrile --Hold tube feeds for now --Continue augmentin: last dose next week (placed stop date for total regiment completion) --Continue home AED: --Keppra 500mg BID --Valium 2mg TID GT --Appreciate [employer] w[employer] consultant recs: --Obstructive apnea due to tongue obstruction and softening of soft tissues at night FEN: Fluids: PO Electrolyte abnormalities: None today Nutrition: Hold tube feeds for now; can restart if no worsening status tomorrow; continue Prosource PPX: DVT - Heparin TID Dispo: Transfer to /s as potassium normal Case discussed with Dr. Negar Winn, DO - IM PGY-3
[2018-11-29] MEDS: methylPREDNISolone NA SUCC 40 MG/1 ML VIAL IVPUSH SCH ×3 (03:32→22:40)
[2018-11-29] MEDS: BACLOFEN 10 MG TABLET (FP) GT SCH ×3 (06:21→22:37)
[2018-11-29] MEDS: diazePAM 2 MG TABLET GT SCH ×3 (06:22→22:37)
[2018-11-29] MEDS: HEPARIN NA (PORCINE) 5,000 UNITS/ML 1ML VIAL SQ SCH ×3 (06:22→22:40)
[2018-11-29] MEDS: AMINO ACIDS/PROTEIN HYDROLYS 30 ML LIQUID.PKT GT SCH ×2 (10:10→22:36)
[2018-11-29] MEDS: AMOX TR/POT CLAV 875MG/125MG TABLETS (FP) PO SCH ×2 (10:10→17:27)
[2018-11-29] MEDS: levETIRAcetam 500 MG/5 ML ORAL SOLUTION (UNIT-DOSE CUPS) GT SCH ×2 (10:11→22:43)
[2018-11-29] MEDS: CHOLECALCIFEROL (VIT D SOLUTION) 400 UNIT/1 ML DROPS GT SCH ×2 (10:12→22:44)
[2018-11-29 10:23] LABS: BLOOD UREA NITROGEN 48.3 mg/dL (7-18); CALCIUM 9.3 mg/dL (8.5-10.1); CREATININE 0.4 mg/dL (0.55-1.3)
--- NOTE | 2018-11-29 11:00 | PN ---
Progress Note, Physician History of Present Illness: pulmonary more alert,comfortable less upper airway bs - Current Medication List Current Medications: Active Medications Albuterol Sulfate (Ventolin 0.083% Nebulizer Soln -) 1 amp NEB Q4H PRN PRN Reason: WHEEZING Last Admin: 11/27/18 20:30 Dose: 1 amp Amino Acids (Prosource No Carb Liquid Pkt) 30 ml GT BID [facility] Last Admin: 11/29/18 10:10 Dose: 30 ml Amoxicillin/Clavulanate Potassium (Augmentin - 875mg Tablet) 1 tab PO BID@0800, 1730 [facility] Stop: 12/04/18 08:00 Last Admin: 11/29/18 10:10 Dose: 1 tab Baclofen (Lioresal -) 20 mg GT TID [facility] Last Admin: 11/29/18 06:21 Dose: 20 mg Cholecalciferol (Vitamin D3 Oral Solution -) 400 unit GT BID [facility] Last Admin: 11/29/18 10:12 Dose: 400 unit Diazepam (Valium -) 2 mg GT TID [facility] Last Admin: 11/29/18 06:22 Dose: 2 mg Heparin Sodium (Porcine) (Heparin -) 5,000 unit SQ TID [facility] Last Admin: 11/29/18 06:22 Dose: 5,000 unit Levetiracetam (Keppra Oral Solution -) 500 mg GT BID [facility] Last Admin: 11/29/18 10:11 Dose: 500 mg Methylprednisolone Sodium Succinate (Solu-Medrol -) 40 mg IVPUSH BID [facility] Last Admin: 11/29/18 10:10 Dose: 40 mg Nystatin/Triamcinolone Acetonide (Mycolog Ii Cream -) 1 applic TP DAILY PRN PRN Reason: ITCHING - Objective Vital Signs: Vital Signs Temperature 97.6 F 11/29/18 09:00 Pulse Rate 68 11/29/18 09:00 Respiratory Rate 22 H 11/29/18 09:00 Blood Pressure 121/77 11/29/18 09:00 O2 Sat by Pulse Oximetry (%) 97 11/29/18 08:00 Constitutional: Yes: Well Nourished, Calm Eyes: Yes: WNL HENT: Yes: WNL Neck: Yes: WNL, Other (less stridorous bs) Cardiovascular: Yes: Regular Rate and Rhythm, S1, S2 Respiratory: Yes: Rhonchi (few rhonchi) Gastrointestinal: Yes: Normal Bowel Sounds, Soft Extremities: Yes: Shortened, Other (contracted) Labs: CBC, BMP 11/29/18 08:43 Problem List - Problems (1) Cough Code(s): R05 - COUGH (2) Fever Code(s): R50.9 - FEVER, UNSPECIFIED Qualifiers: Fever type: unspecified Qualified Code(s): R50.9 - Fever, unspecified (3) GERD (gastroesophageal reflux disease) Code(s): K21.9 - GASTRO-ESOPHAGEAL REFLUX DISEASE WITHOUT ESOPHAGITIS (4) Hypokalemia Code(s): E87.6 - HYPOKALEMIA (5) Hypoxia Code(s): R09.02 - HYPOXEMIA (6) Wheezing Code(s): R06.2 - WHEEZING (7) Congenital quadriplegia Code(s): G80.8 - OTHER CEREBRAL PALSY (8) Profound intellectual disability Code(s): F73 - PROFOUND INTELLECTUAL DISABILITIES (9) Seizure Code(s): R56.9 - UNSPECIFIED CONVULSIONS (10) Respiratory distress Code(s): R06.03 - ACUTE RESPIRATORY DISTRESS (11) Acute hypoxemic respiratory failure Code(s): J96.01 - ACUTE RESPIRATORY FAILURE WITH HYPOXIA (12) Chronic hypercapnic respiratory failure Code(s): J96.12 - CHRONIC RESPIRATORY FAILURE WITH HYPERCAPNIA Assessment/Plan IMP ACUTE HYPOXEMIC RESPIRATORY FAILURE RESPIRATORY DISTRESS STRIDOR MILD UPPER AIRWAY OBSTRUCTION R/O ASPIRATION SEVERE MENTAL RETARDATION CEREBRAL PALSY SEIZURES GERD S/P PEG PANCREATITIS PLAN CONTINUE IV STEROIDS HUMIDIFIED O2 ORAL PHARYNGEAL SUCTIONING MANGO LARA Problem List - Problems (1) Cough Code(s): R05 - COUGH (2) Fever Code(s): R50.9 - FEVER, UNSPECIFIED Qualifiers: Fever type: unspecified Qualified Code(s): R50.9 - Fever, unspecified (3) GERD (gastroesophageal reflux disease) Code(s): K21.9 - GASTRO-ESOPHAGEAL REFLUX DISEASE WITHOUT ESOPHAGITIS (4) Hypokalemia Code(s): E87.6 - HYPOKALEMIA (5) Hypoxia Code(s): R09.02 - HYPOXEMIA (6) Wheezing Code(s): R06.2 - WHEEZING (7) Congenital quadriplegia Code(s): G80.8 - OTHER CEREBRAL PALSY (8) Profound intellectual disability Code(s): F73 - PROFOUND INTELLECTUAL DISABILITIES (9) Seizure Code(s): R56.9 - UNSPECIFIED CONVULSIONS (10) Respiratory distress Code(s): R06.03 - ACUTE RESPIRATORY DISTRESS (11) Acute hypoxemic respiratory failure Code(s): J96.01 - ACUTE RESPIRATORY FAILURE WITH HYPOXIA (12) Chronic hypercapnic respiratory failure Code(s): J96.12 - CHRONIC RESPIRATORY FAILURE WITH HYPERCAPNIA
--- NOTE | 2018-11-29 20:14 | PN ---
Progress Note (short form) - Note Progress Note: HPI. No acute events overnight. Remains on O2. HPI limited 2/2 to pt's congenital malformation defects PE: Gen: NAD, nonverbal HEENT: GATO, MMM Neck: No JVD, no bruits, upper airway sounds noted LUNGS: Coarse breath sounds b/l. Upper airway sounds transmitted. No wheezing CARD: RRR no murmurs ABD: Soft Nt/ND normoactive BS, G-tube site without erythema or drainage around tube, tube feeds at 20cc goal EXT: Off-central service technician in place SKIN: No rashes or lesions appreciated CBC, BMP 11/28/18 05:40 11/29/18 08:43 Active Medications Albuterol Sulfate (Ventolin 0.083% Nebulizer Soln -) 1 amp NEB Q4H PRN PRN Reason: WHEEZING Last Admin: 11/27/18 20:30 Dose: 1 amp Amino Acids (Prosource No Carb Liquid Pkt) 30 ml GT BID [facility] Last Admin: 11/29/18 10:10 Dose: 30 ml Amoxicillin/Clavulanate Potassium (Augmentin - 875mg Tablet) 1 tab PO BID@0800, 1730 [facility] Stop: 12/04/18 08:00 Last Admin: 11/29/18 17:27 Dose: 1 tab Baclofen (Lioresal -) 20 mg GT TID [facility] Last Admin: 11/29/18 13:31 Dose: 20 mg Cholecalciferol (Vitamin D3 Oral Solution -) 400 unit GT BID [facility] Last Admin: 11/29/18 10:12 Dose: 400 unit Diazepam (Valium -) 2 mg GT TID [facility] Last Admin: 11/29/18 13:31 Dose: 2 mg Heparin Sodium (Porcine) (Heparin -) 5,000 unit SQ TID [facility] Last Admin: 11/29/18 13:31 Dose: 5,000 unit Levetiracetam (Keppra Oral Solution -) 500 mg GT BID [facility] Last Admin: 11/29/18 10:11 Dose: 500 mg Methylprednisolone Sodium Succinate (Solu-Medrol -) 40 mg IVPUSH BID [facility] Last Admin: 11/29/18 10:10 Dose: 40 mg Nystatin/Triamcinolone Acetonide (Mycolog Ii Cream -) 1 applic TP DAILY PRN PRN Reason: ITCHING Microbiology 11/26/18 23:00 Stool Clostridioides difficile Antigen - Final 11/26/18 23:00 Stool Clostridioides difficile Toxin Assay - Final A/P Acute hypoxic respiratory distress (resolved) Seizure disorder Cerebral Palsy 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 s/p ADJUNCT PHILOSOPHY FACULTY shunting Rhinovirus URI (resolving) HFpEF Hypokalemia Severe mental retardation Dysphagia s/p PEG GERD --Intermittent breath sounds likely positional based --Monitor position and SpO2 --Pre-/post- --Decreased sterods --Secretion control and chest PT to continue --No new infection evident: WBC WNL, afebrile --Resume feeds --Continue augmentin: last dose next week (placed stop date for total regiment completion) --Continue home AED: --Keppra 500mg BID --Valium 2mg TID GT --Appreciate investment consultant recs: --Obstructive apnea due to tongue obstruction and softening of soft tissues at night FEN: Fluids: PO Electrolyte abnormalities: None today Nutrition: Hold tube feeds for now; can restart if no worsening status tomorrow; continue Prosource PPX: DVT - Heparin TID Dispo: D/C tomorrow Case discussed with Dr. Negar Winn, DO - IM PGY-3 <Jass Winn - Last Filed: 11/29/18 20:12> - Note Progress Note: Overall no clinical changes or acute events overnight; cannot provide history or ROS due to underlying clincial condition All labs/VS/imaing reviewed and discussed as pertinent with resident team Will use measures per ENT to help with management of the airway issues qHS as the patient tolerates Discussed limitations of devices such as trilogy or BiPap at her facility. 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 As stated in prior admission to my service, I suspect she will chronically bounce back to these multiple issues and suffer the sequelae of chronic multiple illnesses. Exam is essentially unchanged; verified all vital parts of resident PE. Lung exam with poor patient participation NT ND +BS; no BM yet today Neuro exam unchanged; tracks and responds to verbal stimuli but does not speak meaningfully. Pleasant demeanor. A/P: Mrs. Davenport continues to be weaned from steroids from her multifactoral acute on chronic respiratory failure. Her URI is resolving and we will attempt to correct the underlying anatomical airway issues but may be limited in the overall approach. Appreciate recs of all subspecialty services. <Lucius Bills - Last Filed: 11/29/18 23:37>
[2018-11-30] MEDS: HEPARIN NA (PORCINE) 5,000 UNITS/ML 1ML VIAL SQ SCH (06:37)
[2018-11-30] MEDS: BACLOFEN 10 MG TABLET (FP) GT SCH (06:39)
[2018-11-30] MEDS: diazePAM 2 MG TABLET GT SCH (06:40)
[2018-11-30] MEDS: AMOX TR/POT CLAV 875MG/125MG TABLETS (FP) PO SCH (09:12)
[2018-11-30] MEDS: AMINO ACIDS/PROTEIN HYDROLYS 30 ML LIQUID.PKT GT SCH (09:13)
[2018-11-30] MEDS ORDERED: PT OWN MED DRAWER 7, Y5N ONE (09:14)
[2018-11-30] MEDS: levETIRAcetam 500 MG/5 ML ORAL SOLUTION (UNIT-DOSE CUPS) GT SCH (09:16)
[2018-11-30] MEDS: CHOLECALCIFEROL (VIT D SOLUTION) 400 UNIT/1 ML DROPS GT SCH (09:16)
[2018-11-30 09:32] VITALS: BP 127/68; PULSE 98; TEMP 98.8
[2018-11-30] MEDS: methylPREDNISolone NA SUCC 40 MG/1 ML VIAL IVPUSH SCH (09:49)
--- NOTE | 2018-11-30 10:09 | DS ---
Physical Exam: SUBJECTIVE: Pt comfortable without any respiratory distress. HPI limited due to clinical history OBJECTIVE: Vital Signs Period Temp Pulse Resp BP Sys/Perez Pulse Ox Last 24 Hr 93.0 F-99 F 60-105 18-24 109-129/66-89 94-100 PHYSICAL EXAM PE: Gen: NAD, nonverbal HEENT: GATO, MMM Neck: No JVD, no bruits, upper airway sounds noted LUNGS: Coarse breath sounds b/l. Upper airway sounds transmitted. No wheezing CARD: RRR no murmurs ABD: Soft Nt/ND normoactive BS, G-tube site without erythema or drainage around tube, tube feeds at 20cc goal EXT: Off-electromechanical engineer in place SKIN: No rashes or lesions appreciated LABS Laboratory Results - last 24 hr 11/29/18 08:43 Sodium 141 Potassium 4.0 Chloride 103 Carbon Dioxide 33 H Anion Gap 6 L BUN 48.3 H Creatinine 0.4 L Est GFR (CKD-EPI)AfAm 143.76 Est GFR (CKD-EPI)NonAf 124.03 Random Glucose 147 H Calcium 9.3 Active Medications Albuterol Sulfate (Ventolin 0.083% Nebulizer Soln -) 1 amp NEB Q4H PRN PRN Reason: WHEEZING Last Admin: 11/27/18 20:30 Dose: 1 amp Amino Acids (Prosource No Carb Liquid Pkt) 30 ml GT BID [facility] Last Admin: 11/30/18 09:13 Dose: 30 ml Amoxicillin/Clavulanate Potassium (Augmentin - 875mg Tablet) 1 tab PO BID@0800, 1730 [facility] Stop: 12/04/18 08:00 Last Admin: 11/30/18 09:12 Dose: 1 tab Baclofen (Lioresal -) 20 mg GT TID [facility] Last Admin: 11/30/18 06:39 Dose: 20 mg Cholecalciferol (Vitamin D3 Oral Solution -) 400 unit GT BID [facility] Last Admin: 11/30/18 09:16 Dose: 400 unit Diazepam (Valium -) 2 mg GT TID [facility] Last Admin: 11/30/18 06:40 Dose: 2 mg Heparin Sodium (Porcine) (Heparin -) 5,000 unit SQ TID [facility] Last Admin: 11/30/18 06:37 Dose: 5,000 unit Levetiracetam (Keppra Oral Solution -) 500 mg GT BID [facility] Last Admin: 11/30/18 09:16 Dose: 500 mg Nystatin/Triamcinolone Acetonide (Mycolog Ii Cream -) 1 applic TP DAILY PRN PRN Reason: ITCHING Prednisone (Deltasone -) 40 mg GT DAILY [facility] Stop: 12/03/18 10:01 Microbiology 11/26/18 23:00 Blood - Peripheral Venous Blood Culture - Preliminary NO GROWTH OBTAINED AFTER 72 HOURS, INCUBATION TO CONTINUE FOR 2 DAYS. 11/26/18 23:00 Blood - Peripheral Venous Blood Culture - Preliminary NO GROWTH OBTAINED AFTER 72 HOURS, INCUBATION TO CONTINUE FOR 2 DAYS. 11/26/18 23:00 Stool Salmonella/Shigella Culture - Preliminary Non Lactose Fermenting Gnb 11/26/18 23:00 Stool Campylobacter Culture - Final NO GROWTH OF CAMPYLOBACTER SPECIES OBTAINED 11/26/18 23:00 Stool Yersinia Culture - Final NO GROWTH OF YERSINIA SPECIES OBTAINED 11/26/18 23:00 Stool Vibrio Culture - Final NO GROWTH OF VIBRIO SPECIES OBTAINED 11/26/18 23:00 Stool Escherichia coli 0157 Culture - Final NO GROWTH OF E COLI 0157 OBTAINED 11/27/18 05:00 Urine - Urine - Catheterized Urine Culture - Final NO GROWTH OBTAINED 11/26/18 23:00 Stool Clostridioides difficile Antigen - Final 11/26/18 23:00 Stool Clostridioides difficile Toxin Assay - Final CXR: A single AP view of the chest is been submitted. Since the prior 7 2018 again is the severe scoliosis with spinal support hardware and convexity to the right. There is some minimal atelectatic change at the left base. The remainder the study is unchanged. HOSPITAL COURSE: Date of Admission:11/27/18 Date of Discharge: 11/30/18 Pt was admitted 11/27/18 due to hypoxia down to 83% noted at her facility. SHe was sent here for evaluation and upon investigation it was reported that she had stridor of her upper airways. Pt was placed on oxygen with resolution of the hypoxia and ENT was consulted. Pt was also started on corticosteroids ( Medrol 40mg q6h IV) in the interim. Pt's breathing improved and ENT's evaluation yielded that there was no stridor and likely just obstructive sleep apnea. Pt was tapered off her oxygen and official oxygen requirement assessment reported that she does not need oxygen to maintain saturation. Pt has not desaturated and is maintaining >90% on RA. <Jass Winn - Last Filed: 11/30/18 11:16> Physical Exam: SUBJECTIVE: Patient seen and examined OBJECTIVE: Vital Signs Period Temp Pulse Resp BP Sys/Perez Pulse Ox Last 24 Hr 93.0 F-99 F 60-105 18-24 109-129/66-89 94-100 PHYSICAL EXAM Exam verified NAD, tracking, no distress, off o2 NT ND +BS Lungs without focal consolidation, w/ sym exp RRR s1/2 CN2-12 wnl, no fnd Not agitated, baseline mentation HOSPITAL COURSE: Date of Admission:11/27/18 Date of Discharge: 11/30/18 Minutes to complete discharge: 33 <Lucius Bills - Last Filed: 12/01/18 20:03> Discharge Summary Problems reviewed: Yes Reason For Visit: SHORTNESS OF BREATH, HYPOKALEMIA Current Active Problems Acute hypoxemic respiratory failure (Acute) Stridor (Acute) - Home Medications Comprehensive Discharge Medication List: Ambulatory Orders Baclofen 20 mg GT TID 02/18/16 Cholecalciferol (Vitamin D3) [Vitamin D3 -] 400 unit GT BID 02/18/16 Diazepam [Valium] 2 mg GT TID 02/18/16 Enema Bag, Disposable [Enema Bag] 1 each RC PRN 02/18/16 Albuterol 0.083% Nebulizer [place] [Ventolin 0.083% Nebulizer Soln -] 1 amp NEB PRN PRN 10/25/18 Magnesium Hydrox 2400MG/30Ml [Milk of Magnesia -] 30 ml GT HS 10/25/18 Nystatin/Triamcin [Nystatin-Triamcinolone Cream] 100,000 gm TD PRN PRN 10/25/18 levETIRAcetam [Keppra Oral Solution -] 500 mg GT BID cup 11/06/18 Acetic Acid 2% Otic Soln [Vosol 2% Ear Drops -] 3 drop OT HS 11/18/18 Cranberry/B.coagulan/C/Calcium [Cranberry-Probiotic Tablet] 1 each PO HS Ranitidine HCl [Zantac] 300 mg GT HS 11/18/18 Acetaminophen Oral Solution [Tylenol Oral Solution -] 650 mg GT Q6H PRN soln.oral 11/26/18 Amino AC/Protein Hydr/Whey Pro [Prosource Protein Liquid] 946 ml GT BID #30 liquid 11/26/18 Amox-Tr/K Cl [Augmentin 875-125mg Tablet -] 1 tab PO BID@0800,1730 #9 tablet 06/15 <Jass Winn - Last Filed: 11/30/18 11:16> Current Active Problems Acute hypoxemic respiratory failure (Acute) Stridor (Acute) - Home Medications Comprehensive Discharge Medication List: Ambulatory Orders Baclofen 20 mg GT TID 02/18/16 Cholecalciferol (Vitamin D3) [Vitamin D3 -] 400 unit GT BID 02/18/16 Diazepam [Valium] 2 mg GT TID 02/18/16 Enema Bag, Disposable [Enema Bag] 1 each RC PRN 02/18/16 Albuterol 0.083% Nebulizer [place] [Ventolin 0.083% Nebulizer Soln -] 1 amp NEB PRN PRN 10/25/18 Magnesium Hydrox 2400MG/30Ml [Milk of Magnesia -] 30 ml GT HS 10/25/18 Nystatin/Triamcin [Nystatin-Triamcinolone Cream] 100,000 gm TD PRN PRN 10/25/18 levETIRAcetam [Keppra Oral Solution -] 500 mg GT BID cup 11/06/18 Acetic Acid 2% Otic Soln [Vosol 2% Ear Drops -] 3 drop OT HS 11/18/18 Cranberry/B.coagulan/C/Calcium [Cranberry-Probiotic Tablet] 1 each PO HS Ranitidine HCl [Zantac] 300 mg GT HS 11/18/18 Acetaminophen Oral Solution [Tylenol Oral Solution -] 650 mg GT Q6H PRN soln.oral 11/26/18 Amino AC/Protein Hydr/Whey Pro [Prosource Protein Liquid] 946 ml GT BID #30 liquid 11/26/18 Amox-Tr/K Cl [Augmentin 875-125mg Tablet -] 1 tab PO BID@0800,1730 #9 tablet 06/15 <Lucius Bills - Last Filed: 12/01/18 20:03> Condition: Improved - Instructions Diet, Activity, Other Instructions: You were seen due to your low oxygen. When the pt came here she was evaluated by ENT who deemed her not to have stridor and only obstructive sleep apnea. She has not required oxygen throughout her stay and she was cleared by our respiratory therapists to continue on room air. MEDICATIONS: There are no changes in her medications. Please continue as below: Augmentin 875mg BID until 12/04/2018 Keppra 500mg BID Baclofen 20mg three times daily Prosource BID Prednisone 40mg oral solution daily for another 3 days Diazepam 2mg three times daily Albuterol nebulized treatments as needed for shortness of breath/wheezing DIET: Continue Jevity 1.5 20cc/hr no titration with 20 cc free water flushes for continuous feeds If she becomes hypoxic at night please reposition her and measure her saturation again. Referrals: Krishna Treviño Jr [Non Staff, Medical] - Disposition: TRANSFER ACUTE CARE/OTHER HOSP This patient is new to me today: No Emergency Visit: Yes ED Registration Date: 11/27/18 Care time: The patient presented to the Emergency Department on the above date and was hospitalized for further evaluation of their emergent condition. Critical Care patient: No - Discharge Referral Referred to [facility] Med [facility] No <Jass Winn - Last Filed: 11/30/18 11:16> ATTENDING PHYSICIAN STATEMENT I saw and evaluated the patient. I reviewed the resident's note and discussed the case with the resident. I agree with the resident's findings and plan as documented. SUBJECTIVE: OBJECTIVE: ASSESSMENT AND PLAN: <Lucius Bills - Last Filed: 12/01/18 20:03>
[2018-12-01] MEDS ORDERED: predniSONE 5 MG/5 ML ORAL SOLN- UNIT-DOSE CUP GT SCH (10:00)
== END 2018-11-30 13:16 | disposition home or self-care (01) | DRG 133 ==
LOC: JER 22:35 → JERBED 11-27 02:07 → J4W 11-27 08:11
PROVIDERS: ADMIT Internal Medicine; ATTEND Internal Medicine
PROC: 3E0G76Z Introduction of Nutritional Substance into Upper GI, Via Natural or Artificial Opening (ICD-10-PCS; principal; 2018-11-27)
DX: J96.01 Acute respiratory failure with hypoxia (principal); N17.9 Acute kidney failure, unspecified; E87.3 Alkalosis; E88.09 Other disorders of plasma-protein metabolism, not elsewhere classified; Z93.1 Gastrostomy status; I50.32 Chronic diastolic (congestive) heart failure; F72 Severe intellectual disabilities; G40.909 Epilepsy, unspecified, not intractable, without status epilepticus; J96.12 Chronic respiratory failure with hypercapnia; G80.9 Cerebral palsy, unspecified; E87.6 Hypokalemia; K21.9 Gastro-esophageal reflux disease without esophagitis; E86.0 Dehydration; D64.9 Anemia, unspecified; Z98.2 Presence of cerebrospinal fluid drainage device; R19.7 Diarrhea, unspecified; J06.9 Acute upper respiratory infection, unspecified
CPT/HCPCS: 36415; 71045-TC-FY; 80048; 80053; 81003; 82803; 83605; 83735; 84100; 84132; 84484; 85025; 85027; 85610; 85730; 86850; 86900; 86901; 87040; 87045; 87046; 87086; 87186; 87324; 87449; 94640; 94660; 94761; 99285-25; J0475; J1644; J7030; Q2036

== ENCOUNTER 2019-03-02 04:48 | Inpatient (IN) | payer OTHER ==
[2019-03-02] MEDS ORDERED: IBUPROFEN 100 MG/5 ML UNIT DOSE CUPS PEG ONE (05:30)
[2019-03-02] MEDS ORDERED: IBUPROFEN 100 MG/5 ML UNIT DOSE CUPS ONE (05:33)
--- NOTE | 2019-03-02 05:51 | PDOC ---
History of Present Illness - General Chief Complaint: Cold Symptoms Stated Complaint: FEVER Time Seen by Provider: 03/02/19 04:56 History Source: Old Records, Other ([facility] Transfer Paperwork ) Exam Limitations: Physical Impairment, Other (Severe MR.) - History of Present Illness Initial Comments: HPI: 48 y/o female presenting to [facility] ER from [facility] for evaluation of "fever, tachycardia, and wheezing." Received unknown dose of Tylenol at 02:30am. No further signs/symptoms documented on transfer paperwork. Aide at bedside is unfamiliar with the acute HPI. Pt is nonverbal at baseline. Reviewed ENT Consultation note dated 28 Nov 2018 and discharge summary dated 30 Nov 2018. Snoring and stridor secondary to upper airway positioning. Concern for possible sleep apnea. Medical Hx: - Cerebral palsy - Seizures - 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 s/p FINISHED GOODS PLANNER shunt - Severe developmental delay - Functional Quadriplegia - possible Sleep Apnea - Pulmonary Hypertension Review of Systems: Unable to obtain secondary to baseline mental status. Physical Examination: Vital signs and nursing notes reviewed. Constitutional- Adult female in no acute distress or obvious discomfort. Found semi-fowlers on hospital bed. Head- Macrocephalic. No obvious external signs of trauma. Eyes- Sclerae white. Nose- No nasal discharge. Throat- Large protruding mandible. Neck- Supple, trachea is midline. Cardiovascular / Chest- Tachycardic rate with regular rhythm. No murmur, rubs, clicks, or gallops. Peripheral pulses- radial pulses full. Respiratory- Breathing unlabored, but mildly tachypneic. Equal chest rise and fall. Grunting resolved with positioning. Clear to auscultation bilaterally. No stridor, no wheezing, no rhonchi. Gastrointestinal- abdomen is soft, non-tender, non-distended. PEG site in LUQ; well appearing without erythema, induration, or flucuence. Neuro- Alert but nonverbal. Unable to assess orientation. Moving all four extremities spontaneously. Skin- Warm, dry, and intact. No bruising, rashes, or other lesions. - Normally developed female external genitalia. Diaper in place. No rash. MDM: 48 y/o female presenting with fever and tachycardia from [place]. Wheezing resolved with pt positioning. Vitals remarkable for hypotension and tachycardia. Suspect tachycardia is secondary to fever. Borderline hypoxia on room air, which also improves with positioning. Physical exam as described above. Suspect likely viral illness. No localizing signs of infection. Will obtain influenza PCR and CXR. Ordered Motrin for fever. Influenza negative. CXR unremarkable for consolidation or effusion per ED wet read. Radiology report pending. Pt remains hypotensive. HR trended downward. Will obtain septic order set for further evaluation. Ordered 500cc LR IVFB. No abx ordered as source is unclear. 02 Mar 2019 07:32 AM Pt signed out to resident Dr. Yan after she was verbally appraised of the pts HPI, current ED course, and plan of management. Will f/u pending laboratory workup. Dipo pending. Prabhakar Guzman M.D., PGY2 Emergency Medicine Resident Past History - Past Medical History Allergies/Adverse Reactions: Allergies Allergy/AdvReac Type Severity Reaction Status Date / Time Quinolones Allergy Mild Verified 03/02/19 05:12 Home Medications: Ambulatory Orders Baclofen 20 mg PO TID 03/02/19 Diazepam 2 mg PO TID 03/02/19 Famotidine 20 mg PO DAILY 03/02/19 Magnesium Hydroxide [Milk of Magnesia] 15 ml GT DAILY 03/02/19 levETIRAcetam [Levetiracetam] 100 mg GT BID 03/02/19 Anemia: Yes COPD: No GI Disorders: (GERD) Seizures: Yes (epilepsy,cp) - Surgical History Abdominal Surgery: Yes (G-tube, fundoplication) Cholecystectomy: Yes GI Surgery: Yes (Ladi fundoplication) Orthopedic Surgery: Yes (femoral head resection, spinal fusion with instrumentation for scoliosis) - Immunization History TDAP Vaccination: Yes (last 09/23/04) Immunization Up to Date: Yes - Psycho Social/Smoking Cessation Hx Smoking History: Never smoked Have you smoked in the past 12 months: No Information on smoking cessation initiated: No Hx Alcohol Use: No Drug/Substance Use Hx: No Substance Use Type: None *Physical Exam - Vital Signs Last Vital Signs Temp Pulse Resp BP Pulse Ox 99.8 F H 115 H 28 H 90/55 L 90 L 03/02/19 04:53 03/02/19 04:53 03/02/19 04:53 03/02/19 04:53 03/02/19 04:53 ED Treatment Course - Medications Given in the ED: ED Medications Discontinued Medications Generic Name Dose Route Start Last Admin Trade Name Freq PRN Reason Stop Dose Admin Ibuprofen 400 mg 03/02/19 05:30 03/02/19 05:39 Motrin Oral Suspension - PEG 03/02/19 05:31 400 mg ONCE ONE Administration Discharge - Discharge Information Problems reviewed: Yes Clinical Impression/Diagnosis: Fever Qualifiers: Fever type: unspecified Qualified Code(s): R50.9 - Fever, unspecified - Follow up/Referral - Patient Discharge Instructions - Post Discharge Activity
--- NOTE | 2019-03-02 06:21 | PDOC ---
Attending Attestation - Resident Resident Name: Prabhakar Guzman - ED Attending Attestation I have performed the following: I have examined & evaluated the patient, The case was reviewed & discussed with the resident, I agree w/resident's findings & plan, Exceptions are as noted - HPI HPI: 03/02/19 06:17 MS Davenport is a 48 yo F who presents to the ER due to fever, tachycardia and wheezing Pt has had several visits to the hospital for similar symptoms Most recently, she was admitted in November for hypoxia. During that admission, she as diagnosed with stridor, started on steroids and supplemental O2. Pt was seen by ENT and ultimately diagnosed with obstructive sleep apnea. Medical Hx: - Cerebral palsy - Seizures - 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 s/p AUTO BODY CUSTOMIZER shunt - Severe developmental delay - Functional Quadriplegia - possible Sleep Apnea 03/02/19 06:29 - Physicial Exam PE: 03/02/19 06:18 General - No acute distress HEENT: Sclerae non injected, anicteric, no discharge, neck supple, trachea is midline. Cardiovascular: Tachycardic, regular rhythm. No murmur, rubs, clicks, or gallops. Respiratory- Breathing unlabored,clear to auscultation bilaterally. No stridor, no wheezing, no rhonchi appreciated. Gastrointestinal- abdomen is soft, non-tender, non-distended. PEG site in LUQ; well appearing without erythema, induration, or flucuence. Neuro- Alert but nonverbal. Moving all four extremities spontaneously. Skin- Warm, dry, and intact. No bruising, rashes, or other lesions. - Medical Decision Making 03/02/19 06:32 Pt presents with ? wheezing or stridor Will do CXR, influenza swab Will re assess vital signs Pt BP low will do sepsis order set signed out to day team
[2019-03-02] MEDS ORDERED: LACTATED RINGERS SOLUTION 1000 ML INFUS.BAG IV ONE (06:49)
[2019-03-02 08:24] LABS: EOS % 0.2 % (0-4.5); HEMATOCRIT 35.4 % (32.4-45.2); HEMOGLOBIN 11.5 GM/dL (10.7-15.3); LYMPH % 7.2 % (8-40); MCHC 32.6 g/dl (32.0-36.0); MEAN CELL VOLUME 85.9 fl (80-96); MEAN PLT VOLUME 9.9 fl (7.5-11.1); MONO % 4.7 % (3.8-10.2); NEUT % 87.9 % (42.8-82.8); PLATELET COUNT 76 K/MM3 (134-434); RBC 4.12 M/mm3 (3.60-5.2); WHITE BLOOD COUNT 11.4 K/mm3 (4.0-10.0)
--- NOTE | 2019-03-02 08:25 | PDOC ---
*Physical Exam - Vital Signs Last Vital Signs Temp Pulse Resp BP Pulse Ox 99.2 F 108 H 22 H 79/58 L 95 03/02/19 06:35 03/02/19 06:35 03/02/19 06:35 03/02/19 06:35 03/02/19 06:35 ED Treatment Course - LABORATORY CBC & Chemistry Diagram: 03/02/19 07:51 03/02/19 07:51 - Medications Given in the ED: ED Medications Discontinued Medications Generic Name Dose Route Start Last Admin Trade Name Ayden PRN Reason Stop Dose Admin Ibuprofen 400 mg 03/02/19 05:30 03/02/19 05:39 Motrin Oral Suspension - PEG 03/02/19 05:31 400 mg ONCE ONE Administration Medical Decision Making - Medical Decision Making 03/02/19 08:20 Sign out received from Dr Guzman. Lexy Davenport is a 48yo woman with a PMH of cerebral palsy, seizures, hydrocephalus s/p FUR CLIPPER shunt, severe developmental delay, functional quadriplegia, pulmonary HTN , possible sleep apnea who presented from [place] due to fever, increased secretions, and wheezing. Per records, the wheezing has been previously evaluated by ENT and was diagnosed as EDDIE. ED course so far: - Influenza negative - Wheezing resolved when pt repositioned. However, BP remained low with SBP around 80 - Sepsis workup ordered, pending - IVF for hypotension - IV placed by Dr Rinaldi - EKG completed. NSR with HR 89, normal axis, normal intervals. Diffuse nonspecific t-wave inversion. Inversions also noted previously on EKG from 2018. 03/02/19 09:08 - Labs unremarkable - CXR with atalectasis in b/l bases. Possible infiltrate in LLL - Will repeat vitals x2 to see if BP normalized following IVF 03/02/19 12:08 - BP continues to downtrend. 10am BP was 110/60, now 89/60. Still borderline hypoxic, down to 80's when laying, up to 91% on RA when positioned upright - Given possible LLL infiltrate, hypotension, increased secretions, hypoxia will admit for likely pneumonia - Continued IVF, nebs. Broad spectrum antibiotics as pt is from a healthcare facility 03/02/19 12:49 - Sign out given to EDMAR Macias. Will admit to telemetry Discussed with Dr Aric Yan PGY2 Discharge - Discharge Information Problems reviewed: Yes Clinical Impression/Diagnosis: Fever Qualifiers: Fever type: unspecified Qualified Code(s): R50.9 - Fever, unspecified Hypotension Qualifiers: Hypotension type: hypotension due to hypovolemia Qualified Code(s): I95.89 - Other hypotension Condition: Stable - Admission Yes - Follow up/Referral - Patient Discharge Instructions Patient Printed Discharge Instructions: DI for Viral Upper Respiratory Infection -- Adult Additional Instructions: Discharge Instructions: You were seen in the emergency department for upper respiratory noise and fever. You had a flu test sent that was negative. Your symptoms are most likely caused by a viral infection such as the common cold. You should feel better within a week without any additional treatment. You were found to have low blood pressure that improved following IV fluids. Make sure you are increasing your fluid intake at home. Home Care and Follow Up: - Make sure you are drinking plenty of fluids while you are sick. Increase your normal fluid intake. It is OK if you do not feel like eating as long as you are staying well hydrated - You may use medications such as acetaminophen (Tylenol) 650-1000mg or ibuprofen (Advil, Motrin) 400-600mg every 6 hours as needed for pain or fever over 101F - Consider placing a humidifier in your room overnight to help relieve congestion and reduce drying of your nose and mouth. - You should feel better within a week, though cough can sometimes last longer. If you are not feeling better in a week, follow up with your primary doctor. - Seek immediate care if you have worsening symptoms, you are unable to stay hydrated, you develop high fevers over 104F that do not come down with medication, or you have any other medical emergency. - Post Discharge Activity
[2019-03-02 08:44] LABS: VENOUS PH 7.39 (7.31-7.41)
[2019-03-02 08:45] LABS: VENOUS PO2 < 49 mmHg (28-48)
[2019-03-02 08:55] LABS: ALBUMIN 2.9 g/dl (3.4-5.0); ALK PHOS 218 U/L (45-117); ANION GAP 5 MMOL/L (8-16); BILIRUBIN,TOTAL 0.8 mg/dL (0.2-1); BLOOD UREA NITROGEN 30.8 mg/dL (7-18); CHLORIDE 93 mmol/L (98-107); CO2 31 mmol/L (21-32); CREATININE 0.6 mg/dL (0.55-1.3); GLUCOSE,RANDOM 83 mg/dL (74-106); POTASSIUM 4.4 mmol/L (3.5-5.1); SGOT/AST 63 U/L (15-37); SGPT/ALT 65 U/L (13-61); SODIUM 130 mmol/L (136-145); TOT PROT 6.5 g/dl (6.4-8.2)
[2019-03-02 09:05] LABS: INR 1.01 (0.83-1.09); PROTHROMBIN TIME (PATIENT) 11.9 SEC (9.7-13.0)
[2019-03-02 09:07] LABS: ACTIVATED PTT 51.7 SECONDS (25.2-36.5)
[2019-03-02] MEDS ORDERED: PIPERACILLIN/TAZOB 3.375 GM 3.375 GM in DEXTROSE 5%-WATER - 50 ML IVPB ONE (12:27)
[2019-03-02] MEDS ORDERED: ALBUTEROL SO4 2.5/IPRATROPIUM 0.5 INH SOL 3 ML VIAL.NEB. NEB ONE (12:27)
[2019-03-02] MEDS ORDERED: VANCOMYCIN 1 GM in D5W (PRE-DOCKED) 1,000 MG/250 ML IVPB ONE (12:27)
[2019-03-02] MEDS ORDERED: DEXTROSE 5%-NORMAL SALINE 1,000 ML IV SCH (12:30)
[2019-03-02] MEDS ORDERED: PIPERACILLIN/TAZOB 3.375 GM 3.375 GM/50 ML BAG IVPB ONE (12:31)
--- NOTE | 2019-03-02 12:52 | HP ---
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: Yes: Seizure, Other (Hydrocephelus, severe developmental delay, DOOR PULLER shunt, Cerebral palsy) Cardiovascular: Yes: Pulmonary Hypertension Pulmonary: Yes: Pneumonia, Sleep Apnea Gastrointestinal: Yes: Other (GT) Musculoskeletal: Yes: Other (functional quadriplegia, scoliosis s/p plates) - Smoking History Smoking history: Never smoked Have you smoked in the past 12 months: No - Alcohol/Substance Use Hx Alcohol Use: No - Social History Usual Living Arrangement: Yes: Care Home ADL: Support Services History of Recent Travel: No Home Medications - Allergies Allergies/Adverse Reactions: Allergies Allergy/AdvReac Type Severity Reaction Status Date / Time Quinolones Allergy Mild Verified 03/02/19 05:12 - Home Medications Home Medications: Ambulatory Orders Baclofen 20 mg PO TID 03/02/19 Diazepam 2 mg PO TID 03/02/19 Famotidine 20 mg PO DAILY 03/02/19 Magnesium Hydroxide [Milk of Magnesia] 15 ml GT DAILY 03/02/19 levETIRAcetam [Levetiracetam] 100 mg GT BID 03/02/19 Family Medical History Family History: Unable to Obtain Review of Systems Unable to obtain ROS, reason: non verbal Physical Examination Vital Signs: Vital Signs Temperature 99.0 F 03/02/19 09:27 Pulse Rate 80 03/02/19 12:06 Respiratory Rate 16 03/02/19 12:06 Blood Pressure 88/77 L 03/02/19 12:06 O2 Sat by Pulse Oximetry (%) 99 03/02/19 12:06 Constitutional: Yes: Thin, Other (contractured) Eyes: Yes: WNL, Conjunctiva Clear, EOM Intact HENT: Yes: Drooling, Nasal Congestion Neck: Yes: WNL, Supple, Trachea Midline Cardiovascular: Yes: WNL, Regular Rate and Rhythm Respiratory: Yes: Diminished, On Nasal O2, Poor Air Entry Gastrointestinal: Yes: Soft (GT), Other ...Rectal Exam: Yes: Deferred Renal/: Yes: Incontinence Musculoskeletal: Yes: Other (functional quadiaplegia) Edema: No Peripheral Pulses WNL: Yes Integumentary: Yes: WNL Neurological: Yes: Other (open eyes to verbal stumuli) Labs: CBC, BMP 03/02/19 07:51 03/02/19 07:51 Imaging - Results Chest X-ray: Image Reviewed (CXR with atalectasis in b/l bases. Possible infiltrate in LLL) Problem List - Problems (1) DOOR PULLER (ventriculoperitoneal) shunt status Assessment/Plan: monitor for sign of obstruction Code(s): Z98.2 - PRESENCE OF CEREBROSPINAL FLUID DRAINAGE DEVICE (2) EDDIE (obstructive sleep apnea) Assessment/Plan: suspected EDDIE NIPPV as needed Code(s): G47.33 - OBSTRUCTIVE SLEEP APNEA (ADULT) (PEDIATRIC) (3) Pulmonary HTN Assessment/Plan: mild PHtn documented on echo Code(s): I27.20 - PULMONARY HYPERTENSION, UNSPECIFIED (4) Prophylactic measure Assessment/Plan: FEN start TF back at 20cc/hr-will have scientific informatics analyst evaluate rate monitor electrolyetes DVT heoarin sq Dispo admit to tele full code discharge planning back to sy Code(s): Z29.9 - ENCOUNTER FOR PROPHYLACTIC MEASURES, UNSPECIFIED (5) G tube feedings Assessment/Plan: resume TF Code(s): Z93.1 - GASTROSTOMY STATUS (6) Hypotension Assessment/Plan: SBP in 80s on presentation responded to IVF bolus c/w IVF and TF monitor on tele Code(s): I95.9 - HYPOTENSION, UNSPECIFIED Qualifiers: Hypotension type: hypotension due to hypovolemia Qualified Code(s): I95.89 - Other hypotension; E86.1 - Hypovolemia (7) GERD (gastroesophageal reflux disease) Assessment/Plan: c/w famotodine via GT Code(s): K21.9 - GASTRO-ESOPHAGEAL REFLUX DISEASE WITHOUT ESOPHAGITIS (8) Hypoxia Assessment/Plan: SPO2 99 on NC 3L c/w duo nebs c/w abx NIPPV as needed Code(s): R09.02 - HYPOXEMIA (9) Wheezing Assessment/Plan: c/w duonebs Code(s): R06.2 - WHEEZING (10) Congenital quadriplegia Assessment/Plan: turn and resposition speciality mattress Code(s): G80.8 - OTHER CEREBRAL PALSY (11) Profound intellectual disability Assessment/Plan: [place] [facility] Code(s): F73 - PROFOUND INTELLECTUAL DISABILITIES (12) Seizure Assessment/Plan: c/w keppra vis GT Code(s): R56.9 - UNSPECIFIED CONVULSIONS (13) Sepsis Assessment/Plan: sepsis protocol initiated Code(s): A41.9 - SEPSIS, UNSPECIFIED ORGANISM Visit type - Emergency Visit Emergency Visit: Yes ED Registration Date: 03/02/19 Care time: The patient presented to the Emergency Department on the above date and was hospitalized for further evaluation of their emergent condition. - New Patient This patient is new to me today: Yes Date on this admission: 03/02/19 - Critical Care Critical Care patient: No
[2019-03-02] MEDS ORDERED: VANCOMYCIN 1 GRAM (PRE-DOCKED) 1,000 MG/250 ML BAG IVPB ONE (14:34)
[2019-03-02] MEDS: BACLOFEN 10 MG TABLET (FP) GT SCH ×2 (15:33→22:05)
[2019-03-02] MEDS: HEPARIN NA (PORCINE) 5,000 UNITS/ML 1ML VIAL SQ SCH ×2 (15:33→22:05)
[2019-03-02] MEDS: diazePAM 2 MG TABLET GT SCH ×2 (15:34→22:04)
--- NOTE | 2019-03-02 16:44 | CON.ID ---
Consult - History of Present Illness History of Present Illness: 48 y.o. female with PMH of Cerebral Palsy, developmental delay, functional quadriplegia, seizure d.o. hydrocephalus s/p VEGETABLE HARVEST WORKER shunt placement, s/p GT, and pulm HTN was transferred to the ER for respiratory distress/wheezing and fever. Pt is nonverbal, information obtained from records. She was noted to have tachypnea with hypoxia (88% O2 sat on RA), elevated temperature 99.8F, hypotension, tachycardia with HR of 115, and mildly elevated wbc 11.8K. CXR is suggestive of possible PNA. Pt has been started on empiric antibiotics and IV fluids. Currently she arousable, without respiratory distress and afebrile. No other events reported. 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: Seizure, Other (Hydrocephelus, severe developmental delay, VEGETABLE HARVEST WORKER shunt, Cerebral palsy) Cardio/Vascular: Yes: Pulmonary Hypertension Pulmonary: Yes: Pneumonia, Sleep Apnea Gastrointestinal: Yes: Other (GT) Musculoskeletal: Yes: Other (functional quadriplegia, scoliosis s/p plates) - Alcohol/Substance Use Hx Alcohol Use: No - Smoking History Smoking history: Never smoked Have you smoked in the past 12 months: No - Social History Usual Living Arrangement: Assisted Living ADL: Support Services Home Medications - Allergies Allergies/Adverse Reactions: Allergies Allergy/AdvReac Type Severity Reaction Status Date / Time Quinolones Allergy Mild Verified 03/02/19 05:12 - Home Medications Home Medications: Ambulatory Orders Baclofen 20 mg PO TID 03/02/19 Diazepam 2 mg PO TID 03/02/19 Famotidine 20 mg PO DAILY 03/02/19 Magnesium Hydroxide [Milk of Magnesia] 15 ml GT DAILY 03/02/19 levETIRAcetam [Levetiracetam] 100 mg GT BID 03/02/19 Family Medical History Family History: Unable to Obtain Review of Systems Unable to obtain ROS, reason: pt nonverbal Physical Exam Vital Signs: Vital Signs Temperature 97.6 F 03/02/19 16:01 Pulse Rate 62 03/02/19 16:01 Respiratory Rate 18 03/02/19 16:01 Blood Pressure 103/51 L 03/02/19 16:01 O2 Sat by Pulse Oximetry (%) 99 03/02/19 16:01 Constitutional: Yes: No Distress, Calm Eyes: Yes: Conjunctiva Clear HENT: Yes: Atraumatic Neck: Yes: Supple Cardiovascular: Yes: Regular Rate and Rhythm Respiratory: Yes: Regular, Other (poor inspiratory effort) Gastrointestinal: Yes: Normal Bowel Sounds, Soft, Other (+GT site clean) Renal/: Yes: WNL Extremities: Yes: WNL Integumentary: Yes: WNL Neurological: Yes: Alert Labs: CBC, BMP 03/02/19 07:51 03/02/19 07:51 Laboratory Tests 03/02/19 03/02/19 03/02/19 05:18 07:51 07:51 WBC 11.4 H RBC 4.12 Hgb 11.5 Hct 35.4 MCV 85.9 MCH 28.0 MCHC 32.6 RDW 16.0 H Plt Count 76 L D MPV 9.9 Absolute Neuts (auto) 10.0 H Neutrophils % 87.9 H D Lymphocytes % 7.2 L D Monocytes % 4.7 Eosinophils % 0.2 D Basophils % 0.0 Nucleated RBC % 0 PT with INR INR PTT (Actin FS) VBG pH POC VBG pCO2 POC VBG pO2 VBG HCO3 VBG O2 Sat (Luis) VBG Base Excess Sodium 130 L Potassium 4.4 Chloride 93 L Carbon Dioxide 31 Anion Gap 5 L BUN 30.8 H Creatinine 0.6 Est GFR (CKD-EPI)AfAm 125.80 Est GFR (CKD-EPI)NonAf 108.54 Random Glucose 83 Lactic Acid Calcium 9.0 Total Bilirubin 0.8 AST 63 H ALT 65 H Alkaline Phosphatase 218 H Troponin I < 0.02 Total Protein 6.5 Albumin 2.9 L Influenza A (Rapid) Negative Influenza B (Rapid) Negative 03/02/19 03/02/19 03/02/19 07:51 07:51 08:21 WBC RBC Hgb Hct MCV MCH MCHC RDW Plt Count MPV Absolute Neuts (auto) Neutrophils % Lymphocytes % Monocytes % Eosinophils % Basophils % Nucleated RBC % PT with INR 11.90 INR 1.01 PTT (Actin FS) 51.7 H VBG pH 7.39 POC VBG pCO2 53.0 H POC VBG pO2 < 49 H VBG HCO3 31.3 H VBG O2 Sat (Luis) 74.3 VBG Base Excess 6.0 H Sodium Potassium Chloride Carbon Dioxide Anion Gap BUN Creatinine Est GFR (CKD-EPI)AfAm Est GFR (CKD-EPI)NonAf Random Glucose Lactic Acid 1.4 Calcium Total Bilirubin AST ALT Alkaline Phosphatase Troponin I Total Protein Albumin Influenza A (Rapid) Influenza B (Rapid) Blood culture results pending Influenza rapid - negative Imaging - Results Chest X-ray: Report Reviewed Assessment/Plan 48 y.o. female with PMH of Cerebral Palsy, developmental delay, functional quadriplegia, seizure d.o. hydrocephalus s/p VEGETABLE HARVEST WORKER shunt placement, s/p GT, and pulm HTN was transferred from assisted living facility to the ER for respiratory distress/wheezing and fever Suspected PNA Sepsis Fever Leukocytosis Acute hypoxemic respiratory failure Cerebral palsy with developmental delay Functional quadriplegia 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 s/p VEGETABLE HARVEST WORKER shunt placement Seizure d.o. ?EDDIE -- lab and imaging results noted -- Will continue Zosyn for now, pt. is s/p 1 dose Vancomycin -- monitor temp/wbc trend -- follow up blood culture results -- pt without acute respiratory distress at this time, BP improved Will follow Thank you
[2019-03-02] MEDS ORDERED: ALBUTEROL SO4 2.5/IPRATROPIUM 0.5 INH SOL 3 ML VIAL.NEB. NEB PRN (16:57)
[2019-03-02] MEDS ORDERED: PIPERACILLIN/TAZOBACTAM 3.375 GM VIAL IVPB ONE (17:18)
[2019-03-02] MEDS ORDERED: DEXTROSE 5%-WATER - 50 ML IVPB ONE (17:19)
[2019-03-02] MEDS: PIPERACILLIN/TAZOB 3.375 GM 3.375 GM in DEXTROSE 5%-WATER - 50 ML IVPB SCH (17:23)
[2019-03-02] MEDS: levETIRAcetam 500 MG/5 ML INJECTION VIAL IVPB SCH (22:04)
--- NOTE | 2019-03-02 23:14 | EKG ---
Test Reason : Blood Pressure : / mmHG Vent. Rate : 089 BPM Atrial Rate : 089 BPM P-R Int : 176 ms QRS Dur : 082 ms QT Int : 304 ms P-R-T Axes : 038 039 267 degrees QTc Int : 369 ms NORMAL SINUS RHYTHM ABNORMAL ECG WHEN COMPARED WITH ECG OF 18-NOV-2018 13:07, T WAVE VARIATION Confirmed by REDD MICHELE MD ([id number]) on 03/02/2019 11:14:10 PM Referred By: Confirmed By:REDD MICHELE MD
[2019-03-03] MEDS ORDERED: PIPERACILLIN/TAZOBACTAM 3.375 GM VIAL IVPB ONE ×3 (01:42→17:05)
[2019-03-03] MEDS ORDERED: DEXTROSE 5%-WATER - 50 ML IVPB ONE ×3 (01:43→17:05)
[2019-03-03] MEDS: PIPERACILLIN/TAZOB 3.375 GM 3.375 GM in DEXTROSE 5%-WATER - 50 ML IVPB SCH ×3 (01:50→20:30)
[2019-03-03] MEDS: diazePAM 2 MG TABLET GT SCH ×3 (05:36→22:02)
[2019-03-03] MEDS: HEPARIN NA (PORCINE) 5,000 UNITS/ML 1ML VIAL SQ SCH ×3 (05:36→22:01)
[2019-03-03] MEDS: BACLOFEN 10 MG TABLET (FP) GT SCH ×3 (05:37→22:01)
[2019-03-03 07:08] LABS: BASO % 0.1 % (0-2.0); EOS % 1.2 % (0-4.5); HEMATOCRIT 28.7 % (32.4-45.2); HEMOGLOBIN 9.3 GM/dL (10.7-15.3); LYMPH % 7.2 % (8-40); MCHC 32.5 g/dl (32.0-36.0); MEAN CELL VOLUME 86.3 fl (80-96); MEAN PLT VOLUME 10.1 fl (7.5-11.1); MONO % 4.6 % (3.8-10.2); NEUT % 86.9 % (42.8-82.8); PLATELET COUNT 53 K/MM3 (134-434); RBC 3.32 M/mm3 (3.60-5.2); RDW 15.9 % (11.6-15.6); WHITE BLOOD COUNT 5.1 K/mm3 (4.0-10.0)
[2019-03-03 07:36] LABS: ALBUMIN 1.9 g/dl (3.4-5.0); BILIRUBIN,TOTAL 0.4 mg/dL (0.2-1); CALCIUM 8.6 mg/dL (8.5-10.1); CREATININE 0.4 mg/dL (0.55-1.3); MAGNESIUM 2.6 mg/dL (1.8-2.4); POTASSIUM 3.3 mmol/L (3.5-5.1); TOT PROT 4.7 g/dl (6.4-8.2)
--- NOTE | 2019-03-03 08:17 | PN ---
Progress Note, Physician Chief Complaint: Pt non verbal. No signs of distress, no grimacing/moaning History of Present Illness: 48yo woman with a PMH of cerebral palsy, seizures, hydrocephalus s/p LINING PARTS SEWER shunt, severe developmental delay, functional quadriplegia, pulmonary HTN, possible sleep apnea who presented from [place] due to fever, increased secretions, and wheezing. Per records, the wheezing has been previously evaluated by ENT and was diagnosed as EDDIE. - Current Medication List Current Medications: Active Medications Albuterol/Ipratropium (Duoneb -) 1 amp NEB Q6H PRN PRN Reason: SHORTNESS OF BREATH Baclofen (Lioresal -) 20 mg GT TID [facility] Last Admin: 03/03/19 05:37 Dose: 20 mg Diazepam (Valium -) 2 mg GT TID [facility] Last Admin: 03/03/19 05:36 Dose: 2 mg Famotidine (Pepcid -) 20 mg PEG DAILY [facility] Heparin Sodium (Porcine) (Heparin -) 5,000 unit SQ TID [facility] Last Admin: 03/03/19 05:36 Dose: 5,000 unit Dextrose/Sodium Chloride (D5-Ns -) 1,000 mls @ 125 mls/hr IV ASDIR [facility] Last Admin: 03/02/19 12:32 Dose: 125 mls/hr Piperacillin Sod/Tazobactam (Sod 3.375 gm/ Dextrose) 50 mls @ 100 mls/hr IVPB Q8H-IV [facility]; Protocol Last Admin: 03/03/19 01:50 Dose: 100 mls/hr Levetiracetam (Keppra Injection -) 100 mg IVPB BID [facility] Last Admin: 03/02/19 22:04 Dose: 100 mg Magnesium Hydroxide (Milk Of Magnesia -) 15 ml GT DAILY [facility] - Objective Vital Signs: Vital Signs Temperature 98.1 F 03/03/19 06:00 Pulse Rate 44 L 03/03/19 06:00 Respiratory Rate 03/03/19 06:00 Blood Pressure 105/68 03/03/19 06:00 O2 Sat by Pulse Oximetry (%) 99 03/02/19 21:00 Constitutional: Yes: No Distress, Thin Eyes: Yes: WNL, Conjunctiva Clear HENT: Yes: WNL Neck: Yes: WNL, Supple, Trachea Midline Cardiovascular: Yes: WNL, Regular Rate and Rhythm Respiratory: Yes: Regular, Diminished, On Nasal O2, Wheezes Gastrointestinal: Yes: Soft, Other (GT noted) ...Rectal Exam: Yes: Deferred Genitourinary: Yes: Incontinence Breast(s): Yes: WNL Musculoskeletal: Yes: Other (contracted-Cerebral palsy) Extremities: Yes: Other (severe contractures) Edema: No Peripheral Pulses WNL: Yes Peripheral Pulses: Left Radial: 2+, Right Radial: 2+, Left Doralis Pedis: 2+, Right Dorsalis Pedis: 2+, Left Femoral: 2+, Right Femoral: 2+ Integumentary: Yes: WNL Neurological: Yes: Other (tracks with eyes) Labs: CBC, BMP 03/03/19 05:55 03/03/19 05:55 INR, PTT INR 1.01 (0.83-1.09) 03/02/19 08:21 Problem List - Problems (1) LINING PARTS SEWER (ventriculoperitoneal) shunt status Assessment/Plan: monitor for sign of obstruction Code(s): Z98.2 - PRESENCE OF CEREBROSPINAL FLUID DRAINAGE DEVICE (2) EDDIE (obstructive sleep apnea) Assessment/Plan: suspected EDDIE NIPPV as needed caregiver states she is not using NIPPV at [facility]-would benefit from nightly use-will discuss with providers on discharge Code(s): G47.33 - OBSTRUCTIVE SLEEP APNEA (ADULT) (PEDIATRIC) (3) Pulmonary HTN Assessment/Plan: mild PHtn documented on echo Code(s): I27.20 - PULMONARY HYPERTENSION, UNSPECIFIED (4) Prophylactic measure Assessment/Plan: FEN c/w TF will have signal operator linguist evaluate rate monitor electrolyetes DVT heparin sq Dispo admit to tele full code discharge planning back to [facility] Code(s): Z29.9 - ENCOUNTER FOR PROPHYLACTIC MEASURES, UNSPECIFIED (5) G tube feedings Assessment/Plan: c/w Jevity 1.5 TF Code(s): Z93.1 - GASTROSTOMY STATUS (6) Hypotension Assessment/Plan: SBP in 80s on presentation responded to IVF bolus in ED BP improved c/w IVF and TF monitor on tele Code(s): I95.9 - HYPOTENSION, UNSPECIFIED Qualifiers: Hypotension type: hypotension due to hypovolemia Qualified Code(s): I95.89 - Other hypotension; E86.1 - Hypovolemia (7) GERD (gastroesophageal reflux disease) Assessment/Plan: c/w famotodine via GT Code(s): K21.9 - GASTRO-ESOPHAGEAL REFLUX DISEASE WITHOUT ESOPHAGITIS (8) Hypoxia Assessment/Plan: SPO2 99 on NC 3L c/w duo nebs c/w abx NIPPV as needed Code(s): R09.02 - HYPOXEMIA (9) Wheezing Assessment/Plan: c/w duonebs Code(s): R06.2 - WHEEZING (10) Congenital quadriplegia Assessment/Plan: turn and resposition speciality mattress Code(s): G80.8 - OTHER CEREBRAL PALSY (11) Profound intellectual disability Assessment/Plan: [facility] Code(s): F73 - PROFOUND INTELLECTUAL DISABILITIES (12) Seizure Assessment/Plan: c/w keppra vis GT Code(s): R56.9 - UNSPECIFIED CONVULSIONS (13) Gram-positive bacteremia Assessment/Plan: + blood cultures c/w vanco/zosyn ID following Code(s): R78.81 - BACTEREMIA (14) Hypokalemia Assessment/Plan: K 3.3 KCL liquid 40MEq via GT Code(s): E87.6 - HYPOKALEMIA Visit type - Emergency Visit Emergency Visit: Yes ED Registration Date: 03/02/19 Care time: The patient presented to the Emergency Department on the above date and was hospitalized for further evaluation of their emergent condition. - New Patient This patient is new to me today: No - Critical Care Critical Care patient: No - Discharge Referral Referred to [facility] Med P.C.: No
[2019-03-03] MEDS: DEXTROSE 5%-NORMAL SALINE 1,000 ML IV SCH (09:03)
[2019-03-03] MEDS: MAGNESIUM HYDROX 2400MG/30ML ORAL SUSPENSION 30 ML CUP GT SCH (11:05)
[2019-03-03] MEDS: FAMOTIDINE 20 MG TABLET PEG SCH (11:06)
[2019-03-03] MEDS: levETIRAcetam 500 MG/5 ML INJECTION VIAL IVPB SCH ×2 (11:06→22:01)
[2019-03-03 12:12] VITALS: BMI 18.3
[2019-03-03] MEDS ORDERED: POTASSIUM CHLORIDE ORAL LIQUID 20 MEQ/15 ML GT ONE (12:40)
[2019-03-03] MEDS ORDERED: VANCOMYCIN 1 GRAM (PRE-DOCKED) 1,000 MG/250 ML BAG IVPB ONE (15:55)
--- NOTE | 2019-03-03 15:59 | PN ---
Progress Note, Physician History of Present Illness: Pt is more alert today, afebrile. BP improved. No respiratory distress on O2 NC. - Current Medication List Current Medications: Active Medications Albuterol/Ipratropium (Duoneb -) 1 amp NEB Q6H PRN PRN Reason: SHORTNESS OF BREATH Baclofen (Lioresal -) 20 mg GT TID [facility] Last Admin: 03/03/19 14:30 Dose: 20 mg Diazepam (Valium -) 2 mg GT TID [facility] Last Admin: 03/03/19 14:31 Dose: 2 mg Famotidine (Pepcid -) 20 mg PEG DAILY [facility] Last Admin: 03/03/19 11:06 Dose: 20 mg Heparin Sodium (Porcine) (Heparin -) 5,000 unit SQ TID [facility] Last Admin: 03/03/19 14:30 Dose: 5,000 unit Piperacillin Sod/Tazobactam (Sod 3.375 gm/ Dextrose) 50 mls @ 100 mls/hr IVPB Q8H-IV [facility]; Protocol Last Admin: 03/03/19 11:47 Dose: 100 mls/hr Dextrose/Sodium Chloride (D5-Ns -) 1,000 mls @ 100 mls/hr IV ASDIR [facility] Last Admin: 03/03/19 09:03 Dose: 100 mls/hr Levetiracetam (Keppra Injection -) 100 mg IVPB BID [facility] Last Admin: 03/03/19 11:06 Dose: 100 mg Magnesium Hydroxide (Milk Of Magnesia -) 15 ml GT DAILY [facility] Last Admin: 03/03/19 11:05 Dose: 15 ml - Objective Vital Signs: Vital Signs Temperature 98.8 F 03/03/19 14:00 Pulse Rate 66 03/03/19 14:00 Respiratory Rate 22 H 03/03/19 14:00 Blood Pressure 111/73 03/03/19 14:00 O2 Sat by Pulse Oximetry (%) 99 03/03/19 08:31 Constitutional: Yes: No Distress, Calm Cardiovascular: Yes: Regular Rate and Rhythm Respiratory: Yes: Diminished Gastrointestinal: Yes: Normal Bowel Sounds, Soft Genitourinary: Yes: WNL Integumentary: Yes: WNL Neurological: Yes: Alert Labs: CBC, BMP 03/03/19 05:55 03/03/19 05:55 INR, PTT INR 1.01 (0.83-1.09) 03/02/19 08:21 Microbiology 03/02/19 07:55 Blood - Peripheral Venous Blood Culture - Preliminary NO GROWTH OBTAINED AFTER 24 HOURS, INCUBATION TO CONTINUE FOR 4 DAYS. 03/02/19 07:50 Blood - Peripheral Venous Blood Culture - Preliminary Pending Organism Assessment/Plan 48 y.o. female with PMH of Cerebral Palsy, developmental delay, functional quadriplegia, seizure d.o. hydrocephalus s/p POWER PRESS SUPERVISOR shunt placement, s/p GT, and pulm HTN was transferred from assisted living facility to the ER for respiratory distress/wheezing and fever Suspected PNA Sepsis Fever Leukocytosis Acute hypoxemic respiratory failure Cerebral palsy with developmental delay Functional quadriplegia 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 s/p POWER PRESS SUPERVISOR shunt placement Seizure d.o. ?EDDIE -- Blood culture +GPC , isolate pending -- Repeat blood culture, add Vancomycin for now -- monitor renal function -- Continue Zosyn -- wbc now normal, pt afebrile -- pt without acute respiratory distress at this time, BP improved
[2019-03-04] MEDS ORDERED: PIPERACILLIN/TAZOBACTAM 3.375 GM VIAL IVPB ONE ×3 (00:54→18:09)
[2019-03-04] MEDS ORDERED: DEXTROSE 5%-WATER - 50 ML IVPB ONE ×3 (00:55→18:09)
[2019-03-04] MEDS: PIPERACILLIN/TAZOB 3.375 GM 3.375 GM in DEXTROSE 5%-WATER - 50 ML IVPB SCH ×3 (00:59→18:35)
[2019-03-04] MEDS: VANCOMYCIN 1 GRAM (PRE-DOCKED) 1,000 MG/250 ML BAG IVPB SCH ×2 (05:15→16:57)
[2019-03-04] MEDS: HEPARIN NA (PORCINE) 5,000 UNITS/ML 1ML VIAL SQ SCH ×3 (05:58→23:16)
[2019-03-04] MEDS: BACLOFEN 10 MG TABLET (FP) GT SCH ×3 (05:58→23:16)
[2019-03-04] MEDS: diazePAM 2 MG TABLET GT SCH ×3 (05:58→23:16)
--- NOTE | 2019-03-04 07:36 | PN ---
Progress Note, Physician Chief Complaint: Pt non verbal. No signs of distress, no grimacing/moaning. Caregiver at bedside History of Present Illness: 48yo woman with a PMH of cerebral palsy, seizures, hydrocephalus s/p SHOE SHANKER shunt, severe developmental delay, functional quadriplegia, pulmonary HTN, possible sleep apnea who presented from [place] due to fever, increased secretions, and wheezing. Per records, the wheezing has been previously evaluated by ENT and was diagnosed as EDDIE. - Current Medication List Current Medications: Active Medications Albuterol/Ipratropium (Duoneb -) 1 amp NEB Q6H PRN PRN Reason: SHORTNESS OF BREATH Baclofen (Lioresal -) 20 mg GT TID [facility] Last Admin: 03/04/19 05:58 Dose: 20 mg Diazepam (Valium -) 2 mg GT TID [facility] Last Admin: 03/04/19 05:58 Dose: 2 mg Famotidine (Pepcid -) 20 mg PEG DAILY [facility] Last Admin: 03/03/19 11:06 Dose: 20 mg Heparin Sodium (Porcine) (Heparin -) 5,000 unit SQ TID [facility] Last Admin: 03/04/19 05:58 Dose: 5,000 unit Piperacillin Sod/Tazobactam (Sod 3.375 gm/ Dextrose) 50 mls @ 100 mls/hr IVPB Q8H-IV [facility]; Protocol Last Admin: 03/04/19 00:59 Dose: 100 mls/hr Dextrose/Sodium Chloride (D5-Ns -) 1,000 mls @ 100 mls/hr IV ASDIR [facility] Last Admin: 03/03/19 09:03 Dose: 100 mls/hr Vancomycin HCl (Vancomycin (Pre-Docked)) 1,000 mg in 250 mls @ 166.667 mls/hr IVPB Q12H [facility]; Protocol Last Admin: 03/04/19 05:15 Dose: 166.667 mls/hr Levetiracetam (Keppra Injection -) 100 mg IVPB BID [facility] Last Admin: 03/03/19 22:01 Dose: 100 mg Magnesium Hydroxide (Milk Of Magnesia -) 15 ml GT DAILY [facility] Last Admin: 03/03/19 11:05 Dose: 15 ml - Objective Vital Signs: Vital Signs Temperature 98.8 F 03/04/19 06:00 Pulse Rate 66 03/04/19 06:00 Respiratory Rate 20 01/06/20 06:00 Blood Pressure 118/72 03/04/19 06:00 O2 Sat by Pulse Oximetry (%) 98 03/03/19 21:00 Additional Findings/Remarks: Constitutional: Yes: No Distress, Thin Eyes: Yes: WNL, Conjunctiva Clear HENT: Yes: WNL Neck: Yes: WNL, Supple, Trachea Midline Cardiovascular: Yes: WNL, Regular Rate and Rhythm Respiratory: Yes: Regular, Diminished, On Nasal O2, Wheezes Gastrointestinal: Yes: Soft, Other (GT noted) ...Rectal Exam: Yes: Deferred Genitourinary: Yes: Incontinence Breast(s): Yes: WNL Musculoskeletal: Yes: Other (contracted-Cerebral palsy) Extremities: Yes: Other (severe contractures) Edema: No Peripheral Pulses WNL: Yes Peripheral Pulses: Left Radial: 2+, Right Radial: 2+, Left Doralis Pedis: 2+, Right Dorsalis Pedis: 2+, Left Femoral: 2+, Right Femoral: 2+ Integumentary: Yes: WNL Neurological: Yes: Other (tracks with eyes & smiles) Labs: CBC, BMP 03/03/19 05:55 03/03/19 05:55 INR, PTT INR 1.01 (0.83-1.09) 03/02/19 08:21 Problem List - Problems (1) SHOE SHANKER (ventriculoperitoneal) shunt status Assessment/Plan: monitor for sign of obstruction Code(s): Z98.2 - PRESENCE OF CEREBROSPINAL FLUID DRAINAGE DEVICE (2) EDDIE (obstructive sleep apnea) Assessment/Plan: suspected EDDIE NIPPV as needed caregiver states she is not using NIPPV at [facility]-would benefit from nightly use-will discuss with providers on discharge Code(s): G47.33 - OBSTRUCTIVE SLEEP APNEA (ADULT) (PEDIATRIC) (3) Pulmonary HTN Assessment/Plan: mild PHtn documented on echo Code(s): I27.20 - PULMONARY HYPERTENSION, UNSPECIFIED (4) Prophylactic measure Assessment/Plan: FEN c/w TF will have six sigma black belt engineer evaluate rate monitor electrolytes DVT heparin sq Dispo admit to tele full code discharge planning back to [place] Code(s): Z29.9 - ENCOUNTER FOR PROPHYLACTIC MEASURES, UNSPECIFIED (5) G tube feedings Assessment/Plan: c/w Jevity 1.5 TF tolerating well Code(s): Z93.1 - GASTROSTOMY STATUS (6) Hypotension Assessment/Plan: SBP in 80s on presentation responded to IVF bolus in ED BP improved c/w IVF and TF monitor on tele Code(s): I95.9 - HYPOTENSION, UNSPECIFIED Qualifiers: Hypotension type: hypotension due to hypovolemia Qualified Code(s): I95.89 - Other hypotension; E86.1 - Hypovolemia (7) GERD (gastroesophageal reflux disease) Assessment/Plan: c/w famotodine via GT Code(s): K21.9 - GASTRO-ESOPHAGEAL REFLUX DISEASE WITHOUT ESOPHAGITIS (8) Hypoxia Assessment/Plan: SPO2 99 on NC 3L c/w duo nebs c/w abx NIPPV as needed Code(s): R09.02 - HYPOXEMIA (9) Wheezing Assessment/Plan: resolving c/w duonebs Code(s): R06.2 - WHEEZING (10) Congenital quadriplegia Assessment/Plan: turn and resposition speciality mattress Code(s): G80.8 - OTHER CEREBRAL PALSY (11) Profound intellectual disability Assessment/Plan: [facility] supportive care Code(s): F73 - PROFOUND INTELLECTUAL DISABILITIES (12) Seizure Assessment/Plan: c/w keppra vis GT Code(s): R56.9 - UNSPECIFIED CONVULSIONS (13) Gram-positive bacteremia Assessment/Plan: + blood cultures c/w vanco/zosyn ID following Code(s): R78.81 - BACTEREMIA (14) Hypokalemia Assessment/Plan: K 3.3 KCL liquid 40MEq via GT Code(s): E87.6 - HYPOKALEMIA Visit type - Emergency Visit Emergency Visit: Yes ED Registration Date: 03/02/19 Care time: The patient presented to the Emergency Department on the above date and was hospitalized for further evaluation of their emergent condition. - New Patient This patient is new to me today: No - Critical Care Critical Care patient: No - Discharge Referral Referred to [facility] Med P.C.: No
[2019-03-04] MEDS: levETIRAcetam 500 MG/5 ML INJECTION VIAL IVPB SCH ×2 (09:22→23:17)
[2019-03-04] MEDS: MAGNESIUM HYDROX 2400MG/30ML ORAL SUSPENSION 30 ML CUP GT SCH (09:22)
[2019-03-04] MEDS: DEXTROSE 5%-NORMAL SALINE 1,000 ML IV SCH (09:23)
[2019-03-04] MEDS: FAMOTIDINE 20 MG TABLET PEG SCH (09:23)
--- NOTE | 2019-03-04 13:42 | PN ---
Progress Note, Physician History of Present Illness: stable no new issues calm - Current Medication List Current Medications: Active Medications Albuterol/Ipratropium (Duoneb -) 1 amp NEB Q6H PRN PRN Reason: SHORTNESS OF BREATH Baclofen (Lioresal -) 20 mg GT TID [facility] Last Admin: 03/04/19 05:58 Dose: 20 mg Diazepam (Valium -) 2 mg GT TID [facility] Last Admin: 03/04/19 05:58 Dose: 2 mg Famotidine (Pepcid -) 20 mg PEG DAILY [facility] Last Admin: 03/04/19 09:23 Dose: 20 mg Heparin Sodium (Porcine) (Heparin -) 5,000 unit SQ TID [facility] Last Admin: 03/04/19 05:58 Dose: 5,000 unit Piperacillin Sod/Tazobactam (Sod 3.375 gm/ Dextrose) 50 mls @ 100 mls/hr IVPB Q8H-IV [facility]; Protocol Last Admin: 03/04/19 09:23 Dose: 100 mls/hr Dextrose/Sodium Chloride (D5-Ns -) 1,000 mls @ 100 mls/hr IV ASDIR [facility] Last Admin: 03/04/19 09:23 Dose: 100 mls/hr Vancomycin HCl (Vancomycin (Pre-Docked)) 1,000 mg in 250 mls @ 166.667 mls/hr IVPB Q12H [facility]; Protocol Last Admin: 03/04/19 05:15 Dose: 166.667 mls/hr Levetiracetam (Keppra Injection -) 100 mg IVPB BID [facility] Last Admin: 03/04/19 09:22 Dose: 100 mg Magnesium Hydroxide (Milk Of Magnesia -) 15 ml GT DAILY [facility] Last Admin: 03/04/19 09:22 Dose: 15 ml - Objective Vital Signs: Vital Signs Temperature 98.6 F 03/04/19 13:00 Pulse Rate 70 03/04/19 13:00 Respiratory Rate 18 03/04/19 13:00 Blood Pressure 122/81 03/04/19 13:00 O2 Sat by Pulse Oximetry (%) 98 03/04/19 09:00 Constitutional: Yes: No Distress, Calm Cardiovascular: Yes: S1, S2 Respiratory: Yes: Regular, CTA Bilaterally Gastrointestinal: Yes: Normal Bowel Sounds, Soft, Other (peg in place) Musculoskeletal: Yes: WNL Extremities: Yes: Other Labs: CBC, BMP 03/03/19 05:55 03/03/19 05:55 INR, PTT INR 1.01 (0.83-1.09) 03/02/19 08:21 Assessment/Plan 48 y.o. female with PMH of Cerebral Palsy, developmental delay, functional quadriplegia, seizure d.o. hydrocephalus s/p FIRE EATER shunt placement, s/p GT, and pulm HTN was transferred from assisted living facility to the ER for respiratory distress/wheezing and fever Suspected PNA Sepsis Fever Leukocytosis Acute hypoxemic respiratory failure Cerebral palsy with developmental delay Functional quadriplegia 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 s/p FIRE EATER shunt placement Seizure d.o. ?EDDIE -plan await for repeat blood cx rest as per the team nutrition rest as per the team
[2019-03-04 13:54] LABS: BASO % 0.4 % (0-2.0); HEMATOCRIT 30.1 % (32.4-45.2); HEMOGLOBIN 9.6 GM/dL (10.7-15.3); LYMPH % 15.4 % (8-40); MCH 28.1 pg (25.7-33.7); MEAN CELL VOLUME 87.8 fl (80-96); MEAN PLT VOLUME 10.5 fl (7.5-11.1); MONO % 7.6 % (3.8-10.2); NEUT % 73.6 % (42.8-82.8); PLATELET COUNT 61 K/MM3 (134-434); RBC 3.43 M/mm3 (3.60-5.2); RDW 15.6 % (11.6-15.6); WHITE BLOOD COUNT 3.4 K/mm3 (4.0-10.0)
[2019-03-04 14:30] LABS: ALBUMIN 1.8 g/dl (3.4-5.0); BILIRUBIN,TOTAL 0.3 mg/dL (0.2-1); CALCIUM 8.6 mg/dL (8.5-10.1); CREATININE 0.3 mg/dL (0.55-1.3); MAGNESIUM 2.4 mg/dL (1.8-2.4); POTASSIUM 4.3 mmol/L (3.5-5.1); TOT PROT 4.8 g/dl (6.4-8.2)
[2019-03-04 14:39] LABS: PLATELET ESTIMATE DECREASED
--- NOTE | 2019-03-05 00:45 | HOSP ---
Subjective - Review of Symptoms Events since last encounter: Hospitalist Encounter Notified by the primary RN, that the axillary Temp 93.5. Patient is being treated for Pneumonia and Bacteremia. Arrived to bedside, patient is alert- at baseline. PE performed see EMR. Discussed case with Dr Capellan, ICU resident for transfer Assessment: 48yo woman with a PMH of cerebral palsy, seizures, hydrocephalus s/p TRANSPORTATION MAINTENANCE OPERATOR shunt, severe developmental delay, functional quadriplegia, pulmonary HTN, possible sleep apnea who presented to the ED from [place] due to fever, increased secretions, and wheezing. Admitted for Sepsis, Pneumonia. Currently on Vancomycin, Zosyn Code Status: Full Code Plan: [facility]ger Stat CBC Stat Lactic Acid Stat TSH Transfer to ICU Physical Examination Vital Signs: Vital Signs Temperature 98.6 F 03/04/19 13:00 Pulse Rate 52 L 03/04/19 20:25 Respiratory Rate 18 03/04/19 20:25 Blood Pressure 112/67 03/04/19 20:25 O2 Sat by Pulse Oximetry (%) 98 03/04/19 09:00 Constitutional: Yes: No Distress, Calm, Other (non-verbal at baseline) Eyes: Yes: Conjunctiva Clear, PERRL HENT: Yes: Atraumatic, Normocephalic Neck: Yes: Supple, Trachea Midline Cardiovascular: Yes: Regular Rate and Rhythm, S1, S2 ...Rectal Exam: Yes: Sphincter Tone Normal Renal/: Yes: Incontinence Breast(s): Yes: WNL Musculoskeletal: Yes: Other (contractures- secodnary to CP) Extremities: Yes: Cool (b/l forearm contractures- CP) Edema: No Peripheral Pulses WNL: Yes Integumentary: Yes: WNL Neurological: Yes: Alert (tracks with eyes), Other (non-verbal- CP at baseline) Psychiatric: Yes: Alert (tracks with eyes) Labs: CBC, BMP 03/04/19 13:40 03/04/19 13:40 Hospitalist Encounter Outcome: Repeat rectal temp 93.5 Per RN, per the night Nursing Helicopter Dispatcher- Elaine. [facility]ilu Hugger Unit can only be used in ED, ICU or PACU Patient will need transfer to ICU Discussed case with Dr. Capellan, ICU resident Dr Capellan arrived at bedside. Discussed with Elaine Nursing Helicopter Dispatcher, after review of the [facility]il[facility]ger policy it has been determined that there is no specification as to the unit setting, so patient remain in Telemetry with the Marilu Hugger. Discussed with RN who is aware Reviewed Labs- LA- 0.9, WBC 2.8, TSH 5.24, will add T4, and T3 in am 03:25 -Per RN, repeat Rectal Temp- 95, patient remains on marilu hugger with some improvement Will continue to monitor closely Condition-Guarded Critical Care Total Critical Care Time (in minutes): 45 Critical Care Statement: The care of this patient involved high complexity decision making to prevent further life threatening deterioration of the patient 's condition and/or to evaluate & treat vital organ system(s) failure or risk of failure.
[2019-03-05 02:00] LABS: HEMATOCRIT 29.3 % (32.4-45.2); HEMOGLOBIN 9.3 GM/dL (10.7-15.3); RBC 3.33 M/mm3 (3.60-5.2); WHITE BLOOD COUNT 3.2 K/mm3 (4.0-10.0)
[2019-03-05 02:01] LABS: BASO % 0.3 % (0-2.0); EOS % 3.9 % (0-4.5); LYMPH % 18.6 % (8-40); MCHC 31.8 g/dl (32.0-36.0); MEAN PLT VOLUME 10.1 fl (7.5-11.1); MONO % 8.6 % (3.8-10.2); NEUT % 68.6 % (42.8-82.8); PLATELET COUNT 61 K/MM3 (134-434); RDW 16.5 % (11.6-15.6)
[2019-03-05] MEDS ORDERED: PIPERACILLIN/TAZOBACTAM 3.375 GM VIAL IVPB ONE ×2 (02:33→10:25)
[2019-03-05] MEDS ORDERED: DEXTROSE 5%-WATER - 50 ML IVPB ONE ×2 (02:34→10:26)
[2019-03-05] MEDS: PIPERACILLIN/TAZOB 3.375 GM 3.375 GM in DEXTROSE 5%-WATER - 50 ML IVPB SCH ×2 (02:43→11:03)
[2019-03-05 03:32] LABS: ANISOCYTOSIS 1+; MACROCYTOSIS 0; PLATELET ESTIMATE DECREASED
[2019-03-05] MEDS: VANCOMYCIN 1 GRAM (PRE-DOCKED) 1,000 MG/250 ML BAG IVPB SCH (05:54)
[2019-03-05] MEDS: diazePAM 2 MG TABLET GT SCH ×3 (06:00→22:10)
[2019-03-05] MEDS: HEPARIN NA (PORCINE) 5,000 UNITS/ML 1ML VIAL SQ SCH ×3 (06:00→22:10)
[2019-03-05] MEDS: BACLOFEN 10 MG TABLET (FP) GT SCH ×3 (06:00→22:10)
[2019-03-05 06:40] LABS: BASO % 0.4 % (0-2.0); EOS % 3.4 % (0-4.5); HEMATOCRIT 27.3 % (32.4-45.2); LYMPH % 17.4 % (8-40); MCH 28.6 pg (25.7-33.7); MCHC 32.9 g/dl (32.0-36.0); MEAN CELL VOLUME 86.8 fl (80-96); MEAN PLT VOLUME 10.2 fl (7.5-11.1); MONO % 9.3 % (3.8-10.2); NEUT % 69.5 % (42.8-82.8); PLATELET COUNT 62 K/MM3 (134-434); RBC 3.15 M/mm3 (3.60-5.2); RDW 16.1 % (11.6-15.6); WHITE BLOOD COUNT 2.8 K/mm3 (4.0-10.0)
[2019-03-05 07:12] LABS: ALBUMIN 1.8 g/dl (3.4-5.0); BILIRUBIN,TOTAL 0.3 mg/dL (0.2-1); BLOOD UREA NITROGEN 13.7 mg/dL (7-18); CALCIUM 8.3 mg/dL (8.5-10.1); CREATININE 0.3 mg/dL (0.55-1.3); MAGNESIUM 2.1 mg/dL (1.8-2.4); POTASSIUM 4.5 mmol/L (3.5-5.1); TOT PROT 4.5 g/dl (6.4-8.2)
--- NOTE | 2019-03-05 09:17 | PN ---
Physical Exam: SUBJECTIVE: Patient seen and examined at the bedside. informed by primary RN that patient developed a right upper extremity wound overnight above IV insertion site. OBJECTIVE: large right upper arm wound noted this a.m. on exam measures 10cm x 6cm with reddened surrounding skin noted to be above IV site will doppler Vital Signs Period Temp Pulse Resp BP Sys/Perez Pulse Ox Last 24 Hr 93.5 F-98.6 F 52-74 18-18 103-122/58-81 98 Laboratory Results - last 24 hr 03/04/19 03/04/19 03/05/19 13:40 13:40 01:10 WBC 3.4 L RBC 3.43 L Hgb 9.6 L Hct 30.1 L MCV 87.8 MCH 28.1 MCHC 32.0 RDW 15.6 Plt Count 61 L MPV 10.5 Absolute Neuts (auto) 2.5 Total Counted 100 Neutrophils % 73.6 Neutrophils % (Manual) 66.0 Band Neutrophils % 7.0 Lymphocytes % 15.4 D Lymphocytes % (Manual) 17.0 D Monocytes % 7.6 Monocytes % (Manual) 5 Eosinophils % 3.0 D Eosinophils % (Manual) 1.0 Basophils % 0.4 D Basophils % (Manual) Myelocytes % (Man) Promyelocytes % (Man) Blast Cells % (Manual) Nucleated RBC % 0 Metamyelocytes Hypochromia Platelet Estimate Decreased Polychromasia Poikilocytosis Anisocytosis Microcytosis Macrocytosis Sodium 146 H Potassium 4.3 Chloride 114 H Carbon Dioxide 28 Anion Gap 4 L BUN 13.0 Creatinine 0.3 L Est GFR (CKD-EPI)AfAm 158.03 Est GFR (CKD-EPI)NonAf 136.35 Random Glucose 159 H Lactic Acid 0.7 Calcium 8.6 Magnesium 2.4 Total Bilirubin 0.3 AST 67 H ALT 57 Alkaline Phosphatase 182 H Total Protein 4.8 L Albumin 1.8 L TSH 03/05/19 03/05/19 03/05/19 01:50 01:50 05:15 WBC 3.2 L 2.8 L RBC 3.33 L 3.15 L Hgb 9.3 L 9.0 L Hct 29.3 L 27.3 L MCV 88.0 86.8 MCH 28.0 28.6 MCHC 31.8 L 32.9 RDW 16.5 H 16.1 H Plt Count 61 L 62 L MPV 10.1 10.2 Absolute Neuts (auto) 2.2 2.0 Total Counted Neutrophils % 68.6 69.5 Neutrophils % (Manual) 77.2 Band Neutrophils % 1.0 Lymphocytes % 18.6 D 17.4 Lymphocytes % (Manual) 9.9 D Monocytes % 8.6 9.3 Monocytes % (Manual) 0 L D Eosinophils % 3.9 3.4 Eosinophils % (Manual) 4.9 H D Basophils % 0.3 0.4 Basophils % (Manual) 1.0 D Myelocytes % (Man) 0 D Promyelocytes % (Man) 0 Blast Cells % (Manual) 0 Nucleated RBC % 1 H 0 Metamyelocytes 5 H D Hypochromia 1+ Platelet Estimate Decreased Polychromasia 0 Poikilocytosis 0 Anisocytosis 1+ Microcytosis 1+ Macrocytosis 0 Sodium Potassium Chloride Carbon Dioxide Anion Gap BUN Creatinine Est GFR (CKD-EPI)AfAm Est GFR (CKD-EPI)NonAf Random Glucose Lactic Acid Calcium Magnesium Total Bilirubin AST ALT Alkaline Phosphatase Total Protein Albumin TSH 5.42 H 03/05/19 05:15 WBC RBC Hgb Hct MCV MCH MCHC RDW Plt Count MPV Absolute Neuts (auto) Total Counted Neutrophils % Neutrophils % (Manual) Band Neutrophils % Lymphocytes % Lymphocytes % (Manual) Monocytes % Monocytes % (Manual) Eosinophils % Eosinophils % (Manual) Basophils % Basophils % (Manual) Myelocytes % (Man) Promyelocytes % (Man) Blast Cells % (Manual) Nucleated RBC % Metamyelocytes Hypochromia Platelet Estimate Polychromasia Poikilocytosis Anisocytosis Microcytosis Macrocytosis Sodium 146 H Potassium 4.5 Chloride 115 H Carbon Dioxide 26 Anion Gap 5 L BUN 13.7 Creatinine 0.3 L Est GFR (CKD-EPI)AfAm 158.03 Est GFR (CKD-EPI)NonAf 136.35 Random Glucose 108 H Lactic Acid Calcium 8.3 L Magnesium 2.1 Total Bilirubin 0.3 AST 63 H ALT 61 Alkaline Phosphatase 168 H Total Protein 4.5 L Albumin 1.8 L TSH Active Medications Generic Name Dose Route Start Last Admin Trade Name Freq PRN Reason Stop Dose Admin Albuterol/Ipratropium 1 amp 03/02/19 16:57 Duoneb - NEB Q6H PRN SHORTNESS OF BREATH Baclofen 20 mg 03/02/19 14:00 03/05/19 06:00 Lioresal - GT 20 mg TID [facility] Administration Chlorhexidine Gluconate 1 applic 03/05/19 22:00 Hibiclens For Decolonization - TP HS STE[facility] Diazepam 2 mg 03/02/19 14:00 03/05/19 06:00 Valium - GT 2 mg TID [facility] Administration Famotidine 20 mg 03/03/19 10:00 03/04/19 09:23 Pepcid - PEG 20 mg DAILY [facility] Administration Heparin Sodium (Porcine) 5,000 unit 03/02/19 14:00 03/05/19 06:00 Heparin - SQ 5,000 unit TID STE[facility] Administration Piperacillin Sod/Tazobactam 50 mls @ 100 mls/hr 03/02/19 18:00 03/05/19 02:43 Sod 3.375 gm/ Dextrose IVPB 100 mls/hr Q8H-IV [facility] Administration Protocol Dextrose/Sodium Chloride 1,000 mls @ 100 mls/hr 03/03/19 08:18 03/04/19 09:23 D5-Ns - IV 100 mls/hr ASDIR [facility] Administration Vancomycin HCl 1,000 mg in 250 mls @ 166.667 mls/hr 03/04/19 05:00 03/05/19 05:54 Vancomycin (Pre-Docked) IVPB 166.667 mls/hr Q12H [facility] Administration Protocol Levetiracetam 100 mg 03/02/19 22:00 03/04/19 23:17 Keppra Injection - IVPB 100 mg BID [facility] Administration Magnesium Hydroxide 15 ml 03/03/19 10:00 03/04/19 09:22 Milk Of Magnesia - GT 15 ml DAILY [facility] Administration Mupirocin 1 applic 03/05/19 10:00 Bactroban Ointment (For Decolonization) - NS 03/10/19 09:59 BID [facility] ASSESSMENT/PLAN:
--- NOTE | 2019-03-05 09:24 | PN ---
Physical Exam: SUBJECTIVE: Patient seen and examined OBJECTIVE: Vital Signs Period Temp Pulse Resp BP Sys/Perez Pulse Ox Last 24 Hr 93.5 F-98.6 F 52-74 18-18 103-122/58-81 98 GENERAL: The patient is awake, mental status at baseline with history of MR HEAD: Normal with no signs of trauma. EYES: PERRL, extraocular movements intact, sclera anicteric, conjunctiva clear. No ptosis. ENT: Ears normal, nares patent NECK: Trachea midline, full range of motion, supple. LUNGS: rhonchi anteriorly HEART: Regular rate and rhythm, S1, S2 without murmur, rub or gallop. ABDOMEN: Soft, nontender, nondistended, normoactive bowel sounds, no guarding, no rebound, no hepatosplenomegaly, no masses. EXTREMITIES: 2+ pulses, warm, well-perfused, no edema. NEUROLOGICAL: Cranial nerves II through XII grossly intact. Normal speech, gait not observed. PSYCH: Normal mood, normal affect. SKIN: Warm, dry, normal turgor, no rashes or lesions noted Laboratory Results - last 24 hr 03/04/19 03/04/19 03/05/19 13:40 13:40 01:10 WBC 3.4 L RBC 3.43 L Hgb 9.6 L Hct 30.1 L MCV 87.8 MCH 28.1 MCHC 32.0 RDW 15.6 Plt Count 61 L MPV 10.5 Absolute Neuts (auto) 2.5 Total Counted 100 Neutrophils % 73.6 Neutrophils % (Manual) 66.0 Band Neutrophils % 7.0 Lymphocytes % 15.4 D Lymphocytes % (Manual) 17.0 D Monocytes % 7.6 Monocytes % (Manual) 5 Eosinophils % 3.0 D Eosinophils % (Manual) 1.0 Basophils % 0.4 D Basophils % (Manual) Myelocytes % (Man) Promyelocytes % (Man) Blast Cells % (Manual) Nucleated RBC % 0 Metamyelocytes Hypochromia Platelet Estimate Decreased Polychromasia Poikilocytosis Anisocytosis Microcytosis Macrocytosis Sodium 146 H Potassium 4.3 Chloride 114 H Carbon Dioxide 28 Anion Gap 4 L BUN 13.0 Creatinine 0.3 L Est GFR (CKD-EPI)AfAm 158.03 Est GFR (CKD-EPI)NonAf 136.35 Random Glucose 159 H Lactic Acid 0.7 Calcium 8.6 Magnesium 2.4 Total Bilirubin 0.3 AST 67 H ALT 57 Alkaline Phosphatase 182 H Total Protein 4.8 L Albumin 1.8 L TSH 03/05/19 03/05/19 03/05/19 01:50 01:50 05:15 WBC 3.2 L 2.8 L RBC 3.33 L 3.15 L Hgb 9.3 L 9.0 L Hct 29.3 L 27.3 L MCV 88.0 86.8 MCH 28.0 28.6 MCHC 31.8 L 32.9 RDW 16.5 H 16.1 H Plt Count 61 L 62 L MPV 10.1 10.2 Absolute Neuts (auto) 2.2 2.0 Total Counted Neutrophils % 68.6 69.5 Neutrophils % (Manual) 77.2 Band Neutrophils % 1.0 Lymphocytes % 18.6 D 17.4 Lymphocytes % (Manual) 9.9 D Monocytes % 8.6 9.3 Monocytes % (Manual) 0 L D Eosinophils % 3.9 3.4 Eosinophils % (Manual) 4.9 H D Basophils % 0.3 0.4 Basophils % (Manual) 1.0 D Myelocytes % (Man) 0 D Promyelocytes % (Man) 0 Blast Cells % (Manual) 0 Nucleated RBC % 1 H 0 Metamyelocytes 5 H D Hypochromia 1+ Platelet Estimate Decreased Polychromasia 0 Poikilocytosis 0 Anisocytosis 1+ Microcytosis 1+ Macrocytosis 0 Sodium Potassium Chloride Carbon Dioxide Anion Gap BUN Creatinine Est GFR (CKD-EPI)AfAm Est GFR (CKD-EPI)NonAf Random Glucose Lactic Acid Calcium Magnesium Total Bilirubin AST ALT Alkaline Phosphatase Total Protein Albumin TSH 5.42 H 03/05/19 05:15 WBC RBC Hgb Hct MCV MCH MCHC RDW Plt Count MPV Absolute Neuts (auto) Total Counted Neutrophils % Neutrophils % (Manual) Band Neutrophils % Lymphocytes % Lymphocytes % (Manual) Monocytes % Monocytes % (Manual) Eosinophils % Eosinophils % (Manual) Basophils % Basophils % (Manual) Myelocytes % (Man) Promyelocytes % (Man) Blast Cells % (Manual) Nucleated RBC % Metamyelocytes Hypochromia Platelet Estimate Polychromasia Poikilocytosis Anisocytosis Microcytosis Macrocytosis Sodium 146 H Potassium 4.5 Chloride 115 H Carbon Dioxide 26 Anion Gap 5 L BUN 13.7 Creatinine 0.3 L Est GFR (CKD-EPI)AfAm 158.03 Est GFR (CKD-EPI)NonAf 136.35 Random Glucose 108 H Lactic Acid Calcium 8.3 L Magnesium 2.1 Total Bilirubin 0.3 AST 63 H ALT 61 Alkaline Phosphatase 168 H Total Protein 4.5 L Albumin 1.8 L TSH Active Medications Generic Name Dose Route Start Last Admin Trade Name Freq PRN Reason Stop Dose Admin Albuterol/Ipratropium 1 amp 03/02/19 16:57 Duoneb - NEB Q6H PRN SHORTNESS OF BREATH Baclofen 20 mg 03/02/19 14:00 03/05/19 06:00 Lioresal - GT 20 mg TID [facility] Administration Chlorhexidine Gluconate 1 applic 03/05/19 22:00 Hibiclens For Decolonization - TP HS STE[facility] Diazepam 2 mg 03/02/19 14:00 03/05/19 06:00 Valium - GT 2 mg TID [facility] Administration Famotidine 20 mg 03/03/19 10:00 03/04/19 09:23 Pepcid - PEG 20 mg DAILY [facility] Administration Heparin Sodium (Porcine) 5,000 unit 03/02/19 14:00 03/05/19 06:00 Heparin - SQ 5,000 unit TID [facility] Administration Piperacillin Sod/Tazobactam 50 mls @ 100 mls/hr 03/02/19 18:00 03/05/19 02:43 Sod 3.375 gm/ Dextrose IVPB 100 mls/hr Q8H-IV [facility] Administration Protocol Dextrose/Sodium Chloride 1,000 mls @ 100 mls/hr 03/03/19 08:18 03/04/19 09:23 D5-Ns - IV 100 mls/hr ASDIR [facility] Administration Vancomycin HCl 1,000 mg in 250 mls @ 166.667 mls/hr 03/04/19 05:00 03/05/19 05:54 Vancomycin (Pre-Docked) IVPB 166.667 mls/hr Q12H [facility] Administration Protocol Levetiracetam 100 mg 03/02/19 22:00 03/04/19 23:17 Keppra Injection - IVPB 100 mg BID [facility] Administration Magnesium Hydroxide 15 ml 03/03/19 10:00 03/04/19 09:22 Milk Of Magnesia - GT 15 ml DAILY [facility] Administration Mupirocin 1 applic 03/05/19 10:00 Bactroban Ointment (For Decolonization) - NS 03/10/19 09:59 BID [facility] ASSESSMENT/PLAN:
--- NOTE | 2019-03-05 09:26 | PN ---
Physical Exam: SUBJECTIVE: Patient seen and examined at the bedside. informed by primary RN that patient now has a right upper arm wound above IV site. OBJECTIVE: large right upper arm wound noted this a.m. on exam measures 10cm x 6cm with reddened surrounding skin, also with localized hardening of surrounding soft tissue. possibly due to vancomycin extravascation , will order cold compresses BID x 24 hours, will order gauze open dressings with silver sulfadiazine 1% until wound heals noted to be above IV site will doppler to rule out dvt surgery consulted Patient is a 48 year old female with a significant past medical history of cerebral palsy, seizures, hydrocephalus s/p AGRICULTURAL ENGINEER shunt, severe developmental delay , functional quadriplegia, pulmonary HTN, possible sleep apnea who presented from [place] on 03/02/19 due to fever, increased secretions, and wheezing. Per records, the wheezing has been previously evaluated by ENT and was diagnosed as EDDIE. Vital Signs Period Temp Pulse Resp BP Sys/Perez Pulse Ox Last 24 Hr 93.5 F-98.6 F 52-74 18-18 103-122/58-81 98 GENERAL: The patient is awake, alert, hx of MR, at baseline HEAD: Normal with no signs of trauma. EYES: PERRL, extraocular movements intact, sclera anicteric, conjunctiva clear. No ptosis. ENT: Ears normal, nares patent, oropharynx clear without exudates NECK: Trachea midline, full range of motion, supple. LUNGS: rhonchi anteriorly, congested HEART: Regular rate and rhythm ABDOMEN: mildly distended, peg tube, tolerating feeds, + bowel sounds EXTREMITIES: right upper arm edema, measures 10cm x 6cm with reddened surrounding skin/induration NEUROLOGICAL: hx of MR Laboratory Results - last 24 hr 03/04/19 03/04/19 03/05/19 13:40 13:40 01:10 WBC 3.4 L RBC 3.43 L Hgb 9.6 L Hct 30.1 L MCV 87.8 MCH 28.1 MCHC 32.0 RDW 15.6 Plt Count 61 L MPV 10.5 Absolute Neuts (auto) 2.5 Total Counted 100 Neutrophils % 73.6 Neutrophils % (Manual) 66.0 Band Neutrophils % 7.0 Lymphocytes % 15.4 D Lymphocytes % (Manual) 17.0 D Monocytes % 7.6 Monocytes % (Manual) 5 Eosinophils % 3.0 D Eosinophils % (Manual) 1.0 Basophils % 0.4 D Basophils % (Manual) Myelocytes % (Man) Promyelocytes % (Man) Blast Cells % (Manual) Nucleated RBC % 0 Metamyelocytes Hypochromia Platelet Estimate Decreased Polychromasia Poikilocytosis Anisocytosis Microcytosis Macrocytosis Sodium 146 H Potassium 4.3 Chloride 114 H Carbon Dioxide 28 Anion Gap 4 L BUN 13.0 Creatinine 0.3 L Est GFR (CKD-EPI)AfAm 158.03 Est GFR (CKD-EPI)NonAf 136.35 Random Glucose 159 H Lactic Acid 0.7 Calcium 8.6 Magnesium 2.4 Total Bilirubin 0.3 AST 67 H ALT 57 Alkaline Phosphatase 182 H Total Protein 4.8 L Albumin 1.8 L TSH 03/05/19 03/05/19 03/05/19 01:50 01:50 05:15 WBC 3.2 L 2.8 L RBC 3.33 L 3.15 L Hgb 9.3 L 9.0 L Hct 29.3 L 27.3 L MCV 88.0 86.8 MCH 28.0 28.6 MCHC 31.8 L 32.9 RDW 16.5 H 16.1 H Plt Count 61 L 62 L MPV 10.1 10.2 Absolute Neuts (auto) 2.2 2.0 Total Counted Neutrophils % 68.6 69.5 Neutrophils % (Manual) 77.2 Band Neutrophils % 1.0 Lymphocytes % 18.6 D 17.4 Lymphocytes % (Manual) 9.9 D Monocytes % 8.6 9.3 Monocytes % (Manual) 0 L D Eosinophils % 3.9 3.4 Eosinophils % (Manual) 4.9 H D Basophils % 0.3 0.4 Basophils % (Manual) 1.0 D Myelocytes % (Man) 0 D Promyelocytes % (Man) 0 Blast Cells % (Manual) 0 Nucleated RBC % 1 H 0 Metamyelocytes 5 H D Hypochromia 1+ Platelet Estimate Decreased Polychromasia 0 Poikilocytosis 0 Anisocytosis 1+ Microcytosis 1+ Macrocytosis 0 Sodium Potassium Chloride Carbon Dioxide Anion Gap BUN Creatinine Est GFR (CKD-EPI)AfAm Est GFR (CKD-EPI)NonAf Random Glucose Lactic Acid Calcium Magnesium Total Bilirubin AST ALT Alkaline Phosphatase Total Protein Albumin TSH 5.42 H 03/05/19 05:15 WBC RBC Hgb Hct MCV MCH MCHC RDW Plt Count MPV Absolute Neuts (auto) Total Counted Neutrophils % Neutrophils % (Manual) Band Neutrophils % Lymphocytes % Lymphocytes % (Manual) Monocytes % Monocytes % (Manual) Eosinophils % Eosinophils % (Manual) Basophils % Basophils % (Manual) Myelocytes % (Man) Promyelocytes % (Man) Blast Cells % (Manual) Nucleated RBC % Metamyelocytes Hypochromia Platelet Estimate Polychromasia Poikilocytosis Anisocytosis Microcytosis Macrocytosis Sodium 146 H Potassium 4.5 Chloride 115 H Carbon Dioxide 26 Anion Gap 5 L BUN 13.7 Creatinine 0.3 L Est GFR (CKD-EPI)AfAm 158.03 Est GFR (CKD-EPI)NonAf 136.35 Random Glucose 108 H Lactic Acid Calcium 8.3 L Magnesium 2.1 Total Bilirubin 0.3 AST 63 H ALT 61 Alkaline Phosphatase 168 H Total Protein 4.5 L Albumin 1.8 L TSH Active Medications Generic Name Dose Route Start Last Admin Trade Name Freq PRN Reason Stop Dose Admin Albuterol/Ipratropium 1 amp 03/02/19 16:57 Duoneb - NEB Q6H PRN SHORTNESS OF BREATH Baclofen 20 mg 03/02/19 14:00 03/05/19 06:00 Lioresal - GT 20 mg TID [facility] Administration Chlorhexidine Gluconate 1 applic 03/05/19 22:00 Hibiclens For Decolonization - TP HS STEPH Diazepam 2 mg 03/02/19 14:00 03/05/19 06:00 Valium - GT 2 mg TID STE[facility] Administration Famotidine 20 mg 03/03/19 10:00 03/04/19 09:23 Pepcid - PEG 20 mg DAILY [facility] Administration Heparin Sodium (Porcine) 5,000 unit 03/02/19 14:00 03/05/19 06:00 Heparin - SQ 5,000 unit TID STE[facility] Administration Piperacillin Sod/Tazobactam 50 mls @ 100 mls/hr 03/02/19 18:00 03/05/19 02:43 Sod 3.375 gm/ Dextrose IVPB 100 mls/hr Q8H-IV [facility] Administration Protocol Dextrose/Sodium Chloride 1,000 mls @ 100 mls/hr 03/03/19 08:18 03/04/19 09:23 D5-Ns - IV 100 mls/hr ASDIR [facility] Administration Vancomycin HCl 1,000 mg in 250 mls @ 166.667 mls/hr 03/04/19 05:00 03/05/19 05:54 Vancomycin (Pre-Docked) IVPB 166.667 mls/hr Q12H [facility] Administration Protocol Levetiracetam 100 mg 03/02/19 22:00 03/04/19 23:17 Keppra Injection - IVPB 100 mg BID [facility] Administration Magnesium Hydroxide 15 ml 03/03/19 10:00 03/04/19 09:22 Milk Of Magnesia - GT 15 ml DAILY [facility] Administration Mupirocin 1 applic 03/05/19 10:00 Bactroban Ointment (For Decolonization) - NS 03/10/19 09:59 BID [facility] ASSESSMENT/PLAN: Problem List - Problems (1) Community acquired pneumonia Assessment/Plan: s/p zosyn and vanco discontinued per id monitor off antibiotics maintain oxygen above 92% pulmonary following Code(s): J18.9 - PNEUMONIA, UNSPECIFIED ORGANISM (2) Pancytopenia Assessment/Plan: monitor wbc, platelets 62 likely in the setting of acute infection heme consult if does not resolve Code(s): D61.818 - OTHER PANCYTOPENIA (3) Wound of right upper extremity Assessment/Plan: large right upper arm wound noted this a.m. on exam measures 10cm x 6cm with reddened surrounding skin, also with localized hardening of surrounding soft tissue. possibly due to vancomycin extravascation , will order cold compresses BID x 24 hours, will order gauze open dressings with silver sulfadiazine 1% until wound heals noted to be above IV site will doppler to rule out dvt seen by surgery Code(s): S41.101A - UNSPECIFIED OPEN WOUND OF RIGHT UPPER ARM, INITIAL ENCOUNTER (4) G tube feedings Assessment/Plan: continue jevity feeds Code(s): Z93.1 - GASTROSTOMY STATUS (5) Gram-positive bacteremia Assessment/Plan: + blood cultures, but repeat blood cultures negative vanco/zosyn discontinued by id monitor labs, fever curve Code(s): R78.81 - BACTEREMIA (6) EDDIE (obstructive sleep apnea) Code(s): G47.33 - OBSTRUCTIVE SLEEP APNEA (ADULT) (PEDIATRIC) (7) Pulmonary HTN Code(s): I27.20 - PULMONARY HYPERTENSION, UNSPECIFIED (8) AGRICULTURAL ENGINEER (ventriculoperitoneal) shunt status Code(s): Z98.2 - PRESENCE OF CEREBROSPINAL FLUID DRAINAGE DEVICE (9) Acute hypoxemic respiratory failure Assessment/Plan: on supplemental oxygen SPO2 99 on NC 3L c/w duo nebs NIPPV as needed Code(s): J96.01 - ACUTE RESPIRATORY FAILURE WITH HYPOXIA (10) Congenital quadriplegia Code(s): G80.8 - OTHER CEREBRAL PALSY (11) Profound intellectual disability Code(s): F73 - PROFOUND INTELLECTUAL DISABILITIES (12) Seizure Assessment/Plan: continue home medications keppra 500bid, valium, baclophen Code(s): R56.9 - UNSPECIFIED CONVULSIONS (13) Sepsis Code(s): A41.9 - SEPSIS, UNSPECIFIED ORGANISM (14) DVT prophylaxis Assessment/Plan: on heparin tid Code(s): Z29.9 - ENCOUNTER FOR PROPHYLACTIC MEASURES, UNSPECIFIED (15) Prophylactic measure Assessment/Plan: fen on jevity 1.5 electrolytes wnl, monitor daily full code Code(s): Z29.9 - ENCOUNTER FOR PROPHYLACTIC MEASURES, UNSPECIFIED Visit type - Emergency Visit Emergency Visit: Yes ED Registration Date: 03/02/19 Care time: The patient presented to the Emergency Department on the above date and was hospitalized for further evaluation of their emergent condition. - New Patient This patient is new to me today: Yes Date on this admission: 03/05/19 - Critical Care Critical Care patient: No - Discharge Referral Referred to [facility] No
[2019-03-05] MEDS: DEXTROSE 5%-NORMAL SALINE 1,000 ML IV SCH (09:51)
[2019-03-05] MEDS ORDERED: MUPIROCIN 2% TOPICAL OINTMENT FOR DECOLONIZATION NS SCH (10:00)
[2019-03-05] MEDS: MAGNESIUM HYDROX 2400MG/30ML ORAL SUSPENSION 30 ML CUP GT SCH (11:03)
[2019-03-05] MEDS: FAMOTIDINE 20 MG TABLET PEG SCH (11:04)
[2019-03-05] MEDS: levETIRAcetam 500 MG/5 ML INJECTION VIAL IVPB SCH ×2 (11:04→22:10)
[2019-03-05 11:27] LABS: ANISOCYTOSIS 0; MACROCYTOSIS 0; PLATELET ESTIMATE DECREASED
[2019-03-05] MEDS: SILVER SULFADIAZINE 1% TOP CREAM 50 GM JAR TP SCH ×2 (11:42→22:11)
--- NOTE | 2019-03-05 13:03 | PN ---
Progress Note, Physician - Current Medication List Current Medications: Active Medications Albuterol/Ipratropium (Duoneb -) 1 amp NEB Q6H PRN PRN Reason: SHORTNESS OF BREATH Amino Acids (Prosource No Carb Liquid Pkt) 30 ml GT BID@0800,1730 [facility] Baclofen (Lioresal -) 20 mg GT TID [facility] Last Admin: 03/05/19 06:00 Dose: 20 mg Diazepam (Valium -) 2 mg GT TID [facility] Last Admin: 03/05/19 06:00 Dose: 2 mg Famotidine (Pepcid -) 20 mg PEG DAILY [facility] Last Admin: 03/05/19 11:04 Dose: 20 mg Heparin Sodium (Porcine) (Heparin -) 5,000 unit SQ TID [facility] Last Admin: 03/05/19 06:00 Dose: 5,000 unit Piperacillin Sod/Tazobactam (Sod 3.375 gm/ Dextrose) 50 mls @ 100 mls/hr IVPB Q8H-IV [facility]; Protocol Last Admin: 03/05/19 11:03 Dose: 100 mls/hr Dextrose/Sodium Chloride (D5-Ns -) 1,000 mls @ 100 mls/hr IV ASDIR [facility] Last Admin: 03/05/19 09:51 Dose: Not Given Vancomycin HCl (Vancomycin (Pre-Docked)) 1,000 mg in 250 mls @ 166.667 mls/hr IVPB Q12H [facility]; Protocol Last Admin: 03/05/19 05:54 Dose: 166.667 mls/hr Levetiracetam (Keppra Injection -) 100 mg IVPB BID [facility] Last Admin: 03/05/19 11:04 Dose: 100 mg Magnesium Hydroxide (Milk Of Magnesia -) 15 ml GT DAILY [facility] Last Admin: 03/05/19 11:03 Dose: 15 ml Silver Sulfadiazine (Silvadene -) 1 applic TP BID [facility] Last Admin: 03/05/19 11:42 Dose: 1 applic - Objective Vital Signs: Vital Signs Temperature 97.6 F 03/05/19 09:00 Pulse Rate 76 03/05/19 09:00 Respiratory Rate 18 03/05/19 09:00 Blood Pressure 105/79 03/05/19 09:00 O2 Sat by Pulse Oximetry (%) 98 03/05/19 09:00 Labs: CBC, BMP 03/05/19 05:15 03/05/19 05:15 INR, PTT INR 1.01 (0.83-1.09) 03/02/19 08:21
--- NOTE | 2019-03-05 15:23 | CON.PULM ---
Consult Consult Specialty:: PULM/CCM Referred by:: Hospitalist Reason for Consultation:: SOB - History of Present Illness Chief Complaint: SOB History of Present Illness: 48 F, cerebral palsy, seizures, hydrocephalus s/p STRAW BOSS shunt, severe developmental delay, functional quadriplegia, pulmonary HTN, and possible sleep apnea. On a previous admission she was evaluated by ENT. Findings of laryngoscopy: possible OSAS, reduced vocal cord abduction, arythenoids vibrate on inspiration. Patient is not able to provide any information. 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 No: Asthma, Cancer, COPD, O2 Dependent , Pulmonary Embolus, Pulmonary Fibrosis Gastrointestinal: Yes: Other (GT) Musculoskeletal: Yes: Other (functional quadriplegia, scoliosis s/p plates) - Alcohol/Substance Use Hx Alcohol Use: No - Smoking History Smoking history: Never smoked Have you smoked in the past 12 months: No - Social History Usual Living Arrangement: Assisted Living ADL: Support Services History of Recent Travel: No Home Medications - Allergies Allergies/Adverse Reactions: Allergies Allergy/AdvReac Type Severity Reaction Status Date / Time Quinolones Allergy Mild Verified 03/02/19 05:12 - Home Medications Home Medications: Ambulatory Orders Baclofen 20 mg PO TID 03/02/19 Diazepam 2 mg PO TID 03/02/19 Famotidine 20 mg PO DAILY 03/02/19 Magnesium Hydroxide [Milk of Magnesia] 15 ml GT DAILY 03/02/19 levETIRAcetam [Levetiracetam] 100 mg GT BID 03/02/19 Review of Systems Unable to obtain ROS, reason: not able to provide Physical Exam Vital Sings: Vital Signs Temperature 97.6 F 03/05/19 09:00 Pulse Rate 76 03/05/19 09:00 Respiratory Rate 18 03/05/19 09:00 Blood Pressure 105/79 03/05/19 09:00 O2 Sat by Pulse Oximetry (%) 98 03/05/19 09:00 Constitutional: Yes: No Distress Eyes: Yes: Conjunctiva Clear, EOM Intact HENT: No: Drooling, Epistaxis, Thrush Neck: Yes: Supple, Trachea Midline Cardiovascular: Yes: Regular Rate and Rhythm Respiratory: Yes: Cough, Diminished, On Nasal O2, Rhonchi, Tachypnea. No: Accessory Muscle Use, Rales, SOB, SOB on Exertion, Stridor, Wheezes ...Clubbing: No Gastrointestinal: Yes: Normal Bowel Sounds, Soft Musculoskeletal: Yes: Joint Stiffness Extremities: Yes: Shortened Edema: No Peripheral Pulses WNL: Yes Integumentary: Yes: WNL Neurological: Yes: Confusion Labs: CBC, BMP 03/05/19 05:15 03/05/19 05:15 Imaging - Results Chest X-ray: Report Reviewed, Image Reviewed Problem List - Problems (1) DVT prophylaxis Code(s): Z29.9 - ENCOUNTER FOR PROPHYLACTIC MEASURES, UNSPECIFIED (2) Fever Code(s): R50.9 - FEVER, UNSPECIFIED Qualifiers: Fever type: unspecified Qualified Code(s): R50.9 - Fever, unspecified (3) G tube feedings Code(s): Z93.1 - GASTROSTOMY STATUS (4) EDDIE (obstructive sleep apnea) Code(s): G47.33 - OBSTRUCTIVE SLEEP APNEA (ADULT) (PEDIATRIC) (5) Pulmonary HTN Code(s): I27.20 - PULMONARY HYPERTENSION, UNSPECIFIED (6) STRAW BOSS (ventriculoperitoneal) shunt status Code(s): Z98.2 - PRESENCE OF CEREBROSPINAL FLUID DRAINAGE DEVICE (7) Community acquired pneumonia Code(s): J18.9 - PNEUMONIA, UNSPECIFIED ORGANISM (8) Cough Code(s): R05 - COUGH (9) GERD (gastroesophageal reflux disease) Code(s): K21.9 - GASTRO-ESOPHAGEAL REFLUX DISEASE WITHOUT ESOPHAGITIS (10) Congenital quadriplegia Code(s): G80.8 - OTHER CEREBRAL PALSY (11) Profound intellectual disability Code(s): F73 - PROFOUND INTELLECTUAL DISABILITIES (12) Seizure Code(s): R56.9 - UNSPECIFIED CONVULSIONS (13) Acute hypoxemic respiratory failure Code(s): J96.01 - ACUTE RESPIRATORY FAILURE WITH HYPOXIA Assessment/Plan Nasal cannula O2 as needed to maintain saturation ABX per ID Aspiration precautions Does not appear that the patient had formal sleep testing. Needs to be arranged after discharge. At present she appears clinically improved. If WOB increases or nocturnal symptoms, can empirically place on CPAP, starting at 8 cm H2O. Follow cultures VTE prophylaxis BD TX PRN No clear indication for systemic steroids Will follow Thank you. Dr Nowak
[2019-03-05] MEDS: AMINO ACIDS/PROTEIN HYDROLYS 30 ML LIQUID.PKT GT SCH (17:20)
[2019-03-05] MEDS ORDERED: CHLORHEXIDINE GLUCONATE 4% CLEANSER FOR DECOLONIZATION TP SCH (22:00)
--- NOTE | 2019-03-05 22:57 | CONSULT ---
- Consultation REQUESTING PROVIDER: EDMAR Macedo CONSULT REQUEST: We have been asked to surgically evaluate this patient for pain and swelling RUE at site of recent IV access PCP:Mena Macedo NP HISTORY OF PRESENT ILLNESS: CTSP who is a 48 y/o female w/CP who had an IV in the RUE through which IVAB's were infusing; she was noted to have STS at the site and skin changes and we were consulted. Patient is non communicative. Patient is being txed for pneumonia. PMHx: see H and P PSHx: G-tube Home Medications Medication Instructions Recorded Baclofen 20 mg PO TID 03/02/19 Diazepam 2 mg PO TID 03/02/19 Famotidine 20 mg PO DAILY 03/02/19 Magnesium Hydroxide [Milk of 15 ml GT DAILY 03/02/19 Magnesia] levETIRAcetam [Levetiracetam] 100 mg GT BID 03/02/19 Allergies Allergy/AdvReac Type Severity Reaction Status Date / Time Quinolones Allergy Mild Verified 03/02/19 05:12 REVIEW OF SYSTEMS: patient cannot answer PHYSICAL EXAM: GENERAL: Awake, alert, and not fully oriented, in no acute distress. HEAD: Normal with no signs of trauma. EYES: PERRL, sclera anicteric, conjunctiva clear. NECK: Normal ROM, supple without lymphadenopathy, JVD, or masses. ABDOMEN: Soft, nontender, not distended, normoactive bowel sounds, no guarding, no rebound, no masses. No organomegaly. G-tube in place. MUSCULOSKELETAL: Contracted UPPER EXTREMITIES: 2+ pulses, warm, well-perfused. No cyanosis. Cap refill <2 seconds. No peripheral edema. LOWER EXTREMITIES: 2+ pulses, warm, well-perfused. No calf tenderness. No peripheral edema. NEUROLOGICAL: gait not observed. SKIN: STS and edema of the RUE above the elbow w/bleeding IV insertion site and skin changes proximally; n/v appears to be intact in the RUE; ? ttp ?; no fluctuance. Vital Signs Temperature 97.7 F 03/05/19 17:00 Pulse Rate 85 03/05/19 17:00 Respiratory Rate 20 03/05/19 17:00 Blood Pressure 103/73 03/05/19 17:00 O2 Sat by Pulse Oximetry (%) 98 03/05/19 09:00 Lab Results WBC 2.8 K/mm3 (4.0-10.0) L 03/05/19 05:15 RBC 3.15 M/mm3 (3.60-5.2) L 03/05/19 05:15 Hgb 9.0 GM/dL (10.7-15.3) L 03/05/19 05:15 Hct 27.3 % (32.4-45.2) L 03/05/19 05:15 MCV 86.8 fl (80-96) 03/05/19 05:15 MCHC 32.9 g/dl (32.0-36.0) 03/05/19 05:15 RDW 16.1 % (11.6-15.6) H 03/05/19 05:15 Plt Count 62 K/MM3 (134-434) L 03/05/19 05:15 Sodium 146 mmol/L (136-145) H 03/05/19 05:15 Potassium 4.5 mmol/L (3.5-5.1) 03/05/19 05:15 Chloride 115 mmol/L (98-107) H 03/05/19 05:15 Carbon Dioxide 26 mmol/L (21-32) 03/05/19 05:15 Anion Gap 5 MMOL/L (8-16) L 03/05/19 05:15 BUN 13.7 mg/dL (7-18) 03/05/19 05:15 Creatinine 0.3 mg/dL (0.55-1.3) L 03/05/19 05:15 Random Glucose 108 mg/dL (74-106) H 03/05/19 05:15 Calcium 8.3 mg/dL (8.5-10.1) L 03/05/19 05:15 INR 1.01 (0.83-1.09) 03/02/19 08:21 IMP: Extravasation of IVAB's in RUE; r/o septic thrombophlebitis PLAN: Suggest elevation RUE; warm compresses; watch overlying skin for demarcation and/or slough; get vascular study to r/o septic thrombophlebitis; will f/u; no indication for surgical intervention at this time. Benjamin Jacobs MD FACS.
[2019-03-06] MEDS: BACLOFEN 10 MG TABLET (FP) GT SCH ×3 (06:21→21:48)
[2019-03-06] MEDS: diazePAM 2 MG TABLET GT SCH ×3 (06:21→21:48)
[2019-03-06] MEDS: HEPARIN NA (PORCINE) 5,000 UNITS/ML 1ML VIAL SQ SCH ×3 (06:22→21:46)
[2019-03-06 07:13] LABS: BASO % 0.3 % (0-2.0); EOS % 2.6 % (0-4.5); HEMATOCRIT 26.1 % (32.4-45.2); HEMOGLOBIN 8.5 GM/dL (10.7-15.3); LYMPH % 19.7 % (8-40); MCH 28.3 pg (25.7-33.7); MCHC 32.6 g/dl (32.0-36.0); MEAN CELL VOLUME 86.8 fl (80-96); MEAN PLT VOLUME 9.4 fl (7.5-11.1); MONO % 9.5 % (3.8-10.2); NEUT % 67.9 % (42.8-82.8); PLATELET COUNT 98 K/MM3 (134-434); RBC 3.01 M/mm3 (3.60-5.2); RDW 16.4 % (11.6-15.6); WHITE BLOOD COUNT 3.4 K/mm3 (4.0-10.0)
[2019-03-06 07:52] LABS: ALBUMIN 1.9 g/dl (3.4-5.0); BILIRUBIN,TOTAL 0.2 mg/dL (0.2-1); BLOOD UREA NITROGEN 18.1 mg/dL (7-18); CALCIUM 8.2 mg/dL (8.5-10.1); CREATININE 0.4 mg/dL (0.55-1.3); MAGNESIUM 2.1 mg/dL (1.8-2.4); TOT PROT 4.5 g/dl (6.4-8.2)
[2019-03-06] MEDS: AMINO ACIDS/PROTEIN HYDROLYS 30 ML LIQUID.PKT GT SCH (11:21)
[2019-03-06] MEDS: DEXTROSE 5%-NORMAL SALINE 1,000 ML IV SCH (11:21)
[2019-03-06] MEDS: levETIRAcetam 500 MG/5 ML INJECTION VIAL IVPB SCH ×2 (11:22→21:46)
[2019-03-06] MEDS: MAGNESIUM HYDROX 2400MG/30ML ORAL SUSPENSION 30 ML CUP GT SCH (11:22)
--- NOTE | 2019-03-06 11:22 | PN ---
Physical Exam: SUBJECTIVE: Patient seen and examined at the bedside. awake, alert, smiling, appears to be at her baseline. OBJECTIVE: large right upper arm wound noted yesterday measures 10cm x 6cm with reddened surrounding skin, also with localized hardening of surrounding soft tissue. possibly due to vancomycin extravascation. wound being treated with cold compresses and silvadine 1% bid. Discussed with [facility] (patient's primary provider-Karissa Dias CUSTOMER CONTACT REPRESENTATIVE [phone]). Provider asking for a wound care referral on discharge. patient also to be off oxygen for 24 hours with stable oxygen levels before discharging. negative for DVT Patient is a 48 year old female with a significant past medical history of cerebral palsy, seizures, hydrocephalus s/p SOUP MIXER shunt, severe developmental delay , functional quadriplegia, pulmonary HTN, possible sleep apnea who presented from [place] on 03/02/19 due to fever, increased secretions, and wheezing. Per records, the wheezing has been previously evaluated by ENT and was diagnosed as EDDIE. Patient is currently off all antibiotics and being closely monitored. Vital Signs Period Temp Pulse Resp BP Sys/Perez Pulse Ox Last 24 Hr 97 F-97.8 F 70-87 20-20 102-127/60-73 98 GENERAL: The patient is awake, alert, hx of MR, at baseline HEAD: Normal with no signs of trauma. EYES: PERRL, extraocular movements intact, sclera anicteric, conjunctiva clear. No ptosis. ENT: Ears normal, nares patent, oropharynx clear without exudates NECK: Trachea midline, full range of motion, supple. LUNGS: rhonchi anteriorly, improving, on 2 liters of nasal cannula, not home oxygen dependent @ custodial. HEART: Regular rate and rhythm ABDOMEN: mildly distended, peg tube, tolerating feeds, + bowel sounds EXTREMITIES: right upper arm edema, measures 10cm x 6cm with reddened surrounding skin/induration wound now appears purple in color. NEUROLOGICAL: hx of MR Laboratory Results - last 24 hr 03/05/19 03/05/19 03/05/19 01:50 05:15 05:15 WBC RBC Hgb Hct MCV MCH MCHC RDW Plt Count MPV Absolute Neuts (auto) Neutrophils % Neutrophils % (Manual) 72.0 Band Neutrophils % 3.2 Lymphocytes % Lymphocytes % (Manual) 9.7 Monocytes % Monocytes % (Manual) 9 D Eosinophils % Eosinophils % (Manual) 2.2 Basophils % Basophils % (Manual) 0.0 Myelocytes % (Man) 1 D Promyelocytes % (Man) 0 Blast Cells % (Manual) 0 Nucleated RBC % Metamyelocytes 0 D Hypochromia 0 Platelet Estimate Decreased Polychromasia 0 Poikilocytosis 0 Anisocytosis 0 Microcytosis 0 Macrocytosis 0 Sodium Potassium Chloride Carbon Dioxide Anion Gap BUN Creatinine Est GFR (CKD-EPI)AfAm Est GFR (CKD-EPI)NonAf Random Glucose Calcium Magnesium Total Bilirubin AST ALT Alkaline Phosphatase Total Protein Albumin Free T4 1.16 Free T3 3.9 03/06/19 03/06/19 05:20 05:20 WBC 3.4 L RBC 3.01 L Hgb 8.5 L Hct 26.1 L MCV 86.8 MCH 28.3 MCHC 32.6 RDW 16.4 H Plt Count 98 L D MPV 9.4 Absolute Neuts (auto) 2.3 Neutrophils % 67.9 Neutrophils % (Manual) Band Neutrophils % Lymphocytes % 19.7 Lymphocytes % (Manual) Monocytes % 9.5 Monocytes % (Manual) Eosinophils % 2.6 Eosinophils % (Manual) Basophils % 0.3 Basophils % (Manual) Myelocytes % (Man) Promyelocytes % (Man) Blast Cells % (Manual) Nucleated RBC % 0 Metamyelocytes Hypochromia Platelet Estimate Polychromasia Poikilocytosis Anisocytosis Microcytosis Macrocytosis Sodium 146 H Potassium 4.0 Chloride 113 H Carbon Dioxide 32 Anion Gap 1 L BUN 18.1 H Creatinine 0.4 L Est GFR (CKD-EPI)AfAm 143.76 Est GFR (CKD-EPI)NonAf 124.03 Random Glucose 102 Calcium 8.2 L Magnesium 2.1 Total Bilirubin 0.2 AST 41 H ALT 54 Alkaline Phosphatase 169 H Total Protein 4.5 L Albumin 1.9 L Free T4 Free T3 Active Medications Generic Name Dose Route Start Last Admin Trade Name Freq PRN Reason Stop Dose Admin Albuterol/Ipratropium 1 amp 03/02/19 16:57 Duoneb - NEB Q6H PRN SHORTNESS OF BREATH Amino Acids 30 ml 03/05/19 17:30 03/05/19 17:20 Prosource No Carb Liquid Pkt GT 30 ml BID@0800,1730 STEPH Administration Baclofen 20 mg 03/02/19 14:00 03/06/19 06:21 Lioresal - GT 20 mg TID STEPH Administration Diazepam 2 mg 03/02/19 14:00 03/06/19 06:21 Valium - GT 2 mg TID STEPH Administration Famotidine 20 mg 03/03/19 10:00 03/05/19 11:04 Pepcid - PEG 20 mg DAILY STEPH Administration Heparin Sodium (Porcine) 5,000 unit 03/02/19 14:00 03/06/19 06:22 Heparin - SQ 5,000 unit TID STEPH Administration Dextrose/Sodium Chloride 1,000 mls @ 100 mls/hr 03/03/19 08:18 03/05/19 09:51 D5-Ns - IV Not Given ASDIR STEPH Levetiracetam 500 mg 03/05/19 22:00 03/05/19 22:10 Keppra Injection - IVPB 500 mg BID STEPH Administration Magnesium Hydroxide 15 ml 03/03/19 10:00 03/05/19 11:03 Milk Of Magnesia - GT 15 ml DAILY STEPH Administration Silver Sulfadiazine 1 applic 03/05/19 10:00 03/05/19 22:11 Silvadene - TP 1 applic BID STEPH Administration ASSESSMENT/PLAN: Problem List - Problems (1) Community acquired pneumonia Assessment/Plan: s/p zosyn and vanco discontinued per id monitor off antibiotics maintain oxygen above 92%, wean off oxygen and monitor pulmonary following Code(s): J18.9 - PNEUMONIA, UNSPECIFIED ORGANISM (2) Pancytopenia Assessment/Plan: monitor wbc, platelets 98 likely in the setting of acute infection, but improving, will repeat cbc in a.m. Code(s): D61.818 - OTHER PANCYTOPENIA (3) Wound of right upper extremity Assessment/Plan: large right upper arm wound noted yesterday measures 10cm x 6cm with reddened surrounding skin, also with localized hardening of surrounding soft tissue. possibly due to vancomycin extravascation , will order cold compresses BID x 24 hours, will order gauze open dressings with silver sulfadiazine 1% until wound heals negative for dvt, will need wound care referral as an outpatient seen by surgery, notes reviewed Code(s): S41.101A - UNSPECIFIED OPEN WOUND OF RIGHT UPPER ARM, INITIAL ENCOUNTER (4) G tube feedings Assessment/Plan: continue jevity feeds Code(s): Z93.1 - GASTROSTOMY STATUS (5) Gram-positive bacteremia Assessment/Plan: + blood cultures, but repeat blood cultures negative vanco/zosyn discontinued by id monitor labs, fever curve Code(s): R78.81 - BACTEREMIA (6) EDDIE (obstructive sleep apnea) Code(s): G47.33 - OBSTRUCTIVE SLEEP APNEA (ADULT) (PEDIATRIC) (7) Pulmonary HTN Code(s): I27.20 - PULMONARY HYPERTENSION, UNSPECIFIED (8) SOUP MIXER (ventriculoperitoneal) shunt status Code(s): Z98.2 - PRESENCE OF CEREBROSPINAL FLUID DRAINAGE DEVICE (9) Acute hypoxemic respiratory failure Assessment/Plan: on supplemental oxygen SPO2 99 on NC 2L c/w duo nebs NIPPV as needed Code(s): J96.01 - ACUTE RESPIRATORY FAILURE WITH HYPOXIA (10) Congenital quadriplegia Code(s): G80.8 - OTHER CEREBRAL PALSY (11) Profound intellectual disability Code(s): F73 - PROFOUND INTELLECTUAL DISABILITIES (12) Seizure Assessment/Plan: continue home medications keppra 500bid, valium, baclophen Code(s): R56.9 - UNSPECIFIED CONVULSIONS (13) Sepsis Code(s): A41.9 - SEPSIS, UNSPECIFIED ORGANISM (14) DVT prophylaxis Assessment/Plan: on heparin tid Code(s): Z29.9 - ENCOUNTER FOR PROPHYLACTIC MEASURES, UNSPECIFIED (15) Prophylactic measure Assessment/Plan: fen on jevity 1.5 electrolytes wnl, monitor daily full code Code(s): Z29.9 - ENCOUNTER FOR PROPHYLACTIC MEASURES, UNSPECIFIED Visit type - Emergency Visit Emergency Visit: Yes ED Registration Date: 03/02/19 Care time: The patient presented to the Emergency Department on the above date and was hospitalized for further evaluation of their emergent condition. - New Patient This patient is new to me today: No - Critical Care Critical Care patient: No - Discharge Referral Referred to [facility] Med P.C.: No
[2019-03-06] MEDS: SILVER SULFADIAZINE 1% TOP CREAM 50 GM JAR TP SCH ×2 (11:23→21:52)
[2019-03-06] MEDS: FAMOTIDINE 20 MG TABLET PEG SCH (11:23)
[2019-03-06 13:04] LABS: PLATELET ESTIMATE DECREASED
--- NOTE | 2019-03-06 13:09 | PN ---
Progress Note, Physician History of Present Illness: stable no new issues - Current Medication List Current Medications: Active Medications Albuterol/Ipratropium (Duoneb -) 1 amp NEB Q6H PRN PRN Reason: SHORTNESS OF BREATH Amino Acids (Prosource No Carb Liquid Pkt) 30 ml GT BID@0800,1730 [facility] Last Admin: 03/06/19 11:21 Dose: 30 ml Baclofen (Lioresal -) 20 mg GT TID [facility] Last Admin: 03/06/19 06:21 Dose: 20 mg Diazepam (Valium -) 2 mg GT TID [facility] Last Admin: 03/06/19 06:21 Dose: 2 mg Famotidine (Pepcid -) 20 mg PEG DAILY [facility] Last Admin: 03/06/19 11:23 Dose: 20 mg Heparin Sodium (Porcine) (Heparin -) 5,000 unit SQ TID [facility] Last Admin: 03/06/19 06:22 Dose: 5,000 unit Dextrose/Sodium Chloride (D5-Ns -) 1,000 mls @ 100 mls/hr IV ASDIR [facility] Last Admin: 03/06/19 11:21 Dose: 100 mls/hr Levetiracetam (Keppra Injection -) 500 mg IVPB BID [facility] Last Admin: 03/06/19 11:22 Dose: 500 mg Magnesium Hydroxide (Milk Of Magnesia -) 15 ml GT DAILY [facility] Last Admin: 03/06/19 11:22 Dose: 15 ml Silver Sulfadiazine (Silvadene -) 1 applic TP BID [facility] Last Admin: 03/06/19 11:23 Dose: 1 applic - Objective Vital Signs: Vital Signs Temperature 97.6 F 03/06/19 05:00 Pulse Rate 76 03/06/19 05:00 Respiratory Rate 20 03/06/19 05:00 Blood Pressure 102/60 03/06/19 05:00 O2 Sat by Pulse Oximetry (%) 98 03/05/19 21:00 Constitutional: Yes: No Distress, Calm Cardiovascular: Yes: S1, S2 Respiratory: Yes: Regular, CTA Bilaterally Gastrointestinal: Yes: Normal Bowel Sounds, Soft Musculoskeletal: Yes: WNL Extremities: Yes: Other (wound on the rt arm) Wound/Incision: Yes: Dressing Dry and Intact Neurological: Yes: Alert, Other Labs: CBC, BMP 03/06/19 05:20 03/06/19 05:20 INR, PTT INR 1.01 (0.83-1.09) 03/02/19 08:21 Assessment/Plan 48 y.o. female with PMH of Cerebral Palsy, developmental delay, functional quadriplegia, seizure d.o. hydrocephalus s/p HYDROLOGY PROFESSOR shunt placement, s/p GT, and pulm HTN was transferred from assisted living facility to the ER for respiratory distress/wheezing and fever Suspected PNA Sepsis Fever Leukocytosis Acute hypoxemic respiratory failure Cerebral palsy with developmental delay Functional quadriplegia 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 s/p HYDROLOGY PROFESSOR shunt placement Seizure d.o. ?EDDIE -plan continue local wound care nutrition rest as per the team
--- NOTE | 2019-03-06 14:36 | PN ---
Progress Note (short form) - Note Progress Note: PULMONARY Inspiratory grunting. No fevers recorded. Saturating well. Vital Signs Period Temp Pulse Resp BP Sys/Perez Pulse Ox Last 24 Hr 97 F-97.8 F 70-87 20-20 102-127/60-73 98 Gen: mildly tachypneic at rest Neck: inspiratory stridor Heart: RRR Lung: decreased breath sounds at the bases Abd: soft, nontender Ext: no edema CBC, BMP 03/06/19 05:20 03/06/19 05:20 Active Medications Albuterol/Ipratropium (Duoneb -) 1 amp NEB Q6H PRN PRN Reason: SHORTNESS OF BREATH Amino Acids (Prosource No Carb Liquid Pkt) 30 ml GT BID@0800,1730 [facility] Last Admin: 03/06/19 11:21 Dose: 30 ml Baclofen (Lioresal -) 20 mg GT TID [facility] Last Admin: 03/06/19 06:21 Dose: 20 mg Diazepam (Valium -) 2 mg GT TID [facility] Last Admin: 03/06/19 06:21 Dose: 2 mg Famotidine (Pepcid -) 20 mg PEG DAILY [facility] Last Admin: 03/06/19 11:23 Dose: 20 mg Heparin Sodium (Porcine) (Heparin -) 5,000 unit SQ TID [facility] Last Admin: 03/06/19 06:22 Dose: 5,000 unit Dextrose/Sodium Chloride (D5-Ns -) 1,000 mls @ 100 mls/hr IV ASDIR [facility] Last Admin: 03/06/19 11:21 Dose: 100 mls/hr Levetiracetam (Keppra Injection -) 500 mg IVPB BID [facility] Last Admin: 03/06/19 11:22 Dose: 500 mg Magnesium Hydroxide (Milk Of Magnesia -) 15 ml GT DAILY [facility] Last Admin: 03/06/19 11:22 Dose: 15 ml Silver Sulfadiazine (Silvadene -) 1 applic TP BID [facility] Last Admin: 03/06/19 11:23 Dose: 1 applic A/P Acute Hypoxic Respiratory Failure Pneumonia Sepsis Pancytopenia RUE Ulcer Cerebral Palsy Mental Retardation Seizure Disorder Functional Quadriplegia - completed antibiotics - aspiration precautions - O2 to keep Spo2 >90% - inhaled bronchodilators - CPAP as needed - free water replacement - DVT prophylaxis
--- NOTE | 2019-03-06 23:12 | HOSP ---
Subjective - Review of Symptoms Events since last encounter: Hospitalist Encounter Microblogged by the RN that the patient has erythema and excoriation to her labia, noted by the COLLAR SETTER when PM care was performed. Was asked to assess. Arrived to bedside patient is alert, awake, non-verbal- at baseline. Assessed the patient's labia, +erythema and swelling noted to bilaterally, non-fluctuant , no induration, no warmth. Barrier ointment placed by RN. Assessment: 48yo woman with a PMH of cerebral palsy, seizures, hydrocephalus s/p PUMP TENDER shunt, severe developmental delay, functional quadriplegia, pulmonary HTN, possible sleep apnea who presented to the ED from [place] due to fever, increased secretions, and wheezing. Admitted for Sepsis, Pneumonia. Plan: Barrier Cream to affected area prn Continue with current regimen Genitourinary: Yes: Other (redness and swelling to labia) Physical Examination Vital Signs: Vital Signs Temperature 98.6 F 03/06/19 20:45 Pulse Rate 98 H 03/06/19 20:45 Respiratory Rate 03/06/19 20:45 Blood Pressure 140/60 03/06/19 20:45 O2 Sat by Pulse Oximetry (%) 96 03/06/19 20:45 Constitutional: Yes: No Distress, Calm, Other (non-verbal at baseline) Eyes: Yes: Conjunctiva Clear, PERRL HENT: Yes: WNL, Atraumatic, Normocephalic Neck: Yes: WNL, Supple, Trachea Midline Cardiovascular: Yes: Regular Rate and Rhythm, S1, S2 Respiratory: Yes: Diminished, Rhonchi Gastrointestinal: Yes: Normal Bowel Sounds, Soft Renal/: Yes: Incontinence, Other (erythema and swelling to labia) Neurological: Yes: Alert Psychiatric: Yes: Alert Labs: CBC, BMP 03/06/19 05:20 03/06/19 05:20 Laboratory Results - last 24 hr 03/05/19 03/06/19 03/06/19 01:50 05:20 05:20 WBC 3.4 L RBC 3.01 L Hgb 8.5 L Hct 26.1 L MCV 86.8 MCH 28.3 MCHC 32.6 RDW 16.4 H Plt Count 98 L D MPV 9.4 Absolute Neuts (auto) 2.3 Neutrophils % 67.9 Neutrophils % (Manual) 70.9 Band Neutrophils % 2.5 Lymphocytes % 19.7 Lymphocytes % (Manual) 18.3 D Monocytes % 9.5 Monocytes % (Manual) 3 L Eosinophils % 2.6 Eosinophils % (Manual) 2.5 Basophils % 0.3 Basophils % (Manual) 0.0 Myelocytes % (Man) 0 D Promyelocytes % (Man) 0 Blast Cells % (Manual) 0 Nucleated RBC % 0 Metamyelocytes 0 Platelet Estimate Decreased Sodium 146 H Potassium 4.0 Chloride 113 H Carbon Dioxide 32 Anion Gap 1 L BUN 18.1 H Creatinine 0.4 L Est GFR (CKD-EPI)AfAm 143.76 Est GFR (CKD-EPI)NonAf 124.03 Random Glucose 102 Calcium 8.2 L Magnesium 2.1 Total Bilirubin 0.2 AST 41 H ALT 54 Alkaline Phosphatase 169 H Total Protein 4.5 L Albumin 1.9 L Free T3 3.9 Intake & Output 03/03/19 03/04/19 03/05/19 03/06/19 23:59 23:59 23:59 23:59 Intake Total 2250 2400 2590 2830 Balance 2250 2400 2590 2830 Weight 42.638 kg Current Medications Generic Name Dose Route Start Last Admin Trade Name Freq PRN Reason Stop Dose Admin Albuterol/Ipratropium 1 amp 03/02/19 16:57 Duoneb - NEB Q6H PRN SHORTNESS OF BREATH Amino Acids 30 ml 03/07/19 10:00 Prosource No Carb Liquid Pkt GT DAILY STEPH Baclofen 20 mg 03/02/19 14:00 03/06/19 21:48 Lioresal - GT 20 mg TID STEPH Administration Diazepam 2 mg 03/02/19 14:00 03/06/19 21:48 Valium - GT 2 mg TID STEPH Administration Famotidine 20 mg 03/03/19 10:00 03/06/19 11:23 Pepcid - PEG 20 mg DAILY STEPH Administration Heparin Sodium (Porcine) 5,000 unit 03/02/19 14:00 03/06/19 21:46 Heparin - SQ 5,000 unit TID STEPH Administration Dextrose/Sodium Chloride 1,000 mls @ 100 mls/hr 03/03/19 08:18 03/06/19 11:21 D5-Ns - IV 100 mls/hr ASDIR STEPH Administration Levetiracetam 500 mg 03/05/19 22:00 03/06/19 21:46 Keppra Injection - IVPB 500 mg BID STEPH Administration Magnesium Hydroxide 15 ml 03/03/19 10:00 03/06/19 11:22 Milk Of Magnesia - GT 15 ml DAILY STEPH Administration Silver Sulfadiazine 1 applic 03/05/19 10:00 03/06/19 21:52 Silvadene - TP 1 applic BID STEPH Administration
[2019-03-07] MEDS: diazePAM 2 MG TABLET GT SCH ×3 (06:24→21:52)
[2019-03-07] MEDS: BACLOFEN 10 MG TABLET (FP) GT SCH ×3 (06:24→21:52)
[2019-03-07] MEDS: HEPARIN NA (PORCINE) 5,000 UNITS/ML 1ML VIAL SQ SCH ×3 (06:24→21:52)
[2019-03-07 07:34] LABS: BASO % 0.3 % (0-2.0); EOS % 2.3 % (0-4.5); HEMATOCRIT 26.4 % (32.4-45.2); HEMOGLOBIN 8.6 GM/dL (10.7-15.3); LYMPH % 14.8 % (8-40); MCH 28.1 pg (25.7-33.7); MCHC 32.5 g/dl (32.0-36.0); MEAN CELL VOLUME 86.6 fl (80-96); MEAN PLT VOLUME 9.2 fl (7.5-11.1); MONO % 11.1 % (3.8-10.2); NEUT % 71.5 % (42.8-82.8); PLATELET COUNT 117 K/MM3 (134-434); RBC 3.05 M/mm3 (3.60-5.2); RDW 16.3 % (11.6-15.6); WHITE BLOOD COUNT 4.3 K/mm3 (4.0-10.0)
[2019-03-07 08:18] LABS: ALBUMIN 1.9 g/dl (3.4-5.0); BILIRUBIN,TOTAL 0.2 mg/dL (0.2-1); BLOOD UREA NITROGEN 18.5 mg/dL (7-18); CALCIUM 8.5 mg/dL (8.5-10.1); CREATININE 0.3 mg/dL (0.55-1.3); POTASSIUM 4.1 mmol/L (3.5-5.1); TOT PROT 4.8 g/dl (6.4-8.2)
--- NOTE | 2019-03-07 11:35 | PN ---
Progress Note (short form) - Note Progress Note: Resting in NAD on RA. Afebrile. No acute events overnight. Intake & Output 03/04/19 03/05/19 03/06/19 03/07/19 23:59 23:59 23:59 23:59 Intake Total 2400 2590 2830 1440 Balance 2400 2590 2830 1440 Last Vital Signs Temp Pulse Resp BP Pulse Ox 98.6 F 99 H 20 141/74 96 03/07/19 05:00 03/07/19 05:00 03/07/19 05:00 03/07/19 05:00 03/06/19 20:45 Active Medications Albuterol/Ipratropium (Duoneb -) 1 amp NEB Q6H PRN PRN Reason: SHORTNESS OF BREATH Amino Acids (Prosource No Carb Liquid Pkt) 30 ml GT DAILY [facility] Baclofen (Lioresal -) 20 mg GT TID [facility] Last Admin: 03/07/19 06:24 Dose: 20 mg Diazepam (Valium -) 2 mg GT TID [facility] Last Admin: 03/07/19 06:24 Dose: 2 mg Famotidine (Pepcid -) 20 mg PEG DAILY [facility] Last Admin: 03/06/19 11:23 Dose: 20 mg Heparin Sodium (Porcine) (Heparin -) 5,000 unit SQ TID [facility] Last Admin: 03/07/19 06:24 Dose: 5,000 unit Dextrose/Sodium Chloride (D5-Ns -) 1,000 mls @ 100 mls/hr IV ASDIR [facility] Last Admin: 03/06/19 11:21 Dose: 100 mls/hr Levetiracetam (Keppra Injection -) 500 mg IVPB BID [facility] Last Admin: 03/06/19 21:46 Dose: 500 mg Magnesium Hydroxide (Milk Of Magnesia -) 15 ml GT DAILY [facility] Last Admin: 03/06/19 11:22 Dose: 15 ml Silver Sulfadiazine (Silvadene -) 1 applic TP BID [facility] Last Admin: 03/06/19 21:52 Dose: 1 applic Gen: NAD Neck: Coarse intermittent upper airway sounds Heart: RRR Lung: decreased breath sounds at the bases Abd: soft, nontender Ext: no edema Laboratory Results - last 24 hr 03/06/19 03/07/19 03/07/19 05:20 05:30 05:30 WBC 4.3 RBC 3.05 L Hgb 8.6 L Hct 26.4 L MCV 86.6 MCH 28.1 MCHC 32.5 RDW 16.3 H Plt Count 117 L MPV 9.2 Absolute Neuts (auto) 3.1 Neutrophils % 71.5 Neutrophils % (Manual) 70.9 Band Neutrophils % 2.5 Lymphocytes % 14.8 D Lymphocytes % (Manual) 18.3 D Monocytes % 11.1 H Monocytes % (Manual) 3 L Eosinophils % 2.3 Eosinophils % (Manual) 2.5 Basophils % 0.3 Basophils % (Manual) 0.0 Myelocytes % (Man) 0 D Promyelocytes % (Man) 0 Blast Cells % (Manual) 0 Nucleated RBC % 0 Metamyelocytes 0 Platelet Estimate Decreased Sodium 147 H Potassium 4.1 Chloride 113 H Carbon Dioxide 29 Anion Gap 5 L BUN 18.5 H Creatinine 0.3 L Est GFR (CKD-EPI)AfAm 158.03 Est GFR (CKD-EPI)NonAf 136.35 Random Glucose 101 Calcium 8.5 Magnesium 2.0 Total Bilirubin 0.2 AST 42 H ALT 47 Alkaline Phosphatase 176 H Total Protein 4.8 L Albumin 1.9 L A/P Acute Hypoxic Respiratory Failure Pneumonia Sepsis Pancytopenia RUE Ulcer Cerebral Palsy Mental Retardation Seizure Disorder Functional Quadriplegia - Suction PRN - completed antibiotics - aspiration precautions - O2 to keep Spo2 >90% - inhaled bronchodilators - CPAP as needed - free water replacement - DVT prophylaxis - DC planning Dr Nowak Problem List - Problems (1) DVT prophylaxis Code(s): Z29.9 - ENCOUNTER FOR PROPHYLACTIC MEASURES, UNSPECIFIED (2) Fever Code(s): R50.9 - FEVER, UNSPECIFIED Qualifiers: Fever type: unspecified Qualified Code(s): R50.9 - Fever, unspecified (3) G tube feedings Code(s): Z93.1 - GASTROSTOMY STATUS (4) EDDIE (obstructive sleep apnea) Code(s): G47.33 - OBSTRUCTIVE SLEEP APNEA (ADULT) (PEDIATRIC) (5) Pulmonary HTN Code(s): I27.20 - PULMONARY HYPERTENSION, UNSPECIFIED (6) MOVEMENT EDUCATION SPECIALIST (ventriculoperitoneal) shunt status Code(s): Z98.2 - PRESENCE OF CEREBROSPINAL FLUID DRAINAGE DEVICE (7) Community acquired pneumonia Code(s): J18.9 - PNEUMONIA, UNSPECIFIED ORGANISM (8) Cough Code(s): R05 - COUGH (9) GERD (gastroesophageal reflux disease) Code(s): K21.9 - GASTRO-ESOPHAGEAL REFLUX DISEASE WITHOUT ESOPHAGITIS (10) Congenital quadriplegia Code(s): G80.8 - OTHER CEREBRAL PALSY (11) Profound intellectual disability Code(s): F73 - PROFOUND INTELLECTUAL DISABILITIES (12) Seizure Code(s): R56.9 - UNSPECIFIED CONVULSIONS (13) Acute hypoxemic respiratory failure Code(s): J96.01 - ACUTE RESPIRATORY FAILURE WITH HYPOXIA
[2019-03-07] MEDS: DEXTROSE 5%-NORMAL SALINE 1,000 ML IV SCH (11:36)
[2019-03-07] MEDS: levETIRAcetam 500 MG/5 ML INJECTION VIAL IVPB SCH ×2 (11:37→21:52)
[2019-03-07] MEDS: MAGNESIUM HYDROX 2400MG/30ML ORAL SUSPENSION 30 ML CUP GT SCH (11:37)
[2019-03-07] MEDS: AMINO ACIDS/PROTEIN HYDROLYS 30 ML LIQUID.PKT GT SCH (11:37)
[2019-03-07] MEDS: FAMOTIDINE 20 MG TABLET PEG SCH (11:37)
--- NOTE | 2019-03-07 13:26 | PN ---
Physical Exam: SUBJECTIVE: Patient seen and examined at the bedside. noted to have labial swelling today. right arm wound appears to be slightly smaller. OBJECTIVE: large right upper arm wound improving. will monitor and refer to wound care on discharge. wound measures 10cm x 6cm with reddened surrounding skin, also with localized hardening of surrounding soft tissue. possibly due to vancomycin extravascation. wound being treated with cold compresses and silvadine 1% bid. On 03/06/2009, discussed right upper wound with with [facility] (patient's primary provider-Karissa Dias MANAGER [employer] [phone]). Provider asking for a wound care referral on discharge. patient also off oxygen for 24 hours with stable oxygen levels negative for DVT of right arm for labial swelling, will give monistat topical cream as it is likely secondary to early fungal infection. Patient is a 48 year old female from [facility] with a significant past medical history of cerebral palsy, seizures, hydrocephalus s/p BROADCAST PRODUCER shunt, severe developmental delay, functional quadriplegia, pulmonary HTN, possible sleep apnea who presented from [facility] on 03/02/19 due to fever, increased secretions, and wheezing. Per records, the wheezing has been previously evaluated by ENT and was diagnosed as EDDIE. Patient is currently off all antibiotics and being closely monitored. She developed a right arm wound, likely secondary to vanco extravasaction, currently being treated with silvadine 1% bid wound care. Vital Signs Period Temp Pulse Resp BP Sys/Perez Pulse Ox Last 24 Hr 97.4 F-98.6 F 88-100 20-20 101-141/53-74 96 GENERAL: The patient is awake, alert, hx of MR, at baseline HEAD: Normal with no signs of trauma. EYES: PERRL, extraocular movements intact, sclera anicteric, conjunctiva clear. No ptosis. ENT: Ears normal, nares patent, oropharynx clear without exudates NECK: Trachea midline, full range of motion, supple. LUNGS: clear to auscultation anteriorly, on room air, stable oxygen HEART: Regular rate and rhythm ABDOMEN: mildly distended, peg tube, tolerating feeds, + bowel sounds EXTREMITIES: right upper arm edema, measures 10cm x 6cm with reddened surrounding skin/induration wound now appears purple in color. NEUROLOGICAL: hx of MR SKIN: labial swelling, red, likely fungal, will give topical monistat x 7 days. Laboratory Results - last 24 hr 03/06/19 03/07/19 03/07/19 05:20 05:30 05:30 WBC 4.3 RBC 3.05 L Hgb 8.6 L Hct 26.4 L MCV 86.6 MCH 28.1 MCHC 32.5 RDW 16.3 H Plt Count 117 L MPV 9.2 Absolute Neuts (auto) 3.1 Neutrophils % 71.5 Neutrophils % (Manual) 70.9 Band Neutrophils % 2.5 Lymphocytes % 14.8 D Lymphocytes % (Manual) 18.3 D Monocytes % 11.1 H Monocytes % (Manual) 3 L Eosinophils % 2.3 Eosinophils % (Manual) 2.5 Basophils % 0.3 Basophils % (Manual) 0.0 Myelocytes % (Man) 0 D Promyelocytes % (Man) 0 Blast Cells % (Manual) 0 Nucleated RBC % 0 Metamyelocytes 0 Platelet Estimate Decreased Sodium 147 H Potassium 4.1 Chloride 113 H Carbon Dioxide 29 Anion Gap 5 L BUN 18.5 H Creatinine 0.3 L Est GFR (CKD-EPI)AfAm 158.03 Est GFR (CKD-EPI)NonAf 136.35 Random Glucose 101 Calcium 8.5 Magnesium 2.0 Total Bilirubin 0.2 AST 42 H ALT 47 Alkaline Phosphatase 176 H Total Protein 4.8 L Albumin 1.9 L Active Medications Generic Name Dose Route Start Last Admin Trade Name Freq PRN Reason Stop Dose Admin Albuterol/Ipratropium 1 amp 03/02/19 16:57 Duoneb - NEB Q6H PRN SHORTNESS OF BREATH Amino Acids 30 ml 03/07/19 10:00 03/07/19 11:37 Prosource No Carb Liquid Pkt GT 30 ml DAILY [facility] Administration Baclofen 20 mg 03/02/19 14:00 03/07/19 06:24 Lioresal - GT 20 mg TID [facility] Administration Diazepam 2 mg 03/02/19 14:00 03/07/19 06:24 Valium - GT 2 mg TID [facility] Administration Famotidine 20 mg 03/03/19 10:00 03/07/19 11:37 Pepcid - PEG 20 mg DAILY [facility] Administration Heparin Sodium (Porcine) 5,000 unit 03/02/19 14:00 03/07/19 06:24 Heparin - SQ 5,000 unit TID [facility] Administration Dextrose/Sodium Chloride 1,000 mls @ 100 mls/hr 03/03/19 08:18 03/07/19 11:36 D5-Ns - IV 100 mls/hr ASDIR [facility] Administration Levetiracetam 500 mg 03/05/19 22:00 03/07/19 11:37 Keppra Injection - IVPB 500 mg BID [facility] Administration Magnesium Hydroxide 15 ml 03/03/19 10:00 03/07/19 11:37 Milk Of Magnesia - GT 15 ml DAILY [facility] Administration Silver Sulfadiazine 1 applic 03/05/19 10:00 03/06/19 21:52 Silvadene - TP 1 applic BID [facility] Administration ASSESSMENT/PLAN: Problem List - Problems (1) Community acquired pneumonia Assessment/Plan: s/p zosyn and vanco discontinued per id monitor off antibiotics on room air with stable oxygen levels. pulmonary following Code(s): J18.9 - PNEUMONIA, UNSPECIFIED ORGANISM (2) Pancytopenia Assessment/Plan: resolving, repeat cbc in a.m . Code(s): D61.818 - OTHER PANCYTOPENIA (3) Wound of right upper extremity Assessment/Plan: large right upper arm wound measures 10cm x 6cm with reddened surrounding skin, also with localized hardening of surrounding soft tissue. possibly due to vancomycin extravascation. wound care with silver sulfadiazine 1% until wound heals negative for dvt, will need wound care referral as an outpatient seen by surgery, notes reviewed Code(s): S41.101A - UNSPECIFIED OPEN WOUND OF RIGHT UPPER ARM, INITIAL ENCOUNTER (4) G tube feedings Assessment/Plan: continue jevity feeds Code(s): Z93.1 - GASTROSTOMY STATUS (5) Gram-positive bacteremia Assessment/Plan: + blood cultures, but repeat blood cultures negative vanco/zosyn discontinued by id monitor labs, fever curve Code(s): R78.81 - BACTEREMIA (6) EDDIE (obstructive sleep apnea) Code(s): G47.33 - OBSTRUCTIVE SLEEP APNEA (ADULT) (PEDIATRIC) (7) Pulmonary HTN Code(s): I27.20 - PULMONARY HYPERTENSION, UNSPECIFIED (8) BROADCAST PRODUCER (ventriculoperitoneal) shunt status Code(s): Z98.2 - PRESENCE OF CEREBROSPINAL FLUID DRAINAGE DEVICE (9) Acute hypoxemic respiratory failure Assessment/Plan: resolved, on room air Code(s): J96.01 - ACUTE RESPIRATORY FAILURE WITH HYPOXIA (10) Congenital quadriplegia Code(s): G80.8 - OTHER CEREBRAL PALSY (11) Profound intellectual disability Code(s): F73 - PROFOUND INTELLECTUAL DISABILITIES (12) Seizure Assessment/Plan: continue home medications keppra 500bid, valium, baclophen Code(s): R56.9 - UNSPECIFIED CONVULSIONS (13) DVT prophylaxis Assessment/Plan: on heparin tid Code(s): Z29.9 - ENCOUNTER FOR PROPHYLACTIC MEASURES, UNSPECIFIED (14) Prophylactic measure Assessment/Plan: fen on jevity 1.5 electrolytes wnl, monitor daily full code Code(s): Z29.9 - ENCOUNTER FOR PROPHYLACTIC MEASURES, UNSPECIFIED Visit type - Emergency Visit Emergency Visit: Yes ED Registration Date: 03/02/19 Care time: The patient presented to the Emergency Department on the above date and was hospitalized for further evaluation of their emergent condition. - New Patient This patient is new to me today: No - Critical Care Critical Care patient: No - Discharge Referral Referred to [facility] Med P.C.: No
--- NOTE | 2019-03-07 13:34 | PN ---
Progress Note, Physician History of Present Illness: stable no new issues - Current Medication List Current Medications: Active Medications Albuterol/Ipratropium (Duoneb -) 1 amp NEB Q6H PRN PRN Reason: SHORTNESS OF BREATH Amino Acids (Prosource No Carb Liquid Pkt) 30 ml GT DAILY [facility] Last Admin: 03/07/19 11:37 Dose: 30 ml Baclofen (Lioresal -) 20 mg GT TID [facility] Last Admin: 03/07/19 06:24 Dose: 20 mg Diazepam (Valium -) 2 mg GT TID [facility] Last Admin: 03/07/19 06:24 Dose: 2 mg Famotidine (Pepcid -) 20 mg PEG DAILY [facility] Last Admin: 03/07/19 11:37 Dose: 20 mg Heparin Sodium (Porcine) (Heparin -) 5,000 unit SQ TID [facility] Last Admin: 03/07/19 06:24 Dose: 5,000 unit Dextrose/Sodium Chloride (D5-Ns -) 1,000 mls @ 100 mls/hr IV ASDIR [facility] Last Admin: 03/07/19 11:36 Dose: 100 mls/hr Levetiracetam (Keppra Injection -) 500 mg IVPB BID [facility] Last Admin: 03/07/19 11:37 Dose: 500 mg Magnesium Hydroxide (Milk Of Magnesia -) 15 ml GT DAILY [facility] Last Admin: 03/07/19 11:37 Dose: 15 ml Silver Sulfadiazine (Silvadene -) 1 applic TP BID [facility] Last Admin: 03/06/19 21:52 Dose: 1 applic - Objective Vital Signs: Vital Signs Temperature 98.6 F 03/07/19 05:00 Pulse Rate 99 H 03/07/19 05:00 Respiratory Rate 20 03/07/19 05:00 Blood Pressure 141/74 03/07/19 05:00 O2 Sat by Pulse Oximetry (%) 96 03/06/19 20:45 Constitutional: Yes: No Distress, Calm Cardiovascular: Yes: S1, S2 Respiratory: Yes: Regular, CTA Bilaterally Gastrointestinal: Yes: Normal Bowel Sounds, Soft Musculoskeletal: Yes: WNL Extremities: Yes: Other Wound/Incision: Yes: Dressing Dry and Intact Neurological: Yes: Alert, Other Labs: CBC, BMP 03/07/19 05:30 03/07/19 05:30 INR, PTT INR 1.01 (0.83-1.09) 03/02/19 08:21 Assessment/Plan 48 y.o. female with PMH of Cerebral Palsy, developmental delay, functional quadriplegia, seizure d.o. hydrocephalus s/p INTERMEDIATE TEACHER shunt placement, s/p GT, and pulm HTN was transferred from assisted living facility to the ER for respiratory distress/wheezing and fever Suspected PNA Sepsis Fever Leukocytosis Acute hypoxemic respiratory failure Cerebral palsy with developmental delay Functional quadriplegia 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 s/p INTERMEDIATE TEACHER shunt placement Seizure d.o. ?EDDIE -plan continue local wound care nutrition rest as per the team
[2019-03-07] MEDS: SILVER SULFADIAZINE 1% TOP CREAM 50 GM JAR TP SCH ×2 (14:28→21:52)
[2019-03-07] MEDS ORDERED: MICONAZOLE NITRATE 2% VAGINAL CREAM 45 GM TUBE VG SCH (22:00)
[2019-03-08] MEDS: BACLOFEN 10 MG TABLET (FP) GT SCH ×3 (06:30→21:36)
[2019-03-08] MEDS: HEPARIN NA (PORCINE) 5,000 UNITS/ML 1ML VIAL SQ SCH ×3 (06:30→21:36)
[2019-03-08] MEDS: diazePAM 2 MG TABLET GT SCH ×3 (06:30→21:37)
--- NOTE | 2019-03-08 10:57 | PN ---
Progress Note, Physician History of Present Illness: stable no new issues - Current Medication List Current Medications: Active Medications Albuterol/Ipratropium (Duoneb -) 1 amp NEB Q6H PRN PRN Reason: SHORTNESS OF BREATH Amino Acids (Prosource No Carb Liquid Pkt) 30 ml GT DAILY [facility] Last Admin: 03/07/19 11:37 Dose: 30 ml Baclofen (Lioresal -) 20 mg GT TID [facility] Last Admin: 03/08/19 06:30 Dose: 20 mg Diazepam (Valium -) 2 mg GT TID [facility] Last Admin: 03/08/19 06:30 Dose: 2 mg Famotidine (Pepcid -) 20 mg PEG DAILY [facility] Last Admin: 03/07/19 11:37 Dose: 20 mg Heparin Sodium (Porcine) (Heparin -) 5,000 unit SQ TID [facility] Last Admin: 03/08/19 06:30 Dose: 5,000 unit Levetiracetam (Keppra Injection -) 500 mg IVPB BID [facility] Last Admin: 03/07/19 21:52 Dose: 500 mg Magnesium Hydroxide (Milk Of Magnesia -) 15 ml GT DAILY [facility] Last Admin: 03/07/19 11:37 Dose: 15 ml Miconazole Nitrate (Monistat Topical Cream -) 1 applic TP BID [facility] Silver Sulfadiazine (Silvadene -) 1 applic TP BID [facility] Last Admin: 03/07/19 21:52 Dose: 1 applic - Objective Vital Signs: Vital Signs Temperature 97.7 F 03/08/19 08:49 Pulse Rate 108 H 03/08/19 08:49 Respiratory Rate 18 03/08/19 08:49 Blood Pressure 113/65 03/08/19 08:49 O2 Sat by Pulse Oximetry (%) 94 L 03/07/19 21:00 Constitutional: Yes: No Distress, Calm Cardiovascular: Yes: S1, S2 Respiratory: Yes: Regular, CTA Bilaterally Gastrointestinal: Yes: Normal Bowel Sounds, Soft, Other (peg in place) Musculoskeletal: Yes: WNL Extremities: Yes: Other Integumentary: Yes: Other Wound/Incision: Yes: Dressing Dry and Intact Neurological: Yes: Alert Psychiatric: Yes: Alert Labs: CBC, BMP 03/07/19 05:30 03/07/19 05:30 INR, PTT INR 1.01 (0.83-1.09) 03/02/19 08:21 Assessment/Plan 48 y.o. female with PMH of Cerebral Palsy, developmental delay, functional quadriplegia, seizure d.o. hydrocephalus s/p TAX EXAMINING TECHNICIAN shunt placement, s/p GT, and pulm HTN was transferred from assisted living facility to the ER for respiratory distress/wheezing and fever Suspected PNA Sepsis Fever Leukocytosis Acute hypoxemic respiratory failure Cerebral palsy with developmental delay Functional quadriplegia 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 s/p TAX EXAMINING TECHNICIAN shunt placement Seizure d.o. ?EDDIE -plan continue local wound care nutrition rest as per the team
[2019-03-08] MEDS: MICONAZOLE NITRATE 14 GM/TUBE TUBE TP SCH ×2 (11:37→21:37)
[2019-03-08] MEDS: FAMOTIDINE 20 MG TABLET PEG SCH (11:37)
[2019-03-08] MEDS: MAGNESIUM HYDROX 2400MG/30ML ORAL SUSPENSION 30 ML CUP GT SCH (11:37)
[2019-03-08] MEDS: AMINO ACIDS/PROTEIN HYDROLYS 30 ML LIQUID.PKT GT SCH (11:37)
[2019-03-08] MEDS: levETIRAcetam 500 MG/5 ML INJECTION VIAL IVPB SCH ×2 (11:37→21:36)
[2019-03-08] MEDS: SILVER SULFADIAZINE 1% TOP CREAM 50 GM JAR TP SCH ×2 (11:38→21:37)
[2019-03-08 11:53] LABS: BASO % 0.3 % (0-2.0); HEMATOCRIT 27.3 % (32.4-45.2); HEMOGLOBIN 8.8 GM/dL (10.7-15.3); LYMPH % 18.4 % (8-40); MCH 28.1 pg (25.7-33.7); MCHC 32.3 g/dl (32.0-36.0); MEAN CELL VOLUME 86.9 fl (80-96); MEAN PLT VOLUME 8.8 fl (7.5-11.1); MONO % 9.6 % (3.8-10.2); NEUT % 69.7 % (42.8-82.8); PLATELET COUNT 175 K/MM3 (134-434); RBC 3.14 M/mm3 (3.60-5.2); RDW 16.3 % (11.6-15.6); WHITE BLOOD COUNT 4.8 K/mm3 (4.0-10.0)
--- NOTE | 2019-03-08 12:00 | PN ---
Progress Note (short form) - Note Progress Note: Resting in NAD on RA. Afebrile. No acute events overnight. Intake & Output 03/05/19 03/06/19 03/07/19 03/08/19 23:59 23:59 23:59 23:59 Intake Total 2590 2830 2340 0 Balance 2590 2830 2340 0 Last Vital Signs Temp Pulse Resp BP Pulse Ox 97.7 F 108 H 18 113/65 94 L 03/08/19 08:49 03/08/19 08:49 03/08/19 08:49 03/08/19 08:49 03/07/19 21:00 Active Medications Albuterol/Ipratropium (Duoneb -) 1 amp NEB Q6H PRN PRN Reason: SHORTNESS OF BREATH Amino Acids (Prosource No Carb Liquid Pkt) 30 ml GT DAILY [facility] Last Admin: 03/08/19 11:37 Dose: 30 ml Baclofen (Lioresal -) 20 mg GT TID [facility] Last Admin: 03/08/19 06:30 Dose: 20 mg Diazepam (Valium -) 2 mg GT TID [facility] Last Admin: 03/08/19 06:30 Dose: 2 mg Famotidine (Pepcid -) 20 mg PEG DAILY [facility] Last Admin: 03/08/19 11:37 Dose: 20 mg Heparin Sodium (Porcine) (Heparin -) 5,000 unit SQ TID [facility] Last Admin: 03/08/19 06:30 Dose: 5,000 unit Levetiracetam (Keppra Injection -) 500 mg IVPB BID [facility] Last Admin: 03/08/19 11:37 Dose: 500 mg Magnesium Hydroxide (Milk Of Magnesia -) 15 ml GT DAILY [facility] Last Admin: 03/08/19 11:37 Dose: 15 ml Miconazole Nitrate (Monistat Topical Cream -) 1 applic TP BID [facility] Last Admin: 03/08/19 11:37 Dose: 1 applic Silver Sulfadiazine (Silvadene -) 1 applic TP BID [facility] Last Admin: 03/08/19 11:38 Dose: 1 applic Gen: NAD Neck: Less coarse intermittent upper airway sounds Heart: RRR Lung: decreased breath sounds at the bases Abd: soft, nontender Ext: no edema A/P Acute Hypoxic Respiratory Failure Pneumonia Sepsis Pancytopenia RUE Ulcer Cerebral Palsy Mental Retardation Seizure Disorder Functional Quadriplegia - Suction PRN - completed antibiotics - aspiration precautions - inhaled bronchodilators - DVT prophylaxis - DC planning Dr Nowak Problem List - Problems (1) DVT prophylaxis Code(s): Z29.9 - ENCOUNTER FOR PROPHYLACTIC MEASURES, UNSPECIFIED (2) Fever Code(s): R50.9 - FEVER, UNSPECIFIED Qualifiers: Fever type: unspecified Qualified Code(s): R50.9 - Fever, unspecified (3) G tube feedings Code(s): Z93.1 - GASTROSTOMY STATUS (4) EDDIE (obstructive sleep apnea) Code(s): G47.33 - OBSTRUCTIVE SLEEP APNEA (ADULT) (PEDIATRIC) (5) Pulmonary HTN Code(s): I27.20 - PULMONARY HYPERTENSION, UNSPECIFIED (6) FUR PULLER (ventriculoperitoneal) shunt status Code(s): Z98.2 - PRESENCE OF CEREBROSPINAL FLUID DRAINAGE DEVICE (7) Community acquired pneumonia Code(s): J18.9 - PNEUMONIA, UNSPECIFIED ORGANISM (8) Cough Code(s): R05 - COUGH (9) GERD (gastroesophageal reflux disease) Code(s): K21.9 - GASTRO-ESOPHAGEAL REFLUX DISEASE WITHOUT ESOPHAGITIS (10) Congenital quadriplegia Code(s): G80.8 - OTHER CEREBRAL PALSY (11) Profound intellectual disability Code(s): F73 - PROFOUND INTELLECTUAL DISABILITIES (12) Seizure Code(s): R56.9 - UNSPECIFIED CONVULSIONS (13) Acute hypoxemic respiratory failure Code(s): J96.01 - ACUTE RESPIRATORY FAILURE WITH HYPOXIA
[2019-03-08 13:09] LABS: ALBUMIN 2.2 g/dl (3.4-5.0); BILIRUBIN,TOTAL 0.2 mg/dL (0.2-1); BLOOD UREA NITROGEN 19.4 mg/dL (7-18); CALCIUM 9.1 mg/dL (8.5-10.1); CREATININE 0.4 mg/dL (0.55-1.3); MAGNESIUM 2.1 mg/dL (1.8-2.4); POTASSIUM 4.6 mmol/L (3.5-5.1); TOT PROT 5.1 g/dl (6.4-8.2)
--- NOTE | 2019-03-08 15:07 | PN ---
Physical Exam: SUBJECTIVE: Patient seen and examined at the bedside. at baseline. her right arm wound is improving with the silvadene discussed discharge plan with her primary care provider at [facility] (patient's primary provider-Karissa Dias [employer] [phone]). provider asking for a repeat cbc and stool for occult blood before accepting patient back as her hmg/hct has trended down since admission. OBJECTIVE: follow up outpatient wound care appointment has been set up for [facility] on 03/14/2019 at 10a.m. Patient is a 48 year old female from [facility] with a significant past medical history of cerebral palsy, seizures, hydrocephalus s/p RESIDENTIAL REAL ESTATE APPRAISER shunt, severe developmental delay, functional quadriplegia, pulmonary HTN, possible sleep apnea who presented from [facility] on 03/02/19 due to fever, increased secretions, and wheezing. Per records, the wheezing has been previously evaluated by ENT and was diagnosed as EDDIE. Patient is currently off all antibiotics and being closely monitored. She developed a right arm wound, likely secondary to vanco extravasaction, currently being treated with silvadine 1% bid wound care. discharge pending stool for occult blood and repeat cbc in a.m. to assure stability. Vital Signs Period Temp Pulse Resp BP Sys/Perez Pulse Ox Last 24 Hr 97.5 F-99.2 F 89-108 18-20 100-131/58-72 94-95 GENERAL: The patient is awake, alert, hx of MR, at baseline HEAD: Normal with no signs of trauma. EYES: PERRL, extraocular movements intact, sclera anicteric, conjunctiva clear. No ptosis. ENT: Ears normal, nares patent, oropharynx clear without exudates NECK: Trachea midline, full range of motion, supple. LUNGS: clear to auscultation anteriorly, on room air, stable oxygen HEART: Regular rate and rhythm ABDOMEN: mildly distended, peg tube, tolerating feeds, + bowel sounds EXTREMITIES: right upper arm edema, measures 10cm x 6cm with reddened surrounding skin/induration wound now appears purple in color. NEUROLOGICAL: hx of MR SKIN: labial swelling, red, likely fungal, will give topical monistat x 7 days. Laboratory Results - last 24 hr 03/08/19 03/08/19 10:40 10:40 WBC 4.8 RBC 3.14 L Hgb 8.8 L Hct 27.3 L MCV 86.9 MCH 28.1 MCHC 32.3 RDW 16.3 H Plt Count 175 D MPV 8.8 Absolute Neuts (auto) 3.4 Neutrophils % 69.7 Lymphocytes % 18.4 D Monocytes % 9.6 Eosinophils % 2.0 Basophils % 0.3 Nucleated RBC % 0 Sodium 146 H Potassium 4.6 Chloride 112 H Carbon Dioxide 29 Anion Gap 5 L BUN 19.4 H Creatinine 0.4 L Est GFR (CKD-EPI)AfAm 143.76 Est GFR (CKD-EPI)NonAf 124.03 Random Glucose 106 Calcium 9.1 Magnesium 2.1 Total Bilirubin 0.2 AST 51 H ALT 54 Alkaline Phosphatase 207 H Total Protein 5.1 L Albumin 2.2 L Active Medications Generic Name Dose Route Start Last Admin Trade Name Freq PRN Reason Stop Dose Admin Albuterol/Ipratropium 1 amp 03/02/19 16:57 Duoneb - NEB Q6H PRN SHORTNESS OF BREATH Amino Acids 30 ml 03/07/19 10:00 03/08/19 11:37 Prosource No Carb Liquid Pkt GT 30 ml DAILY STEPH Administration Baclofen 20 mg 03/02/19 14:00 03/08/19 06:30 Lioresal - GT 20 mg TID STEPH Administration Diazepam 2 mg 03/02/19 14:00 03/08/19 06:30 Valium - GT 2 mg TID STEPH Administration Famotidine 20 mg 03/03/19 10:00 03/08/19 11:37 Pepcid - PEG 20 mg DAILY STEPH Administration Heparin Sodium (Porcine) 5,000 unit 03/02/19 14:00 03/08/19 06:30 Heparin - SQ 5,000 unit TID STEPH Administration Levetiracetam 500 mg 03/05/19 22:00 03/08/19 11:37 Keppra Injection - IVPB 500 mg BID STEPH Administration Magnesium Hydroxide 15 ml 03/03/19 10:00 03/08/19 11:37 Milk Of Magnesia - GT 15 ml DAILY STEPH Administration Miconazole Nitrate 1 applic 03/08/19 10:00 03/08/19 11:37 Monistat Topical Cream - TP 1 applic BID STEPH Administration Silver Sulfadiazine 1 applic 03/05/19 10:00 03/08/19 11:38 Silvadene - TP 1 applic BID STEPH Administration ASSESSMENT/PLAN: Problem List - Problems (1) Community acquired pneumonia Assessment/Plan: s/p zosyn and vanco discontinued per id monitor off antibiotics on room air with stable oxygen levels. pulmonary following Code(s): J18.9 - PNEUMONIA, UNSPECIFIED ORGANISM (2) Pancytopenia Assessment/Plan: resolved Code(s): D61.818 - OTHER PANCYTOPENIA (3) Wound of right upper extremity Assessment/Plan: large right upper arm wound measures 10cm x 6cm with reddened surrounding skin, also with localized hardening of surrounding soft tissue. possibly due to vancomycin extravascation. wound care with silver sulfadiazine 1% until wound heals negative for dvt seen by surgery team here and no surgical interventions recommended patient to follow up at the wound care clinic, appt made for 03/14/2019 at 10a.m. Code(s): S41.101A - UNSPECIFIED OPEN WOUND OF RIGHT UPPER ARM, INITIAL ENCOUNTER (4) G tube feedings Assessment/Plan: continue jevity feeds Code(s): Z93.1 - GASTROSTOMY STATUS (5) Gram-positive bacteremia Assessment/Plan: + blood cultures, but repeat blood cultures negative vanco/zosyn discontinued by id monitor labs, fever curve Code(s): R78.81 - BACTEREMIA (6) EDDIE (obstructive sleep apnea) Code(s): G47.33 - OBSTRUCTIVE SLEEP APNEA (ADULT) (PEDIATRIC) (7) Pulmonary HTN Code(s): I27.20 - PULMONARY HYPERTENSION, UNSPECIFIED (8) RESIDENTIAL REAL ESTATE APPRAISER (ventriculoperitoneal) shunt status Code(s): Z98.2 - PRESENCE OF CEREBROSPINAL FLUID DRAINAGE DEVICE (9) Acute hypoxemic respiratory failure Assessment/Plan: resolved, on room air Code(s): J96.01 - ACUTE RESPIRATORY FAILURE WITH HYPOXIA (10) Congenital quadriplegia Code(s): G80.8 - OTHER CEREBRAL PALSY (11) Profound intellectual disability Code(s): F73 - PROFOUND INTELLECTUAL DISABILITIES (12) Seizure Assessment/Plan: continue home medications keppra 500bid, valium, baclophen Code(s): R56.9 - UNSPECIFIED CONVULSIONS (13) DVT prophylaxis Assessment/Plan: on heparin tid Code(s): Z29.9 - ENCOUNTER FOR PROPHYLACTIC MEASURES, UNSPECIFIED (14) Prophylactic measure Assessment/Plan: fen on jevity 1.5 electrolytes wnl, monitor daily full code Code(s): Z29.9 - ENCOUNTER FOR PROPHYLACTIC MEASURES, UNSPECIFIED Visit type - Emergency Visit Emergency Visit: Yes ED Registration Date: 03/02/19 Care time: The patient presented to the Emergency Department on the above date and was hospitalized for further evaluation of their emergent condition. - New Patient This patient is new to me today: No - Critical Care Critical Care patient: No - Discharge Referral Referred to [facility] Med P.C.: No
[2019-03-08] MEDS ORDERED: ACETAMINOPHEN 325 MG TABLET (FP) PO PRN (21:25)
[2019-03-09] MEDS ORDERED: ACETAMINOPHEN 650 MG SUPP.RECT PR PRN (02:28)
--- NOTE | 2019-03-09 02:43 | HOSP ---
Subjective - Review of Symptoms Events since last encounter: 48 year old female from [facility] with PMHx of cerebral palsy, seizures, hydrocephalus s/p SOFTWARE APPLICATION TESTER shunt, severe developmental delay, functional quadriplegia, pulmonary HTN, arrived to ED on 03/02/19 due to fever, increased secretions, and wheezing. Patient is currently off all antibiotics and being monitored. Patient developed right arm wound? due to vanco extravasaction, currently being treated with silvadine 1% bid wound care- improving with the silvadene. @ 21:24 noted with Tmax: 100.4 Tylenol given x1, rechecked at 2:30am still with Tmax: 100.1 switch to [place] Tylenol pending repeat cbc in AM, all cultures were negative. If fever continue to trend, and acute change in vitals consider urine/ blood culture, monitor wound on right arm closely. Physical Examination Vital Signs: Vital Signs Temperature 100.4 F H 03/08/19 21:00 Pulse Rate 92 H 03/08/19 21:00 Respiratory Rate 20 03/08/19 21:00 Blood Pressure 108/61 03/08/19 21:00 O2 Sat by Pulse Oximetry (%) 94 L 03/08/19 21:00 Labs: CBC, BMP 03/08/19 10:40 03/08/19 10:40
[2019-03-09] MEDS: HEPARIN NA (PORCINE) 5,000 UNITS/ML 1ML VIAL SQ SCH ×3 (05:38→22:03)
[2019-03-09] MEDS: BACLOFEN 10 MG TABLET (FP) GT SCH ×3 (05:38→22:03)
[2019-03-09] MEDS: diazePAM 2 MG TABLET GT SCH ×3 (05:38→22:04)
[2019-03-09 07:04] LABS: BASO % 0.7 % (0-2.0); EOS % 1.8 % (0-4.5); HEMATOCRIT 27.3 % (32.4-45.2); HEMOGLOBIN 9.1 GM/dL (10.7-15.3); LYMPH % 16.6 % (8-40); MCH 28.6 pg (25.7-33.7); MCHC 33.2 g/dl (32.0-36.0); MEAN CELL VOLUME 86.2 fl (80-96); MEAN PLT VOLUME 8.5 fl (7.5-11.1); MONO % 8.9 % (3.8-10.2); PLATELET COUNT 234 K/MM3 (134-434); RBC 3.16 M/mm3 (3.60-5.2)
[2019-03-09 07:14] LABS: ALBUMIN 2.3 g/dl (3.4-5.0); BILIRUBIN,TOTAL 0.2 mg/dL (0.2-1); BLOOD UREA NITROGEN 24.4 mg/dL (7-18); CALCIUM 8.9 mg/dL (8.5-10.1); CREATININE 0.5 mg/dL (0.55-1.3); POTASSIUM 4.4 mmol/L (3.5-5.1); TOT PROT 5.4 g/dl (6.4-8.2)
[2019-03-09] MEDS: levETIRAcetam 500 MG/5 ML INJECTION VIAL IVPB SCH ×2 (10:12→22:04)
[2019-03-09] MEDS: FAMOTIDINE 20 MG TABLET PEG SCH (10:18)
[2019-03-09] MEDS: MAGNESIUM HYDROX 2400MG/30ML ORAL SUSPENSION 30 ML CUP GT SCH (10:18)
[2019-03-09] MEDS: AMINO ACIDS/PROTEIN HYDROLYS 30 ML LIQUID.PKT GT SCH (10:18)
[2019-03-09] MEDS: MICONAZOLE NITRATE 14 GM/TUBE TUBE TP SCH ×2 (10:18→22:04)
[2019-03-09] MEDS: SILVER SULFADIAZINE 1% TOP CREAM 50 GM JAR TP SCH ×2 (10:18→22:04)
--- NOTE | 2019-03-09 10:59 | PN ---
Progress Note (short form) - Note Progress Note: PULMONARY Resting in NAD on RA. Afebrile. No acute events overnight. VSS/Afebrile Gen: NAD Neck: Less coarse intermittent upper airway sounds Heart: RRR Lung: decreased breath sounds at the bases Abd: soft, nontender Ext: no edema Chart reviewed A/P Acute Hypoxic Respiratory Failure Pneumonia Sepsis Pancytopenia RUE Ulcer Cerebral Palsy Mental Retardation Seizure Disorder Functional Quadriplegia - Suction PRN - completed antibiotics - aspiration precautions - inhaled bronchodilators - DVT prophylaxis - DC planning Elina MARTINEZ MD
--- NOTE | 2019-03-09 11:07 | PN ---
Progress Note, Physician History of Present Illness: stable no new issues - Current Medication List Current Medications: Active Medications Acetaminophen (Tylenol Suppository -) 650 mg SD Q6H PRN PRN Reason: FEVER Last Admin: 03/09/19 02:35 Dose: 650 mg Albuterol/Ipratropium (Duoneb -) 1 amp NEB Q6H PRN PRN Reason: SHORTNESS OF BREATH Amino Acids (Prosource No Carb Liquid Pkt) 30 ml GT DAILY [facility] Last Admin: 03/09/19 10:18 Dose: 30 ml Baclofen (Lioresal -) 20 mg GT TID [facility] Last Admin: 03/09/19 05:38 Dose: 20 mg Diazepam (Valium -) 2 mg GT TID [facility] Last Admin: 03/09/19 05:38 Dose: 2 mg Famotidine (Pepcid -) 20 mg PEG DAILY [facility] Last Admin: 03/09/19 10:18 Dose: 20 mg Heparin Sodium (Porcine) (Heparin -) 5,000 unit SQ TID [facility] Last Admin: 03/09/19 05:38 Dose: 5,000 unit Levetiracetam (Keppra Injection -) 500 mg IVPB BID [facility] Last Admin: 03/09/19 10:12 Dose: 500 mg Magnesium Hydroxide (Milk Of Magnesia -) 15 ml GT DAILY [facility] Last Admin: 03/09/19 10:18 Dose: 15 ml Miconazole Nitrate (Monistat Topical Cream -) 1 applic TP BID [facility] Last Admin: 03/09/19 10:18 Dose: 1 applic Silver Sulfadiazine (Silvadene -) 1 applic TP BID [facility] Last Admin: 03/09/19 10:18 Dose: 1 applic - Objective Vital Signs: Vital Signs Temperature 98.9 F 03/09/19 09:00 Pulse Rate 89 03/09/19 09:00 Respiratory Rate 20 03/09/19 09:00 Blood Pressure 112/52 L 03/09/19 09:00 O2 Sat by Pulse Oximetry (%) 94 L 03/09/19 09:00 Constitutional: Yes: No Distress, Calm Cardiovascular: Yes: S1, S2 Respiratory: Yes: Regular, CTA Bilaterally Gastrointestinal: Yes: Normal Bowel Sounds, Soft Musculoskeletal: Yes: WNL Extremities: Yes: Other (burn on skin) Neurological: Yes: Alert, Oriented Psychiatric: Yes: Alert, Oriented Labs: CBC, BMP 03/09/19 05:46 03/09/19 05:46 INR, PTT INR 1.01 (0.83-1.09) 03/02/19 08:21 Assessment/Plan 48 y.o. female with PMH of Cerebral Palsy, developmental delay, functional quadriplegia, seizure d.o. hydrocephalus s/p SHIPPING ORDER CLERK shunt placement, s/p GT, and pulm HTN was transferred from assisted living facility to the ER for respiratory distress/wheezing and fever Suspected PNA Sepsis Fever Leukocytosis Acute hypoxemic respiratory failure Cerebral palsy with developmental delay Functional quadriplegia 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 s/p SHIPPING ORDER CLERK shunt placement Seizure d.o. ?EDDIE -plan continue local wound care nutrition rest as per the team
--- NOTE | 2019-03-09 15:25 | PN ---
Physical Exam: SUBJECTIVE: Patient seen and examined at the bedside. tmax 100.9, appears at her baseline. per ID, no need to place on antibiotics, will monitor. OBJECTIVE: hmg/hct trending up, normal iron studies, pending stool for occult blood. developed fevers overnight @ 100.9 tmax, if afebrile x 24 hours, will d/c to [place] follow up outpatient wound care appointment has been set up for [facility] on 03/14/2019 at 10a.m. Patient is a 48 year old female from [facility] with a significant past medical history of cerebral palsy, seizures, hydrocephalus s/p ARMATURE TESTER shunt, severe developmental delay, functional quadriplegia, pulmonary HTN, possible sleep apnea who presented from [facility] on 03/02/19 due to fever, increased secretions, and wheezing. Per records, the wheezing has been previously evaluated by ENT and was diagnosed as EDDIE. Patient is currently off all antibiotics and being closely monitored. She developed a right arm wound, likely secondary to vanco extravasaction, currently being treated with silvadine 1% bid wound care. Vital Signs Period Temp Pulse Resp BP Sys/Perez Pulse Ox Last 24 Hr 97.9 F-100.9 F 70-100 20-20 102-123/52-87 94-94 GENERAL: The patient is awake, alert, hx of MR, at baseline HEAD: Normal with no signs of trauma. EYES: PERRL, extraocular movements intact, sclera anicteric, conjunctiva clear. No ptosis. ENT: Ears normal, nares patent, oropharynx clear without exudates NECK: Trachea midline, full range of motion, supple. LUNGS: clear to auscultation anteriorly, on room air, stable oxygen HEART: Regular rate and rhythm ABDOMEN: mildly distended, peg tube, tolerating feeds, + bowel sounds EXTREMITIES: right upper arm edema, measures 10cm x 6cm with reddened surrounding skin/induration wound now appears purple in color. NEUROLOGICAL: hx of MR SKIN: labial swelling, red, likely fungal, will give topical monistat x 7 days. Laboratory Results - last 24 hr 03/08/19 03/09/19 03/09/19 10:40 05:46 05:46 WBC 5.0 RBC 3.16 L Hgb 9.1 L Hct 27.3 L MCV 86.2 MCH 28.6 MCHC 33.2 RDW 16.0 H Plt Count 234 D MPV 8.5 Absolute Neuts (auto) 3.6 Neutrophils % 72.0 Lymphocytes % 16.6 Monocytes % 8.9 Eosinophils % 1.8 Basophils % 0.7 Nucleated RBC % 0 Sodium 146 H 144 Potassium 4.6 4.4 Chloride 112 H 110 H Carbon Dioxide 29 28 Anion Gap 5 L 6 L BUN 19.4 H 24.4 H Creatinine 0.4 L 0.5 L Est GFR (CKD-EPI)AfAm 143.76 133.58 Est GFR (CKD-EPI)NonAf 124.03 115.25 Random Glucose 106 105 Calcium 9.1 8.9 Magnesium 2.1 Iron 47 L TIBC 260 Iron Saturation 18 Unsaturated IBC 213 Total Bilirubin 0.2 0.2 AST 51 H 43 H ALT 54 48 Alkaline Phosphatase 207 H 236 H Total Protein 5.1 L 5.4 L Albumin 2.2 L 2.3 L Vitamin B12 863 Serum Folate 18 H Active Medications Generic Name Dose Route Start Last Admin Trade Name Freq PRN Reason Stop Dose Admin Acetaminophen 650 mg 03/09/19 02:28 03/09/19 02:35 Tylenol Suppository - MS 650 mg Q6H PRN Administration FEVER Albuterol/Ipratropium 1 amp 03/02/19 16:57 Duoneb - NEB Q6H PRN SHORTNESS OF BREATH Amino Acids 30 ml 03/07/19 10:00 03/09/19 10:18 Prosource No Carb Liquid Pkt GT 30 ml DAILY STEPH Administration Baclofen 20 mg 03/02/19 14:00 03/09/19 14:21 Lioresal - GT 20 mg TID STEPH Administration Diazepam 2 mg 03/02/19 14:00 03/09/19 14:21 Valium - GT 2 mg TID STEPH Administration Famotidine 20 mg 03/03/19 10:00 03/09/19 10:18 Pepcid - PEG 20 mg DAILY STEPH Administration Heparin Sodium (Porcine) 5,000 unit 03/02/19 14:00 03/09/19 14:20 Heparin - SQ 5,000 unit TID STEPH Administration Levetiracetam 500 mg 03/05/19 22:00 03/09/19 10:12 Keppra Injection - IVPB 500 mg BID STEPH Administration Magnesium Hydroxide 15 ml 03/03/19 10:00 03/09/19 10:18 Milk Of Magnesia - GT 15 ml DAILY STEPH Administration Miconazole Nitrate 1 applic 03/08/19 10:00 03/09/19 10:18 Monistat Topical Cream - TP 1 applic BID STEPH Administration Silver Sulfadiazine 1 applic 03/05/19 10:00 03/09/19 10:18 Silvadene - TP 1 applic BID STEPH Administration ASSESSMENT/PLAN: Problem List - Problems (1) Fever Assessment/Plan: febrile overnight @ 100.9, wbc stable per ID, monitor off antibiotics Code(s): R50.9 - FEVER, UNSPECIFIED Qualifiers: Fever type: unspecified Qualified Code(s): R50.9 - Fever, unspecified (2) Community acquired pneumonia Assessment/Plan: s/p zosyn and vanco discontinued per id monitor off antibiotics on room air with stable oxygen levels. pulmonary following Code(s): J18.9 - PNEUMONIA, UNSPECIFIED ORGANISM (3) Pancytopenia Assessment/Plan: resolved Code(s): D61.818 - OTHER PANCYTOPENIA (4) Wound of right upper extremity Assessment/Plan: large right upper arm wound measures 10cm x 6cm with reddened surrounding skin, also with localized hardening of surrounding soft tissue. possibly due to vancomycin extravascation. wound care with silver sulfadiazine 1% until wound heals negative for dvt seen by surgery team here and no surgical interventions recommended patient to follow up at the wound care clinic, appt made for 03/14/2019 at 10a.m. Code(s): S41.101A - UNSPECIFIED OPEN WOUND OF RIGHT UPPER ARM, INITIAL ENCOUNTER (5) G tube feedings Assessment/Plan: continue jevity feeds Code(s): Z93.1 - GASTROSTOMY STATUS (6) Gram-positive bacteremia Assessment/Plan: + blood cultures, but repeat blood cultures negative vanco/zosyn discontinued by id monitor labs, fever curve Code(s): R78.81 - BACTEREMIA (7) EDDIE (obstructive sleep apnea) Code(s): G47.33 - OBSTRUCTIVE SLEEP APNEA (ADULT) (PEDIATRIC) (8) Pulmonary HTN Code(s): I27.20 - PULMONARY HYPERTENSION, UNSPECIFIED (9) ARMATURE TESTER (ventriculoperitoneal) shunt status Code(s): Z98.2 - PRESENCE OF CEREBROSPINAL FLUID DRAINAGE DEVICE (10) Acute hypoxemic respiratory failure Assessment/Plan: resolved, on room air Code(s): J96.01 - ACUTE RESPIRATORY FAILURE WITH HYPOXIA (11) Congenital quadriplegia Code(s): G80.8 - OTHER CEREBRAL PALSY (12) Profound intellectual disability Code(s): F73 - PROFOUND INTELLECTUAL DISABILITIES (13) Seizure Assessment/Plan: continue home medications keppra 500bid, valium, baclophen Code(s): R56.9 - UNSPECIFIED CONVULSIONS (14) DVT prophylaxis Assessment/Plan: on heparin tid Code(s): Z29.9 - ENCOUNTER FOR PROPHYLACTIC MEASURES, UNSPECIFIED (15) Prophylactic measure Assessment/Plan: fen on jevity 1.5 electrolytes wnl, monitor daily full code Code(s): Z29.9 - ENCOUNTER FOR PROPHYLACTIC MEASURES, UNSPECIFIED Visit type - Emergency Visit Emergency Visit: Yes ED Registration Date: 03/02/19 Care time: The patient presented to the Emergency Department on the above date and was hospitalized for further evaluation of their emergent condition. - New Patient This patient is new to me today: No - Critical Care Critical Care patient: No - Discharge Referral Referred to [facility] Med P.C.: No
[2019-03-10] MEDS: BACLOFEN 10 MG TABLET (FP) GT SCH ×3 (06:16→21:27)
[2019-03-10] MEDS: diazePAM 2 MG TABLET GT SCH ×3 (06:16→21:27)
[2019-03-10] MEDS: HEPARIN NA (PORCINE) 5,000 UNITS/ML 1ML VIAL SQ SCH ×2 (06:16→21:27)
[2019-03-10 07:24] LABS: ALBUMIN 2.3 g/dl (3.4-5.0); BILIRUBIN,TOTAL 0.2 mg/dL (0.2-1); BLOOD UREA NITROGEN 26.6 mg/dL (7-18); CALCIUM 9.1 mg/dL (8.5-10.1); CREATININE 0.4 mg/dL (0.55-1.3); POTASSIUM 4.3 mmol/L (3.5-5.1); TOT PROT 5.4 g/dl (6.4-8.2)
[2019-03-10 07:40] LABS: BASO % 0.7 % (0-2.0); EOS % 3.7 % (0-4.5); HEMATOCRIT 27.3 % (32.4-45.2); HEMOGLOBIN 8.9 GM/dL (10.7-15.3); LYMPH % 22.2 % (8-40); MCH 28.2 pg (25.7-33.7); MCHC 32.7 g/dl (32.0-36.0); MEAN CELL VOLUME 86.4 fl (80-96); MEAN PLT VOLUME 8.5 fl (7.5-11.1); MONO % 10.5 % (3.8-10.2); NEUT % 62.9 % (42.8-82.8); PLATELET COUNT 254 K/MM3 (134-434); RBC 3.16 M/mm3 (3.60-5.2); RDW 15.9 % (11.6-15.6); WHITE BLOOD COUNT 3.7 K/mm3 (4.0-10.0)
[2019-03-10] MEDS: MAGNESIUM HYDROX 2400MG/30ML ORAL SUSPENSION 30 ML CUP GT SCH (09:33)
[2019-03-10] MEDS: MICONAZOLE NITRATE 14 GM/TUBE TUBE TP SCH ×2 (09:33→21:27)
[2019-03-10] MEDS: FAMOTIDINE 20 MG TABLET PEG SCH (09:33)
[2019-03-10] MEDS: levETIRAcetam 500 MG/5 ML INJECTION VIAL IVPB SCH (09:33)
[2019-03-10] MEDS: AMINO ACIDS/PROTEIN HYDROLYS 30 ML LIQUID.PKT GT SCH (09:33)
[2019-03-10] MEDS: SILVER SULFADIAZINE 1% TOP CREAM 50 GM JAR TP SCH ×2 (09:33→21:27)
--- NOTE | 2019-03-10 10:40 | PN ---
Physical Exam: SUBJECTIVE: Patient seen and examined, mentation at baseline, appears comfortable. in no acute distress. OBJECTIVE: pending stool for OB as requested by [facility] [place] before discharge wound now measures 7.3cm L x 2cm W, purple in color, no drainage, skin closed, on silvadene hmg/hct trending up, normal iron studies, pending stool for occult blood. afebrile follow up outpatient wound care appointment has been set up for [facility] on 03/14/2019 at 10a.m. Patient is a 48 year old female from [facility] with a significant past medical history of cerebral palsy, seizures, hydrocephalus s/p UNDERGRADUATE ADVISOR shunt, severe developmental delay, functional quadriplegia, pulmonary HTN, possible sleep apnea who presented from [facility] on 03/02/19 due to fever, increased secretions, and wheezing. Per records, the wheezing has been previously evaluated by ENT and was diagnosed as EDDIE. Patient is currently off all antibiotics and being closely monitored. She developed a right arm wound, likely secondary to vanco extravasaction, currently being treated with silvadine 1% bid wound care. wound smaller and healing. Vital Signs Period Temp Pulse Resp BP Sys/Perez Pulse Ox Last 24 Hr 97.8 F-98.2 F 69-84 20-20 91-123/54-87 93 GENERAL: The patient is awake, alert, hx of MR, at baseline HEAD: Normal with no signs of trauma. EYES: PERRL, extraocular movements intact, sclera anicteric, conjunctiva clear. No ptosis. ENT: Ears normal, nares patent, oropharynx clear without exudates NECK: Trachea midline, full range of motion, supple. LUNGS: clear to auscultation anteriorly, on room air, stable oxygen HEART: Regular rate and rhythm ABDOMEN: mildly distended, peg tube, tolerating feeds, + bowel sounds EXTREMITIES: right upper arm edema, now smaller and measues 7.5cm x 2cm, no drainage, no odor, skin closed. on silavadene 1% bid. NEUROLOGICAL: hx of MR SKIN: labial swelling, red, likely fungal, no drainage. will give topical monistat x 7 days. improving. Laboratory Results - last 24 hr 03/10/19 03/10/19 05:32 05:32 WBC 3.7 L RBC 3.16 L Hgb 8.9 L Hct 27.3 L MCV 86.4 MCH 28.2 MCHC 32.7 RDW 15.9 H Plt Count 254 MPV 8.5 Absolute Neuts (auto) 2.3 Neutrophils % 62.9 Lymphocytes % 22.2 D Monocytes % 10.5 H Eosinophils % 3.7 D Basophils % 0.7 Nucleated RBC % 0 Sodium 141 Potassium 4.3 Chloride 106 Carbon Dioxide 30 Anion Gap 6 L BUN 26.6 H Creatinine 0.4 L Est GFR (CKD-EPI)AfAm 143.76 Est GFR (CKD-EPI)NonAf 124.03 Random Glucose 116 H Calcium 9.1 Total Bilirubin 0.2 AST 33 ALT 43 Alkaline Phosphatase 200 H Total Protein 5.4 L Albumin 2.3 L Active Medications Generic Name Dose Route Start Last Admin Trade Name Freq PRN Reason Stop Dose Admin Acetaminophen 650 mg 03/09/19 02:28 03/09/19 02:35 Tylenol Suppository - TN 650 mg Q6H PRN Administration FEVER Albuterol/Ipratropium 1 amp 03/02/19 16:57 Duoneb - NEB Q6H PRN SHORTNESS OF BREATH Amino Acids 30 ml 03/07/19 10:00 03/10/19 09:33 Prosource No Carb Liquid Pkt GT 30 ml DAILY STEPH Administration Baclofen 20 mg 03/02/19 14:00 03/10/19 06:16 Lioresal - GT 20 mg TID STEPH Administration Diazepam 2 mg 03/02/19 14:00 03/10/19 06:16 Valium - GT 2 mg TID STEPH Administration Famotidine 20 mg 03/03/19 10:00 03/10/19 09:33 Pepcid - PEG 20 mg DAILY STEPH Administration Levetiracetam 500 mg 03/10/19 22:00 Keppra Oral Solution - GT BID STEPH Magnesium Hydroxide 15 ml 03/03/19 10:00 03/10/19 09:33 Milk Of Magnesia - GT 15 ml DAILY STEPH Administration Miconazole Nitrate 1 applic 03/08/19 10:00 03/10/19 09:33 Monistat Topical Cream - TP 1 applic BID STEPH Administration Silver Sulfadiazine 1 applic 03/05/19 10:00 03/10/19 09:33 Silvadene - TP 1 applic BID STEPH Administration ASSESSMENT/PLAN: Problem List - Problems (1) Fever Assessment/Plan: resolved Code(s): R50.9 - FEVER, UNSPECIFIED Qualifiers: Fever type: unspecified Qualified Code(s): R50.9 - Fever, unspecified (2) Community acquired pneumonia Assessment/Plan: s/p zosyn and vanco discontinued per id monitor off antibiotics on room air with stable oxygen levels. pulmonary following Code(s): J18.9 - PNEUMONIA, UNSPECIFIED ORGANISM (3) Pancytopenia Assessment/Plan: resolved Code(s): D61.818 - OTHER PANCYTOPENIA (4) Wound of right upper extremity Assessment/Plan: smaller measures 7.5cm x 2cm no drainage, no odor, no open skin patient to follow up at the wound care clinic, appt made for 03/14/2019 at 10a.m. Code(s): S41.101A - UNSPECIFIED OPEN WOUND OF RIGHT UPPER ARM, INITIAL ENCOUNTER (5) G tube feedings Assessment/Plan: continue jevity feeds Code(s): Z93.1 - GASTROSTOMY STATUS (6) Gram-positive bacteremia Assessment/Plan: repeat blood cultures negative vanco/zosyn discontinued by id monitor labs, no fevers Code(s): R78.81 - BACTEREMIA (7) EDDIE (obstructive sleep apnea) Assessment/Plan: outpatient follow up Code(s): G47.33 - OBSTRUCTIVE SLEEP APNEA (ADULT) (PEDIATRIC) (8) Pulmonary HTN Code(s): I27.20 - PULMONARY HYPERTENSION, UNSPECIFIED (9) UNDERGRADUATE ADVISOR (ventriculoperitoneal) shunt status Code(s): Z98.2 - PRESENCE OF CEREBROSPINAL FLUID DRAINAGE DEVICE (10) Acute hypoxemic respiratory failure Assessment/Plan: resolved, on room air Code(s): J96.01 - ACUTE RESPIRATORY FAILURE WITH HYPOXIA (11) Congenital quadriplegia Code(s): G80.8 - OTHER CEREBRAL PALSY (12) Profound intellectual disability Code(s): F73 - PROFOUND INTELLECTUAL DISABILITIES (13) Seizure Assessment/Plan: continue home medications keppra 500bid, valium, baclophen Code(s): R56.9 - UNSPECIFIED CONVULSIONS (14) DVT prophylaxis Assessment/Plan: on heparin tid Code(s): Z29.9 - ENCOUNTER FOR PROPHYLACTIC MEASURES, UNSPECIFIED (15) Prophylactic measure Assessment/Plan: fen on jevity 1.5 electrolytes wnl, monitor daily full code Code(s): Z29.9 - ENCOUNTER FOR PROPHYLACTIC MEASURES, UNSPECIFIED Visit type - Emergency Visit Emergency Visit: Yes ED Registration Date: 03/02/19 Care time: The patient presented to the Emergency Department on the above date and was hospitalized for further evaluation of their emergent condition. - New Patient This patient is new to me today: No - Critical Care Critical Care patient: No - Discharge Referral Referred to [facility] Med P.C.: No
--- NOTE | 2019-03-10 13:35 | PN ---
Progress Note, Physician History of Present Illness: remained afebrile no new issues - Current Medication List Current Medications: Active Medications Acetaminophen (Tylenol Suppository -) 650 mg [place] Q6H PRN PRN Reason: FEVER Last Admin: 03/09/19 02:35 Dose: 650 mg Albuterol/Ipratropium (Duoneb -) 1 amp NEB Q6H PRN PRN Reason: SHORTNESS OF BREATH Amino Acids (Prosource No Carb Liquid Pkt) 30 ml GT DAILY [facility] Last Admin: 03/10/19 09:33 Dose: 30 ml Baclofen (Lioresal -) 20 mg GT TID [facility] Last Admin: 03/10/19 06:16 Dose: 20 mg Diazepam (Valium -) 2 mg GT TID [facility] Last Admin: 03/10/19 06:16 Dose: 2 mg Famotidine (Pepcid -) 20 mg PEG DAILY [facility] Last Admin: 03/10/19 09:33 Dose: 20 mg Heparin Sodium (Porcine) (Heparin -) 5,000 unit SQ BID [facility] Levetiracetam (Keppra Oral Solution -) 500 mg GT BID [facility] Magnesium Hydroxide (Milk Of Magnesia -) 15 ml GT DAILY [facility] Last Admin: 03/10/19 09:33 Dose: 15 ml Miconazole Nitrate (Monistat Topical Cream -) 1 applic TP BID [facility] Last Admin: 03/10/19 09:33 Dose: 1 applic Silver Sulfadiazine (Silvadene -) 1 applic TP BID [facility] Last Admin: 03/10/19 09:33 Dose: 1 applic - Objective Vital Signs: Vital Signs Temperature 97.9 F 03/10/19 09:00 Pulse Rate 80 03/10/19 09:00 Respiratory Rate 20 03/10/19 09:00 Blood Pressure 96/55 L 03/10/19 09:00 O2 Sat by Pulse Oximetry (%) 93 L 03/10/19 09:00 Constitutional: Yes: No Distress, Calm Cardiovascular: Yes: S1, S2 Respiratory: Yes: Regular, CTA Bilaterally Musculoskeletal: Yes: WNL Extremities: Yes: Other Neurological: Yes: Alert, Oriented Psychiatric: Yes: Alert, Oriented Labs: CBC, BMP 03/10/19 05:32 03/10/19 05:32 INR, PTT INR 1.01 (0.83-1.09) 01/04/20 08:21 Assessment/Plan 48 y.o. female with PMH of Cerebral Palsy, developmental delay, functional quadriplegia, seizure d.o. hydrocephalus s/p DISPLAY AND BANNER DESIGNER shunt placement, s/p GT, and pulm HTN was transferred from assisted living facility to the ER for respiratory distress/wheezing and fever Suspected PNA Sepsis Fever Leukocytosis Acute hypoxemic respiratory failure Cerebral palsy with developmental delay Functional quadriplegia 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 s/p DISPLAY AND BANNER DESIGNER shunt placement Seizure d.o. ?EDDIE -plan continue local wound care nutrition rest as per the team
[2019-03-10] MEDS: levETIRAcetam 500 MG/5 ML ORAL SOLUTION (UNIT-DOSE CUPS) GT SCH (21:27)
[2019-03-11] MEDS: diazePAM 2 MG TABLET GT SCH ×2 (05:28→14:18)
[2019-03-11] MEDS: BACLOFEN 10 MG TABLET (FP) GT SCH ×2 (05:28→14:18)
[2019-03-11 07:03] LABS: BASO % 0.5 % (0-2.0); EOS % 3.9 % (0-4.5); HEMATOCRIT 28.2 % (32.4-45.2); HEMOGLOBIN 9.5 GM/dL (10.7-15.3); LYMPH % 20.7 % (8-40); MCH 28.8 pg (25.7-33.7); MCHC 33.6 g/dl (32.0-36.0); MEAN CELL VOLUME 85.9 fl (80-96); MEAN PLT VOLUME 8.2 fl (7.5-11.1); MONO % 9.1 % (3.8-10.2); NEUT % 65.8 % (42.8-82.8); PLATELET COUNT 301 K/MM3 (134-434); RBC 3.28 M/mm3 (3.60-5.2); RDW 15.8 % (11.6-15.6); WHITE BLOOD COUNT 3.8 K/mm3 (4.0-10.0)
[2019-03-11 08:53] LABS: ALBUMIN 2.6 g/dl (3.4-5.0); BILIRUBIN,TOTAL 0.2 mg/dL (0.2-1); BLOOD UREA NITROGEN 30.8 mg/dL (7-18); CALCIUM 9.2 mg/dL (8.5-10.1); CREATININE 0.4 mg/dL (0.55-1.3); POTASSIUM 4.4 mmol/L (3.5-5.1); TOT PROT 5.8 g/dl (6.4-8.2)
[2019-03-11] MEDS ORDERED: PT OWN MED DRAWER 7, Y5N ONE (10:36)
[2019-03-11] MEDS: levETIRAcetam 500 MG/5 ML ORAL SOLUTION (UNIT-DOSE CUPS) GT SCH (10:40)
[2019-03-11] MEDS: MAGNESIUM HYDROX 2400MG/30ML ORAL SUSPENSION 30 ML CUP GT SCH (10:40)
[2019-03-11] MEDS: AMINO ACIDS/PROTEIN HYDROLYS 30 ML LIQUID.PKT GT SCH (10:40)
[2019-03-11] MEDS: FAMOTIDINE 20 MG TABLET PEG SCH (10:41)
[2019-03-11] MEDS: HEPARIN NA (PORCINE) 5,000 UNITS/ML 1ML VIAL SQ SCH (10:41)
[2019-03-11] MEDS: MICONAZOLE NITRATE 14 GM/TUBE TUBE TP SCH (10:55)
[2019-03-11] MEDS: SILVER SULFADIAZINE 1% TOP CREAM 50 GM JAR TP SCH (11:44)
--- NOTE | 2019-03-11 12:00 | DS ---
Physical Exam: SUBJECTIVE: Patient seen and examined OBJECTIVE: Vital Signs Period Temp Pulse Resp BP Sys/Perez Pulse Ox Last 24 Hr 97.6 F-98.1 F 65-85 20-20 107-130/59-94 94-95 PHYSICAL EXAM GENERAL: The patient is awake, alert, and fully oriented, in no acute distress. HEAD: Normal with no signs of trauma. EYES: PERRL, extraocular movements intact, sclera anicteric, conjunctiva clear. ENT: Ears normal, nares patent, oropharynx clear without exudates, moist mucous membranes. NECK: Trachea midline, full range of motion, supple. LUNGS: Breath sounds equal, clear to auscultation bilaterally, no wheezes, no crackles, no accessory muscle use. HEART: Regular rate and rhythm, S1, S2 without murmur, rub or gallop. ABDOMEN: Soft, nontender, nondistended, normoactive bowel sounds, no guarding, no rebound, no hepatosplenomegaly, no masses. EXTREMITIES: 2+ pulses, warm, well-perfused, no edema. NEUROLOGICAL: Cranial nerves II through XII grossly intact. Normal speech, gait not observed. PSYCH: Normal mood, normal affect. SKIN: Warm, dry, normal turgor, no rashes or lesions noted. LABS Laboratory Results - last 24 hr 03/11/19 03/11/19 03/11/19 05:15 05:15 10:40 WBC 3.8 L RBC 3.28 L Hgb 9.5 L Hct 28.2 L MCV 85.9 MCH 28.8 MCHC 33.6 RDW 15.8 H Plt Count 301 MPV 8.2 Absolute Neuts (auto) 2.5 Neutrophils % 65.8 Lymphocytes % 20.7 Monocytes % 9.1 Eosinophils % 3.9 Basophils % 0.5 Nucleated RBC % 0 Sodium 140 Potassium 4.4 Chloride 104 Carbon Dioxide 31 Anion Gap 5 L BUN 30.8 H Creatinine 0.4 L Est GFR (CKD-EPI)AfAm 143.76 Est GFR (CKD-EPI)NonAf 124.03 Random Glucose 101 Calcium 9.2 Total Bilirubin 0.2 AST 30 ALT 42 Alkaline Phosphatase 215 H Total Protein 5.8 L Albumin 2.6 L Stool Occult Blood Negative HOSPITAL COURSE: Date of Admission:03/02/19 Date of Discharge: 03/11/19 Discharge Summary Problems reviewed: Yes Reason For Visit: FEVER/HYPOXIA/PNEUMONIA Current Active Problems DVT prophylaxis (Acute) Fever (Acute) G tube feedings (Acute) Gram-positive bacteremia (Acute) Hypotension (Acute) EDDIE (obstructive sleep apnea) (Acute) Pancytopenia (Acute) Prophylactic measure (Acute) Pulmonary HTN (Acute) FUELER (ventriculoperitoneal) shunt status (Acute) Wound of right upper extremity (Acute) Condition: Improved - Instructions Diet, Activity, Other Instructions: Ms Davenport was admitted for community acquired pneumonia and has been treated with IV antibiotics. She will be sent home today without any further antibiotics. During her hospital stay she was evaluated by a online user experience strategist, and surgery (for her hospital acquired wound). Ms Davenport developed a right upper wound which may have been due to infusion of an antibiotic. We have treated this wound and it has improved and now smaller. Here are our discharge recommendations: Community acquired pneumonia, resolved Completed antibiotics intravenously and has been evaluated by online user experience strategist. She has been cleared for discharge back to [place]. No further antibiotics on discharge. She has been on room for for 48 hours and her oxygen has remained between 94% and 98% (room air). Right arm wound: We treated this wound with cold compresses for 24 hours, then added Silvadene 1 % cream to right arm TWICE per day. Her wound is getting smaller and appears to be healing. We have called the wound care at [facility] and have referred Ms Davenport to them. Labial swelling/redness: Monistat topical cream for 7 days TWICE daily (12/07/19 to 12/14/2019) Thank you for allowing us to care for Ms Davenport. Mercy Macedo NP [facility] [phone] WOUND CARE APPOINTMENT 03/14/2019 @10AM Referrals: Karissa Dias NP [Non Staff, Medical] - Disposition: [facility] FACILITY - Home Medications Comprehensive Discharge Medication List: Ambulatory Orders Baclofen 20 mg PO TID 03/02/19 Diazepam 2 mg PO TID 03/02/19 Famotidine 20 mg PO DAILY 03/02/19 Magnesium Hydroxide [Milk of Magnesia] 15 ml GT DAILY 03/02/19 levETIRAcetam [Levetiracetam] 100 mg GT BID 03/02/19 Amino Acids/Protein Hydrolys [Prosource No Carb Liquid Pkt] 30 ml GT DAILY packet 03/11/19 Miconazole Nitrate [Monistat -] 1 applic TP BID tube 03/11/19 Silver Sulfadiazine 1% Top Cr [Silvadene -] 1 applic TP BID #1 jar 03/11/19 levETIRAcetam [Keppra Oral Solution -] 500 mg GT BID cup 03/11/19 Problem List - Problems (1) Fever Code(s): R50.9 - FEVER, UNSPECIFIED Qualifiers: Fever type: unspecified Qualified Code(s): R50.9 - Fever, unspecified (2) Community acquired pneumonia Code(s): J18.9 - PNEUMONIA, UNSPECIFIED ORGANISM (3) Pancytopenia Code(s): D61.818 - OTHER PANCYTOPENIA (4) Wound of right upper extremity Code(s): S41.101A - UNSPECIFIED OPEN WOUND OF RIGHT UPPER ARM, INITIAL ENCOUNTER (5) G tube feedings Code(s): Z93.1 - GASTROSTOMY STATUS (6) Gram-positive bacteremia Code(s): R78.81 - BACTEREMIA (7) EDDIE (obstructive sleep apnea) Code(s): G47.33 - OBSTRUCTIVE SLEEP APNEA (ADULT) (PEDIATRIC) (8) Pulmonary HTN Code(s): I27.20 - PULMONARY HYPERTENSION, UNSPECIFIED (9) FUELER (ventriculoperitoneal) shunt status Code(s): Z98.2 - PRESENCE OF CEREBROSPINAL FLUID DRAINAGE DEVICE (10) Acute hypoxemic respiratory failure Code(s): J96.01 - ACUTE RESPIRATORY FAILURE WITH HYPOXIA (11) Congenital quadriplegia Code(s): G80.8 - OTHER CEREBRAL PALSY (12) Profound intellectual disability Code(s): F73 - PROFOUND INTELLECTUAL DISABILITIES (13) Seizure Code(s): R56.9 - UNSPECIFIED CONVULSIONS (14) DVT prophylaxis Code(s): Z29.9 - ENCOUNTER FOR PROPHYLACTIC MEASURES, UNSPECIFIED (15) Prophylactic measure Code(s): Z29.9 - ENCOUNTER FOR PROPHYLACTIC MEASURES, UNSPECIFIED - Discharge Referral Referred to [facility] No
--- NOTE | 2019-03-11 12:30 | PN ---
Progress Note (short form) - Note Progress Note: PULMONARY No grunting today. No fevers recorded. Saturating well. Vital Signs Period Temp Pulse Resp BP Sys/Perez Pulse Ox Last 24 Hr 97.6 F-98.1 F 65-85 20-20 107-130/59-94 94-95 Gen: mildly tachypneic at rest Heart: RRR Lung: decreased breath sounds at the bases Abd: soft, nontender Ext: no edema CBC, BMP 03/11/19 05:15 03/11/19 05:15 Active Medications Acetaminophen (Tylenol Suppository -) 650 mg [place] Q6H PRN PRN Reason: FEVER Last Admin: 03/09/19 02:35 Dose: 650 mg Albuterol/Ipratropium (Duoneb -) 1 amp NEB Q6H PRN PRN Reason: SHORTNESS OF BREATH Amino Acids (Prosource No Carb Liquid Pkt) 30 ml GT DAILY [facility] Last Admin: 03/11/19 10:40 Dose: 30 ml Baclofen (Lioresal -) 20 mg GT TID [facility] Last Admin: 03/11/19 05:28 Dose: 20 mg Diazepam (Valium -) 2 mg GT TID [facility] Last Admin: 03/11/19 05:28 Dose: 2 mg Famotidine (Pepcid -) 20 mg PEG DAILY [facility] Last Admin: 03/11/19 10:41 Dose: 20 mg Heparin Sodium (Porcine) (Heparin -) 5,000 unit SQ BID [facility] Last Admin: 03/11/19 10:41 Dose: 5,000 unit Levetiracetam (Keppra Oral Solution -) 500 mg GT BID [facility] Last Admin: 03/11/19 10:40 Dose: 500 mg Magnesium Hydroxide (Milk Of Magnesia -) 15 ml GT DAILY [facility] Last Admin: 03/11/19 10:40 Dose: 15 ml Miconazole Nitrate (Monistat Topical Cream -) 1 applic TP BID [facility] Last Admin: 03/11/19 10:55 Dose: 1 applic Silver Sulfadiazine (Silvadene -) 1 applic TP BID [facility] Last Admin: 03/11/19 11:44 Dose: 1 applic A/P Acute Hypoxic Respiratory Failure improving Pneumonia Sepsis Pancytopenia RUE Ulcer Cerebral Palsy Mental Retardation Seizure Disorder Functional Quadriplegia - completed antibiotics - aspiration precautions - O2 to keep Spo2 >90% - inhaled bronchodilators - CPAP as needed - DVT prophylaxis
[2019-03-11 14:51] VITALS: BP 111/74; PULSE 68; TEMP 98.4
--- NOTE | 2019-03-11 15:07 | PN ---
Progress Note, Physician - Objective Vital Signs: Vital Signs Temperature 98.4 F 03/11/19 13:00 Pulse Rate 68 03/11/19 13:00 Respiratory Rate 20 03/11/19 13:00 Blood Pressure 111/74 03/11/19 13:00 O2 Sat by Pulse Oximetry (%) 95 03/11/19 09:00 Labs: CBC, BMP 03/11/19 05:15 03/11/19 05:15 INR, PTT INR 1.01 (0.83-1.09) 03/02/19 08:21
== END 2019-03-11 14:55 | DRG 720 ==
LOC: JER 04:48 → JERBED 12:12 → J4W 15:05
PROVIDERS: ATTEND Nurse Practitioner Family
DX: A41.89 Other specified sepsis (principal); J18.9 Pneumonia, unspecified organism; E87.6 Hypokalemia; D61.818 Other pancytopenia; G47.33 Obstructive sleep apnea (adult) (pediatric); G80.9 Cerebral palsy, unspecified; R09.02 Hypoxemia; R00.0 Tachycardia, unspecified; R53.2 Functional quadriplegia; K21.9 Gastro-esophageal reflux disease without esophagitis; I27.20 Pulmonary hypertension, unspecified; G91.9 Hydrocephalus, unspecified; G40.909 Epilepsy, unspecified, not intractable, without status epilepticus; I95.89 Other hypotension; E86.1 Hypovolemia; R06.2 Wheezing; F73 Profound intellectual disabilities; J96.01 Acute respiratory failure with hypoxia; R78.81 Bacteremia; S41.101A Unspecified open wound of right upper arm, initial encounter; T80.818A Extravasation of other vesicant agent, initial encounter; L98.498 Non-pressure chronic ulcer of skin of other sites with other specified severity; Z93.1 Gastrostomy status; Z98.2 Presence of cerebrospinal fluid drainage device
CPT/HCPCS: 36415; 71045-TC-FY; 80053; 82272; 82607; 82746; 82803; 83540; 83550; 83605; 83735; 84439; 84443; 84481; 84484; 85025; 85610; 85730; 87040; 87086; 87186; 87804; 93005; 93010; 93971; 99284-25; J0475; J1644

== ENCOUNTER 2019-10-20 16:16 | Emergency (ER) | payer OTHER ==
[2019-10-20 16:26] VITALS: TEMP 94
--- NOTE | 2019-10-20 16:39 | PDOC ---
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 Recently admitted to [facility] for anemia with Hgb 10>8>5.8, got 2 units pRBC, got EGD that was unremarkable. Per [place] patient returned from [facility] with gross swelling of BLE, bruising to upper and lower extremities as well as right neck, and unroofed blisters on her right dorsal foot of unclear origin. Per discharge summary patient has had mottling and bruising to upper and lower extremities with blisters to right foot. Past History - Medical History Allergies/Adverse Reactions: Allergies Allergy/AdvReac Type Severity Reaction Status Date / Time Quinolones Allergy Mild Verified 10/20/19 16:18 Home Medications: Ambulatory Orders Baclofen 20 mg GT TID 03/02/19 Diazepam 2 mg GT TID 03/02/19 Magnesium Hydroxide [Milk of Magnesia] 15 ml GT DAILY 03/02/19 levETIRAcetam [Levetiracetam] 500 mg GT BID 03/02/19 Amino Acids/Protein Hydrolys [Prosource No Carb Liquid Pkt] 30 ml GT DAILY packet 03/11/19 Furosemide Oral Solution [Lasix Oral Solution -] 20 mg GT DAILY PRN 05/02/19 Acetic Acid 2% Otic Soln [Vosol 2% Ear Drops -] 3 drop HS 10/20/19 Cholecalciferol (Vitamin D3) [Vitamin D-400] 400 unit GT BID 10/20/19 Cranberry Conc/C/Bacill Coag [Azo Cranberry Tablet] 1 each GT HS 10/20/19 Famotidine [Pepcid] 40 mg GT HS 10/20/19 Anemia: Yes COPD: No GI Disorders: (GERD) Seizures: Yes (epilepsy,cp) - Surgical History Abdominal Surgery: Yes (G-tube, fundoplication) Cholecystectomy: Yes GI Surgery: Yes (Ladi fundoplication) Orthopedic Surgery: Yes (femoral head resection, spinal fusion with instrumentation for scoliosis) - Reproductive History Is Patient Now?: No (LAST PERIOD UNKNOWN) - Immunization History TDAP Vaccination: Yes (last 09/23/04) Immunization Up to Date: Yes - Psycho-Social/Smoking History Smoking History: Never smoked Have you smoked in the past 12 months: No - Substance Abuse Hx (Audit-C & DAST Scrn) How often the patient has a drink containing alcohol: Never Score: In Men: 4 or > Positive; In Women: 3 or > Positive: 0 Screen Result (Pos requires Nsg. Audit-10AR): Negative In the last yr the pt used illegal drug/Rx for NonMed reason: No Score: Yes response is considered Positive: 0 Screen Result (Positive result requires Nsg. DAST-10): Negative Review of Systems - Review of Systems Able to Perform ROS?: No (intellectual deficit) *Physical Exam - Vital Signs Last Vital Signs Temp Pulse Resp BP Pulse Ox 94.0 F L 57 L 20 112/74 100 10/20/19 16:22 10/20/19 16:22 10/20/19 16:22 10/20/19 16:22 10/20/19 16:22 - Physical Exam General Appearance: Yes: Nourished, Appropriately Dressed, Obese, Other (alert and responsive, non-verbal). No: Apparent Distress HEENT: positive: EOMI, DEMETRIA, Normal Voice, Symmetrical, Pharynx Normal, Hearing Grossly Normal. negative: Scleral Icterus (R), Scleral Icterus (L), Pharyngeal Erythema, Tonsillar Exudate, Tonsillar Erythema Neck: positive: Normal Thyroid, Supple. negative: Tender, Lymphadenopathy (R), Lymphadenopathy (L), Tender lateral, Tender midline Respiratory/Chest: positive: Lungs Clear, Normal Breath Sounds. negative: Chest Tender, Respiratory Distress, Accessory Muscle Use, Crackles, Rales, Rhonchi, Stridor, Wheezing Cardiovascular: positive: Regular Rhythm, Regular Rate Gastrointestinal/Abdominal: positive: Normal Bowel Sounds, Soft, Other (PEG in place to left upper abdomen). negative: Tender, Pulsatile Mass, Guarding, Tenderness, Hernia Musculoskeletal: positive: Normal Inspection, Decreased Range of Motion (highly contracted to bilateral upper extremities). negative: CVA Tenderness, Vertebral Tenderness Extremity: positive: Normal Capillary Refill, Pelvis Stable, Pedal Edema, Swelling. negative: Normal Inspection, Normal Range of Motion (contracted), T jonas, Calf Tenderness Integumentary: positive: Dry, Warm, Mottled (bilateral upper extremities), Bruising (extensive to upper arms and legs), Other (blistered region to R dorsal foot, no active infection, non-tender) Neurologic: positive: Alert, Normal Response. negative: Fully Oriented, Normal Mood/Affect ED Treatment Course - LABORATORY CBC & Chemistry Diagram: 10/20/19 18:30 10/20/19 18:30 Medical Decision Making - Medical Decision Making 10/20/19 19:02 Patient sent from [place] for lower extremity swelling evaluation, was discharged from [place] noted with mottling and bruising to upper and lower extremities with noted blistering to R foot, no evidence of arterial compromise to either foot, patient's VSS and in NAD. Patient unable to provide symptoms or history relevant to current presentation. Attempted to contact [place], but no answer after several tries. Attempted to contact [facility] ED, unable to access inpatient records, inpatient team unwilling to give information regarding blistering. Given recent admission to [facility] for anemia, PMH PHTX, checking CBC/CMP/BNP/UA/UC/T&S/ECG for evaluation of cardiac/renal/hepatic causes of swelling. BLE US ordered for evaluation of DVT. Labs notable for: - UA WNL - WBC 2.6, consistent with priors - Hgb 10.8 - Na 148, consistent with priors - BNP 548, no respiratory distress - Coags WNL - T&S hemolyzed, not needed ECG shows sinus bradycardia with HR 51, QTc 409, no HERLINDA/D, nonspecific T wave flattening to lateral leads. BLE US shows no DVT. Patient grossly appears well, labs show some CHF but CXR shows chronic pulmonary edema, on home G-tube Lasix. Does not need transfusion. Stable for discharge home with PMD f/u. Calling [facility] for setting up ambulance back. 10/20/19 20:20 Spoke to PHARMACY TECHNICIAN Karissa Dias. Sent patient for evaluation given swelling despite Lasix, concerned for DVT as patient has midline in R groin. Discussed that patient is alert and doing well, in no respiratory distress, no crackles on exam. Satting well on RA. US shows no DVT, no other sources of swelling on labs other than overload and CHF, but no concerning findings that patient needs to be admitted. K 4.4, can be managed appropriately on outpatient Lasix as she has been given. Discharge - Discharge Information Problems reviewed: Yes Clinical Impression/Diagnosis: Swelling of lower extremity Condition: Stable Disposition: SNF FACILITY - Admission No - Follow up/Referral - Patient Discharge Instructions Additional Instructions: Today Lexy was evaluated for swelling in her legs. Her ultrasound does not show any DVT in her legs. Her labs show no evidence of infection, urinary tract infection, or liver disease as cause of swelling, most likely heart failure or fluid overload from IV fluids given at last admission. Can be stably treated outpatient with PEG Lasix 20mg as prescribed, last K 4.4. Her bruising is ex tensive but her labs show no coagulopathy or low platelets. If patient has difficulty breathing, worsening swelling or bruising, or has any other new or concerning symptoms, please return to the emergency room. - Post Discharge Activity
[2019-10-20 17:14] VITALS: BMI 22.8
--- NOTE | 2019-10-20 18:51 | PDOC ---
Attending Attestation - Resident Resident Name: Bernabe Carrillo - HPI HPI: 10/20/19 18:57 Pt presents to the ED after sent in by long-term for bilateral lower extremity edema and blistering on her R foot. Both of these symptoms have apparently been present since patient was discharged from [facility] three days ago. Patient was there for severe anemia, and appears to have been transfused. IV access seems to have been placed in the affected foot. - Physicial Exam PE: 10/20/19 19:02 Agree with resident exam. Patient is non verbal at baseline. + symmetric pitting edema to knee bilaterally. + healing, unroofed blister on dorsum of the R foot with no signs of infection. - Medical Decision Making 10/20/19 19:09 Pt presents to the ED complaining of bilateral lower extremity edema and healing wound to the foot. Will check duplex, check labs to evaluate for renal abnormality or electrolyte disturbance and reassess. 10/22/19 08:56 Discharge - Discharge Information Problems reviewed: Yes Clinical Impression/Diagnosis: Swelling of lower extremity Condition: Stable Disposition: LONG-TERM FACILITY - Follow up/Referral - Patient Discharge Instructions Additional Instructions: Today Lexy was evaluated for swelling in her legs. Her ultrasound does not show any DVT in her legs. Her labs show no evidence of infection, urinary tract infection, or liver disease as cause of swelling, most likely heart failure or fluid overload from IV fluids given at last admission. Can be stably treated outpatient with PEG Lasix 20mg as prescribed, last K 4.4. Her bruising is extensive but her labs show no coagulopathy or low platelets. If patient has difficulty breathing, worsening swelling or bruising, or has any other new or concerning symptoms, please return to the emergency room. - Post Discharge Activity
[2019-10-20 18:57] LABS: BASO % 1.3 % (0-2.0); EOS % 1.4 % (0-4.5); HEMATOCRIT 32.8 % (32.4-45.2); HEMOGLOBIN 10.8 GM/dL (10.7-15.3); LYMPH % 23.9 % (8-40); MCH 29.8 pg (25.7-33.7); MEAN CELL VOLUME 90.5 fl (80-96); MEAN PLT VOLUME 8.5 fl (7.5-11.1); NEUT % 66.4 % (42.8-82.8); PLATELET COUNT 416 K/MM3 (134-434); RBC 3.63 M/mm3 (3.60-5.2); RDW 16.4 % (11.6-15.6); WHITE BLOOD COUNT 2.6 K/mm3 (4.0-10.0)
[2019-10-20 19:01] LABS: EPI CELLS 13 /uL (0-25.1); HYALINE CASTS 1 /uL (0-3.1); PH,URINE >= 9.0 (5.0-8.0); URINE APPEARANCE CLEAR; URINE BACTERIA 27 /uL (0-1359); URINE BILIRUBIN NEGATIVE (NEGATIVE); URINE COLOR YELLOW; URINE GLUCOSE (UA) NEGATIVE (NEGATIVE); URINE KETONE NEGATIVE (NEGATIVE); URINE LEUK ESTERASE TRACE (NEGATIVE); URINE NITRITE NEGATIVE (NEGATIVE); URINE PROTEIN NEGATIVE (NEGATIVE); URINE RBC 9 /uL (0-23.9); URINE UROBILINOGEN 0.2 mg/dL (0.2-1.0); URINE WBC 10 /uL (0-25.8)
[2019-10-20 19:05] LABS: INR 0.84 (0.83-1.09); PROTHROMBIN TIME (PATIENT) 9.9 SEC (9.7-13.0)
[2019-10-20 19:08] LABS: ACTIVATED PTT 43.1 SECONDS (25.2-36.5)
[2019-10-20 19:23] LABS: ALBUMIN 2.1 g/dl (3.4-5.0); BILIRUBIN,TOTAL 0.3 mg/dL (0.2-1); BLOOD UREA NITROGEN 17.6 mg/dL (7-18); CALCIUM 8.7 mg/dL (8.5-10.1); CREATININE 0.3 mg/dL (0.55-1.3); POTASSIUM 4.4 mmol/L (3.5-5.1); TOT PROT 5.4 g/dl (6.4-8.2)
[2019-10-20 21:25] VITALS: BP 110/77; PULSE 53
--- NOTE | 2019-10-21 18:24 | EKG ---
Test Reason : Blood Pressure : / mmHG Vent. Rate : 051 BPM Atrial Rate : 051 BPM P-R Int : 164 ms QRS Dur : 078 ms QT Int : 444 ms P-R-T Axes : 021 058 052 degrees QTc Int : 409 ms SINUS BRADYCARDIA LOW VOLTAGE QRS NONSPECIFIC T WAVE ABNORMALITY ABNORMAL ECG WHEN COMPARED WITH ECG OF 02-MAR-2019 08:17, VENT. RATE HAS DECREASED BY 38 BPM T WAVE VARIATION Confirmed by REDD MICHELE MD ([id number]) on 10/21/2019 6:24:06 PM Referred By: Confirmed By:REDD MICHELE MD
== END 2019-10-20 21:50 ==
LOC: JER 16:16
DX: R60.0 Localized edema (principal)
CPT/HCPCS: 36415; 71045-TC-FY; 80053; 81003; 83880; 85025; 85610; 85730; 87086; 87186; 93005; 93010; 93970-TC; 99285-25

== ENCOUNTER 2020-03-25 09:26 | Inpatient (IN) | payer OTHER ==
[2020-03-25 09:46] VITALS: BMI 26.3
[2020-03-25] MEDS ORDERED: DEXAMETHASONE SOD PHOSPHATE 4 MG/1 ML VIAL IVPUSH ONE (11:15)
[2020-03-25] MEDS ORDERED: DEXAMETHASONE SOD PHOSPHATE 10 MG/1 ML VIAL ONE (12:48)
[2020-03-25 13:19] LABS: BASO % 0.1 % (0-2.0); EOS % 0.1 % (0-4.5); HEMOGLOBIN 11.2 GM/dL (10.7-15.3); LYMPH % 8.7 % (8-40); MCH 28.8 pg (25.7-33.7); MCHC 33.9 g/dl (32.0-36.0); MEAN CELL VOLUME 84.8 fl (80-96); MEAN PLT VOLUME 7.4 fl (7.5-11.1); MONO % 5.8 % (3.8-10.2); NEUT % 85.3 % (42.8-82.8); PLATELET COUNT 149 K/MM3 (134-434); RBC 3.89 M/mm3 (3.60-5.2); WHITE BLOOD COUNT 4.4 K/mm3 (4.0-10.0)
[2020-03-25 13:37] LABS: CHLORIDE 103 mmol/L (98-107); POTASSIUM 4.2 mmol/L (3.5-5.1); SODIUM 140 mmol/L (136-145)
[2020-03-25 13:39] LABS: ALBUMIN 2.4 g/dl (3.4-5.0); ANION GAP 9 MMOL/L (8-16); BLOOD UREA NITROGEN 16.8 mg/dL (7-18); CALCIUM 8.2 mg/dL (8.5-10.1); CO2 28 mmol/L (21-32); GLUCOSE,RANDOM 143 mg/dL (74-106)
[2020-03-25 13:42] LABS: SGPT/ALT 122 U/L (13-61)
[2020-03-25 13:43] LABS: CREATININE 0.5 mg/dL (0.55-1.3); SGOT/AST 155 U/L (15-37)
[2020-03-25 13:44] LABS: BILIRUBIN,TOTAL 0.4 mg/dL (0.2-1); TOT PROT 6.2 g/dl (6.4-8.2)
[2020-03-25 13:45] LABS: ALK PHOS 599 U/L (45-117)
[2020-03-25] MEDS ORDERED: ACETAMINOPHEN 325 MG TABLET (FP) PO PRN (14:36)
[2020-03-25] MEDS ORDERED: AZITHROMYCIN IVPB 500 MG in DEXTROSE 5%-WATER - 250 ML IVPB ONE (14:37)
[2020-03-25] MEDS ORDERED: SODIUM CHLORIDE 1,000 ML IV SCH (15:00)
[2020-03-25 15:10] LABS: EPI CELLS >36 /uL (0-25.1); HYALINE CASTS 1 /uL (0-3.1); URINE APPEARANCE CLEAR; URINE BACTERIA 119 /uL (0-1359); URINE BILIRUBIN NEGATIVE (NEGATIVE); URINE COLOR YELLOW; URINE GLUCOSE (UA) TRACE (NEGATIVE); URINE KETONE NEGATIVE (NEGATIVE); URINE LEUK ESTERASE NEGATIVE (NEGATIVE); URINE NITRITE NEGATIVE (NEGATIVE); URINE PROTEIN 2+ (NEGATIVE); URINE UROBILINOGEN 0.2 mg/dL (0.2-1.0); URINE WBC 52 /uL (0-25.8)
[2020-03-25] MEDS ORDERED: CEFTRIAXONE 1 GM/50 ML BAG ONE (15:15)
[2020-03-25] MEDS: CEFTRIAXONE 1 GM in DEXTROSE 5%-WATER - 50 ML IVPB SCH (15:41)
[2020-03-25] MEDS ORDERED: AZITHROMYCIN IVPB 500 MG/250 ML BAG IVPB ONE (16:07)
[2020-03-25 16:49] LABS: BILIRUBIN,DIRECT 0.1 mg/dL (0.0-0.2)
[2020-03-25 16:53] LABS: LDH 499 U/L (84-246)
[2020-03-25 17:35] LABS: URINE RBC 133.4 /uL (0-23.9); YEAST NONE SEEN (NEGATIVE)
[2020-03-25] MEDS ORDERED: MAGNESIUM HYDROX 2400MG/30ML ORAL SUSPENSION 30 ML CUP ONE (21:30)
[2020-03-25] MEDS ORDERED: ASCORBIC ACID 500 MG TABLET (FP) ONE (21:30)
[2020-03-25] MEDS ORDERED: levETIRAcetam 500 MG/5 ML INJECTION VIAL IVPB ONE (21:31)
[2020-03-25] MEDS ORDERED: diazePAM 2 MG TABLET ONE (21:31)
[2020-03-25] MEDS ORDERED: ZINC SULFATE 220 MG CAPSULE (FP) ONE (21:31)
[2020-03-25] MEDS ORDERED: FAMOTIDINE 20 MG TABLET ONE (21:31)
[2020-03-25] MEDS ORDERED: BACLOFEN 10 MG TABLET (FP) ONE (21:32)
[2020-03-25] MEDS: ZINC SULFATE 220 MG CAPSULE (FP) GT SCH (23:23)
[2020-03-25] MEDS: MAGNESIUM HYDROX 2400MG/30ML ORAL SUSPENSION 30 ML CUP GT SCH (23:23)
[2020-03-25] MEDS: FAMOTIDINE 40 MG/5 ML ORAL SUSPENSION NGT SCH (23:23)
[2020-03-25] MEDS: levETIRAcetam 500 MG/5 ML INJECTION VIAL IVPB SCH (23:23)
[2020-03-25] MEDS: diazePAM 2 MG TABLET GT SCH (23:23)
[2020-03-25] MEDS: BACLOFEN 10 MG TABLET (FP) GT SCH (23:23)
[2020-03-25] MEDS: ASCORBIC ACID 500 MG TABLET (FP) PO SCH (23:24)
[2020-03-26] MEDS ORDERED: diazePAM 2 MG TABLET ONE (06:09)
[2020-03-26 07:09] LABS: BASO % 0.2 % (0-2.0); EOS % 0.2 % (0-4.5); HEMATOCRIT 33.9 % (32.4-45.2); HEMOGLOBIN 11.3 GM/dL (10.7-15.3); MCH 28.7 pg (25.7-33.7); MCHC 33.2 g/dl (32.0-36.0); MEAN CELL VOLUME 86.4 fl (80-96); MEAN PLT VOLUME 7.4 fl (7.5-11.1); MONO % 9.4 % (3.8-10.2); NEUT % 78.2 % (42.8-82.8); PLATELET COUNT 161 K/MM3 (134-434); RBC 3.93 M/mm3 (3.60-5.2); RDW 16.1 % (11.6-15.6); WHITE BLOOD COUNT 5.2 K/mm3 (4.0-10.0)
[2020-03-26 07:18] LABS: POTASSIUM 4.3 mmol/L (3.5-5.1)
[2020-03-26 07:21] LABS: ALBUMIN 2.3 g/dl (3.4-5.0); BLOOD UREA NITROGEN 18.7 mg/dL (7-18); CALCIUM 8.1 mg/dL (8.5-10.1)
[2020-03-26 07:22] LABS: MAGNESIUM 2.4 mg/dL (1.8-2.4)
[2020-03-26 07:24] LABS: CREATININE 0.4 mg/dL (0.55-1.3); PHOSPHOROUS 3.8 mg/dL (2.5-4.9)
[2020-03-26 07:26] LABS: BILIRUBIN,TOTAL 0.3 mg/dL (0.2-1)
[2020-03-26] MEDS ORDERED: DEXTROSE 5%-WATER - 50 ML IVPB ONE (09:54)
[2020-03-26] MEDS ORDERED: cefTRIAXone SODIUM 1 GM VIAL ONE (09:54)
[2020-03-26] MEDS ORDERED: AZITHROMYCIN IVPB 250 MG in DEXTROSE 5%-WATER - 250 ML IVPB SCH (10:00)
[2020-03-26] MEDS: diazePAM 2 MG TABLET GT SCH ×3 (10:41→21:42)
[2020-03-26] MEDS: BACLOFEN 10 MG TABLET (FP) GT SCH ×3 (10:41→21:42)
[2020-03-26] MEDS: ENOXAPARIN NA (PORCINE) 40 MG/0.4 ML DISP.SYRIN SQ SCH (10:41)
[2020-03-26] MEDS: levETIRAcetam 500 MG/5 ML INJECTION VIAL IVPB SCH ×2 (10:41→21:41)
[2020-03-26] MEDS: CEFTRIAXONE 1 GM in DEXTROSE 5%-WATER - 50 ML IVPB SCH (10:42)
[2020-03-26] MEDS: ASCORBIC ACID 500 MG TABLET (FP) PO SCH ×2 (10:42→21:42)
[2020-03-26] MEDS: ZINC SULFATE 220 MG CAPSULE (FP) GT SCH ×2 (10:42→21:42)
[2020-03-26] MEDS: CHOLECALCIFEROL (VIT D SOLUTION) 400 UNIT/1 ML DROPS GT SCH (11:58)
[2020-03-26] MEDS: DEXAMETHASONE 4 MG TABLET (FP) GT SCH (11:58)
[2020-03-26] MEDS ORDERED: PT OWN MED DRAWER 7, Y5N ONE (21:09)
[2020-03-26] MEDS: MAGNESIUM HYDROX 2400MG/30ML ORAL SUSPENSION 30 ML CUP GT SCH (21:42)
[2020-03-26] MEDS: FAMOTIDINE 40 MG/5 ML ORAL SUSPENSION NGT SCH (22:06)
[2020-03-27] MEDS: diazePAM 2 MG TABLET GT SCH ×3 (06:46→21:54)
[2020-03-27] MEDS: BACLOFEN 10 MG TABLET (FP) GT SCH ×3 (06:46→21:53)
[2020-03-27] MEDS ORDERED: DEXTROSE 5%-WATER - 50 ML IVPB ONE ×3 (09:33→16:53)
[2020-03-27] MEDS ORDERED: cefTRIAXone SODIUM 1 GM VIAL ONE (09:33)
[2020-03-27] MEDS: DEXAMETHASONE 4 MG TABLET (FP) GT SCH (09:41)
[2020-03-27] MEDS: ENOXAPARIN NA (PORCINE) 40 MG/0.4 ML DISP.SYRIN SQ SCH (09:41)
[2020-03-27] MEDS: ASCORBIC ACID 500 MG TABLET (FP) PO SCH ×2 (09:41→21:54)
[2020-03-27] MEDS: CHOLECALCIFEROL (VIT D SOLUTION) 400 UNIT/1 ML DROPS GT SCH (09:41)
[2020-03-27] MEDS: CEFTRIAXONE 1 GM in DEXTROSE 5%-WATER - 50 ML IVPB SCH (09:41)
[2020-03-27] MEDS: ZINC SULFATE 220 MG CAPSULE (FP) GT SCH ×2 (09:41→21:52)
[2020-03-27] MEDS: levETIRAcetam 500 MG/5 ML INJECTION VIAL IVPB SCH ×2 (09:41→21:56)
[2020-03-27] MEDS ORDERED: ACETAMINOPHEN 1000 MG/100 ML VIAL (NON FORMULARY) IVPB PRN ×2 (10:16→10:52)
[2020-03-27] MEDS ORDERED: PIPERACILLIN/TAZOB 2.25 GM 2.25 GM in DEXTROSE 5%-WATER - 50 ML IVPB SCH (10:45)
[2020-03-27] MEDS ORDERED: AZITHROMYCIN IVPB 250 MG in DEXTROSE 5%-WATER - 250 ML IVPB SCH (10:45)
[2020-03-27] MEDS ORDERED: PIPERACILLIN/TAZOB 3.375 GM 3.375 GM in DEXTROSE 5%-WATER - 50 ML IVPB SCH (10:45)
[2020-03-27] MEDS ORDERED: VANCOMYCIN 750 MG in DEXTROSE 5%-WATER - 250 ML IVPB ONE (11:00)
[2020-03-27] MEDS ORDERED: PIPERACILLIN/TAZOBACTAM 3.375 GM VIAL IVPB ONE ×2 (11:53→16:53)
[2020-03-27] MEDS ORDERED: REMDESIVIR 200 MG in SODIUM CHLORIDE 210 ML IVPB ONE (12:30)
[2020-03-27 12:40] LABS: BASO % 0.1 % (0-2.0); HEMATOCRIT 30.2 % (32.4-45.2); HEMOGLOBIN 10.1 GM/dL (10.7-15.3); LYMPH % 6.3 % (8-40); MCH 28.9 pg (25.7-33.7); MCHC 33.5 g/dl (32.0-36.0); MEAN CELL VOLUME 86.2 fl (80-96); MEAN PLT VOLUME 7.4 fl (7.5-11.1); MONO % 3.6 % (3.8-10.2); PLATELET COUNT 204 K/MM3 (134-434); RDW 16.6 % (11.6-15.6)
[2020-03-27 12:56] LABS: POTASSIUM 4.1 mmol/L (3.5-5.1)
[2020-03-27 13:00] LABS: ALBUMIN 2.4 g/dl (3.4-5.0)
[2020-03-27 13:01] LABS: BILIRUBIN,DIRECT 0.1 mg/dL (0.0-0.2)
[2020-03-27 13:04] LABS: BILIRUBIN,TOTAL 0.4 mg/dL (0.2-1); TOT PROT 5.7 g/dl (6.4-8.2)
[2020-03-27 13:05] LABS: CREATININE 0.5 mg/dL (0.55-1.3)
[2020-03-27] MEDS: DEXTROSE 5%-WATER - 1,000 ML IV SCH (16:15)
[2020-03-27] MEDS: PIPERACILLIN/TAZOB 3.375 GM 3.375 GM in DEXTROSE 5%-WATER - 50 ML IVPB SCH (17:53)
[2020-03-27] MEDS: MAGNESIUM HYDROX 2400MG/30ML ORAL SUSPENSION 30 ML CUP GT SCH (21:56)
[2020-03-27] MEDS ORDERED: PT OWN MED DRAWER 7, Y5N ONE (21:57)
[2020-03-27] MEDS: FAMOTIDINE 40 MG/5 ML ORAL SUSPENSION NGT SCH (21:58)
[2020-03-27] MEDS ORDERED: ALBUTEROL SO4 2.5/IPRATROPIUM 0.5 INH SOL 3 ML VIAL.NEB. NEB ONE (23:29)
[2020-03-28] MEDS ORDERED: PIPERACILLIN/TAZOBACTAM 3.375 GM VIAL IVPB ONE ×3 (01:02→17:43)
[2020-03-28] MEDS ORDERED: DEXTROSE 5%-WATER - 50 ML IVPB ONE ×3 (01:03→17:43)
[2020-03-28] MEDS: PIPERACILLIN/TAZOB 3.375 GM 3.375 GM in DEXTROSE 5%-WATER - 50 ML IVPB SCH ×3 (01:09→17:48)
[2020-03-28] MEDS ORDERED: ALBUTEROL SO4 HFA INHALER IH PRN (01:50)
[2020-03-28] MEDS: DEXTROSE 5%-WATER - 1,000 ML IV SCH ×2 (01:56→11:42)
[2020-03-28] MEDS: diazePAM 2 MG TABLET GT SCH ×3 (06:37→22:32)
[2020-03-28] MEDS: BACLOFEN 10 MG TABLET (FP) GT SCH ×3 (06:37→22:33)
[2020-03-28 08:38] LABS: POTASSIUM 4.2 mmol/L (3.5-5.1)
[2020-03-28 08:42] LABS: CALCIUM 7.8 mg/dL (8.5-10.1)
[2020-03-28 08:43] LABS: ALBUMIN 2.1 g/dl (3.4-5.0); BLOOD UREA NITROGEN 19.1 mg/dL (7-18); MAGNESIUM 2.5 mg/dL (1.8-2.4)
[2020-03-28 08:46] LABS: CREATININE 0.5 mg/dL (0.55-1.3); PHOSPHOROUS 3.3 mg/dL (2.5-4.9)
[2020-03-28 08:47] LABS: BILIRUBIN,TOTAL 0.7 mg/dL (0.2-1); TOT PROT 5.6 g/dl (6.4-8.2)
[2020-03-28] MEDS: ENOXAPARIN NA (PORCINE) 40 MG/0.4 ML DISP.SYRIN SQ SCH (09:15)
[2020-03-28] MEDS: levETIRAcetam 500 MG/5 ML INJECTION VIAL IVPB SCH ×2 (09:15→22:32)
[2020-03-28] MEDS: ASCORBIC ACID 500 MG TABLET (FP) PO SCH ×2 (09:16→22:32)
[2020-03-28] MEDS ORDERED: PIPERACILLIN/TAZOB 3.375 GM 3.375 GM in DEXTROSE 5%-WATER - 50 ML IVPB SCH (10:00)
[2020-03-28] MEDS: CHOLECALCIFEROL (VIT D SOLUTION) 400 UNIT/1 ML DROPS GT SCH (11:42)
[2020-03-28] MEDS: DEXAMETHASONE 4 MG TABLET (FP) GT SCH (11:42)
[2020-03-28] MEDS: ZINC SULFATE 220 MG CAPSULE (FP) GT SCH ×2 (11:42→22:32)
[2020-03-28 12:06] LABS: BASO % 0.1 % (0-2.0); EOS % 0.1 % (0-4.5); HEMATOCRIT 29.9 % (32.4-45.2); LYMPH % 6.1 % (8-40); MCHC 33.5 g/dl (32.0-36.0); MEAN CELL VOLUME 86.5 fl (80-96); MEAN PLT VOLUME 7.6 fl (7.5-11.1); MONO % 4.3 % (3.8-10.2); NEUT % 89.4 % (42.8-82.8); PLATELET COUNT 233 K/MM3 (134-434); RBC 3.46 M/mm3 (3.60-5.2); RDW 16.6 % (11.6-15.6); WHITE BLOOD COUNT 7.3 K/mm3 (4.0-10.0)
[2020-03-28] MEDS: REMDESIVIR 100 MG in SODIUM CHLORIDE 230 ML IVPB SCH (14:04)
[2020-03-28] MEDS: MAGNESIUM HYDROX 2400MG/30ML ORAL SUSPENSION 30 ML CUP GT SCH (22:32)
[2020-03-28] MEDS ORDERED: PT OWN MED DRAWER 7, Y5N ONE (22:34)
[2020-03-28] MEDS: FAMOTIDINE 40 MG/5 ML ORAL SUSPENSION PEG SCH (22:35)
[2020-03-29] MEDS ORDERED: DEXTROSE 5%-WATER - 50 ML IVPB ONE ×3 (02:02→16:39)
[2020-03-29] MEDS ORDERED: PIPERACILLIN/TAZOBACTAM 3.375 GM VIAL IVPB ONE ×3 (02:02→16:39)
[2020-03-29] MEDS: PIPERACILLIN/TAZOB 3.375 GM 3.375 GM in DEXTROSE 5%-WATER - 50 ML IVPB SCH ×3 (03:12→17:28)
[2020-03-29] MEDS: diazePAM 2 MG TABLET GT SCH ×3 (06:46→21:21)
[2020-03-29] MEDS: BACLOFEN 10 MG TABLET (FP) GT SCH ×3 (06:47→21:21)
[2020-03-29] MEDS: DEXTROSE 5%-WATER - 1,000 ML IV SCH ×2 (06:58→17:27)
[2020-03-29] MEDS ORDERED: FUROSEMIDE 40 MG/4 ML INJECTABLE VIAL IVPUSH ONE (09:38)
[2020-03-29] MEDS: DEXAMETHASONE 4 MG TABLET (FP) GT SCH (11:04)
[2020-03-29] MEDS: levETIRAcetam 500 MG/5 ML INJECTION VIAL IVPB SCH ×2 (11:05→21:20)
[2020-03-29] MEDS: CHOLECALCIFEROL (VIT D SOLUTION) 400 UNIT/1 ML DROPS GT SCH (11:07)
[2020-03-29] MEDS: ZINC SULFATE 220 MG CAPSULE (FP) GT SCH ×2 (11:07→21:21)
[2020-03-29] MEDS: ENOXAPARIN NA (PORCINE) 40 MG/0.4 ML DISP.SYRIN SQ SCH (11:07)
[2020-03-29] MEDS: ASCORBIC ACID 500 MG TABLET (FP) PO SCH ×2 (11:07→21:21)
[2020-03-29 11:22] LABS: BASO % 0.2 % (0-2.0); EOS % 0.5 % (0-4.5); HEMOGLOBIN 10.1 GM/dL (10.7-15.3); LYMPH % 8.8 % (8-40); MCHC 33.5 g/dl (32.0-36.0); MEAN CELL VOLUME 86.6 fl (80-96); MEAN PLT VOLUME 7.5 fl (7.5-11.1); MONO % 4.5 % (3.8-10.2); PLATELET COUNT 270 K/MM3 (134-434); RBC 3.47 M/mm3 (3.60-5.2); RDW 16.8 % (11.6-15.6); WHITE BLOOD COUNT 6.6 K/mm3 (4.0-10.0)
[2020-03-29 11:38] LABS: POTASSIUM 3.4 mmol/L (3.5-5.1)
[2020-03-29 11:41] LABS: CALCIUM 7.9 mg/dL (8.5-10.1)
[2020-03-29 11:42] LABS: BLOOD UREA NITROGEN 17.9 mg/dL (7-18); MAGNESIUM 2.3 mg/dL (1.8-2.4)
[2020-03-29 11:45] LABS: CREATININE 0.4 mg/dL (0.55-1.3); PHOSPHOROUS 3.3 mg/dL (2.5-4.9)
[2020-03-29 11:47] LABS: BILIRUBIN,TOTAL 1.1 mg/dL (0.2-1); TOT PROT 5.1 g/dl (6.4-8.2)
[2020-03-29] MEDS: REMDESIVIR 100 MG in SODIUM CHLORIDE 230 ML IVPB SCH (12:03)
[2020-03-29] MEDS ORDERED: POTASSIUM CHLORIDE TABS 20 MEQ TABLET.ER (FP) PO ONE (14:21)
[2020-03-29] MEDS ORDERED: PT OWN MED DRAWER 7, Y5N ONE (21:17)
[2020-03-29] MEDS: FAMOTIDINE 40 MG/5 ML ORAL SUSPENSION PEG SCH (21:20)
[2020-03-29] MEDS: MAGNESIUM HYDROX 2400MG/30ML ORAL SUSPENSION 30 ML CUP GT SCH (21:21)
[2020-03-30] MEDS ORDERED: DEXTROSE 5%-WATER - 50 ML IVPB ONE ×3 (01:23→16:52)
[2020-03-30] MEDS ORDERED: PIPERACILLIN/TAZOBACTAM 3.375 GM VIAL IVPB ONE ×3 (01:23→16:51)
[2020-03-30] MEDS: PIPERACILLIN/TAZOB 3.375 GM 3.375 GM in DEXTROSE 5%-WATER - 50 ML IVPB SCH ×3 (01:25→17:10)
[2020-03-30] MEDS: BACLOFEN 10 MG TABLET (FP) GT SCH ×3 (05:34→23:02)
[2020-03-30] MEDS: diazePAM 2 MG TABLET GT SCH ×3 (05:34→23:04)
[2020-03-30] MEDS: ZINC SULFATE 220 MG CAPSULE (FP) GT SCH ×2 (10:35→23:02)
[2020-03-30] MEDS: levETIRAcetam 500 MG/5 ML INJECTION VIAL IVPB SCH ×2 (10:35→23:02)
[2020-03-30] MEDS: DEXAMETHASONE 4 MG TABLET (FP) GT SCH (10:35)
[2020-03-30] MEDS: ASCORBIC ACID 500 MG TABLET (FP) PO SCH ×2 (10:35→23:02)
[2020-03-30] MEDS: ENOXAPARIN NA (PORCINE) 40 MG/0.4 ML DISP.SYRIN SQ SCH (10:36)
[2020-03-30] MEDS: CHOLECALCIFEROL (VIT D SOLUTION) 400 UNIT/1 ML DROPS GT SCH (10:36)
[2020-03-30 11:42] LABS: POTASSIUM 4.1 mmol/L (3.5-5.1)
[2020-03-30 11:45] LABS: CALCIUM 8.5 mg/dL (8.5-10.1)
[2020-03-30 11:46] LABS: ALBUMIN 2.2 g/dl (3.4-5.0); BLOOD UREA NITROGEN 15.8 mg/dL (7-18); MAGNESIUM 2.2 mg/dL (1.8-2.4)
[2020-03-30 11:49] LABS: CREATININE 0.5 mg/dL (0.55-1.3); PHOSPHOROUS 2.1 mg/dL (2.5-4.9)
[2020-03-30 11:50] LABS: HEMATOCRIT 33.6 % (32.4-45.2); MCH 28.4 pg (25.7-33.7); MCHC 32.8 g/dl (32.0-36.0); MEAN CELL VOLUME 86.7 fl (80-96); MEAN PLT VOLUME 8.4 fl (7.5-11.1); PLATELET COUNT 294 K/MM3 (134-434); RBC 3.88 M/mm3 (3.60-5.2); RDW 17.2 % (11.6-15.6)
[2020-03-30 11:50] LABS: BILIRUBIN,TOTAL 0.9 mg/dL (0.2-1); TOT PROT 5.6 g/dl (6.4-8.2)
[2020-03-30] MEDS: REMDESIVIR 100 MG in SODIUM CHLORIDE 230 ML IVPB SCH (13:04)
[2020-03-30 13:05] LABS: ANISOCYTOSIS 0; MACROCYTOSIS 0; OVALOCYTE 1+; PLATELET ESTIMATE NORMAL
[2020-03-30] MEDS ORDERED: PT OWN MED DRAWER 7, Y5N ONE (22:34)
[2020-03-30] MEDS: MAGNESIUM HYDROX 2400MG/30ML ORAL SUSPENSION 30 ML CUP GT SCH (23:01)
[2020-03-31] MEDS: FAMOTIDINE 40 MG/5 ML ORAL SUSPENSION PEG SCH ×2 (01:13→23:25)
[2020-03-31] MEDS ORDERED: DEXTROSE 5%-WATER - 50 ML IVPB ONE ×3 (02:15→15:34)
[2020-03-31] MEDS ORDERED: PIPERACILLIN/TAZOBACTAM 3.375 GM VIAL IVPB ONE ×2 (02:15→11:23)
[2020-03-31] MEDS: PIPERACILLIN/TAZOB 3.375 GM 3.375 GM in DEXTROSE 5%-WATER - 50 ML IVPB SCH ×2 (02:26→12:00)
[2020-03-31] MEDS: BACLOFEN 10 MG TABLET (FP) GT SCH ×3 (06:12→23:26)
[2020-03-31] MEDS: diazePAM 2 MG TABLET GT SCH ×3 (06:13→23:25)
[2020-03-31 10:57] LABS: BASO % 0.1 % (0-2.0); EOS % 0.6 % (0-4.5); HEMATOCRIT 31.3 % (32.4-45.2); HEMOGLOBIN 10.4 GM/dL (10.7-15.3); MCH 28.3 pg (25.7-33.7); MCHC 33.1 g/dl (32.0-36.0); MEAN CELL VOLUME 85.5 fl (80-96); MEAN PLT VOLUME 8.2 fl (7.5-11.1); MONO % 4.3 % (3.8-10.2); PLATELET COUNT 409 K/MM3 (134-434); RBC 3.66 M/mm3 (3.60-5.2); RDW 16.8 % (11.6-15.6); WHITE BLOOD COUNT 7.9 K/mm3 (4.0-10.0)
[2020-03-31 11:16] LABS: POTASSIUM 3.8 mmol/L (3.5-5.1)
[2020-03-31 11:27] LABS: ALBUMIN 1.9 g/dl (3.4-5.0); BLOOD UREA NITROGEN 21.2 mg/dL (7-18); CALCIUM 8.4 mg/dL (8.5-10.1); MAGNESIUM 2.3 mg/dL (1.8-2.4)
[2020-03-31 11:30] LABS: CREATININE 0.4 mg/dL (0.55-1.3)
[2020-03-31 11:31] LABS: BILIRUBIN,TOTAL 0.5 mg/dL (0.2-1); PHOSPHOROUS 2.3 mg/dL (2.5-4.9)
[2020-03-31] MEDS: ASCORBIC ACID 500 MG TABLET (FP) PO SCH ×2 (12:00→23:25)
[2020-03-31] MEDS: levETIRAcetam 500 MG/5 ML INJECTION VIAL IVPB SCH ×2 (12:00→21:45)
[2020-03-31] MEDS: ENOXAPARIN NA (PORCINE) 40 MG/0.4 ML DISP.SYRIN SQ SCH (12:00)
[2020-03-31] MEDS: ZINC SULFATE 220 MG CAPSULE (FP) GT SCH ×2 (12:01→23:25)
[2020-03-31] MEDS: CHOLECALCIFEROL (VIT D SOLUTION) 400 UNIT/1 ML DROPS GT SCH (12:01)
[2020-03-31] MEDS: DEXAMETHASONE 4 MG TABLET (FP) GT SCH (12:01)
[2020-03-31 12:08] LABS: ANISOCYTOSIS 1+; MACROCYTOSIS 0; PLATELET ESTIMATE NORMAL
[2020-03-31] MEDS: REMDESIVIR 100 MG in SODIUM CHLORIDE 230 ML IVPB SCH (13:10)
[2020-03-31] MEDS ORDERED: cefTRIAXone SODIUM 1 GM VIAL ONE (15:34)
[2020-03-31] MEDS: CEFTRIAXONE 1 GM in DEXTROSE 5%-WATER - 50 ML IVPB SCH (15:35)
[2020-03-31] MEDS ORDERED: RAPID SEQUENCE INTUBATION KIT NR ONE (22:14)
[2020-03-31] MEDS ORDERED: MIDAZOLAM 100 MG in SODIUM CHLORIDE 100 ML IVPB SCH (22:15)
[2020-03-31] MEDS: FENTANYL NS IVPB 500 MCG/100 ML BAG IVPB SCH (22:50)
[2020-03-31] MEDS: MAGNESIUM HYDROX 2400MG/30ML ORAL SUSPENSION 30 ML CUP GT SCH (23:25)
[2020-03-31] MEDS ORDERED: ROCURONIUM BROMIDE 50 MG/5 ML SYRINGE ONE (23:41)
[2020-04-01 00:45] LABS: BASO % 0.1 % (0-2.0); EOS % 0.1 % (0-4.5); HEMATOCRIT 31.2 % (32.4-45.2); HEMOGLOBIN 9.9 GM/dL (10.7-15.3); LYMPH % 2.6 % (8-40); MCH 27.8 pg (25.7-33.7); MCHC 31.7 g/dl (32.0-36.0); MEAN CELL VOLUME 87.8 fl (80-96); MEAN PLT VOLUME 8.2 fl (7.5-11.1); MONO % 3.2 % (3.8-10.2); PLATELET COUNT 473 K/MM3 (134-434); RBC 3.55 M/mm3 (3.60-5.2); RDW 17.3 % (11.6-15.6); WHITE BLOOD COUNT 15.3 K/mm3 (4.0-10.0)
[2020-04-01 01:04] LABS: POTASSIUM 3.8 mmol/L (3.5-5.1)
[2020-04-01 01:06] LABS: CALCIUM 9.4 mg/dL (8.5-10.1)
[2020-04-01 01:07] LABS: ALBUMIN 1.8 g/dl (3.4-5.0); BLOOD UREA NITROGEN 26.1 mg/dL (7-18); MAGNESIUM 2.5 mg/dL (1.8-2.4)
[2020-04-01 01:10] LABS: CREATININE 0.6 mg/dL (0.55-1.3)
[2020-04-01 01:11] LABS: BILIRUBIN,TOTAL 0.2 mg/dL (0.2-1)
[2020-04-01 01:19] LABS: PHOSPHOROUS 5.8 mg/dL (2.5-4.9)
[2020-04-01 01:31] LABS: HELMET CELLS 1+; TEAR DROP CELLS 1+
[2020-04-01] MEDS ORDERED: ROCURONIUM BROMIDE 50 MG/5 ML VIAL IV ONE (01:43)
[2020-04-01 02:07] LABS: ARTERIAL BLD GAS O2 SATURATION 94.1 mmHg (95-98); ARTERIAL BLOOD GAS BASE EXCESS 4.5 mmol/L (-2-2); ARTERIAL BLOOD GAS PO2 76.8 mmHg (80-100); ARTERIAL BLOOD GAS pH 7.326 (7.350-7.450)
[2020-04-01 02:08] LABS: ALLENS TEST POSITIVE
[2020-04-01 02:09] LABS: VENT MODE A/C; VENT RATE 22
[2020-04-01] MEDS ORDERED: NOREPINEPHRINE BITARTRATE 4 MG/4 ML ML IV ONE (02:27)
[2020-04-01] MEDS: SODIUM CHLORIDE 1,000 ML IV SCH (02:27)
[2020-04-01] MEDS: NOREPINEPHRINE NS PREMIX 8,000 MCG/500 ML BAG IVPB SCH (02:37)
[2020-04-01] MEDS ORDERED: MIDAZOLAM 100 MG/100 ML MG IVPB ONE (04:58)
[2020-04-01] MEDS ORDERED: FENTANYL NS IVPB 500 MCG/100 ML BAG IVPB ONE (04:58)
[2020-04-01] MEDS: BACLOFEN 10 MG TABLET (FP) GT SCH ×3 (07:00→22:07)
[2020-04-01] MEDS ORDERED: DEXTROSE 5%-WATER - 50 ML IVPB ONE (09:40)
[2020-04-01] MEDS ORDERED: cefTRIAXone SODIUM 1 GM VIAL ONE (09:41)
[2020-04-01] MEDS ORDERED: DEXAMETHASONE SOD PHOSPHATE 10 MG/1 ML VIAL ONE (09:42)
[2020-04-01] MEDS: CEFTRIAXONE 1 GM in DEXTROSE 5%-WATER - 50 ML IVPB SCH (09:48)
[2020-04-01] MEDS: ZINC SULFATE 220 MG CAPSULE (FP) GT SCH ×2 (09:49→22:07)
[2020-04-01] MEDS: levETIRAcetam 500 MG/5 ML INJECTION VIAL IVPB SCH ×2 (09:49→22:06)
[2020-04-01] MEDS: ENOXAPARIN NA (PORCINE) 40 MG/0.4 ML DISP.SYRIN SQ SCH (09:49)
[2020-04-01] MEDS: CHOLECALCIFEROL (VIT D SOLUTION) 400 UNIT/1 ML DROPS GT SCH (09:49)
[2020-04-01] MEDS: ASCORBIC ACID 500 MG TABLET (FP) PO SCH ×2 (09:50→22:07)
[2020-04-01] MEDS: DEXAMETHASONE SOD PHOSPHATE 4 MG/1 ML VIAL IVPUSH SCH (10:45)
[2020-04-01] MEDS: FENTANYL NS IVPB 500 MCG/100 ML BAG IVPB SCH ×2 (11:16→23:00)
[2020-04-01] MEDS: diazePAM 2 MG TABLET GT SCH (11:19)
[2020-04-01] MEDS: DEXAMETHASONE 4 MG TABLET (FP) GT SCH (11:19)
[2020-04-01] MEDS: REMDESIVIR 100 MG in SODIUM CHLORIDE 230 ML IVPB SCH (12:35)
[2020-04-01] MEDS ORDERED: MIDAZOLAM 100 MG/100 ML MG IVPB SCH (14:45)
[2020-04-01] MEDS: MAGNESIUM HYDROX 2400MG/30ML ORAL SUSPENSION 30 ML CUP GT SCH (22:07)
[2020-04-01] MEDS: FAMOTIDINE 40 MG/5 ML ORAL SUSPENSION PEG SCH (22:07)
[2020-04-02] MEDS: BACLOFEN 10 MG TABLET (FP) GT SCH ×3 (05:46→21:41)
[2020-04-02 08:26] LABS: HEMOGLOBIN 10.1 GM/dL (10.7-15.3); MCH 28.1 pg (25.7-33.7); MCHC 32.7 g/dl (32.0-36.0); MEAN CELL VOLUME 85.7 fl (80-96); MEAN PLT VOLUME 6.9 fl (7.5-11.1); PLATELET COUNT 622 K/MM3 (134-434); RBC 3.62 M/mm3 (3.60-5.2); RDW 17.2 % (11.6-15.6); WHITE BLOOD COUNT 11.3 K/mm3 (4.0-10.0)
[2020-04-02 08:43] LABS: POTASSIUM 4.1 mmol/L (3.5-5.1)
[2020-04-02 08:46] LABS: CALCIUM 8.1 mg/dL (8.5-10.1)
[2020-04-02 08:47] LABS: BLOOD UREA NITROGEN 25.4 mg/dL (7-18); MAGNESIUM 2.2 mg/dL (1.8-2.4)
[2020-04-02 08:50] LABS: CREATININE 0.5 mg/dL (0.55-1.3); PHOSPHOROUS 3.3 mg/dL (2.5-4.9)
[2020-04-02] MEDS ORDERED: MIDAZOLAM 100 MG/100 ML MG IVPB ONE (09:18)
[2020-04-02] MEDS ORDERED: DEXTROSE 5%-WATER - 50 ML IVPB ONE (10:06)
[2020-04-02] MEDS: levETIRAcetam 500 MG/5 ML INJECTION VIAL IVPB SCH ×2 (10:22→21:40)
[2020-04-02] MEDS: VECURONIUM BROMIDE 100 MG/100 ML BAG IVPB SCH (10:22)
[2020-04-02] MEDS: DEXAMETHASONE SOD PHOSPHATE 4 MG/1 ML VIAL IVPUSH SCH (10:22)
[2020-04-02] MEDS: ASCORBIC ACID 500 MG TABLET (FP) PO SCH ×2 (10:23→21:42)
[2020-04-02] MEDS: ENOXAPARIN NA (PORCINE) 40 MG/0.4 ML DISP.SYRIN SQ SCH (10:23)
[2020-04-02] MEDS: ZINC SULFATE 220 MG CAPSULE (FP) GT SCH ×2 (10:23→21:41)
[2020-04-02] MEDS: CEFTRIAXONE 1 GM in DEXTROSE 5%-WATER - 50 ML IVPB SCH (11:35)
[2020-04-02] MEDS: CHOLECALCIFEROL (VIT D SOLUTION) 400 UNIT/1 ML DROPS GT SCH (11:35)
[2020-04-02] MEDS: REMDESIVIR 100 MG in SODIUM CHLORIDE 230 ML IVPB SCH ×2 (12:30→12:39)
[2020-04-02] MEDS: NOREPINEPHRINE NS PREMIX 8,000 MCG/500 ML BAG IVPB SCH (12:39)
[2020-04-02] MEDS: FENTANYL NS IVPB 500 MCG/100 ML BAG IVPB SCH (13:33)
[2020-04-02] MEDS: MIDAZOLAM 100 MG/100 ML MG IVPB SCH (17:40)
[2020-04-02] MEDS ORDERED: fentaNYL CITRATE 250 MCG/5 ML VIAL ONE (18:39)
[2020-04-02] MEDS: MAGNESIUM HYDROX 2400MG/30ML ORAL SUSPENSION 30 ML CUP GT SCH (21:41)
[2020-04-02] MEDS: FAMOTIDINE 40 MG/5 ML ORAL SUSPENSION PEG SCH (21:46)
[2020-04-03] MEDS: FENTANYL NS IVPB 500 MCG/100 ML BAG IVPB SCH ×3 (01:13→10:15)
[2020-04-03] MEDS: MIDAZOLAM 100 MG/100 ML MG IVPB SCH ×2 (05:30→14:30)
[2020-04-03] MEDS: NOREPINEPHRINE NS PREMIX 8,000 MCG/500 ML BAG IVPB SCH ×3 (05:30→19:20)
[2020-04-03] MEDS: BACLOFEN 10 MG TABLET (FP) GT SCH ×3 (06:14→21:45)
[2020-04-03 07:01] LABS: HEMATOCRIT 30.6 % (32.4-45.2); MCH 28.1 pg (25.7-33.7); MCHC 32.6 g/dl (32.0-36.0); MEAN CELL VOLUME 86.2 fl (80-96); MEAN PLT VOLUME 7.5 fl (7.5-11.1); PLATELET COUNT 611 K/MM3 (134-434); RBC 3.55 M/mm3 (3.60-5.2); RDW 17.7 % (11.6-15.6); WHITE BLOOD COUNT 6.7 K/mm3 (4.0-10.0)
[2020-04-03 07:13] LABS: POTASSIUM 4.2 mmol/L (3.5-5.1)
[2020-04-03 07:15] LABS: CALCIUM 7.9 mg/dL (8.5-10.1)
[2020-04-03 07:16] LABS: MAGNESIUM 2.3 mg/dL (1.8-2.4)
[2020-04-03 07:19] LABS: CREATININE 0.4 mg/dL (0.55-1.3); PHOSPHOROUS 2.6 mg/dL (2.5-4.9)
[2020-04-03] MEDS ORDERED: DEXTROSE 5%-WATER - 50 ML IVPB ONE (10:30)
[2020-04-03] MEDS ORDERED: cefTRIAXone SODIUM 1 GM VIAL ONE (10:30)
[2020-04-03] MEDS: DEXAMETHASONE SOD PHOSPHATE 4 MG/1 ML VIAL IVPUSH SCH (10:34)
[2020-04-03] MEDS: levETIRAcetam 500 MG/5 ML INJECTION VIAL IVPB SCH ×2 (10:37→21:45)
[2020-04-03] MEDS: ENOXAPARIN NA (PORCINE) 40 MG/0.4 ML DISP.SYRIN SQ SCH (10:38)
[2020-04-03] MEDS: CEFTRIAXONE 1 GM in DEXTROSE 5%-WATER - 50 ML IVPB SCH (10:39)
[2020-04-03] MEDS: ZINC SULFATE 220 MG CAPSULE (FP) GT SCH ×2 (10:39→21:46)
[2020-04-03] MEDS: CHOLECALCIFEROL (VIT D SOLUTION) 400 UNIT/1 ML DROPS GT SCH (10:39)
[2020-04-03] MEDS: ASCORBIC ACID 500 MG TABLET (FP) PO SCH ×2 (10:39→21:46)
[2020-04-03] MEDS: REMDESIVIR 100 MG in SODIUM CHLORIDE 230 ML IVPB SCH (12:03)
[2020-04-03] MEDS ORDERED: FENTANYL IVPB 500 MCG/100 ML BAG IVPB ONE (17:12)
[2020-04-03] MEDS: VECURONIUM BROMIDE 100 MG/100 ML BAG IVPB SCH (18:32)
[2020-04-03] MEDS: MAGNESIUM HYDROX 2400MG/30ML ORAL SUSPENSION 30 ML CUP GT SCH (21:45)
[2020-04-03] MEDS: FAMOTIDINE 40 MG/5 ML ORAL SUSPENSION PEG SCH (21:46)
[2020-04-04] MEDS: NOREPINEPHRINE NS PREMIX 8,000 MCG/500 ML BAG IVPB SCH (02:15)
[2020-04-04] MEDS: FENTANYL NS IVPB 500 MCG/100 ML BAG IVPB SCH ×2 (02:49→07:59)
[2020-04-04] MEDS: BACLOFEN 10 MG TABLET (FP) GT SCH ×3 (05:51→21:36)
[2020-04-04 07:03] LABS: BASO % 0.2 % (0-2.0); HEMATOCRIT 28.3 % (32.4-45.2); HEMOGLOBIN 9.4 GM/dL (10.7-15.3); LYMPH % 5.7 % (8-40); MCH 28.5 pg (25.7-33.7); MCHC 33.2 g/dl (32.0-36.0); MEAN CELL VOLUME 85.9 fl (80-96); MEAN PLT VOLUME 7.6 fl (7.5-11.1); MONO % 5.1 % (3.8-10.2); PLATELET COUNT 395 K/MM3 (134-434); RBC 3.29 M/mm3 (3.60-5.2); RDW 17.3 % (11.6-15.6); WHITE BLOOD COUNT 4.2 K/mm3 (4.0-10.0)
[2020-04-04 07:26] LABS: POTASSIUM 4.7 mmol/L (3.5-5.1)
[2020-04-04 07:30] LABS: ALBUMIN 1.6 g/dl (3.4-5.0); MAGNESIUM 2.4 mg/dL (1.8-2.4)
[2020-04-04 07:33] LABS: CREATININE 0.3 mg/dL (0.55-1.3); PHOSPHOROUS 2.7 mg/dL (2.5-4.9)
[2020-04-04 07:34] LABS: BILIRUBIN,TOTAL 0.2 mg/dL (0.2-1); TOT PROT 4.3 g/dl (6.4-8.2)
[2020-04-04] MEDS ORDERED: cefTRIAXone SODIUM 1 GM VIAL ONE (07:44)
[2020-04-04] MEDS ORDERED: DEXTROSE 5%-WATER - 50 ML IVPB ONE (07:44)
[2020-04-04] MEDS: SODIUM CHLORIDE 1,000 ML IV SCH ×2 (08:55→15:04)
[2020-04-04] MEDS: VECURONIUM BROMIDE 100 MG/100 ML BAG IVPB SCH (09:11)
[2020-04-04] MEDS: ENOXAPARIN NA (PORCINE) 40 MG/0.4 ML DISP.SYRIN SQ SCH (09:12)
[2020-04-04] MEDS: DEXAMETHASONE SOD PHOSPHATE 4 MG/1 ML VIAL IVPUSH SCH (09:12)
[2020-04-04] MEDS: CEFTRIAXONE 1 GM in DEXTROSE 5%-WATER - 50 ML IVPB SCH (09:12)
[2020-04-04] MEDS: ZINC SULFATE 220 MG CAPSULE (FP) GT SCH ×2 (09:12→21:35)
[2020-04-04] MEDS: levETIRAcetam 500 MG/5 ML INJECTION VIAL IVPB SCH ×2 (09:12→21:30)
[2020-04-04] MEDS: ASCORBIC ACID 500 MG TABLET (FP) PO SCH ×2 (09:12→21:35)
[2020-04-04] MEDS: CHOLECALCIFEROL (VIT D SOLUTION) 400 UNIT/1 ML DROPS GT SCH (09:12)
[2020-04-04] MEDS: REMDESIVIR 100 MG in SODIUM CHLORIDE 230 ML IVPB SCH (12:24)
[2020-04-04] MEDS: MIDAZOLAM 100 MG/100 ML MG IVPB SCH (17:32)
[2020-04-04] MEDS: MAGNESIUM HYDROX 2400MG/30ML ORAL SUSPENSION 30 ML CUP GT SCH (21:31)
[2020-04-04] MEDS: FAMOTIDINE 40 MG/5 ML ORAL SUSPENSION PEG SCH (21:35)
[2020-04-05] MEDS: NOREPINEPHRINE NS PREMIX 8,000 MCG/500 ML BAG IVPB SCH (02:08)
[2020-04-05] MEDS: SODIUM CHLORIDE 1,000 ML IV SCH ×3 (02:09→19:00)
[2020-04-05] MEDS: FENTANYL NS IVPB 500 MCG/100 ML BAG IVPB SCH ×3 (02:10→21:47)
[2020-04-05] MEDS: BACLOFEN 10 MG TABLET (FP) GT SCH ×3 (05:20→21:27)
[2020-04-05 06:33] LABS: BASO % 1.2 % (0-2.0); HEMATOCRIT 31.1 % (32.4-45.2); HEMOGLOBIN 10.3 GM/dL (10.7-15.3); LYMPH % 4.1 % (8-40); MCH 28.6 pg (25.7-33.7); MCHC 33.2 g/dl (32.0-36.0); MEAN CELL VOLUME 86.3 fl (80-96); MEAN PLT VOLUME 7.7 fl (7.5-11.1); MONO % 4.1 % (3.8-10.2); NEUT % 90.6 % (42.8-82.8); PLATELET COUNT 404 K/MM3 (134-434); RBC 3.61 M/mm3 (3.60-5.2); RDW 17.3 % (11.6-15.6); WHITE BLOOD COUNT 6.5 K/mm3 (4.0-10.0)
[2020-04-05 06:50] LABS: POTASSIUM 4.4 mmol/L (3.5-5.1)
[2020-04-05 06:53] LABS: ALBUMIN 1.5 g/dl (3.4-5.0); BLOOD UREA NITROGEN 38.6 mg/dL (7-18); CALCIUM 7.8 mg/dL (8.5-10.1); MAGNESIUM 2.2 mg/dL (1.8-2.4)
[2020-04-05 06:56] LABS: CREATININE 0.3 mg/dL (0.55-1.3); PHOSPHOROUS 2.9 mg/dL (2.5-4.9)
[2020-04-05 06:58] LABS: BILIRUBIN,TOTAL 0.1 mg/dL (0.2-1)
[2020-04-05] MEDS ORDERED: FUROSEMIDE 40 MG/4 ML INJECTABLE VIAL IVPUSH ONE (08:04)
[2020-04-05] MEDS: VECURONIUM BROMIDE 100 MG/100 ML BAG IVPB SCH ×2 (09:00→16:26)
[2020-04-05] MEDS ORDERED: cefTRIAXone SODIUM 1 GM VIAL ONE (10:10)
[2020-04-05] MEDS ORDERED: DEXTROSE 5%-WATER - 50 ML IVPB ONE (10:10)
[2020-04-05] MEDS: CEFTRIAXONE 1 GM in DEXTROSE 5%-WATER - 50 ML IVPB SCH (10:15)
[2020-04-05] MEDS: levETIRAcetam 500 MG/5 ML INJECTION VIAL IVPB SCH ×2 (10:18→21:22)
[2020-04-05] MEDS: DEXAMETHASONE SOD PHOSPHATE 4 MG/1 ML VIAL IVPUSH SCH (10:18)
[2020-04-05] MEDS: ZINC SULFATE 220 MG CAPSULE (FP) GT SCH ×2 (10:24→21:23)
[2020-04-05] MEDS: ENOXAPARIN NA (PORCINE) 40 MG/0.4 ML DISP.SYRIN SQ SCH (10:24)
[2020-04-05] MEDS: ASCORBIC ACID 500 MG TABLET (FP) PO SCH ×2 (10:24→21:22)
[2020-04-05] MEDS: CHOLECALCIFEROL (VIT D SOLUTION) 400 UNIT/1 ML DROPS GT SCH (10:25)
[2020-04-05] MEDS: DOPAMINE 400 MG/D5W - 400,000 MCG/250 ML INFUS.BAG IVPB SCH (10:42)
[2020-04-05] MEDS: REMDESIVIR 100 MG in SODIUM CHLORIDE 230 ML IVPB SCH (11:52)
[2020-04-05] MEDS: MIDAZOLAM 100 MG/100 ML MG IVPB SCH ×3 (11:52→21:48)
[2020-04-05] MEDS: MAGNESIUM HYDROX 2400MG/30ML ORAL SUSPENSION 30 ML CUP GT SCH (21:47)
[2020-04-05] MEDS: FAMOTIDINE 40 MG/5 ML ORAL SUSPENSION PEG SCH (22:48)
[2020-04-06] MEDS: SODIUM CHLORIDE 1,000 ML IV SCH (06:40)
[2020-04-06] MEDS: BACLOFEN 10 MG TABLET (FP) GT SCH ×3 (06:41→22:07)
[2020-04-06] MEDS: NOREPINEPHRINE NS PREMIX 8,000 MCG/500 ML BAG IVPB SCH (06:41)
[2020-04-06 07:54] LABS: BASO % 0.2 % (0-2.0); HEMATOCRIT 32.8 % (32.4-45.2); HEMOGLOBIN 10.7 GM/dL (10.7-15.3); LYMPH % 3.8 % (8-40); MCH 28.4 pg (25.7-33.7); MCHC 32.6 g/dl (32.0-36.0); MEAN CELL VOLUME 87.3 fl (80-96); MONO % 4.7 % (3.8-10.2); NEUT % 91.3 % (42.8-82.8); PLATELET COUNT 502 K/MM3 (134-434); RBC 3.76 M/mm3 (3.60-5.2); RDW 17.6 % (11.6-15.6)
[2020-04-06 07:56] LABS: ARTERIAL BLD GAS O2 SATURATION 92.2 mmHg (95-98); ARTERIAL BLOOD GAS BASE EXCESS 5.9 mmol/L (-2-2); ARTERIAL BLOOD GAS PO2 71.4 mmHg (80-100); ARTERIAL BLOOD GAS pH 7.304 (7.350-7.450)
[2020-04-06 07:58] LABS: ALLENS TEST POSITIVE; VENT MODE A/C; VENT RATE 26
[2020-04-06 08:20] LABS: POTASSIUM 4.7 mmol/L (3.5-5.1)
[2020-04-06] MEDS: FENTANYL NS IVPB 500 MCG/100 ML BAG IVPB SCH (08:26)
[2020-04-06 08:27] LABS: ALBUMIN 1.5 g/dl (3.4-5.0); BLOOD UREA NITROGEN 38.4 mg/dL (7-18); CALCIUM 7.5 mg/dL (8.5-10.1); MAGNESIUM 2.2 mg/dL (1.8-2.4)
[2020-04-06 08:32] LABS: BILIRUBIN,TOTAL 0.4 mg/dL (0.2-1); TOT PROT 4.2 g/dl (6.4-8.2)
[2020-04-06 08:37] LABS: CREATININE 0.3 mg/dL (0.55-1.3)
[2020-04-06] MEDS ORDERED: cefTRIAXone SODIUM 1 GM VIAL ONE (08:46)
[2020-04-06] MEDS ORDERED: DEXTROSE 5%-WATER - 50 ML IVPB ONE (08:46)
[2020-04-06] MEDS ORDERED: DEXAMETHASONE SOD PHOSPHATE 10 MG/1 ML VIAL ONE (08:47)
[2020-04-06] MEDS: ENOXAPARIN NA (PORCINE) 40 MG/0.4 ML DISP.SYRIN SQ SCH (09:08)
[2020-04-06] MEDS: levETIRAcetam 500 MG/5 ML INJECTION VIAL IVPB SCH ×2 (09:08→22:06)
[2020-04-06] MEDS: DEXAMETHASONE SOD PHOSPHATE 4 MG/1 ML VIAL IVPUSH SCH (09:08)
[2020-04-06] MEDS: CEFTRIAXONE 1 GM in DEXTROSE 5%-WATER - 50 ML IVPB SCH (09:08)
[2020-04-06] MEDS: ZINC SULFATE 220 MG CAPSULE (FP) GT SCH ×2 (09:08→22:07)
[2020-04-06] MEDS: ASCORBIC ACID 500 MG TABLET (FP) PO SCH ×2 (09:08→22:07)
[2020-04-06] MEDS: CHOLECALCIFEROL (VIT D SOLUTION) 400 UNIT/1 ML DROPS GT SCH (09:09)
[2020-04-06 09:16] LABS: ANISOCYTOSIS 2+; MACROCYTOSIS 1+; PLATELET ESTIMATE INCREASED
[2020-04-06] MEDS: VECURONIUM BROMIDE 100 MG/100 ML BAG IVPB SCH (10:14)
[2020-04-06] MEDS: REMDESIVIR 100 MG in SODIUM CHLORIDE 230 ML IVPB SCH (14:26)
[2020-04-06] MEDS: MIDAZOLAM 100 MG/100 ML MG IVPB SCH ×2 (18:48→22:09)
[2020-04-06] MEDS: DOPAMINE 400 MG/D5W - 400,000 MCG/250 ML INFUS.BAG IVPB SCH (18:48)
[2020-04-06] MEDS ORDERED: MIDAZOLAM IN 0.9 % SOD.CHLORID 1 MG/1 ML PLAST..BAG ONE (21:46)
[2020-04-06] MEDS: MAGNESIUM HYDROX 2400MG/30ML ORAL SUSPENSION 30 ML CUP GT SCH (22:06)
[2020-04-06] MEDS: FAMOTIDINE 40 MG/5 ML ORAL SUSPENSION PEG SCH (22:06)
[2020-04-07] MEDS: BACLOFEN 10 MG TABLET (FP) GT SCH ×3 (07:26→21:47)
[2020-04-07] MEDS ORDERED: DEXTROSE 5%-WATER - 50 ML IVPB ONE (08:07)
[2020-04-07] MEDS ORDERED: cefTRIAXone SODIUM 1 GM VIAL ONE (08:07)
[2020-04-07 08:42] LABS: HEMATOCRIT 32.6 % (32.4-45.2); HEMOGLOBIN 10.5 GM/dL (10.7-15.3); MCH 28.3 pg (25.7-33.7); MCHC 32.3 g/dl (32.0-36.0); MEAN CELL VOLUME 87.8 fl (80-96); MEAN PLT VOLUME 8.3 fl (7.5-11.1); PLATELET COUNT 426 K/MM3 (134-434); RBC 3.72 M/mm3 (3.60-5.2); RDW 17.3 % (11.6-15.6); WHITE BLOOD COUNT 6.2 K/mm3 (4.0-10.0)
[2020-04-07] MEDS: VECURONIUM BROMIDE 100 MG/100 ML BAG IVPB SCH (09:00)
[2020-04-07] MEDS: DOPAMINE 400 MG/D5W - 400,000 MCG/250 ML INFUS.BAG IVPB SCH (09:15)
[2020-04-07 09:21] LABS: CALCIUM 7.5 mg/dL (8.5-10.1); CREATININE 0.2 mg/dL (0.55-1.3); MAGNESIUM 2.2 mg/dL (1.8-2.4); PHOSPHOROUS 2.9 mg/dL (2.5-4.9); POTASSIUM 4.7 mmol/L (3.5-5.1)
[2020-04-07] MEDS ORDERED: MIDAZOLAM IN 0.9 % SOD.CHLORID 1 MG/1 ML PLAST..BAG ONE ×2 (10:44→22:24)
[2020-04-07 10:56] LABS: ARTERIAL BLD GAS O2 SATURATION 73.7 mmHg (95-98); ARTERIAL BLOOD GAS PO2 47.1 mmHg (80-100); ARTERIAL BLOOD GAS pH 7.243 (7.350-7.450)
[2020-04-07 10:59] LABS: VENT MODE A/C; VENT RATE 32
[2020-04-07] MEDS: levETIRAcetam 500 MG/5 ML INJECTION VIAL IVPB SCH ×2 (11:00→21:56)
[2020-04-07] MEDS: ENOXAPARIN NA (PORCINE) 40 MG/0.4 ML DISP.SYRIN SQ SCH (11:00)
[2020-04-07] MEDS: ZINC SULFATE 220 MG CAPSULE (FP) GT SCH ×2 (11:00→21:57)
[2020-04-07] MEDS: FUROSEMIDE 40 MG/4 ML INJECTABLE VIAL IVPUSH SCH ×2 (11:00→15:00)
[2020-04-07] MEDS: CHOLECALCIFEROL (VIT D SOLUTION) 400 UNIT/1 ML DROPS GT SCH (11:00)
[2020-04-07] MEDS: ASCORBIC ACID 500 MG TABLET (FP) PO SCH ×2 (11:00→21:57)
[2020-04-07] MEDS: MIDAZOLAM 100 MG/100 ML MG IVPB SCH ×2 (11:00→22:25)
[2020-04-07] MEDS: DEXAMETHASONE SOD PHOSPHATE 4 MG/1 ML VIAL IVPUSH SCH (11:00)
[2020-04-07] MEDS: CEFTRIAXONE 1 GM in DEXTROSE 5%-WATER - 50 ML IVPB SCH (11:00)
[2020-04-07] MEDS: SODIUM CHLORIDE 1,000 ML IV SCH (13:32)
[2020-04-07] MEDS: FENTANYL NS IVPB 500 MCG/100 ML BAG IVPB SCH (13:36)
[2020-04-07] MEDS ORDERED: MIDAZOLAM HCL 2 MG/2 ML SINGLE DOSE VIAL IVPUSH PRN (16:12)
[2020-04-07] MEDS ORDERED: NOREPINEPHRINE BITARTRATE 4,000 MCG in DEXTROSE 5%-WATER - 496 ML IV SCH (16:15)
[2020-04-07] MEDS: MAGNESIUM HYDROX 2400MG/30ML ORAL SUSPENSION 30 ML CUP GT SCH (21:56)
[2020-04-07] MEDS: FAMOTIDINE 40 MG/5 ML ORAL SUSPENSION PEG SCH (21:57)
[2020-04-08] MEDS: BACLOFEN 10 MG TABLET (FP) GT SCH ×3 (06:16→22:44)
[2020-04-08] MEDS: SODIUM CHLORIDE 1,000 ML IV SCH (06:16)
[2020-04-08 06:28] LABS: ARTERIAL BLD GAS O2 SATURATION 91.2 mmHg (95-98); ARTERIAL BLOOD GAS BASE EXCESS 14.7 mmol/L (-2-2); ARTERIAL BLOOD GAS PO2 65.7 mmHg (80-100); ARTERIAL BLOOD GAS pH 7.363 (7.350-7.450)
[2020-04-08 06:45] LABS: ALLENS TEST POSITIVE
[2020-04-08 06:46] LABS: VENT MODE A/C; VENT RATE 32
[2020-04-08] MEDS: FUROSEMIDE 40 MG/4 ML INJECTABLE VIAL IVPUSH SCH ×2 (06:48→14:19)
[2020-04-08 09:26] LABS: POTASSIUM 4.3 mmol/L (3.5-5.1)
[2020-04-08 09:31] LABS: CALCIUM 7.4 mg/dL (8.5-10.1)
[2020-04-08 09:32] LABS: BLOOD UREA NITROGEN 29.3 mg/dL (7-18); MAGNESIUM 2.1 mg/dL (1.8-2.4)
[2020-04-08 09:35] LABS: CREATININE 0.2 mg/dL (0.55-1.3)
[2020-04-08 10:03] LABS: HEMATOCRIT 30.3 % (32.4-45.2); MCH 28.7 pg (25.7-33.7); MEAN CELL VOLUME 86.9 fl (80-96); MEAN PLT VOLUME 8.2 fl (7.5-11.1); PLATELET COUNT 366 K/MM3 (134-434); RBC 3.49 M/mm3 (3.60-5.2); RDW 16.9 % (11.6-15.6); WHITE BLOOD COUNT 7.3 K/mm3 (4.0-10.0)
[2020-04-08] MEDS ORDERED: cefTRIAXone SODIUM 1 GM VIAL ONE (10:34)
[2020-04-08] MEDS ORDERED: DEXTROSE 5%-WATER - 50 ML IVPB ONE (10:34)
[2020-04-08] MEDS: ENOXAPARIN NA (PORCINE) 40 MG/0.4 ML DISP.SYRIN SQ SCH (10:55)
[2020-04-08] MEDS: ZINC SULFATE 220 MG CAPSULE (FP) GT SCH ×2 (10:55→22:45)
[2020-04-08] MEDS: ASCORBIC ACID 500 MG TABLET (FP) PO SCH ×2 (10:55→22:46)
[2020-04-08] MEDS: CEFTRIAXONE 1 GM in DEXTROSE 5%-WATER - 50 ML IVPB SCH (10:55)
[2020-04-08] MEDS: DEXAMETHASONE SOD PHOSPHATE 4 MG/1 ML VIAL IVPUSH SCH (10:55)
[2020-04-08] MEDS: levETIRAcetam 500 MG/5 ML INJECTION VIAL IVPB SCH ×2 (10:55→22:43)
[2020-04-08] MEDS: CHOLECALCIFEROL (VIT D SOLUTION) 400 UNIT/1 ML DROPS GT SCH (10:55)
[2020-04-08] MEDS ORDERED: MIDAZOLAM IN 0.9 % SOD.CHLORID 1 MG/1 ML PLAST..BAG ONE ×2 (11:09→22:31)
[2020-04-08] MEDS: MIDAZOLAM 100 MG/100 ML MG IVPB SCH (11:10)
[2020-04-08] MEDS: FENTANYL NS IVPB 500 MCG/100 ML BAG IVPB SCH ×2 (11:10→22:41)
[2020-04-08] MEDS: VECURONIUM BROMIDE 100 MG/100 ML BAG IVPB SCH (22:42)
[2020-04-08] MEDS: DOPAMINE 400 MG/D5W - 400,000 MCG/250 ML INFUS.BAG IVPB SCH (22:42)
[2020-04-08] MEDS: MAGNESIUM HYDROX 2400MG/30ML ORAL SUSPENSION 30 ML CUP GT SCH (22:45)
[2020-04-08] MEDS: FAMOTIDINE 40 MG/5 ML ORAL SUSPENSION PEG SCH (22:46)
[2020-04-09] MEDS: SODIUM CHLORIDE 1,000 ML IV SCH (05:56)
[2020-04-09] MEDS: BACLOFEN 10 MG TABLET (FP) GT SCH ×3 (05:56→23:47)
[2020-04-09] MEDS: FUROSEMIDE 40 MG/4 ML INJECTABLE VIAL IVPUSH SCH ×2 (05:56→15:02)
[2020-04-09] MEDS: DOPAMINE 400 MG/D5W - 400,000 MCG/250 ML INFUS.BAG IVPB SCH (09:54)
[2020-04-09] MEDS: VECURONIUM BROMIDE 100 MG/100 ML BAG IVPB SCH (09:54)
[2020-04-09] MEDS ORDERED: cefTRIAXone SODIUM 1 GM VIAL ONE (09:58)
[2020-04-09] MEDS ORDERED: DEXTROSE 5%-WATER - 50 ML IVPB ONE (09:58)
[2020-04-09] MEDS: FENTANYL NS IVPB 500 MCG/100 ML BAG IVPB SCH ×3 (10:11→21:58)
[2020-04-09] MEDS: CEFTRIAXONE 1 GM in DEXTROSE 5%-WATER - 50 ML IVPB SCH (10:11)
[2020-04-09] MEDS ORDERED: MIDAZOLAM IN 0.9 % SOD.CHLORID 1 MG/1 ML PLAST..BAG ONE (10:33)
[2020-04-09] MEDS: ZINC SULFATE 220 MG CAPSULE (FP) GT SCH ×2 (10:52→23:47)
[2020-04-09] MEDS: levETIRAcetam 500 MG/5 ML INJECTION VIAL IVPB SCH ×2 (10:52→21:56)
[2020-04-09] MEDS: ASCORBIC ACID 500 MG TABLET (FP) PO SCH ×2 (10:52→23:50)
[2020-04-09] MEDS: DEXAMETHASONE SOD PHOSPHATE 4 MG/1 ML VIAL IVPUSH SCH (10:52)
[2020-04-09] MEDS: CHOLECALCIFEROL (VIT D SOLUTION) 400 UNIT/1 ML DROPS GT SCH (10:52)
[2020-04-09] MEDS: MIDAZOLAM 100 MG/100 ML MG IVPB SCH (15:00)
[2020-04-09] MEDS ORDERED: MIDAZOLAM IN 0.9 % SOD.CHLORID 100 MG/100 ML PLAST..BAG IVPB SCH (23:09)
[2020-04-09] MEDS: MAGNESIUM HYDROX 2400MG/30ML ORAL SUSPENSION 30 ML CUP GT SCH (23:46)
[2020-04-09] MEDS: FAMOTIDINE 40 MG/5 ML ORAL SUSPENSION PEG SCH (23:47)
[2020-04-10] MEDS: FUROSEMIDE 40 MG/4 ML INJECTABLE VIAL IVPUSH SCH ×2 (05:30→16:17)
[2020-04-10] MEDS: SODIUM CHLORIDE 1,000 ML IV SCH (05:30)
[2020-04-10] MEDS: BACLOFEN 10 MG TABLET (FP) GT SCH ×3 (05:31→21:35)
[2020-04-10] MEDS: FENTANYL NS IVPB 500 MCG/100 ML BAG IVPB SCH (08:10)
[2020-04-10] MEDS: DOPAMINE 400 MG/D5W - 400,000 MCG/250 ML INFUS.BAG IVPB SCH (09:00)
[2020-04-10] MEDS: VECURONIUM BROMIDE 100 MG/100 ML BAG IVPB SCH (09:00)
[2020-04-10] MEDS ORDERED: cefTRIAXone SODIUM 1 GM VIAL ONE (10:07)
[2020-04-10] MEDS ORDERED: DEXTROSE 5%-WATER - 50 ML IVPB ONE (10:07)
[2020-04-10] MEDS: levETIRAcetam 500 MG/5 ML INJECTION VIAL IVPB SCH ×2 (10:36→21:35)
[2020-04-10] MEDS: DEXAMETHASONE SOD PHOSPHATE 4 MG/1 ML VIAL IVPUSH SCH (10:36)
[2020-04-10] MEDS: ASCORBIC ACID 500 MG TABLET (FP) PO SCH ×2 (10:36→21:35)
[2020-04-10] MEDS: ZINC SULFATE 220 MG CAPSULE (FP) GT SCH ×2 (10:36→21:35)
[2020-04-10] MEDS: CEFTRIAXONE 1 GM in DEXTROSE 5%-WATER - 50 ML IVPB SCH (10:37)
[2020-04-10] MEDS: CHOLECALCIFEROL (VIT D SOLUTION) 400 UNIT/1 ML DROPS GT SCH (12:36)
[2020-04-10] MEDS: MAGNESIUM HYDROX 2400MG/30ML ORAL SUSPENSION 30 ML CUP GT SCH (21:35)
[2020-04-10] MEDS: FAMOTIDINE 40 MG/5 ML ORAL SUSPENSION PEG SCH (21:35)
[2020-04-11] MEDS: BACLOFEN 10 MG TABLET (FP) GT SCH (05:48)
[2020-04-11] MEDS: FUROSEMIDE 40 MG/4 ML INJECTABLE VIAL IVPUSH SCH (05:48)
[2020-04-11] MEDS ORDERED: cefTRIAXone SODIUM 1 GM VIAL ONE (09:37)
[2020-04-11] MEDS ORDERED: DEXTROSE 5%-WATER - 50 ML IVPB ONE (09:37)
[2020-04-11] MEDS: CEFTRIAXONE 1 GM in DEXTROSE 5%-WATER - 50 ML IVPB SCH (09:58)
[2020-04-11] MEDS: DEXAMETHASONE SOD PHOSPHATE 4 MG/1 ML VIAL IVPUSH SCH (09:58)
[2020-04-11] MEDS: ZINC SULFATE 220 MG CAPSULE (FP) GT SCH (09:59)
[2020-04-11] MEDS: ASCORBIC ACID 500 MG TABLET (FP) PO SCH (09:59)
[2020-04-11] MEDS: levETIRAcetam 500 MG/5 ML INJECTION VIAL IVPB SCH (09:59)
[2020-04-11] MEDS: DOPAMINE 400 MG/D5W - 400,000 MCG/250 ML INFUS.BAG IVPB SCH (10:00)
[2020-04-11] MEDS: CHOLECALCIFEROL (VIT D SOLUTION) 400 UNIT/1 ML DROPS GT SCH (10:00)
[2020-04-11] MEDS: FENTANYL NS IVPB 500 MCG/100 ML BAG IVPB SCH (11:55)
[2020-04-11] MEDS: SODIUM CHLORIDE 1,000 ML IV SCH (11:55)
[2020-04-11 13:06] VITALS: TEMP 98.4
[2020-04-11 15:41] VITALS: BP 105/60; PULSE 48
== END 2020-04-11 16:26 | disposition expired | DRG 130 ==
LOC: JER 09:26 → JERBED 14:39 → J6S 03-26 08:22 → J6WEST-2 03-31 22:24 → JICU-6 04-01 08:14
PROVIDERS: ADMIT Internal Medicine Pulmonary Disease; ATTEND Internal Medicine Pulmonary Disease
PROC: 3E0G76Z Introduction of Nutritional Substance into Upper GI, Via Natural or Artificial Opening (ICD-10-PCS; 2020-03-25)
PROC: XW033E5 Introduction of Remdesivir Anti-infective into Peripheral Vein, Percutaneous Approach, New Technology Group 5 (ICD-10-PCS; 2020-03-27)
PROC: XW13325 Transfusion of Convalescent Plasma (Nonautologous) into Peripheral Vein, Percutaneous Approach, New Technology Group 5 (ICD-10-PCS; 2020-03-28)
PROC: 5A1955Z Respiratory Ventilation, Greater than 96 Consecutive Hours (ICD-10-PCS; principal; 2020-03-31)
PROC: 0BH17EZ Insertion of Endotracheal Airway into Trachea, Via Natural or Artificial Opening (ICD-10-PCS; 2020-03-31)
PROC: 02HV33Z Insertion of Infusion Device into Superior Vena Cava, Percutaneous Approach (ICD-10-PCS; 2020-04-01)
PROC: B548ZZA Ultrasonography of Superior Vena Cava, Guidance (ICD-10-PCS; 2020-04-01)
DX: U07.1 COVID-19 (principal); R65.21 Severe sepsis with septic shock; A41.9 Sepsis, unspecified organism; J12.82 Pneumonia due to coronavirus disease 2019; R53.2 Functional quadriplegia; G93.1 Anoxic brain damage, not elsewhere classified; J80 Acute respiratory distress syndrome; I27.20 Pulmonary hypertension, unspecified; Z93.1 Gastrostomy status; E66.01 Morbid (severe) obesity due to excess calories; G47.33 Obstructive sleep apnea (adult) (pediatric); R74.01 Elevation of levels of liver transaminase levels; G40.909 Epilepsy, unspecified, not intractable, without status epilepticus; J44.9 Chronic obstructive pulmonary disease, unspecified; G80.8 Other cerebral palsy; E87.6 Hypokalemia; Z68.26 Body mass index [BMI] 26.0-26.9, adult; Z98.2 Presence of cerebrospinal fluid drainage device
CPT/HCPCS: 36415; 36430; 36600; 71045-TC-FY; 76705-TC; 80048; 80053; 80076; 81003; 82248; 82550; 82728; 82803; 83605; 83615; 83735; 84100; 84484; 84702; 85025; 85027; 85379; 86140; 86850; 86900; 86901; 87040; 87070; 87086; 87186; 87205; 93005; 93010; 94002; 94660; 99285-25; C9399; C9803; J0131; J0475; J1100; P9017; U0003